=== PATIENT | male | born 1955 | race Caucasian/White ===

== ENCOUNTER 2018-01-03 19:25 | Emergency (ER) | payer OTHER, SELFPAY ==
[2018-01-03 19:26] VITALS: BP 146/88; PULSE 59; RESP 17; TEMP 36.6; O2SAT 94; BMI 31.6
--- NOTE | 2018-01-03 19:47 | CT_ITS ---
STUDY: CT ABDOMEN AND PELVIS WITHOUT CONTRAST REASON FOR EXAM: Male, 62 years old. LT ABD PAIN, KNOT IN STOMACH BILATERAL INGUINAL HERNIA REPAIR RADIATION DOSAGE (If Supplied By Facility): CTDIvol = ( 16.92 ) mGy, DLP = ( 862.37 ) mGycm TECHNIQUE: Transaxial images were obtained from the dome of the diaphragm to the symphysis pubis without oral contrast, and without intravenous contrast. Sagittal and coronal images were reconstructed. Individualized dose optimization techniques were used for this CT. COMPARISON: February 23, 2012. FINDINGS: The visualized lung bases are unremarkable. The visualized portions of the heart are within normal limits. Normal liver. Normal gallbladder and extrahepatic biliary system. Normal spleen. Normal pancreas. Normal bilateral adrenal glands. Normal right kidney. Simple left renal cyst measuring 37 and 27 mm. Non obstructive 1 mm mid renal parenchymal stones. 4.3 mm mid lateral nonobstructive left renal stone. Normal visualized stomach. Normal small intestine. There are multiple colonic diverticula consistent with diverticulosis. There is non-visualization of the appendix. Stool throughout the colon. There is diffuse atherosclerotic calcification of the abdominal aorta, without a demonstrated aneurysm. Normal inferior vena cava. Normal retroperitoneum. 35 mm area of fat necrosis in the right upper quadrant mesenteric fat. Retroaortic left renal vein. Normal urinary bladder. Normal visualized prostate gland. There is an umbilical hernia containing fat. There is no bowel involvement. There is no incarceration. There is no findings suggesting that this is causing a bowel obstruction. There is a left-sided inguinal hernia containing adipose tissue. There are diffuse degenerative changes of the visualized lumbar spine. Loss of intervertebral disc height at L5-S1. Vacuum disc phenomenon at L5-S1. CT/Abdomen/Pelvis without Cont IMPRESSION: 1 mm nonobstructive left renal stone. 4.3 mm mid lateral nonobstructive left renal stone. There are multiple diverticuli of the colon. There is diverticulosis but no radiographic signs for diverticulitis. Constipation. Simple left renal cyst. 35 mm area of fat necrosis in the right upper quadrant mesenteric fat. There is an umbilical hernia containing fat. There is no bowel involvement. There is no incarceration. There is no findings suggesting that this is causing a bowel obstruction. There is a left inguinal hernia containing fat. There is no bowel involvement. There is no incarceration. There is no findings suggesting that this is causing a bowel obstruction. Electronically Signed: Ishaan Moon MD at 20:27 EDT , Service support ,
--- NOTE | 2018-01-03 20:01 | RAD_ITS ---
STUDY: X-RAY CHEST REASON FOR EXAM: Male, 62 years old. Cough TECHNIQUE: Frontal and lateral views of the chest. COMPARISON: None. FINDINGS: The lungs are clear and expanded. There is no demonstrated pleural abnormality. Normal size heart. Normal mediastinum and juancarlos. Normal visualized pulmonary arteries. Normal visualized aortic arch and descending thoracic aorta. Normal visualized thoracic spine. Normal visualized ribs, clavicles, and shoulders. There is no demonstrated abnormality of the visualized soft tissue structures of the upper abdomen. RAD/Chest PA and Lateral IMPRESSION: Normal x-ray examination of the chest. Electronically Signed: Ishaan Moon MD at 20:22 EDT , Service support ,
--- NOTE | 2018-01-03 21:25 | ED.VISSUMM ---
- ER Visit Summary Date of Service: 01/03/18 Chief Complaint: Abdominal pain History of Present Illness: The patient is a 62 M who presents with left upper quadrant abdominal pain that began today after coughing. Patient states she was coughing and he felt something pull in his lower chest and upper abdomen. Patient states he has some swelling over this area. Patient denies any nausea or vomiting. Patient denies any fevers or chills. Patient denies any sputum production. Patient denies any back pain. Patient denies any other symptoms. Physical Examination: Vital signs are stable. Patient is afebrile. Patient is in no acute distress. Oral mucosa is pink and moist. Neck is supple. Heart was regular rate and rhythm. Lungs are clear and equal bilaterally. There is good respiratory effort noted. Abdomen is soft. Bowel sounds are normal. There is some mild edema over the left upper quadrant. There is no tenderness noted. There is no rebound or guarding noted. There is no ecchymosis noted. Cranial nerves II through XII are intact. There are no focal motor or sensory deficits noted. Test Results: Chest x-ray was obtained and did not show any acute cardiopulmonary process. CT scan of the abdomen and pelvis was obtained. There is no hernia noted. There is no evidence of a bowel obstruction. There is no acute intra-abdominal process noted. Emergency Department Course and Treatment: She was given a dose of [place] here. Patient was given a prescription for [place]. She was instructed to follow-up with his primary care physician in 7-10 days. Patient understood and was agreeable with the plan. All questions were answered. Disposition: Discharge home Impression: Abdominal wall strain This note was generated with [employer] dictation software. It may contain incorrect words, spelling, and punctuation that were not noted in review of the chart prior to signing ED Disposition - Plan for ED Patient: Disposition: Home or Assisted Living Chief Complaint: Cough Diagnosis: Abdominal wall strain Instructions: ED Strain Abdominal Muscle Prescriptions: Hydrocodone Bitart/Apap 5-325 [[place] 5/325] 1 tab PO Q6H PRN PRN 5 Days #20 tab PRN Reason: Pain Referrals: Blake Sandoval MD [Primary Care Provider] -
[2018-01-03] MEDS: HYDROcodone Bitartrate/Apap 5/325 Tablet PO (22:13)
[2018-01-03 22:17] VITALS: BP 132/78; PULSE 61; RESP 16; O2SAT 97
== END 2018-01-03 22:18 | disposition home or self-care (01) ==
PROVIDERS: Emergency Provider Emergency Medicine; Family Provider Family Medicine; PCP Family Medicine
DX: S39.011A Strain of muscle, fascia and tendon of abdomen, initial encounter (principal); I10 Essential (primary) hypertension; E78.00 Pure hypercholesterolemia, unspecified; G47.30 Sleep apnea, unspecified; Z79.899 Other long term (current) drug therapy; X58.XXXA Exposure to other specified factors, initial encounter; Y93.89 Activity, other specified; Y92.009 Unspecified place in unspecified non-institutional (private) residence as the place of occurrence of the external cause; Y99.8 Other external cause status
CPT/HCPCS: 71046; 74176; 99283

== ENCOUNTER → 2018-01-08 09:18 | Outpatient (CLI) | payer OTHER, SELFPAY ==
[2018-01-08 10:29] LABS: Vitamin D,25 Hydroxy 16.4 ng/mL (29.95-100.01)
[2018-01-08 10:33] LABS: AST(SGOT) 20 U/L (15-37); Alanine Aminotransfer ALT/SGPT 36 U/L (16-61); Albumin, Serum 3.7 g/dL (3.2-5.0); Alkaline Phosphatase 109 U/L (45-117); Bilirubin, Direct 0.17 mg/dL (0.00-0.30); CPK Total, Creatine Kinase 82 U/L (39-308); Cholesterol 174 mg/dL (200); Globulin 3.4 g/dL (2.2-4.2); High Density Lipoprotein 38 mg/dL; Protein, Total 7.1 g/dL (6.4-8.2); Triglycerides 335 mg/dL; Very Low Density Lipoprotein 67 mg/dL (5-40)
== END ==
PROVIDERS: Family Provider Family Medicine; PCP Family Medicine; Visit Provider Family Medicine
DX: E78.2 Mixed hyperlipidemia (principal)
CPT/HCPCS: 36415; 80061; 80076; 82306; 82550

== ENCOUNTER 2018-02-12 09:22 | Emergency (ER) | payer OTHER, SELFPAY ==
--- NOTE | 2018-02-12 10:40 | DT_ITS ---
This patient was seen during an EMR downtime February 10, 2018 - February 17, 2018. This patient may have a combination of paper and electronic documentation or all paper documentation. All documentation is viewable within the e-chart portion of [employer] for each patient visit.
--- NOTE | 2018-02-12 11:00 | RAD_ITS ---
STUDY: X-RAY - RIGHT HAND REASON FOR EXAM: Lateral right hand pain, chainsaw injury of the first finger. TECHNIQUE: 3 view(s) of the hand. COMPARISON: Radiographs of the second finger 01/13/2015. FINDINGS: Normal radiocarpal articulation. Normal distal radioulnar joint. Normal visualized carpal bones. Normal carpal articulations Normal carpometacarpal articulation of the thumb. Normal second through fifth carpometacarpal joints. Normal metacarpi. Normal metacarpophalangeal joint of the thumb. Normal interphalangeal joint of the thumb. Normal proximal and distal phalanges of the thumb. Normal metacarpophalangeal joints of the second through fifth fingers. Normal proximal and distal interphalangeal joints of the second through fifth fingers. Normal phalanges of the second through fifth fingers. There is no residual fracture deformity of the second proximal phalanx. The soft tissue structures are unremarkable. RAD/Hand Min 3 Views IMPRESSION: Unremarkable x-ray examination of the right hand without demonstrated recent fracture. Electronically Signed: Sánchez Garzon MD at 13:56 EDT Tel , Service support ,
--- NOTE | 2018-03-14 08:02 | ED.VISSUMM ---
- ER Visit Summary Date of Service: 03/14/18 Chief Complaint: Injury to right hand day prior to presentation. History of Present Illness: The patient is a 63 M who presents with blunt injury to his right hand that occurred day prior to presentation. He describes as a dull aching discomfort. Pain is worse with movement. He sustained blunt injury to the dorsal aspect of his right hand. He denies any paresthesia, anesthesia or motor weakness. He is on no anticoagulant. He is right handed. Past medical history of hypertension. Physical Examination: Blood pressure is slightly low at 91/52. Heart rate is 52. HEENT exam is unremarkable. Heart is regular. There is no respiratory distress. There is evidence of blunt injury to the dorsal aspect of the right hand and right thumb. There is pain to palpation over the thenar eminence. Median, radial and ulnar function intact. Capillary refill is normal. Sensation in the fingers and thumb is normal. Test Results: Three-view x-ray of the hand was interpreted by radiologist as normal. Film was not reviewed by me since unavailable during computer downtime. Emergency Department Course and Treatment: Symptomatic treatment and x-ray to evaluate for fracture Treatment Plan: Ice, elevation, rest and anti-inflammatories since there is no contraindication. Disposition: Discharged to home Impression: Contusion right hand initial encounter This note was generated with [employer] dictation software. It may contain incorrect words, spelling, and punctuation that were not noted in review of the chart prior to signing ED Disposition - Plan for ED Patient: Disposition: Home or Assisted Living Referrals: Blake Sandoval MD [Primary Care Provider] -
== END 2018-02-12 12:10 | disposition home or self-care (01) ==
LOC: ED 02-14 12:28
PROVIDERS: Emergency Provider Emergency Medicine; Family Provider Family Medicine; PCP Family Medicine
DX: S60.221A Contusion of right hand, initial encounter (principal); X58.XXXA Exposure to other specified factors, initial encounter; Y93.9 Activity, unspecified; Y92.9 Unspecified place or not applicable; Y99.9 Unspecified external cause status
CPT/HCPCS: 73130; 99282

== ENCOUNTER → 2018-05-30 11:06 | Outpatient (CLI) | payer OTHER, SELFPAY ==
--- NOTE | 2018-05-30 11:15 | RAD_ITS ---
STUDY: X-RAY CHEST REASON FOR EXAM: Male, 63 years old. Fatigue, weight loss TECHNIQUE: PA and lateral views of the chest. COMPARISON: January 03, 2018 chest x-ray FINDINGS: There is trace lower lobe atelectasis. There is no demonstrated pleural abnormality. Normal size heart. Normal mediastinum and juancarlos. Normal visualized pulmonary arteries. Normal visualized aortic arch and descending thoracic aorta. There are diffuse degenerative changes of the visualized thoracic spine. Normal visualized ribs, clavicles, and shoulders. There is no demonstrated abnormality of the visualized soft tissue structures of the upper abdomen. RAD/Chest PA and Lateral IMPRESSION: Minimal left lower lobe atelectasis. Electronically Signed: Nely Bradshaw MD at 17:41 EDT Tel , Service support ,
[2018-05-30 12:38] LABS: Absolute Lymphocyte Count 2.36 X10^3/ul (0.83-4.51); Absolute Neutrophil Count 4.9 X10^3/uL (2.0-7.7); Basophil# 0.03 X10^3/uL; Basophil% 0.4 % (0-1); Eosinophil# 0.24 X10^3/uL; Eosinophils% 2.9 % (0-5); Erythrocyte Sedimentation Rate < 1 mm/hr (0-20); Hematocrit 42.2 % (40-54); Hemoglobin 14.3 g/dl (13.0-16.5); Lymphocyte # 2.36 X10^3/ul (4.0); Lymphocyte % 28.3 % (19-41); Mean Corp Hgb Conc 33.9 g/gl (32-36); Mean Corpuscular Hgb 31.7 pg (27.0-32.0); Mean Corpuscular Volume 93.6 fL (80-94); Monocyte# 0.84 X10^3/uL; Monocyte% 10.1 % (0-10); Neutrophil # 4.86 X10^3/uL (2.7-7.7); Neutrophil % 58.2 % (47-70); POSITIVE COUNT NO; POSITIVE DIFFERENTIAL NO; POSITIVE MORPHOLOGY NO; Platelet Count 229 K/mm3 (150-450); RBC Distribution Width CV 13.2 % (11.6-14.6); RBC Distribution Width SD 45.5 fl (35.1-43.9); Red Blood Count 4.51 M/mm3 (4.6-6.2); White Blood Count 8.3 K/mm3 (4.4-11.0)
[2018-05-30 13:05] LABS: ALB/GLOB Ratio 1.1 RATIO (0.9-2.4); AST(SGOT) 22 U/L (15-37); Alanine Aminotransfer ALT/SGPT 43 U/L (16-61); Albumin, Serum 3.6 g/dL (3.2-5.0); Alkaline Phosphatase 113 U/L (45-117); Anion Gap 8 (5-15); BUN 21 mg/dL (7-18); BUN/Creat Ratio 16.4 RATIO (10-20); CPK Total, Creatine Kinase 59 U/L (39-308); Calcium,Total 8.7 mg/dL (8.5-10.1); Chloride 102 mmol/L (98-107); Creatinine, Serum 1.28 mg/dL (0.70-1.30); EST Glomerular Filtration Rate 61 mL/min (>60); Est Glom Filt Rate - Afr Amer 73 mL/min (>60); Globulin 3.4 g/dL (2.2-4.2); Glucose 179 mg/dL (74-106); Potassium 4.2 mmol/L (3.5-5.1); Sodium Level 137 mmol/L (136-145); Thyroid Stim Hormone (TSH) 1.48 uIU/mL (0.358-3.74)
[2018-06-02 10:31] LABS: Hemoglobin A1c 7.6 % (4.2-6.3)
[2018-06-02 10:43] LABS: Internal QC Validated? YES +Cl - CLEAR BKGD; Monotest Negative (Negative)
== END ==
PROVIDERS: Family Provider Family Medicine; PCP Family Medicine; Visit Provider Family Medicine
DX: R63.4 Abnormal weight loss (principal); E78.2 Mixed hyperlipidemia; R73.9 Hyperglycemia, unspecified; R53.83 Other fatigue
CPT/HCPCS: 36415; 71046; 80053; 82550; 83036; 84443; 85025; 85652; 86308

== ENCOUNTER → 2018-11-27 10:51 | Outpatient (CLI) | payer OTHER, SELFPAY ==
--- NOTE | 2018-11-27 11:15 | RAD_ITS ---
STUDY: X-RAY LEFT FOOT, FIRST TOE REASON FOR EXAM: Infected abrasion of left great toe, 2 injuries in the past 2 weeks. TECHNIQUE: 3 view(s) of the toe were obtained. COMPARISON: None. FINDINGS: Normal visualized metatarsus. Normal sesamoids. Normal metatarsophalangeal (M.T.P) joint. Normal interphalangeal joint. Normal phalanges. The soft tissue structures are unremarkable. RAD/Toe(s) Min 2 Views IMPRESSION: Unremarkable x-ray of the left great toe. Electronically Signed: Sánchez Garzon MD at 11:56 EDT Tel , Service support ,
[2018-11-27 11:45] LABS: Erythrocyte Sedimentation Rate < 1 mm/hr (0-20)
[2018-11-27 11:46] LABS: Absolute Lymphocyte Count 2.03 X10^3/ul (0.83-4.51); Absolute Neutrophil Count 4.4 X10^3/uL (2.0-7.7); Basophil# 0.03 X10^3/uL; Basophil% 0.4 % (0-1); Eosinophils% 2.7 % (0-5); Hematocrit 44.9 % (40-54); Hemoglobin 14.8 g/dl (13.0-16.5); Lymphocyte # 2.03 X10^3/ul (4.0); Lymphocyte % 27.5 % (19-41); Mean Platelet Vol. 11.2 fl (6.2-12.0); Monocyte# 0.66 X10^3/uL; Monocyte% 8.9 % (0-10); Neutrophil # 4.44 X10^3/uL (2.7-7.7); Neutrophil % 60.2 % (47-70); Platelet Count 220 K/mm3 (150-450); RBC Distribution Width CV 13.4 % (11.6-14.6); RBC Distribution Width SD 46.3 fl (35.1-43.9); Red Blood Count 4.63 M/mm3 (4.6-6.2); White Blood Count 7.4 K/mm3 (4.4-11.0)
[2018-11-27 11:49] LABS: POSITIVE COUNT NO; POSITIVE DIFFERENTIAL NO; POSITIVE MORPHOLOGY NO
[2018-11-27 12:01] LABS: Hemoglobin A1c 6.7 % (4.2-6.3)
[2018-11-27 12:10] LABS: Anion Gap 5 (5-15); BUN 27 mg/dL (7-18); BUN/Creat Ratio 21.6 RATIO (10-20); Calcium,Total 8.8 mg/dL (8.5-10.1); Chloride 107 mmol/L (98-107); Cholesterol 166 mg/dL (200); Creatinine, Serum 1.25 mg/dL (0.70-1.30); EST Glomerular Filtration Rate 62 mL/min (>60); Est Glom Filt Rate - Afr Amer 75 mL/min (>60); Glucose 149 mg/dL (74-106); High Density Lipoprotein 47 mg/dL; PSA,Total- Diagnostic 0.87 ng/mL (0.0-4.0); Potassium 4.9 mmol/L (3.5-5.1); Sodium Level 140 mmol/L (136-145); Triglycerides 174 mg/dL; Very Low Density Lipoprotein 35 mg/dL (5-40)
== END ==
PROVIDERS: Family Provider Family Medicine; PCP Family Medicine; Referring Provider Physician Assistant; Visit Provider Physician Assistant
DX: R97.20 Elevated prostate specific antigen [PSA] (principal); E11.9 Type 2 diabetes mellitus without complications; E78.5 Hyperlipidemia, unspecified; S90.412A Abrasion, left great toe, initial encounter; L08.9 Local infection of the skin and subcutaneous tissue, unspecified
CPT/HCPCS: 36415; 73660; 80048; 80061; 83036; 84153; 85025; 85652

== ENCOUNTER → 2019-06-01 | Outpatient (CLI) | payer OTHER, SELFPAY ==
[2019-06-01 13:15] LABS: Absolute Lymphocyte Count 2.19 X10^3/uL (0.83-4.51); Absolute Neutrophil Count 4.2 X10^3/uL (2.0-7.7); Basophil# 0.04 X10^3/uL; Basophil% 0.5 % (0-1); Eosinophil# 0.22 X10^3/uL; Hematocrit 43.4 % (40-54); Hemoglobin 14.7 g/dL (13.0-16.5); Lymphocyte # 2.19 X10^3/ul (4.0); Lymphocyte % 30.1 % (19-41); Mean Corp Hgb Conc 33.9 g/dL (32-36); Mean Corpuscular Hgb 32.2 pg (27.0-32.0); Mean Platelet Vol. 10.6 fl (6.2-12.0); Monocyte# 0.65 X10^3/uL; Monocyte% 8.9 % (0-10); NRBC Flagged by Analyzer 0 % (0-5); Neutrophil # 4.16 X10^3/uL (2.7-7.7); Neutrophil % 57.2 % (47-70); Platelet Count 216 K/mm3 (150-450); RBC Distribution Width CV 12.7 % (11.6-14.6); RBC Distribution Width SD 44.3 fl (35.1-43.9); Red Blood Count 4.57 M/mm3 (4.6-6.2); White Blood Count 7.3 K/mm3 (4.4-11.0)
[2019-06-01 13:33] LABS: Microalbumin,Random Urine 5.3 mg/L (NO RANGE EST.); Microalbumin:Creatinine Ratio 8.7 mg/g CRE (<30 mg/g CRE)
[2019-06-01 14:04] LABS: AST(SGOT) 18 U/L (15-37); Alanine Aminotransfer ALT/SGPT 37 U/L (16-61); Albumin, Serum 3.6 g/dL (3.2-5.0); Alkaline Phosphatase 98 U/L (45-117); Anion Gap 7 (5-15); BUN 17 mg/dL (7-18); Calcium,Total 8.6 mg/dL (8.5-10.1); Chloride 106 mmol/L (98-107); Cholesterol 231 mg/dL (200); Creatinine, Serum 1.13 mg/dL (0.70-1.30); EST Glomerular Filtration Rate 70 mL/min (>60); Est Glom Filt Rate - Afr Amer 84 mL/min (>60); Globulin 3.5 g/dL (2.2-4.2); Glucose 133 mg/dL (74-106); High Density Lipoprotein 41 mg/dL; PSA,Total- Diagnostic 0.91 ng/mL (0.0-4.0); Potassium 4.2 mmol/L (3.5-5.1); Protein, Total 7.1 g/dL (6.4-8.2); Sodium Level 139 mmol/L (136-145); Triglycerides 476 mg/dL
[2019-06-01 14:26] LABS: Hemoglobin A1c 7.5 % (4.2-6.3)
== END | disposition home or self-care (01) ==
LOC: LAB 12:40
PROVIDERS: Family Provider Family Medicine; PCP Family Medicine; Referring Provider Family Medicine; Visit Provider Family Medicine
DX: E11.9 Type 2 diabetes mellitus without complications (principal); N40.0 Benign prostatic hyperplasia without lower urinary tract symptoms; I10 Essential (primary) hypertension
CPT/HCPCS: 36415; 80053; 80061; 82043; 82570; 83036; 84153; 85025

== ENCOUNTER 2019-10-13 06:07 | Day surgery (SDC) | payer OTHER, SELFPAY ==
--- NOTE | 2019-10-07 05:08 | HP_ITS ---
Intake Vital Signs 10/07/19 Height 5 ft 9 in 10/07/19 Weight: 210 lb 10/07/19 BMI 31.0 10/07/19 BP 150/81 H 10/07/19 Blood Pressure Location Rt brachial 10/07/19 Position Sitting 10/07/19 Respiration 18 10/07/19 Pulse 54 L 10/07/19 Pulse Source Monitor 10/07/19 Temp 97.9 F 10/07/19 Temp Source Oral 10/07/19 Pulse Oximetry (%) 96 10/07/19 Oxygen Delivery Method room air Intake Visit Reasons: HX OF COLON POLYPS Palliative Senior Np Required: No Is patient in pain?: No Allergies pseudoephedrine HCl [From Sudafed] Allergy (Verified 10/07/19 15:58) Other KATY Inhibitors Adverse Reaction (Verified 10/07/19 15:58) Other Medications Omeprazole [Prilosec] 20 mg PO DAILY 07/24/13 [History Confirmed 10/07/19] Pravastatin [Pravachol] 20 mg PO QHS 08/10/13 [History Confirmed 10/07/19] Losartan Potassium [Cozaar] 100 mg PO DAILY 12/05/15 [History Confirmed 10/07/19] Clonazepam [Klonopin] 1 mg PO QHS PRN PRN 05/01/16 [History Confirmed 10/07/19] Hydrochlorothiazide 50 mg PO DAILY 01/03/18 [History Confirmed 10/07/19] metformin 500 mg tablet 500 mg PO BID 10/07/19 [History Confirmed 10/07/19] metoprolol tartrate 25 mg tablet 25 mg PO BID tab 10/07/19 [History Confirmed 10/07/19] [facility] Medical History (Updated 10/07/19 @ 17:04 by Basil Galicia MD) Lipoma (Acute) Personal history of colonic polyps (Acute) HTN (hypertension) (Chronic) History of smoking (Chronic) Hyperlipidemia (Chronic) Surgical History (Updated 10/07/19 @ 15:54 by Liz Menezes) Hx of lithotripsy (Acute) Hx of bilateral inguinal hernia repair (Acute) Family History (Updated 10/07/19 @ 15:56 by Liz Menezes) Brother Diabetes High cholesterol Hypertension Sister High cholesterol Hypertension Diabetes Father High cholesterol Hypertension Social History (Updated 10/07/19 @ 17:08 by Basil Galicia MD) Smoking Status: Former smoker second hand exposure: No alcohol intake: never substance use type: does not use caffeine: Yes what type of physical activity do you participate in: none frequency: does not exercise seatbelt use: always HPI HPI HPI: NAYELY WEEKS is a 64 M who presents to the office today for HPI HPI Surgical H&P: Yes HPI: NAYELY WEEKS is a 64 M who presents to the office today for surgical consultation regarding colonoscopy and a newly found right anterior axillary subcutaneous mass. Primary care physician is Dr. Blake Sandoval and a written copy of my surgical consult recommendations will be returned to him On October 08, 2016 I performed a laparoscopic mobilization of the splenic flexure and mobilization of the Toby flexure with a transverse colectomy and partial omentectomy with a end and suture anastomosis for a non-colonoscopically resectable polyp. Final pathology demonstrated tubulovillous adenoma 2.5 cm in diameter. 2 additional smaller tubular adenomas. The margins were clear of disease. 4 lymph nodes were unremarkable. The omentum that was submitted was not remarkable. He presents now for surveillance colonoscopy. His most recent colonoscopy was prior to the surgery. On that occasion going back to his fours May 02, 2016 he had a mid transverse colon polyp and a splenic flexure polyp and a proximal sigmoid polyp all which were tubular adenomas. He had also had previous polyps removed January 19, 2013 He denies bright red blood per rectum or melena. No abdominal pain. No change of bowel habits. No change of weight. He states that his health otherwise is been stable. When his gave him a hug she noted a mass in the right anterior axillary area just last night and he is hoping for an opinion. Exam Const General: cooperative, healthy appearing, comfortable, no acute distress Nutritional Appearance: obese Orientation: alert, awake [facility] Head: normal to inspection Chest Other: Right anterior to the anterior axillary line over lying the insertion of the pectoralis major there is a 2.5 cm rubbery soft subcutaneous mobile mass. Resp Effort & Inspection: normal respiratory effort Auscultation: clear to auscultation bilaterally Cardio Rate: regular rate Rhythm: regular rhythm GI Palpation: soft, no hepatosplenomegaly Auscultation: normal bowel sounds Other: Well-healed supraumbilical vertical incision Musc Cervical Spine: normal cervical lordosis Extrem General: no calf tenderness bilaterally Psych Affect: normal affect Assessment & Plan Problems 1. History of partial colectomy Z90.49 2. Personal history of colonic polyps Z86.010 3. Lipoma of right upper extremity D17.21 Plan Right upper anterior axillary line chest area findings are clinically very much consistent with a subcutaneous lipoma. It is asymptomatic and just recently identified coincidentally. I am not recommending any surgical intervention at this time. The patient has been instructed as it is an easy place for him to observe to periodically check this area and if symptoms or size change arises to recontact us. The patient has had a history of multiple colonic polyps. He has undergone a transverse colectomy for tubulovillous adenoma. I recommend to him a colonoscopy with possible biopsy or polypectomy is indicated. He has had an opportunity to ask and have questions answered. We will schedule and proceed at his discretion. I very much appreciate the ongoing opportunity of assisting with his surgical care Cc: Dr. Blake Galicia M.D., F.A.C.S. Coding Level of Care Code Off vis,est,level 3 Diagnoses History of partial colectomy Z90.49 Personal history of colonic polyps Z86.010 Lipoma of right upper extremity D17.21 ??Lipoma location: upper extremity ??Laterality: right 10/07/19 1708 <Electronically signed by Basil stratton MD> Date _ Basil Galicia MD I have re-examined the patient. There are no clinical changes since date of exam.
[2019-10-07 15:57] VITALS: BMI 31.0
[2019-10-13] VITALS (7 sets, daily range): BP systolic 99–136; BP diastolic 69–90; PULSE 52–56; RESP 16; TEMP 36.7; O2SAT 86–97; BMI 30.1
[2019-10-13] MEDS: Lactated Ringers 1,000 ML 100 ML IV (06:46)
--- NOTE | 2019-10-13 07:30 | COLBX_PTH ---
PATIENT: NAYELY WEEKS LOC: EN U#:[id number] AGE/SX: 64/M ROOM: RE10/13/[address]: Dr. Basil Galicia MD : 1955 BED: DIS: 10/13/2019 SPEC #: [id number] RECD: 10/13/19 10:43 STATUS: [place]E [place] #: [id number] SHAE: 10/13/19 07:[address]: Basil Galicia DEPT: SURGICAL PATHOLOGY RECD BY: Grzegorz Hernandez ENTERED: 10/13/19 13:06 SP TYPE: COLON BX OTHR DR: Dr. Blake Sandoval MD Tissues: A - Transverse colon B - Transverse colon Procedures: Surgery Specimen Level IV HEADER OPERATION: Colonoscopy (MOD) PRE-OP DIAGNOSIS: History of colon polyps TISSUE SUBMITTED: A - Proximal transverse polyp, B - Distal transverse polyp MICROSCOPIC DIAGNOSIS A. Proximal transverse colon polyp, biopsy: Tubular adenoma. B. Distal transverse colon polyp, biopsy: A polypoid fragment of colonic mucosa with cautery artifacts, negative for adenomatous changes. KATHERINE:dadis 10/14/19 MICROSCOPIC DESCRIPTION Slides are reviewed. GROSS DESCRIPTION A - Received in fixative is one container labeled with the patient's name and designated proximal transverse polyp. The specimen consists of one irregular fragment of light canales soft tissue that measures 0.4 x 0.2 x 0.1 cm. The specimen is totally submitted in one cassette. B - Received in fixative is one container labeled with the patient's name and designated distal transverse polyp. The specimen consists of one irregular fragment of light canales soft tissue that measures 0.2 x 0.1 x 0.1 cm. The specimen is totally submitted in one cassette. / KATHERINE:addis 10/13/19 TC:1 CPT: 53231 x2
--- NOTE | 2019-10-13 07:51 | OP.COLON_ITS ---
Patient Name: Lopez Garcia Procedure Date: 10/13/2019 7:20 AM Date of : 1955 Age: 64 Procedure: Colonoscopy Indications: High risk colon cancer surveillance: Personal history of colonic polyps Providers: Basil Galicia MD Medicines: Midazolam 3 mg IV, Meperidine 100 mg IV Patient Profile: Last Colonoscopy: September 2016. Complications: No immediate complications. Procedure: Pre-Anesthesia Assessment: - Prior to the procedure, a History and Physical was performed, and patient medications and allergies were reviewed. The patient's tolerance of previous anesthesia was also reviewed. The risks and benefits of the procedure and the sedation options and risks were discussed with the patient. All questions were answered, and informed consent was obtained. Prior Anticoagulants: The patient has taken no previous anticoagulant or antiplatelet agents. ASA Grade Assessment: II - A patient with mild systemic disease. After reviewing the risks and benefits, the patient was deemed in satisfactory condition to undergo the procedure. After I obtained informed consent, the scope was passed under direct vision. Throughout the procedure, the patient's blood pressure, pulse, and oxygen saturations were monitored continuously. The pediatric colonoscope was introduced through the anus and advanced to the cecum, identified by appendiceal orifice and ileocecal valve. The colonoscopy was performed without difficulty. The patient tolerated the procedure well. The quality of the bowel preparation was good. The ileocecal valve and the appendiceal orifice were photographed. Moderate Sedation: Moderate (conscious) sedation was personally administered by the endoscopist. The following parameters were monitored: oxygen saturation, heart rate, blood pressure, and response to care. Total physician intraservice time was 15 minutes. Scope In: 7:28:38 AM Scope Withdrawal Time 0 hours 11 minutes 2 seconds Scope Out: 7:44:44 AM Total Procedure Duration Time 0 hours 16 minutes 6 seconds Findings: The perianal and digital rectal examinations were normal. A 5 mm polyp was found in the proximal transverse colon. The polyp was sessile. The polyp was removed with a hot snare. Resection and retrieval were complete. A 4 mm polyp was found in the distal transverse colon. The polyp was sessile. The polyp was removed with a hot snare. Resection and retrieval were complete. Multiple diverticula were found in the sigmoid colon and descending colon. Impression: - One 5 mm polyp in the proximal transverse colon, removed with a hot snare. Resected and retrieved. - One 4 mm polyp in the distal transverse colon, removed with a hot snare. Resected and retrieved. - Diverticulosis in the sigmoid colon and in the descending colon. Recommendation: - Discharge patient to home. - Resume previous diet. - Continue present medications. - Telephone my office for pathology results in 1 week. - Repeat colonoscopy in 5 years for surveillance. Procedure Code(s): --- Professional --- 40493, Colonoscopy, flexible; with removal of tumor(s), polyp(s), or other lesion(s) by snare technique 51117, 59, Moderate sedation services provided by the same physician or other qualified health home care music therapist performing the diagnostic or therapeutic service that the sedation supports, requiring the presence of an independent trained observer to assist in the monitoring of the patient's level of consciousness and physiological status; initial 15 minutes of intraservice time, patient age 5 years or older Diagnosis Code(s): --- Professional --- Z86.010, Personal history of colonic polyps D12.3, Benign neoplasm of transverse colon (hepatic flexure or splenic flexure) K57.30, Diverticulosis of large intestine without perforation or abscess without bleeding CPT copyright 2017 [employer]. All rights reserved. The codes documented in this report are preliminary and upon electrical continuity tester review may be revised to meet current compliance requirements. Basil Galicia MD 10/13/2019 7:51:15 AM This report has been signed electronically. Number of Addenda: 0 Note Initiated On: 10/13/2019 7:20 AM
--- NOTE | 2019-10-13 07:51 | OP.CCLET_ITS ---
10/13/2019 Blake Sandoval Re : Colonoscopy procedure for Lopez Garcia Dear Lori This procedure was performed on Sunday, October 13, 2019. My impressions and recommendations are as follows: Impressions : - One 5 mm polyp in the proximal transverse colon, removed with a hot snare. Resected and retrieved. - One 4 mm polyp in the distal transverse colon, removed with a hot snare. Resected and retrieved. - Diverticulosis in the sigmoid colon and in the descending colon. Recommendations : - Discharge patient to home. - Resume previous diet. - Continue present medications. - Telephone my office for pathology results in 1 week. - Repeat colonoscopy in 5 years for surveillance. My findings are described in the full procedure note, which is enclosed. If I can be of further assistance, please feel free to contact me at Doctor phone number(s): Work: . Sincerely, Basil Galicia MD 10/13/2019 7:51:15 AM This report has been signed electronically.
== END 2019-10-13 08:52 | disposition home or self-care (01) ==
LOC: EN 06:07 → AC 06:09
PROVIDERS: PCP Family Medicine; Referring Provider Family Medicine; Visit Provider Surgery
PROC: 0DJD8ZZ Inspection of Lower Intestinal Tract, Via Natural or Artificial Opening Endoscopic (ICD-10-PCS; CPT 45378; principal; 2019-10-13 07:25)
DX: Z12.11 Encounter for screening for malignant neoplasm of colon (principal); Z86.010 Personal history of colon polyps; D12.3 Benign neoplasm of transverse colon; Z79.899 Other long term (current) drug therapy; E78.5 Hyperlipidemia, unspecified; I10 Essential (primary) hypertension; Z87.891 Personal history of nicotine dependence; D17.21 Benign lipomatous neoplasm of skin and subcutaneous tissue of right arm; Z90.49 Acquired absence of other specified parts of digestive tract; K57.30 Diverticulosis of large intestine without perforation or abscess without bleeding
CPT/HCPCS: 45385; 88305; 99152; 99153; J7120

== ENCOUNTER → 2020-06-07 11:36 | Outpatient (CLI) | payer OTHER, SELFPAY ==
[2019-10-13 06:38] VITALS: BMI 30.1
[2020-06-07 12:56] LABS: Absolute Lymphocyte Count 2.42 X10^3/uL (0.83-4.51); Absolute Neutrophil Count 3.9 X10^3/uL (2.0-7.7); Basophil# 0.05 X10^3/uL; Basophil% 0.7 % (0-1); Eosinophil# 0.27 X10^3/uL; Eosinophils% 3.7 % (0-5); Hematocrit 42.1 % (40-54); Hemoglobin 14.2 g/dL (13.0-16.5); Lymphocyte # 2.42 X10^3/ul (4.0); Lymphocyte % 33.2 % (19-41); Mean Corp Hgb Conc 33.7 g/dL (32-36); Mean Corpuscular Hgb 31.3 pg (27.0-32.0); Mean Corpuscular Volume 92.9 fL (80-94); Mean Platelet Vol. 10.8 fl (6.2-12.0); Monocyte# 0.64 X10^3/uL; Monocyte% 8.8 % (0-10); NRBC Flagged by Analyzer 0 % (0-5); Neutrophil % 53.5 % (47-70); Platelet Count 234 K/mm3 (150-450); RBC Distribution Width CV 12.6 % (11.6-14.6); RBC Distribution Width SD 43.4 fl (35.1-43.9); Red Blood Count 4.53 M/mm3 (4.6-6.2); White Blood Count 7.3 K/mm3 (4.4-11.0)
[2020-06-07 13:26] LABS: Hemoglobin A1c 8.3 % (3.8-5.6)
[2020-06-07 13:35] LABS: ALB/GLOB Ratio 1.1 RATIO (0.9-2.4); AST(SGOT) 17 U/L (15-37); Alanine Aminotransfer ALT/SGPT 37 U/L (16-61); Albumin, Serum 3.7 g/dL (3.2-5.0); Alkaline Phosphatase 111 U/L (45-117); Anion Gap 4 (5-15); BUN 22 mg/dL (7-18); BUN/Creat Ratio 17.6 RATIO (10-20); Calcium,Total 8.9 mg/dL (8.5-10.1); Chloride 102 mmol/L (98-107); Cholesterol 235 mg/dL (200); Creatinine, Serum 1.25 mg/dL (0.70-1.30); EST Glomerular Filtration Rate 62 mL/min (>60); Est Glom Filt Rate - Afr Amer 75 mL/min (>60); Globulin 3.5 g/dL (2.2-4.2); Glucose 181 mg/dL (74-106); High Density Lipoprotein 39 mg/dL; Potassium 4.4 mmol/L (3.5-5.1); Protein, Total 7.2 g/dL (6.4-8.2); Sodium Level 135 mmol/L (136-145); Triglycerides 646 mg/dL
== END ==
PROVIDERS: PCP Family Medicine; Referring Provider Physician Assistant; Visit Provider Physician Assistant
DX: E11.9 Type 2 diabetes mellitus without complications (principal); I10 Essential (primary) hypertension; E78.2 Mixed hyperlipidemia
CPT/HCPCS: 36415; 80053; 80061; 83036; 85025

== ENCOUNTER → 2020-06-13 09:13 | Outpatient (CLI) | payer OTHER, SELFPAY ==
[2019-10-13 06:38] VITALS: BMI 30.1
--- NOTE | 2020-06-13 09:15 | US_ITS ---
HISTORY: Right axilla swollen. Concern for lymph node. 34 images and one cine clip. Findings: No fluid collections or lymph nodes are perceived. Flow is present within the insonated vessels. US/Ext Non Vasc Limited/Soft Tiss IMPRESSION: Normal. at 0600 Reported and signed by: Terry Jarquin MD Electronically Signed: Terry Jarquin MD at 5:59 EDT Tel , Service support ,
== END ==
PROVIDERS: PCP Family Medicine; Referring Provider Physician Assistant; Visit Provider Physician Assistant
DX: R59.9 Enlarged lymph nodes, unspecified (principal)
CPT/HCPCS: 76882

== ENCOUNTER → 2020-11-10 09:02 | Outpatient (CLI) | payer OTHER, SELFPAY ==
[2019-10-13 06:38] VITALS: BMI 30.1
[2020-11-10 10:39] LABS: Absolute Lymphocyte Count 2.18 X10^3/uL (0.83-4.51); Absolute Neutrophil Count 5.3 X10^3/uL (2.0-7.7); Basophil# 0.05 X10^3/uL; Basophil% 0.6 % (0-1); Eosinophil# 0.26 X10^3/uL; Hemoglobin 13.8 g/dL (13.0-16.5); Lymphocyte # 2.18 X10^3/ul (4.0); Lymphocyte % 25.4 % (19-41); Mean Corp Hgb Conc 32.1 g/dL (32-36); Mean Corpuscular Hgb 31.1 pg (27.0-32.0); Mean Corpuscular Volume 96.8 fL (80-94); Mean Platelet Vol. 11.1 fl (6.2-12.0); Monocyte% 9.3 % (0-10); NRBC Flagged by Analyzer 0 % (0-5); Neutrophil # 5.25 X10^3/uL (2.7-7.7); Neutrophil % 61.3 % (47-70); Platelet Count 266 K/mm3 (150-450); RBC Distribution Width CV 13.1 % (11.6-14.6); RBC Distribution Width SD 46.6 fl (35.1-43.9); Red Blood Count 4.44 M/mm3 (4.6-6.2); White Blood Count 8.6 K/mm3 (4.4-11.0)
[2020-11-10 10:56] LABS: Hemoglobin A1c 7.1 % (3.8-5.6)
[2020-11-10 11:07] LABS: AST(SGOT) 18 U/L (15-37); Alanine Aminotransfer ALT/SGPT 28 U/L (16-61); Albumin, Serum 3.6 g/dL (3.2-5.0); Alkaline Phosphatase 84 U/L (45-117); Anion Gap 5 (5-15); BUN 21 mg/dL (7-18); BUN/Creat Ratio 14.8 RATIO (10-20); Calcium,Total 9.3 mg/dL (8.5-10.1); Chloride 106 mmol/L (98-107); Cholesterol 150 mg/dL (200); Creatinine, Serum 1.42 mg/dL (0.70-1.30); EST Glomerular Filtration Rate 53 mL/min (>60); Est Glom Filt Rate - Afr Amer 64 mL/min (>60); Globulin 3.6 g/dL (2.2-4.2); Glucose 186 mg/dL (74-106); High Density Lipoprotein 49 mg/dL; Magnesium 1.8 mg/dL (1.6-2.6); Potassium 4.3 mmol/L (3.5-5.1); Protein, Total 7.2 g/dL (6.4-8.2); Sodium Level 139 mmol/L (136-145); Triglycerides 199 mg/dL; Very Low Density Lipoprotein 40 mg/dL (5-40)
[2020-11-16 09:09] LABS: Testosterone, Free 7.86 ng/dL (5.00-21.00)
[2020-11-16 09:30] LABS: Testosterone, % Free 4.39 % (1.50-4.20); Testosterone, Total 179 ng/dL (264-916)
== END ==
PROVIDERS: PCP Family Medicine; Referring Provider Physician Assistant; Visit Provider Physician Assistant
DX: E78.2 Mixed hyperlipidemia (principal); E11.9 Type 2 diabetes mellitus without complications; I10 Essential (primary) hypertension; K21.9 Gastro-esophageal reflux disease without esophagitis; K52.9 Noninfective gastroenteritis and colitis, unspecified
CPT/HCPCS: 36415; 80053; 80061; 83036; 83735; 84402; 84403; 85025

== ENCOUNTER → 2020-11-13 23:26 | Outpatient (CLI) | payer OTHER, SELFPAY ==
[2019-10-13 06:38] VITALS: BMI 30.1
[2020-11-14 00:13] LABS: Microalbumin,Random Urine 6.5 mg/L (NO RANGE EST.); Microalbumin:Creatinine Ratio 5.3 mg/g CRE (<30 mg/g CRE)
== END ==
LOC: LAB.FUTURE 23:27 → LABSPEC 11-14 08:06
PROVIDERS: PCP Family Medicine; Referring Provider Physician Assistant; Visit Provider Physician Assistant
DX: E11.9 Type 2 diabetes mellitus without complications (principal)
CPT/HCPCS: 82043; 82570

== ENCOUNTER → 2021-02-03 09:25 | Outpatient (CLI) | payer OTHER, SELFPAY ==
[2019-10-13 06:38] VITALS: BMI 30.1
[2021-02-03 10:07] LABS: Hematocrit 45.1 % (40-54)
[2021-02-03 10:47] LABS: Follicle Stimulating Hormone 2.2 mIU/mL; Luteinizing Hormone 3.7 mIU/mL; PSA,Total- Diagnostic 1.01 ng/mL (0.0-4.0); Prolactin 5.3 ng/mL; Thyroid Stim Hormone (TSH) 2.53 uIU/mL (0.358-3.74)
[2021-02-09 12:09] LABS: Testosterone, Free 6.96 ng/dL (5.00-21.00)
[2021-02-09 15:28] LABS: Testosterone, Total 188 ng/dL (264-916)
== END ==
PROVIDERS: PCP Family Medicine; Referring Provider Family Medicine; Visit Provider Family Medicine
DX: N52.9 Male erectile dysfunction, unspecified (principal); R79.89 Other specified abnormal findings of blood chemistry
CPT/HCPCS: 36415; 83001; 83002; 84146; 84153; 84402; 84403; 84443; 85014

== ENCOUNTER → 2021-04-27 10:04 | Outpatient (CLI) | payer OTHER, SELFPAY ==
[2021-04-27 11:19] LABS: Hematocrit 46.3 % (40-54)
[2021-04-27 11:49] LABS: PSA,Total - Annual Screen 1.52 ng/mL (0.00-4.00)
== END ==
PROVIDERS: PCP Family Medicine
DX: E29.1 Testicular hypofunction (principal)
CPT/HCPCS: 36415; 84153; 84403; 85014; G0103

== ENCOUNTER → 2021-07-25 10:57 | Outpatient (CLI) | payer OTHER, SELFPAY ==
[2021-07-25 12:25] LABS: Absolute Lymphocyte Count 1.97 X10^3/uL (0.83-4.51); Absolute Neutrophil Count 3.9 X10^3/uL (2.0-7.7); Basophil# 0.03 X10^3/uL; Basophil% 0.4 % (0-1); Eosinophil# 0.29 X10^3/uL; Eosinophils% 4.3 % (0-5); Hematocrit 43.2 % (40-54); Hemoglobin 14.4 g/dL (13.0-16.5); Lymphocyte # 1.97 X10^3/ul (0.83-4.51); Lymphocyte % 28.9 % (19-41); Mean Corp Hgb Conc 33.3 g/dL (32-36); Mean Corpuscular Hgb 31.2 pg (27.0-32.0); Mean Corpuscular Volume 93.7 fL (80-94); Mean Platelet Vol. 10.7 fl (6.2-12.0); Monocyte% 8.8 % (0-10); NRBC Flagged by Analyzer 0 % (0-5); Neutrophil # 3.91 X10^3/uL (2.7-7.7); Neutrophil % 57.5 % (47-70); Platelet Count 237 K/mm3 (150-450); RBC Distribution Width CV 13.2 % (11.6-14.6); RBC Distribution Width SD 45.3 fl (35.1-43.9); Red Blood Count 4.61 M/mm3 (4.6-6.2); White Blood Count 6.8 K/mm3 (4.4-11.0)
[2021-07-25 12:50] LABS: Hemoglobin A1c 6.5 % (3.8-5.6)
[2021-07-25 12:57] LABS: AST(SGOT) 11 U/L (15-37); Alanine Aminotransfer ALT/SGPT 24 U/L (16-61); Albumin, Serum 3.5 g/dL (3.2-5.0); Alkaline Phosphatase 101 U/L (45-117); Anion Gap 7 (5-15); BUN 27 mg/dL (7-18); BUN/Creat Ratio 22.5 RATIO (10-20); Chloride 106 mmol/L (98-107); Cholesterol 164 mg/dL (200); EST Glomerular Filtration Rate 65 mL/min (>60); Est Glom Filt Rate - Afr Amer 78 mL/min (>60); Globulin 3.4 g/dL (2.2-4.2); Glucose 148 mg/dL (74-106); High Density Lipoprotein 49 mg/dL; Potassium 4.6 mmol/L (3.5-5.1); Protein, Total 6.9 g/dL (6.4-8.2); Sodium Level 138 mmol/L (136-145); Triglycerides 147 mg/dL; Very Low Density Lipoprotein 29 mg/dL (5-40)
== END ==
PROVIDERS: PCP Family Medicine; Referring Provider Physician Assistant; Visit Provider Physician Assistant
DX: E11.9 Type 2 diabetes mellitus without complications (principal)
CPT/HCPCS: 36415; 80053; 80061; 83036; 85025

== ENCOUNTER → 2021-08-15 07:18 | Outpatient (CLI) | payer OTHER, SELFPAY ==
[2021-08-18 16:16] LABS: Testosterone, % Free 3.46 % (1.50-4.20); Testosterone, Total 185 ng/dL (264-916)
== END ==
PROVIDERS: PCP Family Medicine; Referring Provider Physician Assistant; Visit Provider Physician Assistant
DX: N52.9 Male erectile dysfunction, unspecified (principal); N40.0 Benign prostatic hyperplasia without lower urinary tract symptoms
CPT/HCPCS: 36415; 84402; 84403

== ENCOUNTER → 2022-03-16 | Outpatient (CLI) | payer OTHER, SELFPAY ==
[2022-03-16 08:49] LABS: Absolute Lymphocyte Count 2.66 X10^3/uL (0.83-4.51); Basophil# 0.03 X10^3/uL; Basophil% 0.4 % (0-1); Eosinophil# 0.28 X10^3/uL; Eosinophils% 4.2 % (0-5); Hematocrit 36.3 % (40-54); Hemoglobin 12.4 g/dL (13.0-16.5); Lymphocyte # 2.66 X10^3/ul (0.83-4.51); Lymphocyte % 39.8 % (19-41); Mean Corp Hgb Conc 34.2 g/dL (32-36); Mean Corpuscular Hgb 31.9 pg (27.0-32.0); Mean Corpuscular Volume 93.3 fL (80-94); Mean Platelet Vol. 10.7 fl (6.2-12.0); Monocyte# 0.69 X10^3/uL; Monocyte% 10.3 % (0-10); NRBC Flagged by Analyzer 0 % (0-5); Neutrophil # 3.02 X10^3/uL (2.7-7.7); Neutrophil % 45.2 % (47-70); Platelet Count 193 K/mm3 (150-450); RBC Distribution Width CV 12.7 % (11.6-14.6); RBC Distribution Width SD 43.7 fl (35.1-43.9); Red Blood Count 3.89 M/mm3 (4.6-6.2); White Blood Count 6.7 K/mm3 (4.4-11.0)
[2022-03-22 09:08] LABS: Testosterone, % Free 3.52 % (1.50-4.20); Testosterone, Free 4.58 ng/dL (5.00-21.00)
[2022-03-22 16:12] LABS: Estrogen, Total, Serum 123 pg/mL (56-213); Testosterone, Total 130 ng/dL (264-916)
== END | disposition home or self-care (01) ==
PROVIDERS: PCP Family Medicine
DX: R68.82 Decreased libido (principal)
CPT/HCPCS: 36415; 82672; 84402; 84403; 85025

== ENCOUNTER 2022-04-17 10:59 | Emergency (ER) | payer OTHER, SELFPAY ==
[2022-04-17 11:00] VITALS: BP 166/109; PULSE 53; RESP 18; TEMP 36.3; O2SAT 99; BMI 30.5
--- NOTE | 2022-04-17 11:49 | ED.VIS.LOWEX ---
HPI History of Present Illness Chief Complaint: Lower Extremity Injury Informant: patient Occured/Mechanism Mechanism/Context: Yes direct blow Onset/Context/Timing Onset: Days (5) Context: Sudden Onset Timing: Continuous Quality of Pain: - (sore) Location: right lower leg Current Severity: Mild Maximum Severity: Moderate Worsened by: walking, palpation Relieved by: remaining still/resting Associated Symptoms Associated Symptoms: Negative for Parasthesia, Weakness or Loss of Funtion Narrative Narrative: Patient states he slipped and hit his gimenez on his tailgate while trying to get in his truck last week. Sustained a swollen area where this occurred. Subsequently, he has developed lots of bruising that has been draining down into his ankle and foot. He is on no anticoagulants or antiplatelets. He denies any other injury or any systemic symptoms or numbness/weakness. [facility] Medical History History of smoking HTN (hypertension) Hyperlipidemia Lipoma Personal history of colonic polyps Home Medications omeprazole 20 mg capsule,delayed release 20 mg PO DAILY 07/24/13 [History Last Taken 10/08/16 05:00] pravastatin 20 mg tablet 20 mg PO QHS 08/10/13 [History Last Taken 12/04/15] losartan 100 mg tablet 100 mg PO DAILY 12/05/15 [History Last Taken 10/08/16 05:00] clonazepam 1 mg tablet 1 mg PO QHS PRN PRN OTHER 05/01/16 [History Last Taken Unknown] hydrochlorothiazide 50 mg tablet 50 mg PO DAILY 01/03/18 [History Last Taken Unknown] metformin 500 mg tablet 500 mg PO BID 10/07/19 [History Last Taken Unknown] metoprolol tartrate 25 mg tablet 25 mg PO BID 10/07/19 [History Last Taken Unknown] Allergy/AdvReac Type Severity Reaction Status Date / Time pseudoephedrine HCl Allergy Other Verified 04/17/22 11:02 [From [facility]] KATY Inhibitors AdvReac Other Verified 04/17/22 11:02 Family History (Updated 10/07/19 @ 15:56 by Liz Menezes) Brother Diabetes High cholesterol Hypertension Sister High cholesterol Hypertension Diabetes Father High cholesterol Hypertension Surgical History (Updated 10/07/19 @ 15:54 by Liz Menezes) Hx of bilateral inguinal hernia repair Hx of lithotripsy Social History Smoking Status: Former smoker second hand exposure: No alcohol intake: never substance use type: does not use caffeine: Yes what type of physical activity do you participate in: none frequency: does not exercise seatbelt use: always ROS ROS ED Constitutional Constitutional ED: Denies chills or fever(s) Musculoskeletal Musculoskeletal: Reports extremity pain; Denies neck pain Integumentary Reports wounds; Denies Abrasions or rash Neurologic Neurologic: Denies paresthesias or weakness EXAM Physical Exam Const Vital Signs: 04/17/22 11:00 Temperature 97.4 F L Temperature Source Temporal Pulse Rate 53 L Respiratory Rate 18 Blood Pressure 166/109 H Blood Pressure Mean 128 Pulse Ox 99 Oxygen Delivery Method Room Air Positive well nourished and well developed General Appearance ED: well developed and NAD Neck full ROM and supple Back/Spine normal ROM and normal to inspection Extremity Extremity Narrative: Tender hematoma without crepitance or deformity right distal gimenez, it is in the distal third of the lower leg. No significant malleoli or tenderness but there is some generalized edema in the right ankle. Joint is stable, he moves it without difficulty. Neurovascular intact distally. Neuro oriented x3, no focal motor deficits and no sensory deficits noted Sensorium / Orientation: alert Psych mental status grossly normal and thought process normal Skin Skin Narrative: Right lower leg contusion/hematoma, skin intact. Ecchymosis layering along the medial and lateral aspect of the hindfoot, with no tenderness there. Rashes: no rashes MDM MDM MDM Narrative Medical decision making narrative: 2 view x-ray on my interpretation right tib-fib negative for nothing acute. Radiology in agreement. Reassured about the dependent bruising which is simply subcutaneous blood from the hematoma that is draining and should go away with time. Supportive care advised. Radiography Diagnostic Testing: Clinical Impression(s) from Imaging Studies Tibia/Fibula X-Ray 04/17/22 12:05 IMPRESSION: Normal x-ray examination of the tibia and fibula. Electronically Signed: Nabeel Murillo MD at 12:21 EDT , Discharge Plan Triage Chief Complaint: Lower Extremity Injury ED Provider: Sam Taveras Dx/Rx/DC Orders Clinical Impression: Traumatic hematoma of right lower leg Instructions: ED Contusion, Lower Extremity Prescriptions: No Action metformin 500 mg tablet 500 mg PO BID omeprazole 20 MG capsule 20 mg PO DAILY Label Comments: GERD pravastatin 20 MG tablet 20 mg PO QHS Label Comments: CHOLESTEROL LOWERING losartan 100 MG tablet 100 mg PO DAILY Label Comments: BLOOD PRESSURE clonazepam 1 MG tablet 1 mg PO QHS PRN PRN (Reason: OTHER) Label Comments: FOR RESTLESS LEGS metoprolol tartrate 25 mg tablet 25 mg PO BID hydrochlorothiazide 50 mg tablet 50 mg PO DAILY Label Comments: Primary Care Provider: Blake Sandoval Referrals: Blake Sandoval MD [Primary Care Provider] - As Needed Disposition Disposition: Home, Self Care
--- NOTE | 2022-04-17 12:05 | RAD_ITS ---
STUDY: X-RAY - RIGHT TIBIA AND FIBULA REASON FOR EXAM: Male, 67 years old. Pain and swelling following injury. TECHNIQUE: 2 view(s) of the tibia and fibula were obtained. COMPARISON: None. FINDINGS: Normal visualized tibia. Normal visualized fibula. The soft tissue structures are unremarkable. RAD/Tibia & Fibula 2 Views IMPRESSION: Normal x-ray examination of the tibia and fibula. Electronically Signed: Nabeel Murillo MD at 12:21 EDT ,
== END 2022-04-17 13:47 | disposition home or self-care (01) ==
PROVIDERS: Emergency Provider Emergency Medicine; PCP Family Medicine; Visit Provider Emergency Medicine
DX: S89.91XA Unspecified injury of right lower leg, initial encounter (principal); Z87.891 Personal history of nicotine dependence; X58.XXXA Exposure to other specified factors, initial encounter
CPT/HCPCS: 36415; 73590; 82672; 84403; 85025; 99282

== ENCOUNTER → 2022-07-06 | Outpatient (CLI) | payer OTHER, SELFPAY ==
--- NOTE | 2022-07-06 15:12 | RAD_ITS ---
STUDY: XR Chest 2 Views 07/06/2022 3:18 PM REASON FOR EXAM: Male, 67 years old. CHEST PAIN SOB COMPARISON: 05/30/2018 TECHNIQUE: XR Chest 2 Views FINDINGS: There is no demonstrated pleural abnormality. Normal heart size. Normal mediastinum. Normal juancarlos. Prominent appearing increased interstitial lung markings. Normal visualized pulmonary arteries. There is atherosclerotic calcification of the aortic arch with tortuosity. There are diffuse degenerative changes of the visualized thoracic spine. There is degenerative osteoarthritis of the bilateral shoulders. There is no demonstrated abnormality of the visualized soft tissue structures of the upper abdomen. RAD/Chest PA and Lateral IMPRESSION: There are no acute findings. Electronically Signed: Ishaan Moon MD at 16:47 EDT ,
[2022-07-06 16:07] LABS: Absolute Lymphocyte Count 2.47 X10^3/uL (0.83-4.51); Absolute Neutrophil Count 8.1 X10^3/uL (2.0-7.7); Basophil# 0.06 X10^3/uL; Basophil% 0.5 % (0-1); Eosinophil# 0.18 X10^3/uL; Eosinophils% 1.6 % (0-5); Hematocrit 50.7 % (40-54); Lymphocyte # 2.47 X10^3/ul (0.83-4.51); Lymphocyte % 21.4 % (19-41); Mean Corp Hgb Conc 33.5 g/dL (32-36); Mean Corpuscular Volume 92.5 fL (80-94); Mean Platelet Vol. 10.5 fl (6.2-12.0); Monocyte# 0.67 X10^3/uL; Monocyte% 5.8 % (0-10); NRBC Flagged by Analyzer 0 % (0-5); Neutrophil # 8.12 X10^3/uL (2.7-7.7); Neutrophil % 70.2 % (47-70); Platelet Count 247 K/mm3 (150-450); RBC Distribution Width CV 12.4 % (11.6-14.6); RBC Distribution Width SD 42.5 fl (35.1-43.9); Red Blood Count 5.48 M/mm3 (4.6-6.2); White Blood Count 11.6 K/mm3 (4.4-11.0)
[2022-07-06 16:39] LABS: ALB/GLOB Ratio 1.1 RATIO (0.9-2.4); AST(SGOT) 10 U/L (15-37); Alanine Aminotransfer ALT/SGPT 17 U/L (16-61); Albumin, Serum 3.7 g/dL (3.2-5.0); Alkaline Phosphatase 82 U/L (45-117); Anion Gap 6 (5-15); BUN 16 mg/dL (7-18); BUN/Creat Ratio 11.9 RATIO (10-20); Calcium,Total 8.9 mg/dL (8.5-10.1); Chloride 105 mmol/L (98-107); Cholesterol 169 mg/dL (200); Creatinine, Serum 1.34 mg/dL (0.70-1.30); EST Glomerular Filtration Rate 57 mL/min (>60); Est Glom Filt Rate - Afr Amer 69 mL/min (>60); Globulin 3.3 g/dL (2.2-4.2); Glucose 133 mg/dL (74-106); High Density Lipoprotein 38 mg/dL; Potassium 3.8 mmol/L (3.5-5.1); Sodium Level 141 mmol/L (136-145); Thyroid Stim Hormone (TSH) 1.33 uIU/mL (0.358-3.74); Triglycerides 303 mg/dL; Very Low Density Lipoprotein 61 mg/dL (5-40)
[2022-07-06 16:43] LABS: Hemoglobin A1c 7.3 % (3.8-5.6)
== END | disposition home or self-care (01) ==
LOC: LAB 15:02
PROVIDERS: PCP Family Medicine; Referring Provider Nurse Practitioner Family; Visit Provider Nurse Practitioner Family
DX: R00.2 Palpitations (principal); R06.02 Shortness of breath; I10 Essential (primary) hypertension
CPT/HCPCS: 36415; 71046; 80053; 80061; 83036; 84443; 85025

== ENCOUNTER → 2022-08-24 | Outpatient (CLI) | payer OTHER, SELFPAY ==
[2022-08-24 09:59] LABS: Hematocrit 49.6 % (40-54); Hemoglobin 17.1 g/dL (13.0-16.5)
[2022-08-24 10:28] LABS: PSA,Total - Annual Screen 1.39 ng/mL (0.00-4.00)
== END | disposition home or self-care (01) ==
PROVIDERS: PCP Family Medicine; Visit Provider Urology
DX: R97.20 Elevated prostate specific antigen [PSA] (principal); R68.82 Decreased libido; N52.9 Male erectile dysfunction, unspecified
CPT/HCPCS: 36415; 84153; 84403; 85014; 85018; G0103

== ENCOUNTER → 2022-10-30 | Outpatient (CLI) | payer OTHER, SELFPAY ==
--- NOTE | 2022-10-30 09:00 | AAAS_ITS ---
Reason For Study: AAA Aorta Measurements Aorta Doppler Measurements Proximal aorta measures1.69 x 1.66cm. in cross- Peak systolic flow velocities within the proximal sectional axis. aorta measure 70.5 cm/sec. Proximal aorta measures1.70cm. in longitudinal Peak systolic flow velocities within the mid aorta axis. measure 77.7 cm/sec. Mid aorta measures1.81 x 1.81cm. in cross- Peak systolic flow velocities within the distal sectional axis. aorta measure 75.9 cm/sec. Mid aorta measures1.77cm. in longitudinal axis. Distal aorta measures1.46 x 1.48cm. in cross- sectional axis. Distal aorta measures1.44cm. in longitudinal axis. Left Iliac Artery Left iliac artery measures 1.07 x 1.07 cm. in the cross-sectional axis. Left iliac artery measures 1.01 cm. in the longitudinal axis. Peak systolic velocity in the left iliac artery measures 88.6 cm/sec. Right Iliac Artery Right iliac artery measures 1.08 x 1.09 cm. in the cross-sectional axis. Right iliac artery measures 1.09 cm. in the longitudinal axis. Peak systolic velocity in the right iliac artery measures 101.3 cm/sec. Procedure Aorta IVC Iliac vasculature or bypass grafts 11670. Technically difficult due to pt body habitus and bowel gas. Exam performed in department. VL/AAA Screening Interpretation Summary Maximal aortic diameter in the mid abdominal aorta at 1.81 x 1.81 cm which is n ormal. Normal aortic velocities identified. Left common iliac artery is normal 1.07 x 1.07 cm in diameter Right, iliac artery is normal at 1.08 x 1.09 cm in diameter Exam was noted to be technically difficult secondary to patient body habitus an d bowel gas Ordering Physician: Blake Sandoval Referring Physician: Blake Sandoval Performed By: Yazmin Pang RVT
--- NOTE | 2022-10-30 09:00 | ECHOD_ITS ---
Reason For Study: SOB Procedure This was a 2D Doppler, Color Flow transthoracic echocardiogram. Exam performed in department. Left Ventricle Normal LV size. Left ventricular systolic function is normal. The estimated ejection fraction is 55 %. No evidence for diastolic dysfunction. No regional wall motion abnormalities noted. Right Ventricle Normal RV size. Normal systolic function. Atria Normal left atrium. Normal right atrium. No doppler evidence for ASD. Mitral Valve There is no mitral annular calcification. Normal mitral valve. Trivial mitral valve insufficiency. Tricuspid Valve Normal tricuspid valve. Trivial tricuspid valve insufficiency. Right ventricular systolic pressure estimated to be 31 mmHg. Aortic Valve Trisinus/trileaflet aortic valve. Normal aortic valve. Pulmonic Valve The pulmonic valve is not well visualized. Great Vessels Normal sized aortic root. Pericardium/Pleural No pericardial effusion. MMode/2D Measurements & Calculations LVIDd: 4.4 cm IVSd: 1.1 cm Ao root diam: 3.3 cm LVIDs: 3.3 cm LVPWd: 1.1 cm RVDd: 3.6 cm FS: 26.7 % LAV(MOD-bp): 55.3 ml LVAd ap4: 39.6 cm2 SV(MOD-sp4): 78.3 ml LAV(MOD-bp) Indexed: 25.9 ml/m2 LVLd ap4: 8.9 cm LAV(MOD-sp2): 52.1 ml EDV(MOD-sp4): 143.8 ml LAV(MOD-sp4): 51.2 ml EDV(sp4-el): 149.1 ml LVAs ap4: 24.5 cm2 LVLs ap4: 7.6 cm ESV(MOD-sp4): 65.5 ml ESV(sp4-el): 66.9 ml EF(MOD-sp4): 54.4 % EF(sp4-el): 55.1 % SV(sp4-el): 82.2 ml LA A4 area: 19.6 cm2 LA dimension(2D): 4.3 cm RA A4 area: 18.4 cm2 Time Measurements MV dec time: 0.19 sec Doppler Measurements & Calculations MV E max sourav: 77.1 cm/sec Lat Peak E' Sourav: 9.0 cm/sec Med Peak E' Sourav: 7.9 cm/sec MV A max sourav: 89.1 cm/sec E/E' lat: 8.5 E/E' med: 9.8 MV E/A: 0.87 Ao V2 max: 120.7 cm/sec LV V1 max: 103.8 cm/sec PA V2 max: 73.7 cm/sec Ao max P.8 mmHg LV V1 max P.3 mmHg TR max sourav: 263.5 cm/sec TR max P.8 mmHg ECHO/Echo Complete Interpretation Summary Left ventricular systolic function is normal. The estimated ejection fraction is 55 %. Trivial mitral valve insufficiency. Trivial tricuspid valve insufficiency. Right ventricular systolic pressure estimated to be 31 mmHg. No evidence for diastolic dysfunction. Ordering Physician: Blake Sandoval Referring Physician: BLAKE SANDOVAL Performed By: Malorie Joseph RDCS
== END | disposition home or self-care (01) ==
LOC: CVS 08:58
PROVIDERS: PCP Family Medicine; Visit Provider Family Medicine
DX: R00.2 Palpitations (principal); I10 Essential (primary) hypertension; R06.02 Shortness of breath; Z13.6 Encounter for screening for cardiovascular disorders
CPT/HCPCS: 76706; 93306

== ENCOUNTER 2023-05-08 14:25 | Outpatient (CLI) | payer OTHER, SELFPAY ==
[2023-05-08 14:35] VITALS: BP 154/87; PULSE 56; RESP 16; TEMP 36.8
[2023-05-08 15:07] VITALS: BP 147/81; PULSE 58; RESP 16
[2023-05-08 15:10] LABS: Absolute Neutrophil Count 6.8 X10^3/uL (2.0-7.7); Basophil# 0.07 X10^3/uL; Basophil% 0.7 % (0-1); Hemoglobin 19.3 g/dL (13.0-16.5); Lymphocyte % 20.1 % (19-41); Mean Corp Hgb Conc 33.6 g/dL (32-36); Mean Corpuscular Hgb 31.4 pg (27.0-32.0); Mean Corpuscular Volume 93.3 fL (80-94); Mean Platelet Vol. 10.3 fl (6.2-12.0); Monocyte# 0.86 X10^3/uL; Monocyte% 8.7 % (0-10); NRBC Flagged by Analyzer 0 % (0-5); Neutrophil # 6.75 X10^3/uL (2.7-7.7); Platelet Count 196 K/mm3 (150-450); RBC Distribution Width CV 13.4 % (11.6-14.6); RBC Distribution Width SD 45.9 fl (35.1-43.9); Red Blood Count 6.15 M/mm3 (4.6-6.2); White Blood Count 9.9 K/mm3 (4.4-11.0)
[2023-05-08 15:15] LABS: Differential Indicated SCAN CRITERIA MET; Hematocrit 57.4 % (40-54)
[2023-05-09 15:34] LABS: Pathologist Review Reviewed
== END 2023-05-08 14:26 | disposition home or self-care (01) ==
LOC: MEDOUTP 14:27
PROVIDERS: PCP Family Medicine; Referring Provider Urology; Visit Provider Urology
DX: D75.1 Secondary polycythemia (principal)
CPT/HCPCS: 85025; 99195

== ENCOUNTER → 2023-09-16 | Outpatient (CLI) | payer OTHER, SELFPAY ==
[2023-09-16 10:48] LABS: Microalbumin,Random Urine 12.5 mg/L (NO RANGE EST.); Microalbumin:Creatinine Ratio 30.2 mg/g CRE (<30 mg/g CRE)
[2023-09-16 11:43] LABS: Hemoglobin A1c 6.5 % (3.8-5.6)
== END | disposition home or self-care (01) ==
LOC: LAB 09:38
PROVIDERS: PCP Family Medicine; Referring Provider Physician Assistant; Visit Provider Physician Assistant
DX: E11.9 Type 2 diabetes mellitus without complications (principal)
CPT/HCPCS: 36415; 82043; 82570; 83036

== ENCOUNTER → 2023-11-05 | Outpatient (CLI) | payer OTHER, SELFPAY ==
--- NOTE | 2023-11-05 13:55 | RAD_ITS ---
STUDY: X-RAY - UNILATERAL RIBS ( RIGHT ) WITH CHEST REASON FOR EXAM: Male, 68 years old. Rib pain, right side. TECHNIQUE - RIBS: 4 views of the right ribs. TECHNIQUE - CHEST: Single PA view of the chest. COMPARISON: None. FINDINGS - RIBS: Normal visualized right ribs without a demonstrated fracture. FINDINGS - CHEST: The lungs are clear and expanded. There is no demonstrated pleural abnormality. Normal size heart. Normal mediastinum and juancarlos. Normal visualized pulmonary arteries. Normal visualized aortic arch and descending thoracic aorta. Normal visualized thoracic spine. Normal visualized ribs, clavicles, and shoulders. There is no demonstrated abnormality of the visualized soft tissue structures of the upper abdomen. RAD/Ribs Uni Min 3V w/PA Chest IMPRESSION: RIBS: Normal x-ray examination of the right ribs. CHEST: Normal x-ray examination of the chest. Electronically Signed: Varghese Ma MD at 11:30 EST ,
[2023-11-05 15:29] LABS: Absolute Lymphocyte Count 1.86 X10^3/uL (0.83-4.51); Absolute Neutrophil Count 6.7 X10^3/uL (2.0-7.7); Basophil# 0.04 X10^3/uL; Basophil% 0.4 % (0-1); Eosinophil# 0.18 X10^3/uL; Eosinophils% 1.9 % (0-5); Hematocrit 54.6 % (40-54); Lymphocyte # 1.86 X10^3/ul (0.83-4.51); Lymphocyte % 19.5 % (19-41); Mean Corp Hgb Conc 33.5 g/dL (32-36); Mean Corpuscular Hgb 30.8 pg (27.0-32.0); Mean Corpuscular Volume 91.8 fL (80-94); Mean Platelet Vol. 10.7 fl (6.2-12.0); Monocyte# 0.78 X10^3/uL; Monocyte% 8.2 % (0-10); NRBC Flagged by Analyzer 0 % (0-5); Neutrophil # 6.65 X10^3/uL (2.7-7.7); Neutrophil % 69.7 % (47-70); Platelet Count 209 K/mm3 (150-450); RBC Distribution Width CV 12.6 % (11.6-14.6); RBC Distribution Width SD 42.3 fl (35.1-43.9); Red Blood Count 5.95 M/mm3 (4.6-6.2); White Blood Count 9.5 K/mm3 (4.4-11.0)
[2023-11-05 15:45] LABS: Hemoglobin 18.3 g/dL (13.0-16.5)
[2023-11-05 16:02] LABS: ALB/GLOB Ratio 1.3 RATIO (0.9-2.4); AST(SGOT) 13 U/L (15-37); Alanine Aminotransfer ALT/SGPT 20 U/L (16-61); Albumin, Serum 3.9 g/dL (3.2-5.0); Alkaline Phosphatase 84 U/L (45-117); Anion Gap 3 (5-15); BUN 16 mg/dL (7-18); BUN/Creat Ratio 11.8 RATIO (10-20); Calcium,Total 9.1 mg/dL (8.5-10.1); Chloride 107 mmol/L (98-107); Creatinine, Serum 1.36 mg/dL (0.70-1.30); EST Glomerular Filtration Rate 55 mL/min (>60); Est Glom Filt Rate - Afr Amer 67 mL/min (>60); Glucose 136 mg/dL (74-106); Potassium 4.5 mmol/L (3.5-5.1); Protein, Total 6.9 g/dL (6.4-8.2); Sodium Level 137 mmol/L (136-145)
[2023-11-06 13:44] LABS: Pathologist Review Reviewed
== END | disposition home or self-care (01) ==
PROVIDERS: PCP Family Medicine
DX: R07.81 Pleurodynia (principal)
CPT/HCPCS: 36415; 71101; 80053; 85025

== ENCOUNTER → 2023-11-12 | Outpatient (CLI) | payer OTHER, SELFPAY ==
--- NOTE | 2023-11-12 10:35 | US_ITS ---
INDICATION: Right upper quadrant pain EXAMINATION: Ultrasound US Abdomen Limited (quadrant) TECHNIQUE: Thornton scale and color doppler imaging was performed of the right upper quadrant. COMPARISON: No relevant prior comparison study available FINDINGS: LIVER: There is mild increased echogenicity. Suboptimal visualization of the left lobe of the liver due to overlying bowel gas. The liver is enlarged measuring about 19 cm in length. The portal vein is patent with normal hepatopedal flow. No focal hepatic lesion. There is no free fluid. GALLBLADDER AND BILIARY TREE: No shadowing gallstone, pericholecystic fluid or gallbladder wall thickening is demonstrated. The gallbladder wall measures 2.4 mm. The proximal common bile duct measures 2.9 mm, which is within normal limits for the patient''s age. Sonographic Ro''s sign: Negative. PANCREAS: The pancreas is suboptimally visualized and is somewhat obscured by bowel gas. Right kidney: The right kidney measures 10.5 cm in length. There is a 2.2 cm cyst in the upper pole of the right kidney appears to be simple and no further follow-up exam is needed. 4 mm echogenic shadow seen in the upper pole which may reflect nonobstructing stone. No evidence of hydronephrosis. US/Abdomen Limited IMPRESSION: 1. No evidence of gallstones or biliary dilatation. 2. Hepatomegaly and fatty infiltration of the liver. 3. Probable small nonobstructing stone in the right kidney without evidence of hydronephrosis. 4. Small cyst in the right kidney. Electronically Signed: Benny Jones MD at 14:53 EST ,
--- OUTSIDE RECORDS SUMMARY | 2023-11-12 11:12 | XMS RPT_ITS | CCD ---
Author Name Unknown Address [address] [place] [address] Organization [facility] Care Team Providers Care Parts Person Name Role Phone Blake Sandoval Unavailable Karrie Zamudio Unavailable Unavailable Toby Toure Unavailable Blake Sandoval MD Primary Care Provider Blake Sandoval MD Primary Care Provider Blake Sandoval Unavailable Unavailable Unavailable Unavailable Unavailable Blake Sandoval MD Primary Care Provider Blake Sandoval MD Primary Care Provider [phone] Nayely Mortensen Attending Unavailable Jeyson, Dr. Blake Toussaint Primary Care Unavail able Nayely Mortensen Attending Unavailable Nayely Mortensen Referring Unavailable Jeyson, Dr. Blake Toussaint Primary Care Unavail able Nayely Mortensen Attending Unavailable Nayely Mortensen Referring Unavailable Jeyson, Dr. Blake Toussaint Primary Care Unavail able Nayely Mortensen Attending Unavailable Nayely Mortensen Referring Unavailable Jeyson, Dr. Blake Toussaint Primary Care Unavail able Nayely Mortensen Attending Unavailable Nayely Mortensen Referring Unavailable Jeyson, Dr. Blake Toussaint Primary Care Unavail able Nayely Mortensen Attending Unavailable Jeyson, Dr. Blake Toussaint Primary Care Unavail able Blake Sandoval MD Primary Care Provider NAYELY MORTENSEN Attending Unavailable BLAKE SANDOVAL Primary Care Unavailable BLAKE SANDOVAL Primary Care Unavailable KATE WESTON Attending Unavailable BLAKE SANDOVAL Primary Care Unavailable BLAKE SANDOVAL Primary Care Unavailable URKATE BARNES Attending Unavailable KATE WESTON Referring Unavailable JEYSON, BLAKE Portillo Primary Care Unavailable KATINA BANDA Attending Unavail able KATINA BANDA Referring Unavail able JEYSON, BLAKE J Primary Care Unavailable ANTONY, ALEXEY Admitting Unavailable KATINA BANDA Attending Unavail able KATINA BANDA Referring Unavail able JEYSON, BLAKE Portillo Primary Care Unavailable DURAIRAJ, ALEXEY Admitting Unavailable H AND V, OPG Consulting Unavailable SPENCER ZELAYA Attending Unavailable Lala BERMEO Referring Unavailable JEYSON, BLAKE Portillo Primary Care Unavailable JEYSON, BLAKE Portillo Primary Care Unavailable Lala BERMEO Attending Unavailable JEYSON, BLAKE Portillo Primary Care Unavailable Lala BERMEO Referring Unavailable JEYSON, BLAKE Portillo Primary Care Unavailable Lala BERMEO Attending Unavailable JEYSON, BLAKE Portillo Primary Care Unavailable JEYSON, BLAKE Portillo Attending Unavailable JEYSON, BLAKE J Primary Care Unavailable JEYSON, BLAKE J Attending Unavailable Lala BERMEO Attending Unavailable JEYSON, BLAKE Portillo Primary Care Unavailable JEYSON, BLAKE J Primary Care Unavailable HAFSA CRANE Referring Unavailable JEYSON, BLAKE J Primary Care Unavailable HAFSA CRANE Attending Unavailable Lala BERMEO Referring Unavailable JEYSON, BLAKE Portillo Primary Care Unavailable CAMPBELL WEBSTER Attending Unavailable Allergies Allergy Classification Reported Allergen(s) Allergy Type Date of Onset Reaction(s) Facility Adrenergic Agonists (1 source) Pseudoephedrine Drug Allergy Other [facility] Angiotensin Converting Enzyme (KATY) Inhibitors (1 source) Angiotensin Converting Enzyme (Katy) Inhibitors Drug Allergy Other [facility] Medications Current Medications Medication Drug Class(es) Dates Sig (Normalized) Sig (Original) amLODIPine 5 mg oral tablet (20 sources) Dihydropyridine Calcium Channel Anne Start: 08-21-2022 End: 07-21-2024 take 1 tablet by mouth once daily amLODIPine (NORVASC) 5 mg tablet Indications: Hypertension, essential Take 1 tablet by mouth once daily. 90 tablet 3 07/22/2023 07/21/2024 Active Completed/Discontinued Medications Medication Drug Class(es) Dates Sig (Normalized) Sig (Original) [id number] 200 actuat albuterol 0.09 mg/actuat metered dose inhaler (20 sources) beta2-Adrenergic Agonist Start: 04-12-2020 take 2 puff(s) by inhalation every six hours as needed albuterol HFA (PROAIR HFA) 90 mcg/actuation inhaler 2 Puffs every 6 hours as needed. Take as directed 6.7 g 1 04/12/2020 Active Problems Active Problems Problem Classification Problem Date Documented Date Episodic/Chronic Cardiac dysrhythmias (11 sources) Atrial fibrillation; Translations: [Unspecified atrial fibrillation] Onset: 03-13-2023 03-15-2023 Chronic Cardiac dysrhythmias (3 sources) Intermittent palpitations; Translations: [Palpitations] Episodic Diabetes mellitus without complication (20 sources) Type 2 diabetes mellitus without complication; Translations: [Type 2 diabetes mellitus without complications] Onset: 06-02-2018 Chronic Disorders of lipid metabolism (20 sources) Mixed hyperlipidemia; Translations: [Mixed hyperlipidemia] Onset: 07-13-2016 Chronic Esophageal disorders (20 sources) Gastroesophageal reflux disease; Translations: [Gastro-esophageal reflux disease without esophagitis] Onset: 10-13-2009 10-13-2009 Chronic Essential hypertension (20 sources) Essential hypertension; Translations: [Essential (primary) hypertension] Onset: 04-05-2009 Chronic Genitourinary symptoms and ill-defined conditions (7 sources) Nocturia; Translations: [Nocturia] Onset: 07-22-2023 07-18-2023 Episodic Hyperplasia of prostate (20 sources) Benign prostatic hyperplasia; Translations: [Benign prostatic hyperplasia without lower urinary tract symptoms] Onset: 05-22-2006 06-01-2019 Chronic Neoplasms of unspecified nature or uncertain behavior (2 sources) 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; Translations: [Neoplasm of uncertain behavior of skin] Onset: 11-05-2023 11-05-2023 Episodic Other circulatory disease (1 source) Elevated blood pressure; Translations: [Elevated blood-pressure reading, without diagnosis of hypertension] Episodic Other connective tissue disease (1 source) Heel pain; Translations: [Pain in left foot] 07-22-2023 Episodic Other diseases of kidney and ureters (1 source) Renal impairment; Translations: [Disorder of kidney and ureter, unspecified] Episodic Other endocrine disorders (1 source) Testicular hypofunction; Translations: [Testicular hypofunction] Onset: 05-22-2006 05-22-2006 Chronic Other endocrine disorders (5 sources) Male hypogonadism; Translations: [Testicular hypofunction] Onset: 07-22-2023 Chronic Other endocrine disorders (3 sources) Hypogonadism; Translations: [Hypogonadism] Chronic Other endocrine disorders (2 sources) Testicular hypofunction; Translations: [Testicular hypofunction] Onset: 07-22-2023 Chronic Other hematologic conditions (2 sources) Erythrocytosis; Translations: [Secondary polycythemia] 04-24-2023 Episodic Other hematologic conditions (1 source) Secondary polycythemia; Translations: [Polycythemia] Onset: 09-16-2023 Episodic Other hereditary and degenerative nervous system conditions (20 sources) Restless legs; Translations: [Restless legs syndrome] Onset: 05-22-2006 09-19-2017 Chronic Other hereditary and degenerative nervous system conditions (1 source) Restless legs syndrome; Translations: [RLS (restless legs syndrome)] Onset: 09-19-2017 Chronic Other lower respiratory disease (2 sources) Dyspnea; Translations: [Shortness of breath] Episodic Other lower respiratory disease (1 source) Rib pain; Translations: [Pleurodynia] 11-05-2023 Episodic Other lower respiratory disease (1 source) Pleurodynia; Translations: [Rib pain on right side] Onset: 11-05-2023 Episodic Other male genital disorders (20 sources) Secondary erectile dysfunction; Translations: [Male erectile dysfunction, unspecified] Onset: 11-10-2020 11-10-2020 Chronic Other male genital disorders (11 sources) Male erectile dysfunction, unspecified; Translations: [Erectile dysfunction] Onset: 11-10-2020 07-18-2023 Chronic Other nervous system disorders (1 source) Other chronic pain; Translations: [Chronic heel pain, left] Onset: 07-22-2023 Chronic Other nutritional; endocrine; and metabolic disorders (1 source) Obesity, unspecified; Translations: [Obesity, Class I, BMI 30-34.9] Onset: 09-16-2023 Chronic Other screening for suspected conditions (not mental disorders or infectious disease) (14 sources) Blood chemistry abnormal; Translations: [Other specified abnormal findings of blood chemistry] Onset: 08-26-2006 08-26-2006 Episodic Other upper respiratory infections (5 sources) Acute upper respiratory infection; Translations: [Acute upper respiratory infections of unspecified site] 03-07-2021 Episodic Past or Other Problems Problem Classification Problem Date Documented Da te Episodic/Chronic Abdominal hernia (20 sources) Umbilical hernia; Translations: [Umbilical hernia without obstruction or gangrene] Onset: 10-13-2009 10-13-2009 Episodic Abdominal pain (6 sources) Generalized abdominal pain; Translations: [Generalized abdominal pain] Onset: 07-22-2023 07-22-2023 Episodic Calculus of urinary tract (20 sources) Kidney stone; Translations: [Calculus of kidney] Onset: 05-22-2006 05-22-2006 Episodic Other and unspecified benign neoplasm (20 sources) History of polyp of colon; Translations: [Personal history of colonic polyps] Onset: 10-09-2010 10-09-2010 Episodic Other and unspecified benign neoplasm (6 sources) Polyp of colon; Translations: [Polyp of colon] Onset: 05-09-2016 05-09-2016 Episodic Other and unspecified benign neoplasm (6 sources) Adenomatous polyp of colon ; Translations: [Benign neoplasm of transverse colon] Onset: 11-20-2016 01-23-2021 Episodic Other connective tissue disease (20 sources) Diastasis recti; Translations: [Separation of muscle (nontraumatic), other site] Onset: 10-13-2009 10-13-2009 Episodic Other connective tissue disease (1 source) Pain in left foot; Translations: [Chronic heel pain, left] Onset: 07-22-2023 Episodic Other endocrine disorders (20 sources) Hypotestosteronism; Translations: [Endocrine disorder, unspecified] Onset: 05-22-2006 01-21-2022 Episodic Other endocrine disorders (1 source) Endocrine disorder, unspecified; Translations: [Hypotestosteronism ] Onset: 01-21-2022 Episodic Other lower respiratory disease (2 sources) Chronic cough; Translations: [Chronic cough] Onset: 01-10-2023 Episodic Other male genital disorders (20 sources) Disorder of prostate; Translations: [Disorder of prostate, unspecified] Onset: 05-22-2006 05-22-2006 Episodic Other nutritional; endocrine; and metabolic disorders (20 sources) Overweight; Translations: [Overweight] Onset: 10-02-2009 11-10-2020 Episodic Results Test Name Value Interpretation Reference Range Facil ity Vital Signs Date Time Vital Sign Value Performing Clinician Facility 11-05-2023 11:53-0500 Body weight 96.16 kg Hafsa Suppan MANAGER HEMATOLOGY.PACKING TRACTOR MACHINE OPERATOR Work Phone: [facility] 11-05-2023 11:53-0500 Diastolic blood pressure 76 mm[Hg] Hafsa Suppan MANAGER HEMATOLOGY.PACKING TRACTOR MACHINE OPERATOR Work Phone: [facility] 11-05-2023 11:53-0500 Heart rate 58 /min Hafsa Suppan MANAGER HEMATOLOGY.PACKING TRACTOR MACHINE OPERATOR Work Phone: [facility] 11-05-2023 11:53-0500 Respiratory rate 16 /min Hafsa Suppan MANAGER HEMATOLOGY.PACKING TRACTOR MACHINE OPERATOR Work Phone: [facility] 11-05-2023 11:53-0500 SaO2% (BldA) [Mass fraction] 95 % Hafsa Suppan MANAGER HEMATOLOGY.PACKING TRACTOR MACHINE OPERATOR Work Phone: [facility] 11-05-2023 11:53-0500 Systolic blood pressure 140 mm[Hg] Hafsa Suppan MANAGER HEMATOLOGY.PACKING TRACTOR MACHINE OPERATOR Work Phone: [facility] 07-24-2023 10:20-0500 Body height 175.3 cm Kate Weston MD Work Phone: [facility] 07-24-2023 10:20-0500 Body mass index (BMI) [Ratio] 30.72 kg/m2 Kate Weston MD Work Phone: [facility] 07-24-2023 10:20-0500 Body weight 94.35 kg Kate Weston MD Work Phone: [facility] 07-24-2023 10:20-0500 Diastolic blood pressure 81 mm[Hg] Kate Weston MD Work Phone: [facility] 07-24-2023 10:20-0500 Heart rate 62 /min Kate Weston MD Work Phone: [facility] 07-24-2023 10:20-0500 SaO2% (BldA) [Mass fraction] 96 % Kate Weston MD Work Phone: [facility] 07-24-2023 10:20-0500 Systolic blood pressure 125 mm[Hg] Kate Weston MD Work Phone: [facility] 07-22-2023 15:04-0500 Body weight 95.25 kg NA Bermeo PA-C Work Phone: [facility] 07-22-2023 15:04-0500 Diastolic blood pressure 70 mm[Hg] NA Bermeo PA-C Work Phone: [facility] 07-22-2023 15:04-0500 Heart rate 64 /min NA Bermeo PA-C Work Phone: [facility] 07-22-2023 15:04-0500 Respiratory rate 16 /min NA Bermeo PA-C Work Phone: [facility] 07-22-2023 15:04-0500 SaO2% (BldA) [Mass fraction] 97 % NA Bermeo PA-C Work Phone: [facility] 07-22-2023 15:04-0500 Systolic blood pressure 132 mm[Hg] NA Bermeo PA-C Work Phone: [facility] 07-22-2023 08:46-0500 Body mass index (BMI) [Ratio] 31.16 kg/m2 Nayely Mortensen MD Work Phone: [facility] 07-22-2023 08:46-0500 Body weight 95.71 kg Nayely Mortensen MD Work Phone: [facility] 07-22-2023 08:46-0500 Respiratory rate 16 /min Nayely Mortensen MD Work Phone: [facility] 04-24-2023 16:06-0400 Diastolic blood pressure 86 mm[Hg] Blake Sandoval MD Work Phone: [facility] 04-24-2023 16:06-0400 Systolic blood pressure 136 mm[Hg] Blake Sandoval MD Work Phone: [facility] 04-24-2023 15:48-0400 Body height 177.8 cm Blake Sandoval MD Work Phone: [facility] 04-24-2023 15:48-0400 Body weight 92.08 kg Blake Sandoval MD Work Phone: [facility] 04-24-2023 15:48-0400 Heart rate 56 /min Blake Sandoval MD Work Phone: [facility] 04-24-2023 15:48-0400 SaO2% (BldA) [Mass fraction] 96 % Blake Sandoval MD Work Phone: [facility] 04-11-2023 08:43-0400 Body mass index (BMI) [Ratio] 31.18 kg/m2 Blake Sandoval Work Phone: QV-Icrzxtx-Vlteyslx [facility] 232 DO Work Phone: 04-11-2023 08:43-0400 Body surface area Derived from formula 2.11 m2 Blake Sandoval Work Phone: OS-Qvnvztz-Guzsarsz [facility] 232 DO Work Phone: 04-11-2023 08:43-0400 Body weight 95.77 kg Blake Sandoval Work Phone: GW-Gieqotq-Dsrkiqsq [facility] 232 DO Work Phone: 04-11-2023 08:43-0400 Diastolic blood pressure 90 mm[Hg] Blake Sandoval Work Phone: HW-Qeyefxn-Hvfucyoe [facility] 232 DO Work Phone: 04-11-2023 08:43-0400 Heart rate 64 /min Blake Sandoval Work Phone: VE-Tmqcyol-Wvflvocb [facility] 232 DO Work Phone: 04-11-2023 08:43-0400 Systolic blood pressure 180 mm[Hg] Blake Sandoval Work Phone: RH-Yobajzl-Txuyvjqm [facility] 232 DO Work Phone: 03-25-2023 09:35-0400 Diastolic blood pressure 80 mm[Hg] Blake Sandoval MD Work Phone: [facility] 03-25-2023 09:35-0400 Systolic blood pressure 130 mm[Hg] Blake Sandoval MD Work Phone: [facility] 03-25-2023 09:04-0400 Body weight 95.25 kg Blake Sandoval MD Work Phone: [facility] 03-25-2023 09:04-0400 Heart rate 54 /min Blake Sandoval MD Work Phone: [facility] 03-25-2023 09:04-0400 SaO2% (BldA) [Mass fraction] 96 % Blake Sandoval MD Work Phone: [facility] 01-10-2023 18:11-0400 Diastolic blood pressure 80 mm[Hg] NA Bermeo PA-C Work Phone: [facility] 01-10-2023 18:11-0400 Systolic blood pressure 122 mm[Hg] NA Bermeo PA-C Work Phone: [facility] 01-10-2023 18:05-0400 Body weight 95.25 kg NA Bermeo PA-C Work Phone: [facility] 01-10-2023 18:05-0400 Heart rate 103 /min NA Bermeo PA-C Work Phone: [facility] 01-10-2023 18:05-0400 Respiratory rate 16 /min NA Bermeo PA-C Work Phone: [facility] 01-10-2023 18:05-0400 SaO2% (BldA) [Mass fraction] 96 % NA Bermeo PA-C Work Phone: [facility] 09-24-2022 17:15-0500 Body weight 96.16 kg Blake Sandoval MD Work Phone: [facility] 09-24-2022 17:15-0500 Diastolic blood pressure 82 mm[Hg] Blake Sandoval MD Work Phone: [facility] 09-24-2022 17:15-0500 Heart rate 61 /min Blake Sandoval MD Work Phone: [facility] 09-24-2022 17:15-0500 SaO2% (BldA) [Mass fraction] 94 % Blake Sandoval MD Work Phone: [facility] 09-24-2022 17:15-0500 Systolic blood pressure 134 mm[Hg] Blake Sandoval MD Work Phone: [facility] 08-29-2022 09:19-0500 Body mass index (BMI) [Ratio] 32.67 kg/m2 Blake Sandoval Work Phone: LS-Qzaiyrn-Sjqiomy Work Phone: 08-29-2022 09:19-0500 Body surface area Derived from formula 2.16 m2 Blake Sandoval Work Phone: TE-Pudsxsw-Xeztazg Work Phone: 08-29-2022 09:19-0500 Body weight 100.36 kg Blake Sandoval Work Phone: FF-Vdmecbo-Ipsdbjn Work Phone: 08-29-2022 09:19-0500 Diastolic blood pressure 88 mm[Hg] Blake Sandoval Work Phone: IW-Inxdyno-Qfdadxa Work Phone: 08-29-2022 09:19-0500 Heart rate 59 /min Blake Sandoval Work Phone: TP-Kitwysd-Xnjkhdd Work Phone: 08-29-2022 09:19-0500 Systolic blood pressure 143 mm[Hg] Blake Sandoval Work Phone: LP-Wreybht-Vlcrdml Work Phone: 08-24-2022 07:45-0500 Body height 175.26 cm Blake Sandoval Work Phone: BV-Wxomzxs-Qlyjxau Work Phone: 08-24-2022 07:45-0500 Body mass index (BMI) [Ratio] 32.49 kg/m2 Blake Sandoval Work Phone: OQ-Bmlqvno-Jnhoyed Work Phone: 08-24-2022 07:45-0500 Body surface area Derived from formula 2.15 m2 Blake Sandoval Work Phone: YV-Kfzvtdg-Wqsrlmc Work Phone: 08-24-2022 07:45-0500 Body weight 99.79 kg Blake Sandoval Work Phone: IK-Knyxycp-Zezqftw Work Phone: 08-24-2022 07:45-0500 Diastolic blood pressure 94 mm[Hg] Blake Sandoval Work Phone: UZ-Tzemzuq-Kyjxqmy Work Phone: 08-24-2022 07:45-0500 Heart rate 58 /min Blake Sandoval Work Phone: JR-Ygypytb-Vcizpju Work Phone: 08-24-2022 07:45-0500 Systolic blood pressure 145 mm[Hg] Blake Sandoval Work Phone: OE-Oawprhq-Bczjpnz Work Phone: 07-06-2022 13:40-0400 Body temperature 97.9 [degF] Paola Zureduardock MANAGER HEMATOLOGY.DIRECTOR OF TESTING Work Phone: [facility] 07-06-2022 13:40-0400 Body weight 96.34 kg Paola Shari MANAGER HEMATOLOGY.DIRECTOR OF TESTING Work Phone: [facility] 07-06-2022 13:40-0400 Diastolic blood pressure 90 mm[Hg] Paloa Zuryohana MANAGER HEMATOLOGY.DIRECTOR OF TESTING Work Phone: [facility] 07-06-2022 13:40-0400 Heart rate 54 /min Paola Shari MANAGER HEMATOLOGY.DIRECTOR OF TESTING Work Phone: [facility] 07-06-2022 13:40-0400 SaO2% (BldA) [Mass fraction] 98 % Paola Shari MANAGER HEMATOLOGY.DIRECTOR OF TESTING Work Phone: [facility] 07-06-2022 13:40-0400 Systolic blood pressure 170 mm[Hg] Paola Zurawick MANAGER HEMATOLOGY.DIRECTOR OF TESTING Work Phone: [facility] 06-23-2021 19:17-0400 Body height 175.2 cm Blake Daveo Other Phone: [facility] 06-23-2021 19:17-0400 Body temperature 97.7 [degF] Blake Jeyson Other Phone: [facility] 06-23-2021 19:17-0400 Diastolic blood pressure 81 mm[Hg] Blake Daveo Other Phone: [facility] 06-23-2021 19:17-0400 Heart rate 62 /min Blake Daveo Other Phone: [facility] 06-23-2021 19:17-0400 Respiratory rate 16 /min Blake Daveo Other Phone: [facility] 06-23-2021 19:17-0400 SaO2% (BldA) [Mass fraction] 96 % Blake Daveo Other Phone: [facility] 06-23-2021 19:17-0400 Systolic blood pressure 125 mm[Hg] Blake Daveo Other Phone: [facility] 04-03-2021 11:59-0400 Body height 175.2 cm Blake Daveo Other Phone: [facility] 04-03-2021 11:59-0400 Body temperature 98.6 [degF] Blake Daveo Other Phone: [facility] 04-03-2021 11:59-0400 Diastolic blood pressure 91 mm[Hg] Blake Daveo Other Phone: [facility] 04-03-2021 11:59-0400 Heart rate 51 /min Blake Daveo Other Phone: [facility] 04-03-2021 11:59-0400 Respiratory rate 16 /min Blake Daveo Other Phone: [facility] 04-03-2021 11:59-0400 SaO2% (BldA) [Mass fraction] 99 % Blake Daveo Other Phone: [facility] 04-03-2021 11:59-0400 Systolic blood pressure 158 mm[Hg] Blake Sandoval Other Phone: [facility] Encounters Encounter Date Encounter Type Care Provider Facility Start: 11-11-2023 Telephone encounter Blake Sandoval MD Work Phone: [facility] Procedures Date Procedure Procedure Detail Performing Clinician Start: 07-24-2023 Ecg routine ecg w/le ast 12 lds w/i&r Kate Weston MD Work Phone: Start: 07-22-2023 Urnls dip stick/tabl et rgnt auto w/o microscopy M Kobe Bermeo PA-C Work Phone: Start: 07-19-2023 HEMOGLOBIN AND HEMAT OCRIT, BLOOD BLAKE SANDOVAL Start: 03-06-2023 Follow-up visit Start: 07-06-2022 Hemoglobin A1c/Hemoglobin.total in Blood [facility] Provider Start: 07-06-2022 Lipid panel [facility] Provid er Start: 07-06-2022 Thyrotropin [Units/v olume] in Serum or Plasma [facility] Provider Start: 07-25-2021 Adult depression scr eening assessment Blake Sandoval MD Work Phone: Start: 10-13-2019 Colonoscopy Blake Rodriguez MD Work Phone: Plan of Treatment Date Care Activity Detail Author Start: 10-13-2029 Screening for malign ant neoplasm of colon [facility] Start: 04-11-2028 PROSTATE CANCER SCRE ENING DISCUSSION PROSTATE CANCER SCREENING DISCUSSION [facility] Start: 04-11-2028 Prostate specific an tigen measurement Prostate Cancer Screening Discussion [facility] Start: 10-13-2024 Colonoscopy COLONOSCOPY [facility] Start: 10-13-2024 COLORECTAL CANCER SCREENING COLORECTAL CANCER SCREENING [facility] Start: 10-13-2024 Screening for malign ant neoplasm of colon [facility] Start: 09-23-2024 Glaucoma screening Dilated Retinal E xam [facility] Start: 09-16-2024 Annual PCP Team Blocker And Polisher [employer] Wheel katya Disease Visit Annual PCP Team Chronic Disease Visit [facility] Start: 09-16-2024 Hepatitis B screening Urine Al bumin:Creatinine Ratio [facility] Start: 07-22-2024 Annual PCP Team Blocker And Polisher [employer] Wheel katya Disease Visit Annual PCP Team Chronic Disease Visit [facility] Start: 06-01-2024 PROSTATE CANCER SCRE ENING DISCUSSION PROSTATE CANCER SCREENING DISCUSSION [facility] Start: 04-24-2024 ANNUAL PCP TEAM SUPERVISOR WASH [employer]SE KATYA DISEASE VISIT ANNUAL PCP TEAM CHRONIC DISEASE VISIT [facility] Start: 03-25-2024 ANNUAL PCP TEAM SUPERVISOR W[employer]SE KATYA DISEASE VISIT ANNUAL PCP TEAM CHRONIC DISEASE VISIT [facility] Start: 03-16-2024 Hemoglobin A1c measurement HbA1C [facility] Start: 03-08-2024 Influenza vaccination Influenza Vacc ine (#1) [facility] Immunizations Immunization Date Immunization Notes Care Provider Fa ricardoty 05-30-2018 influenza virus vacc ine, unspecified formulation Blake Sandoval MD Work Phone: [facility] Payers Date Payer Category Payer Private Health Insurance [id number] 2022 Unknown [id number] 2021 Medicare MEDICARE MEDICAR E A [id number] 2021-Present [phone] [address] [place] [address] Medicare [id number] 2019 Unknown 2019 Unknown MMO MMO TPA [id number] 2019-Present [address] [id number] PPO [id number] 1956 Unknown [id number] 56 1956 Unknown [id number] 56 1956 Unknown [id number] 56 1956 Unknown [id number] 56 1956 Unknown [id number] 56 1956 Unknown [id number] 56 1956 Unknown [id number] 244 1956 Unknown [id number] [id number] 245 1956 Unknown [id number] 03 1956 Unknown [id number] 03 1956 Unknown [id number] 03 1956 Unknown [id number] [id number] 03 1956 Unknown [id number] 03 Unknown [id number] Social History Date Type Detail Facility [facility] Tobacco smoking consumption unknown [facility] Start: 09-19-2017 End: 07-06-2022 Tobacco smoking status NHIS Ex-smoker [facility] Work Phone: End: 12-05-2002 History of tobacco use Current smoker [facility] Work Phone: End: 12-05-2002 History of tobacco use Cigarette Smoker [facility] Work Phone: Start: 07-25-2021 End: 11-05-2023 Alcohol intake Current non-drinker of alcohol (finding) [facility] Start: 1955 Sex Assigned At Not on file C [facility] Start: 09-19-2017 End: 01-10-2023 Cigarettes smoked current (pack per day) - Reported 1 [facility] Work Phone: Start: 09-19-2017 End: 07-06-2022 Tobacco use and exposure Smokeless tobacco non-user [facility] Start: 05-26-2022 End: 07-19-2023 Exposure to SARS-CoV-2 (event) Not sure [facility] Work Phone: Start: 03-13-2023 End: 07-24-2023 Alcohol intake Ex-drinker (finding) [facility] Start: 01-10-2023 End: 03-13-2023 Tobacco use panel [facility] Work Phone: Adult Depression Screening Assessment 2 [facility] Work Phone: Medical Equipment Procedure Code Equipment Code Equipment Origin al Text Equipment Identifier Dates 1 Each as needed. Start: 03-07-2021 Clinical Notes 05-30-2015 to 11-11-2023 Telephone Encounter - Lala Becerra RN - 11/11/2023 12:57 PM ESTTelephone Encounter - Lala Becerra RN - 11/11/2023 12:55 PM ESTTelephone Encounter - Kaz Dela Cruz LPN - 11/11/2023 12:15 PM EST Note Date & Type Note Facility 11-11-2023 Miscellaneous Notes Confirmation received, for fax below. Faxed US order to [facility] via [employer], fax # [phone], per request. Order faxed via [employer]. Patient's called requesting to please fax the US ABD RIGHT UPPER QUAD to her at [facility] where she works and her ins requires scan to be done at [facility] Please fax MICHELE as she is waiting for it [phone] documented in this encounter [facility] 11-08-2023 Miscellaneous Notes PLEASE HELP PT SET UP US Ordered Patient calls and states that he knows that CT did not show anything. Patient asking if an ultrasound would show anything? Patient states that his friend had gallbladder issues one time. Patient asking if an ultrasound can be done to see if there is anything wrong with gall bladder? Please review and advise, Emily Chapman RN documented in this encounter [facility] 11-08-2023 Miscellaneous Notes Patient notified of provider message. Pt is in touch with his urologist to get orders for phlebotomy. Advised pt to let us know if he want to pursue other avenues instead of testosterone use. Left message for patient to return call. See other TE as well Cristina Marks Ma Please let pt. Know that as we discussed, he has a complete CT of abdomen in March. No gallstones. No nausea, vomiting. No indication for this study. X-ray result: Scan on 11/06/2023 11:43 AM by Provider, JOSE ALEJANDRO LintonC: X-ray Spouse is also asking if a test to check the Gallbladder could be placed. Please advise spouse and patient. Patient completed his x-rays at [facility] yesterday is calling for the results. Please advise the patient. Please fax hematology order to [facility] Spoke with patient and advised him of results and provider message. He says he has this treated by urology due to his testosterone usage. Results were faxed to Dr Mortensen. Still offered referral to hematology, pt declined. He says he just gets blood taken off . Advised patient to call back if he runs into any issues with urology helping him. He is agreeable. Cristina Marks Ma [facility] call with a hemoglobin of over 18. That is polycythemia. I will refer him to hematology at [facility]. Critical Values Notification Note Anali with [facility] Lab calls with critical high test results of Hemoglobin 18.3 on 11/05/2023 at 3:47 PM. Results were read back by this nurse. The results were reported to Daylin on 11/05/2023 at 3:50 pm. Signature: Melania Andrews Date: November 05, 2023 Time: 3:46 PM documented in this encounter [facility] 11-07-2023 Miscellaneous Notes Results of CBC and CMP done on November 05, 2023: WBC 9.5, hemoglobin 18.3, hematocrit 54.6, platelet count 209 Sodium 137, potassium 4.5, BUN 16, creatinine 1.36, glucose 136 GFR 55 AST 13, ALT 20, alkaline phosphatase 84 Patient was going to contact his urologist. He might have an order from his urologist, but daylin prefers he go to hematology. Please also see other phone note. Left message for patient to return call. Cristina Marks Ma This provider feels that pt. Needs to see hematology. Significant contraindication for testosterone to have polycythemia. Increased risk of stroke, heart attack. Prefer he see coke crusher operator. Rasheeda from [facility] calling patient is calling their office trying to set up a phlebotomy to have done there. Explained that FLIGHT COMMUNICATIONS OPERATOR placed Hematology consult. Chart is sent to that office to review and patient will be notified. She said patient is upset with her, may need the office to call and explain what the FLIGHT COMMUNICATIONS OPERATOR is wanting patient to have done please? Patient thinks since he lives in [place] can have done there. documented in this encounter [facility] 11-07-2023 Miscellaneous Notes Called and spoke with Mara at pcp office to discuss hematology order. This RN asked if a staff member/ nurse could call and discuss order with patient to clarify expectation of plan. Mara will reach out to provider. AA Patient called in to schedule a phlebotomy per PCP instructions. Discussed with patient that he would need to schedule an appointment with a Melter Clerk at our office to coordinate the care. Patient stated his pcp was placing the orders to have phlebotomy done and didn't need an appointment with the doctor. Instructed patient that there are no orders currently and we will reach out to the pcp to clarify instructions. Patient verbalized understanding. AA documented in this encounter [facility] 11-05-2023 Note HNO ID: [id number] Author: HAFSA CRANE APRN.CNS Service: ? Author Type: Clinical Nurse Specialist Type: Progress Notes Filed: 11/05/2023 15:57 Note Text: Please let patient know that lab notified us that his hemoglobin is over 18. That indicates a possible polycythemia vera. I will refer him to hematology at [facility]. [facility] 11-05-2023 Miscellaneous Notes Addended by: HAFSA CRANE on: 11/05/2023 03:58 PM Modules accepted: Orders documented in this encounter [facility] 11-05-2023 History of Present illness Narrative Please let patient know that lab notified us that his hemoglobin is over 18. That indicates a possible polycythemia vera. I will refer him to hematology at [facility]. As pt. Is ready to leave office.... By the way . Left frontal forehead 2 above eye brow with a 1.3cm round firm nodule. He thinks is growing. No itching or pain. He said is worried about it. Refer to plastic surgery. Dx neoplasm uncertain behavior skin of forehead- refer to plastic surgery. ASSESSMENT/PLAN: 2. 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 States growing - CONSULT TO PLASTIC SURGERY Hafsa Crane APRN.CNS This is a 68 year old male who presents today with: Patient presents with: Follow Up: Right flank pain HISTORY OF PRESENT ILLNESS: Nayely Weeks is a 68 year old male. Patient presents with: Follow Up: Right flank pain Pain in edge of ribs on right lateral abdomen. Stabbing pain. Sometimes radiates into chest- right side. Constant. Initially intermittent, now constant dull ache with sharp pain. 3/10 with dull ache. Can barely get through a day's work (very physical work). Present for about 4 months. Sharp pains can reach 9/10. Pain with movement- reaching. Does not recall any injury. No changes in bowels. No bloody stools. No nausea or vomiting. No fever or chills. Has frequent colonoscopies. PAST MEDICAL HISTORY: PAST MEDICAL HISTORY Diagnosis Date Deviated nasal septum HTN (hypertension), benign Kidney stones 1997 recurrent Other and unspecified hyperlipidemia Personal history of colonic polyps 2009 benign Unspecified sleep apnea not using cpap PAST SURGICAL HISTORY Procedure Laterality Date COLONOSCOPY W/BIOPSY SINGLE/MULTIPLE 11-01-10 COLSC FLX W/REMOVAL LESION BY HOT BX FORCEPS 05-02-16 COLSC FLX W/RMVL OF TUMOR POLYP LESION SNARE TQ 10/31/2009 COLSC FLX W/RMVL OF TUMOR POLYP LESION SNARE TQ 11-01-10 COLSC FLX W/RMVL OF TUMOR POLYP LESION SNARE TQ 01-19-13 EGD TRANSORAL BIOPSY SINGLE/MULTIPLE 10/31/2009 PAST SURGICAL HISTORY OF 1981 Right inguinal? hernia repair PAST SURGICAL HISTORY OF 1994 Left inguinal? hernia repair PAST SURGICAL HISTORY OF 1994 kidney stone PAST SURGICAL HISTORY OF left index finger trauma PAST SURGICAL HISTORY OF tooth extraction ALLERGIES Katy Inhibitors and Sudafed [Pseudoephedrine Hcl] MEDICATIONS Current Outpatient Medications Medication Sig semaglutide (OZEMPIC) 0.25 mg or 0.5 mg (2 mg/3 mL) pen Inject 0.25 mg subcutaneously one time a week. metFORMIN ER (GLUCOPHAGE XR) 500 mg 24 hr tablet Take 2 tablets by mouth two times a day with meals. apixaban (ELIQUIS) 5 mg tab(s) Take 1 tablet by mouth two times a day. atorvastatin (LIPITOR) 20 mg tablet Take 1 tablet by mouth once daily. gabapentin (NEURONTIN) 300 mg capsule Take 1 capsule by mouth daily at bedtime for 90 days. amLODIPine (NORVASC) 5 mg tablet Take 1 tablet by mouth once daily. losartan (COZAAR) 100 mg tablet Take 1 tablet by mouth once daily. metoprolol succinate ER (TOPROL XL) 25 mg 24 hr tablet Take 0.5 tablets by mouth twice daily. testosterone cypionate (DEPO-TESTOSTERONE) 200 mg/mL injection Inject 1 mL intramuscularly every 2 weeks for 6 doses. Syringe with Needle, Disp, (MONOJECT SYRINGE) 3 mL 22 x 1 1/2 1 syringe w needle for TRT Injection sildenafil (VIAGRA) 100 mg tablet One tablet 30 minutes before intercourse omeprazole (PRILOSEC) 20 mg capsule Take 1 capsule by mouth once daily. ON AN EMPTY STOMACH (Patient taking differently: Take 20 mg by mouth as needed. ON AN EMPTY STOMACH) Needle, Disp, 18 G (Identiv BLUNT CANNULA) 18 gauge x 1 ndle 1 Each as needed. clonazePAM (KLONOPIN) 1 mg tablet Take 1 mg by mouth once daily. Reports taking 1mg nightly before bed- Dr. Mcgowan albuterol HFA (PROAIR HFA) 90 mcg/actuation inhaler 2 Puffs every 6 hours as needed. Take as directed No current facility-administered medications for this visit. FAMILY HISTORY Problem Relation Age of Onset Cataract Father Diabetes Father Hypertension Father Alzheimer's Disease Mother Heart Brother Alzheimer's Disease Maternal Grandmother Social History Tobacco Use Smoking status: Former Packs/day: 1.00 Years: 20.00 Additional pack years: 0.00 Total pack years: 20.00 Types: Cigarettes Quit date: 12/05/2002 Years since quittin.9 Smokeless tobacco: Never Substance Use Topics Alcohol use: No Drug use: No Comment: Quit 1991 cocaine EXAM: BP 140/76 Pulse (!) 58 Resp 16 Wt 96.2 kg (212 lb) SpO2 95% BMI 30.42 kg/m PHYSICAL EXAM: General Appearance: Well appearing, alert, in no acute distress, well-hydrated, well nourished.. Head: Normocephalic, no masses, lesions, tenderness or abnormalities. Lungs: Lungs clear to auscultation. No wheezing, rhonchi, rales.. Heart: RRR without murmur, gallop, or rubs. No ectopy. Musculoskeletal: border painful, no palpable masses or edema. LABS: H& H in July was normal. HgA1c normal. ASSESSMENT/PLAN: 1. Rib pain on right side - ICD9: 786.50, ICD10: R07.81 Chest pain of unclear etiology, patient with significant risk factor(s) of musculoskeletal in nature Xray and apply lidocaine patch topically for comfort - CBC + DIFF - COMP METABOLIC PANEL - XR RIBS/CHEST 3V AP RIB/OBLS/CXR RIGHT - LIDOCAINE 5 % TOPICAL PATCH Discussed treatment plan and patient voices understanding. Patient's questions answered appropriately. Medications and potential side effects were discussed and patient voices understanding. Return to the office as scheduled or as needed for worsening/no improvement. Hafsa Crane APRN.CNS The patient indicates understanding of these issues and agrees with the plan. documented in this encounter [facility] 11-05-2023 Note HNO ID: [id number] Author: HAFSA CRANE APRN.CNS Service: ? Author Type: Clinical Nurse Specialist Type: Progress Notes Filed: 11/05/2023 12:42 Note Text: As pt. Is ready to leave office.... By the way . Left frontal forehead 2 above eye brow with a 1.3cm round firm nodule. He thinks is growing. No itching or pain. He said is worried about it. Refer to plastic surgery. Dx neoplasm uncertain behavior skin of forehead- refer to plastic surgery. ASSESSMENT/PLAN: 2. 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 States growing - CONSULT TO PLASTIC SURGERY Hafsa Crane APRN.CNS [facility] 11-05-2023 Note HNO ID: [id number] Author: HAFSA CRANE APRN.CNS Service: ? Author Type: Clinical Nurse Specialist Type: Progress Notes Filed: 11/05/2023 12:42 Note Text: This is a 68 year old male who presents today with: Patient presents with: Follow Up: Right flank pain HISTORY OF PRESENT ILLNESS: Nayely D Hergatt is a 68 year old male. Patient presents with: Follow Up: Right flank pain Pain in edge of ribs on right lateral abdomen. Stabbing pain. Sometimes radiates into chest- right side. Constant. Initially intermittent, now constant dull ache with sharp pain. 3/10 with dull ache. Can barely get through a day's work (very physical work). Present for about 4 months. Sharp pains can reach 9/10. Pain with movement- reaching. Does not recall any injury. No changes in bowels. No bloody stools. No nausea or vomiting. No fever or chills. Has frequent colonoscopies. PAST MEDICAL HISTORY: PAST MEDICAL HISTORY Diagnosis Date Deviated nasal septum HTN (hypertension), benign Kidney stones 1997 recurrent Other and unspecified hyperlipidemia Personal history of colonic polyps 2009 benign Unspecified sleep apnea not using cpap PAST SURGICAL HISTORY Procedure Laterality Date COLONOSCOPY W/BIOPSY SINGLE/MULTIPLE 11-01-10 COLSC FLX W/REMOVAL LESION BY HOT BX FORCEPS 05-02-16 COLSC FLX W/RMVL OF TUMOR POLYP LESION SNARE TQ 10/31/2009 COLSC FLX W/RMVL OF TUMOR POLYP LESION SNARE TQ 11-01-10 COLSC FLX W/RMVL OF TUMOR POLYP LESION SNARE TQ 01-19-13 EGD TRANSORAL BIOPSY SINGLE/MULTIPLE 10/31/2009 PAST SURGICAL HISTORY OF 1981 Right inguinal? hernia repair PAST SURGICAL HISTORY OF 1994 Left inguinal? hernia repair PAST SURGICAL HISTORY OF 1994 kidney stone PAST SURGICAL HISTORY OF left index finger trauma PAST SURGICAL HISTORY OF tooth extraction ALLERGIES Katy Inhibitors and Sudafed [Pseudoephedrine Hcl] MEDICATIONS Current Outpatient Medications Medication Sig semaglutide (OZEMPIC) 0.25 mg or 0.5 mg (2 mg/3 mL) pen Inject 0.25 mg subcutaneously one time a week. metFORMIN ER (GLUCOPHAGE XR) 500 mg 24 hr tablet Take 2 tablets by mouth two times a day with meals. apixaban (ELIQUIS) 5 mg tab(s) Take 1 tablet by mouth two times a day. atorvastatin (LIPITOR) 20 mg tablet Take 1 tablet by mouth once daily. gabapentin (NEURONTIN) 300 mg capsule Take 1 capsule by mouth daily at bedtime for 90 days. amLODIPine (NORVASC) 5 mg tablet Take 1 tablet by mouth once daily. losartan (COZAAR) 100 mg tablet Take 1 tablet by mouth once daily. metoprolol succinate ER (TOPROL XL) 25 mg 24 hr tablet Take 0.5 tablets by mouth twice daily. testosterone cypionate (DEPO-TESTOSTERONE) 200 mg/mL injection Inject 1 mL intramuscularly every 2 weeks for 6 doses. Syringe with Needle, Disp, (MONOJECT SYRINGE) 3 mL 22 x 1 1/2 1 syringe w needle for TRT Injection sildenafil (VIAGRA) 100 mg tablet One tablet 30 minutes before intercourse omeprazole (PRILOSEC) 20 mg capsule Take 1 capsule by mouth once daily. ON AN EMPTY STOMACH (Patient taking differently: Take 20 mg by mouth as needed. ON AN EMPTY STOMACH) Needle, Disp, 18 G (Identiv BLUNT CANNULA) 18 gauge x 1 ndle 1 Each as needed. clonazePAM (KLONOPIN) 1 mg tablet Take 1 mg by mouth once daily. Reports taking 1mg nightly before bed- Dr. Mcgowan albuterol HFA (PROAIR HFA) 90 mcg/actuation inhaler 2 Puffs every 6 hours as needed. Take as directed No current facility-administered medications for this visit. FAMILY HISTORY Problem Relation Age of Onset Cataract Father Diabetes Father Hypertension Father Alzheimer's Disease Mother Heart Brother Alzheimer's Disease Maternal Grandmother Social History Tobacco Use Smoking status: Former Packs/day: 1.00 Years: 20.00 Additional pack years: 0.00 Total pack years: 20.00 Types: Cigarettes Quit date: 12/05/2002 Years since quittin.9 Smokeless tobacco: Never Substance Use Topics Alcohol use: No Drug use: No Comment: Quit 1991 cocaine EXAM: BP 140/76 Pulse (!) 58 Resp 16 Wt 96.2 kg (212 lb) SpO2 95% BMI 30.42 kg/m? PHYSICAL EXAM: General Appearance: Well appearing, alert, in no acute distress, well-hydrated, well nourished.. Head: Normocephalic, no masses, lesions, tenderness or abnormalities. Lungs: Lungs clear to auscultation. No wheezing, rhonchi, rales.. Heart: RRR without murmur, gallop, or rubs. No ectopy. Musculoskeletal: border painful, no palpable masses or edema. LABS: HAND H in July was normal. HgA1c normal. ASSESSMENT/PLAN: 1. Rib pain on right side - ICD9: 786.50, ICD10: R07.81 Chest pain of unclear etiology, patient with significant risk factor(s) of musculoskeletal in nature Xray and apply lidocaine patch topically for comfort - CBC + DIFF - COMP METABOLIC PANEL - XR RIBS/CHEST 3V AP RIB/OBLS/CXR RIGHT - LIDOCAINE 5 % TOPICAL PATCH Discussed treatment plan and patient voices understanding. Patient's ques (more content not included)... [facility] 11-05-2023 Instructions Hafsa Crane APRN.BEAU - 11/05/2023 12:18 PM EST 1) lidocaine patch during the day for pain 2) Get Xray today 3) Get labs in case we need to get CT 4) Follow up with Mr. Bermeo in March documented in this encounter [facility] 10-30-2023 Miscellaneous Notes Called the pharmacy and the rx was ran through his insurance with a co pay of 24.98 Fax rec'd from [facility] say PA rec'd but they do not manage PA for this pt. PA needs to be completed with [facility] documented in this encounter [facility] 10-25-2023 Miscellaneous Notes Nayely is calling Blake Sandoval MD today with concern regarding Medication Request semaglutide (OZEMPIC) 0.25 mg or 0.5 mg (2 mg/3 mL) pen 3 mL 0 09/16/2023 10/16/2023 Sig: Inject 0.25 mg subcutaneously one time a week. Sent to pharmacy as: semaglutide (OZEMPIC) 0.25 mg or 0.5 mg (2 mg/3 mL) pen Class: Normal Route: SUBCUTANEOUS Patient would like this sent to [facility]. Thank you. Patient has been identified by name and birthdate. Duration of symptoms: N/A Person calling: self Call patient at: at home [phone] (home) [phone] (cell) Was an appointment scheduled: No Closing statement: Results or non-symptom based questions: Thank you for calling [facility], your call will be returned within the next business day. Svetlana Craven Pss documented in this encounter [facility] 10-10-2023 Miscellaneous Notes Patient has been identified by name and date of : Yes Requested Prescriptions Pending Prescriptions Disp Refills apixaban (ELIQUIS) 5 mg tab(s) 180 tablet 1 Sig: Take 1 tablet by mouth two times a day. RX INSTRUCTIONS: Patient aware RX will be sent to pharmacy. No need to notify patient. Angelina Wolfe Pss documented in this encounter [facility] 09-23-2023 Note HNO ID: [id number] Author: CAMPBELL WEBSTER, BRICE Service: ? Author Type: SKIP TENDER Type: Progress Notes Filed: 09/23/2023 10:00 Note Text: 1. Type 2 diabetes mellitus without retinopathy (HCC) Risk of diabetic changes and vision loss can be minimized by tight control of blood sugar, blood pressure, and cholesterol levels. Educated patient to continue care with primary care doctor and/or gun examiner to maintain optimum levels as they are important to avoid ocular complications. Encouraged patient to call the office immediately with any changes to vision or visual concerns. Advised to not wait until the next scheduled exam. 2. Combined forms of age-related cataract of both eyes Mild- monitor 3. Squamous blepharitis of upper and lower eyelids of both eyes Recommended warm compresses daily and Systane complete twice daily 4. Regular astigmatism of left eye 5. Presbyopia Finalized spec rx Follow-up in 1 year for KINGSLEY Webster, OD September 23, 2023 9:58 AM [facility] 09-16-2023 Note HNO ID: [id number] Author: Lala BERMEO PA-C Service: ? Author Type: Physician Buck Swamper Type: Progress Notes Filed: 09/16/2023 12:40 Note Text: 68 year old male with c/o . Atrial fibrillation with rvr ([facility]) (primary encounter diagnosis) Hypertension, essential Mixed hyperlipidemia Cardiovascular interval hx: none Sees [facility] Current meds: Apixaban Atorvatatin 20mg daily Losartan 100mg daily Metoprolol succinate ER 0.5 tab twice a day Use of NTG: No Chest pain, arm, jaw pain, neck, or upper back pain suggestive of angina: No. SOB: No Dyspnea with exertion: No orthopnea: No Cough : No racing or irregular heartbeats: No palpitations: No syncopal sx: No Headache: No Unexplainable fatigue No Leg swelling: No Nausea: No diaphoresis: No Heartburn: No Claudication: No Smoking: No Following Low cholesterol, high fiber diet? Not so much, terrible If on statin: muscle aches? No If on statin: GI sx or diarrhea? No Additional history none. 03/20-04/18/2023 event monitor showed SB avg HR 57, range 43-106, no atrial fib/ pauses/events. Lab review: Type 2 diabetes mellitus without complication, without long-term current use of insulin ([facility]) Current medications: Metformin ER 0.5 tab twice daily Taking medication as directed consistently? Yes Medication side effects: none Medical Issues / Complications: hypertension, hyperlipidemia, and cardiovascular disease Checking blood sugars at home? No. Watching diet? No Physical Activity: Regular Hypoglycemic spells? No Any visual disturbance? No Chest pain? No New numbness, tingling or loss of sensation? No Any recent foot problems, sores or rashes? No Any recent or sudden weight loss? No Change in urination? No. If yes: Any recent illness? No Last eye exam: due. Last foot exam: up to date. HBA1C: 03/14/2023 hgba1c 7.0% Last 2 Encounter Wt Readings:Last 2 Encounter Wt Readings: Date: Wt: 09/16/2023 98.9 kg (218 lb) 07/22/2023 95.3 kg (210 lb) Hypotestosteronism Polycythemia Benign prostatic hyperplasia without lower urinary tract symptoms Ed (erectile dysfunction) of organic origin Current medications: Depotestosterone 200mg/mL Sildenafil 100mg once a day as needed 04/15/2023 last visit with urologist Dr. Mortensen: told to donate blood. From [facility]: 07/19/2023 hgb 14.5-HCT 43.2 05/09/2023 hgb 18.5-56.5 Rls (restless legs syndrome) Weaned off Klonopin to twice a week but RLS kicked up and went back to 1mg daily HS Was started by neurologist Hx alcoholism and cocaine use in past Obesity, class i, bmi 30-34.9 Vitals 04/24/2023 07/22/2023 09/16/2023 WEIGHT in POUNDS 203 lb 210 lb 218 lb WEIGHT in KILOGRAMS 92.08 kg 95.255 kg 98.884 kg Gastroesophageal reflux disease without esophagitis Current medication: Omeprazole 20mg daily AC. Current symptoms: none. Last Mg level if on PPI chronically: due. Heartburn is controlled: Yes. rarely Dysphagia: No. Coughs all the time while eating. Bloody or black stools: No. Bowel changes: No. 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 BPH No issues currently Nocturia maybe once a night but not always HISTORIES FAMILY HISTORY Problem Relation Age of Onset Diabetes Father Hypertension Father Heart Brother Alzheimer's Disease Maternal Grandmother Alzheimer's Disease Mother PAST MEDICAL HISTORY Diagnosis Date Deviated nasal septum HTN (hypertension), benign Kidney stones 1997 recurrent Other and unspecified hyperlipidemia Personal history of colonic polyps 2009 benign Unspecified sleep apnea not using cpap PAST SURGICAL HISTORY Procedure Laterality Date COLONOSCOPY W/BIOPSY SINGLE/MULTIPLE 11-01-10 COLSC FLX W/REMOVAL LESION BY HOT BX FORCEPS 05-02-16 COLSC FLX W/RMVL OF TUMOR POLYP LESION SNARE TQ 10/31/2009 COLSC FLX W/RMVL OF TUMOR POLYP LESION SNARE TQ 11-01-10 COLSC FLX W/RMVL OF TUMOR POLYP LESION SNARE TQ 01-19-13 EGD TRANSORAL BIOPSY SINGLE/MULTIPLE 10/31/2009 PAST SURGICAL HISTORY OF 1981 Right inguinal? hernia repair PAST SURGICAL HISTORY OF 1994 Left inguinal? hernia repair PAST SURGICAL HISTORY OF 1994 kidney stone PAST SURGICAL HISTORY OF left index finger trauma PAST SURGICAL HISTORY OF tooth extraction Social History Tobacco Use Smoking status: Former Packs/day: 1.00 Years: 20.00 Additional pack years: 0.00 Total pack years: 20.00 Types: Cigarettes Quit date: 12/05/2002 Years since quittin.7 Smokeless tobacco: Never Substance Use Topics Alcohol use: No Drug use: No Comment: Quit 1991 cocaine ACTIVE PROBLEM LIST Hyperlipidemia Rls (Restless Legs Syndrome) Calculus of Kidney Unspecified Disorder of Prostate Benign Prostatic Hyperplasia Without Lower Urinary Tract Symptoms Hypotestosteronism Essential Hypertension Overweight Gerd (Gastroesophageal Reflux Disease) Umb (more content not included)... [facility] 07-24-2023 History of Present illness Narrative Heart & Vascular Clinic Note [facility] Visit Date: 07/24/2023 Patient Name: Nayely Weeks : 1955 Reason for Visit: Follow-up (4 mo post hospital/DCCV review [facility] ) ASSESSMENT: #Atrial fibrillation: Newly diagnosed in March. S/p DCCV. On 03/14/23 Event monitor did not record any further episodes of A.fib. He reports feeling great since the last hospitalization. 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 Has no new complaints. #HFrEF: LVEF-45% #HTN #DM #HLD #ECHO: 03/2023 Summary 1. Left ventricular systolic function is mildly reduced globally with an ejection fraction by Biplane Method of Discs of 45 %. 2. There is indeterminate diastolic function with normal filling pressures. 3. Right ventricle is grossly normal in size with mild systolic dysfunction. 4. No significant valvular heart disease is present. 5. There is no pulmonary hypertension, estimated right ventricle systolic pressure is 28 mmHg. PLAN: --c/w current medications. --c/w apixaban --c/w metoprolol --f/u 6mths --will repeat echo at that time. --pursue event monitor prior to next visit. HPI: Nayely Weeks is a 68 y.o. male who presents today to f/u. He has a h/o HTN, HLD, DM, A.fib recently diagnosed in March when he presented w/ SOB and palpitations. He is s/p DCCV at that visit. Has remained in NS since then. He works [employer] and has had no issues w/ those activities. Has no new complaints at this time. Histories History reviewed. No pertinent past medical history. History reviewed. No pertinent surgical history. History reviewed. No pertinent family history. Social History Socioeconomic History Marital status: Spouse name: Cyndi Tobacco Use Smoking status: Former Types: Cigarettes Smokeless tobacco: Never Substance and Sexual Activity Alcohol use: Not Currently Drug use: Never Lisinopril Patient's Medications New Prescriptions No medications on file Previous Medications AMLODIPINE (NORVASC) 5 MG TABLET Take 1 (one) tablet (5 mg total) by mouth daily . APIXABAN (ELIQUIS) 5 MG TAB Take 1 (one) tablet (5 mg total) by mouth 2 (two) times a day . ATORVASTATIN (LIPITOR) 20 MG TABLET Take 1 (one) tablet (20 mg total) by mouth at bedtime . CLONAZEPAM (KLONOPIN) 0.5 MG TABLET Take 1 (one) tablet (0.5 mg total) by mouth nightly . LOSARTAN (COZAAR) 100 MG TABLET Take 1 (one) tablet (100 mg total) by mouth daily . METFORMIN (GLUCOPHAGE-XR) 500 MG 24 HR TABLET Take 2 (two) tablets (1,000 mg total) by mouth 2 (two) times a day . METOPROLOL SUCCINATE (TOPROL-XL) 25 MG 24 HR TABLET Take 0.5 (one-half) tablet (12.5 mg total) by mouth daily . TESTOSTERONE CYPIONATE (DEPOTESTOTERONE CYPIONATE) 200 MG/ML INJECTION INJECT 4ML IM MONTHLY Modified Medications No medications on file Discontinued Medications AMIODARONE (CORDARONE) 200 MG TABLET Take 1 (one) tablet (200 mg total) by mouth daily . Allergies Allergen Reactions Lisinopril Cough Review of Systems All system(s) were reviewed. Pertinent positive and negative findings are noted in the HPI. All system negative unless otherwise noted in the HPI PACU Vitals 07/24/23 1020 BP: 125/81 Pulse: 62 SpO2: 96% G: NAD HEENT: Anicteric Chest/Lung: CTA c/l, no wheezes, rubs, or rales CVS: S1 S2 no S3,4, no galops, rubs or murmurs Ab: Soft, NT, ND no guarding or rigidity LE: No edema Skin: Intact Neuro: non Focal Psychiatric: non Suicidal, non homicidal Lab Results Component Value Date GLUCOSE 134 (H) 03/15/2023 CALCIUM 8.3 (L) 03/15/2023 NA 136 03/15/2023 K 4.0 03/15/2023 CL 108 03/15/2023 BUN 26 (H) 03/15/2023 CREATININE 1.62 (H) 03/15/2023 Lab Results Component Value Date INR 1.1 03/13/2023 PROTIME 14.1 03/13/2023 ECG reviewed: sinus rhythm, RBBB Personally reviewed. Holter monitor: Sinus rhythm, no A.fib. Echocardiogram: reviewed Other workup reviewed ASSESSMENT & PLAN: See above Kate Weston documented in this encounter [facility] 07-22-2023 Note HNO ID: [id number] Author: Lucina Nance RT(R) Service: Radiology Author Type: Technologist Type: Progress Notes Filed: 07/22/2023 4:38 PM Note Text: Radiology Service Progress Note PATIENT NAME: Nayely Weeks DATE OF SERVICE: July 22, 2023 TIME: 4:31 PM PATIENT IDENTITY VERIFICATION COMPLETED USING TWO (2) IDENTIFIERS: Name and Date of confirmed by patient verbally. FALL SCREENING: Has the patient had 2 falls in the last year or 1 fall with injury or currently using an Ambulatory Assistive Device (Walker, Cane, Wheelchair, Crutches, etc.)? No PATIENT GENDER DATA: Male PATIENT RELEVANT IMPLANT DATA REVIEWED: Not Applicable RADIOLOGY DEPARTMENT: General X-ray: Exam(s) Completed: Lower Extremity X-Ray(s): Heel, Left PERIPHERAL IV DATA: Not applicable SIGNED BY: RT Olu(R) July 22, 2023 4:31 PM [facility] 07-22-2023 Note HNO ID: [id number] Author: Lala Bermeo PA-C Service: ? Author Type: Physician Buck Swamper Type: Progress Notes Filed: 07/22/2023 6:34 PM Note Text: 68 year old male with c/o Left heel pain Says it started a few months ago. Better with movement for a long period of time, but at the end of a work day it is worse. Says it is a 9/10 in severity and burning in severity. Tries to relax and stretch foot first thing in the morning, which helps a bit. Denies trauma to the foot/ankle. Says he has numbness in both feet, believed neuropathy that he has had for years. Denies reports numbness Right posterior flank pain Started 2 months ago. He says it radiates across to his side. Worse with movement and is a 9/10 in severity, describes as a sharp pain. Notices it the most at the end of a work day. Reports drinking about 1 gallon of water per day. Has a history of kidney stones, with the last about 5 years ago. Concerned about Klonopin through sleep doctor in [place] Talk with them at my request to consider weaning, was told by the sleep doctor that he just should stay on it. Currently taking Klonopin 1 mg 3 times a day. To get on himself to try to cut back 1 of those doses to 0.5 mg, states it did make him anxious but he continued and has now completed a week on 0.5 mg with 1 dose per day. He is motivated to continue weaning. Last hemoglobin A1c was done at [facility]: 03/14/2023 7.0%, average glucose 154 HISTORIES FAMILY HISTORY Problem Relation Age of Onset Diabetes Father Hypertension Father Heart Brother Alzheimer's Disease Maternal Grandmother Alzheimer's Disease Mother PAST MEDICAL HISTORY Diagnosis Date Deviated nasal septum HTN (hypertension), benign Kidney stones 1997 recurrent Other and unspecified hyperlipidemia Personal history of colonic polyps 2009 benign Unspecified sleep apnea not using cpap PAST SURGICAL HISTORY Procedure Laterality Date COLONOSCOPY W/BIOPSY SINGLE/MULTIPLE 11-01-10 COLSC FLX W/REMOVAL LESION BY HOT BX FORCEPS 05-02-16 COLSC FLX W/RMVL OF TUMOR POLYP LESION SNARE TQ 10/31/2009 COLSC FLX W/RMVL OF TUMOR POLYP LESION SNARE TQ 11-01-10 COLSC FLX W/RMVL OF TUMOR POLYP LESION SNARE TQ 01-19-13 EGD TRANSORAL BIOPSY SINGLE/MULTIPLE 10/31/2009 PAST SURGICAL HISTORY OF 1981 Right inguinal? hernia repair PAST SURGICAL HISTORY OF 1994 Left inguinal? hernia repair PAST SURGICAL HISTORY OF 1994 kidney stone PAST SURGICAL HISTORY OF left index finger trauma PAST SURGICAL HISTORY OF tooth extraction Social History Tobacco Use Smoking status: Former Packs/day: 1.00 Years: 20.00 Additional pack years: 0.00 Total pack years: 20.00 Types: Cigarettes Quit date: 12/05/2002 Years since quittin.6 Smokeless tobacco: Never Substance Use Topics Alcohol use: No Drug use: No Comment: Quit 1991 cocaine ACTIVE PROBLEM LIST Hyperlipidemia Rls (Restless Legs Syndrome) Calculus of Kidney Unspecified Disorder of Prostate Benign Prostatic Hyperplasia Without Lower Urinary Tract Symptoms Hypotestosteronism Essential Hypertension Overweight Gerd (Gastroesophageal Reflux Disease) Umbilical Hernia Without Mention of Obstruction Or Gangrene Diastasis Recti Personal History of Colonic Polyps Sleep Apnea Type 2 Diabetes Mellitus Without Complication, Without Long-Term Current Use of Insulin (Hcc) Ed (Erectile Dysfunction) of Organic Origin Current Outpatient Medications Medication Sig Dispense Refill losartan (COZAAR) 100 mg tablet Take 1 tablet by mouth once daily. 90 tablet 3 metFORMIN ER (GLUCOPHAGE XR) 500 mg 24 hr tablet Take 2 tablets by mouth twice daily with meals. 360 tablet 1 metoprolol succinate ER (TOPROL XL) 25 mg 24 hr tablet Take 0.5 tablets by mouth twice daily. 90 tablet 3 apixaban (ELIQUIS) 5 mg tab(s) Take 1 tablet by mouth twice daily. 180 tablet 1 atorvastatin (LIPITOR) 20 mg tablet Take 1 tablet by mouth once daily. 90 tablet 3 amLODIPine (NORVASC) 5 mg tablet Take 1 tablet by mouth once daily. 90 tablet 3 Syringe with Needle, Disp, (MONOJECT SYRINGE) 3 mL 22 x 1 1/2 1 syringe w needle for TRT Injection 10 Each 1 sildenafil (VIAGRA) 100 mg tablet One tablet 30 minutes before intercourse 6 tablet 11 omeprazole (PRILOSEC) 20 mg capsule Take 1 capsule by mouth once daily. ON AN EMPTY STOMACH (Patient taking differently: Take 20 mg by mouth as needed. ON AN EMPTY STOMACH) 90 capsule 3 Needle, Disp, 18 G (SquirrlyELD BLUNT CANNULA) 18 gauge x 1 ndle 1 Each as needed. 10 Each 2 clonazePAM (KLONOPIN) 1 mg tablet Take 1 mg by mouth once daily. Reports taking 1mg nightly before bed- Dr. Mcgowan albuterol HFA (PROAIR HFA) 90 mcg/actuation inhaler 2 Puffs every 6 hours as needed. Take as directed 6.7 g 1 testosterone cypionate (DEPO-TESTOSTERONE) 200 mg/mL injection Inject 1 mL intramuscularly every 2 weeks for 6 doses. 2 mL 2 amLODIPine ( (more content not included)... [facility] 07-22-2023 Instructions Lala Bermeo PA-C - 07/22/2023 3:24 PM EST Lower klonopin Week 1 Drop every other day 0.75 alternated with 0.5mg Week 2 drop to every dose 0.5mg Week 3 drop to 0.5m with 0.25mg every other day Week 4 drop to 0.25mg daily Week 5 0.25mg every other day Week 6 off, or just 1 or 2 doses if really needed See instructions on plantar fasciitis. Ice/ moist heat, lineaments, OTC analgesics as needed,. Stretching and posture reviewed. documented in this encounter [facility] 07-22-2023 History of Present illness Narrative 68 year old male with c/o Left heel pain Says it started a few months ago. Better with movement for a long period of time, but at the end of a work day it is worse. Says it is a 9/10 in severity and burning in severity. Tries to relax and stretch foot first thing in the morning, which helps a bit. Denies trauma to the foot/ankle. Says he has numbness in both feet, believed neuropathy that he has had for years. Denies reports numbness Right posterior flank pain Started 2 months ago. He says it radiates across to his side. Worse with movement and is a 9/10 in severity, describes as a sharp pain. Notices it the most at the end of a work day. Reports drinking about 1 gallon of water per day. Has a history of kidney stones, with the last about 5 years ago. Concerned about Klonopin through sleep doctor in [place] Talk with them at my request to consider weaning, was told by the sleep doctor that he just should stay on it. Currently taking Klonopin 1 mg 3 times a day. To get on himself to try to cut back 1 of those doses to 0.5 mg, states it did make him anxious but he continued and has now completed a week on 0.5 mg with 1 dose per day. He is motivated to continue weaning. Last hemoglobin A1c was done at [facility]: 03/14/2023 7.0%, average glucose 154 HISTORIES FAMILY HISTORY Problem Relation Age of Onset Diabetes Father Hypertension Father Heart Brother Alzheimer's Disease Maternal Grandmother Alzheimer's Disease Mother PAST MEDICAL HISTORY Diagnosis Date Deviated nasal septum HTN (hypertension), benign Kidney stones 1997 recurrent Other and unspecified hyperlipidemia Personal history of colonic polyps 2009 benign Unspecified sleep apnea not using cpap PAST SURGICAL HISTORY Procedure Laterality Date COLONOSCOPY W/BIOPSY SINGLE/MULTIPLE 11-01-10 COLSC FLX W/REMOVAL LESION BY HOT BX FORCEPS 05-02-16 COLSC FLX W/RMVL OF TUMOR POLYP LESION SNARE TQ 10/31/2009 COLSC FLX W/RMVL OF TUMOR POLYP LESION SNARE TQ 11-01-10 COLSC FLX W/RMVL OF TUMOR POLYP LESION SNARE TQ 01-19-13 EGD TRANSORAL BIOPSY SINGLE/MULTIPLE 10/31/2009 PAST SURGICAL HISTORY OF 1981 Right inguinal? hernia repair PAST SURGICAL HISTORY OF 1994 Left inguinal? hernia repair PAST SURGICAL HISTORY OF 1994 kidney stone PAST SURGICAL HISTORY OF left index finger trauma PAST SURGICAL HISTORY OF tooth extraction Social History Tobacco Use Smoking status: Former Packs/day: 1.00 Years: 20.00 Additional pack years: 0.00 Total pack years: 20.00 Types: Cigarettes Quit date: 12/05/2002 Years since quittin.6 Smokeless tobacco: Never Substance Use Topics Alcohol use: No Drug use: No Comment: Quit 1991 cocaine ACTIVE PROBLEM LIST Hyperlipidemia Rls (Restless Legs Syndrome) Calculus of Kidney Unspecified Disorder of Prostate Benign Prostatic Hyperplasia Without Lower Urinary Tract Symptoms Hypotestosteronism Essential Hypertension Overweight Gerd (Gastroesophageal Reflux Disease) Umbilical Hernia Without Mention of Obstruction Or Gangrene Diastasis Recti Personal History of Colonic Polyps Sleep Apnea Type 2 Diabetes Mellitus Without Complication, Without Long-Term Current Use of Insulin (Hcc) Ed (Erectile Dysfunction) of Organic Origin Current Outpatient Medications Medication Sig Dispense Refill losartan (COZAAR) 100 mg tablet Take 1 tablet by mouth once daily. 90 tablet 3 metFORMIN ER (GLUCOPHAGE XR) 500 mg 24 hr tablet Take 2 tablets by mouth twice daily with meals. 360 tablet 1 metoprolol succinate ER (TOPROL XL) 25 mg 24 hr tablet Take 0.5 tablets by mouth twice daily. 90 tablet 3 apixaban (ELIQUIS) 5 mg tab(s) Take 1 tablet by mouth twice daily. 180 tablet 1 atorvastatin (LIPITOR) 20 mg tablet Take 1 tablet by mouth once daily. 90 tablet 3 amLODIPine (NORVASC) 5 mg tablet Take 1 tablet by mouth once daily. 90 tablet 3 Syringe with Needle, Disp, (MONOJECT SYRINGE) 3 mL 22 x 1 1/2 1 syringe w needle for TRT Injection 10 Each 1 sildenafil (VIAGRA) 100 mg tablet One tablet 30 minutes before intercourse 6 tablet 11 omeprazole (PRILOSEC) 20 mg capsule Take 1 capsule by mouth once daily. ON AN EMPTY STOMACH (Patient taking differently: Take 20 mg by mouth as needed. ON AN EMPTY STOMACH) 90 capsule 3 Needle, Disp, 18 G (Identiv BLUNT CANNULA) 18 gauge x 1 ndle 1 Each as needed. 10 Each 2 clonazePAM (KLONOPIN) 1 mg tablet Take 1 mg by mouth once daily. Reports taking 1mg nightly before bed- Dr. Mcgowan albuterol HFA (PROAIR HFA) 90 mcg/actuation inhaler 2 Puffs every 6 hours as needed. Take as directed 6.7 g 1 testosterone cypionate (DEPO-TESTOSTERONE) 200 mg/mL injection Inject 1 mL intramuscularly every 2 weeks for 6 doses. 2 mL 2 amLODIPine (NORVASC) 5 mg tablet Take 1 tablet by mouth once daily. 30 tablet 0 Current Facility-Administered Medications Medication Dose Route Frequency Provider Last Rate Last Admin perflutren lipid microspheres 1.3 mL in NaCl (PF) 0.9% 10 mL injection (T[employer]) INTRAVENOUS DIRECTED PRN Paola Gray APRN.CNP sodium chloride 0.9 % (flush) 10 mL (BD POSIFLUSH) 10 mL INTRAVENOUS DIRECTED PRN Paola Gray APRN.MATT Abdominal Aortic Aneurysm Screening Never done BP Controlled (<130/80) Never done DTaP,Tdap,Td Vaccine(1 - Tdap) Never done Hepatitis B Vaccine(1 of 3 - Risk 3-dose series) Never done RSV Vaccine(1 - 1-dose 60+ series) Never done Urine Albumin:Creatinine Ratio due on 11/13/2021 Dilated Retinal Exam due on 06/19/2022 Influenza Vaccine(1) due on 05/10/2023 LDL Cholesterol due on 07/06/2023 EXAM: BP 132/70 Pulse 64 Resp 16 Wt 95.3 kg (210 lb) SpO2 97% BMI 30.13 kg/m Pleasant overweight adult male in no acute distress. Alert and oriented all spheres. Normal affect and cognition. Speech normal. No deficits to learning or comprehension. Skin warm, dry, pink to lips and nailbeds. Normal turgor. Respirations regular and unlabored. Chest is normal shape. Lungs are clear to all ferro with good air exchange through out. HRRR without murmur or gallop. No lifts, heaves, or rubs. Back is tender along the right flank muscles and up into the lower thoracic vertebrae with restriction in her ribs and T12 anteriorly rotated Extrem: no clubbing or cyanosis. Edema: none. Extremities are warm and pink with prompt capillary refill. Component Latest Ref Rng & Units 07/22/2023 GLUCOSE UA (POCT) Negative mg/dL 500 (A) BILIRUBIN UA (POCT) Negative Negative KETONE UA (POCT) Negative mg/dL Negative SPECIFIC GRAVITY UA (POCT) 1.005 - 1.030 1.025 HEMOGLOBIN/BLOOD UA (POCT) Negative Negative PH UA (POCT) 4.5 - 8.0 5.5 PROTEIN UA (POCT) Negative mg/dL Negative UROBILINOGEN UA (POCT) Normal E.U./dL 0.2 NITRITE UA (POCT) Negative Negative LEUKOCYTES UA (POCT) Negative Negative COLOR UA (POCT) Yellow CLARITY UA (POCT) Clear With permission: OMT was performed with myofascial release to tender trigger points in the spinal erector and flank muscles on the right side, HVLA to T12 with successful resolution of pain and increased ease of range of motion. ASSESSMENT/PLAN: 1. Chronic heel pain, left - ICD9: 729.5, 338.29, ICD10: M79.672, G89.29 (primary diagnosis) X-ray demonstrated small posterior in plantar spurs Reviewed heel spur management, provided [employer] handout on plantar fasciitis management. We will try heel pad decompression and he will let me know if he needs anything further. - XR CALCANEUS 2V AXIAL/LAT LEFT - HEEL PAD AND DEPRESSION FOR SPUR 2. Hypertension, essential - ICD9: 401.9, ICD10: I10 - Controlled - Continue current medications - Recommend home blood pressure monitoring, to bring results to next visit - Encouraged sodium restriction, DASH or Mediterranean diet - Recommend regular aerobic exercise - AMLODIPINE 5 MG TABLET 3. Right flank pain - ICD9: 789.09, ICD10: R10.9 - UA DIP, URINE (POC) Some of this note may have been copied and pasted for the purpose of history context and comparison and has been adjusted for changes in prior data. Lala Bermeo PA-C documented in this encounter [facility] 07-22-2023 History of Present illness Narrative Subjective Patient ID: Nayely Weeks is a 68 y.o. male. HPI Patient is here for 3 month follow with H/H. Hx of hypogonadism. He was doing IM injections 1ml weekly but stopped due to elevated H&H. Patient definitely felt better while on replacement. Most Recent H&H was 14.5 and 43.2 (08/01) . Prior Hematocrit was 56.5, and HGB was 18.5. Recent T level was 1,020 on 05/01. Recent PSA was 1.19 on 05/01. Hx of Kidney stones. Last one was a few years ago. Denies sx today. Denies HX of UTI. LUTS are chronic and mild. Denies frequency and urgency. Denies dysuria. Denies hematuria. Nocturia x1. Caffeine does worsen LUTS. No medication for LUTS...ED is chronic and does do trimix. Review of Systems Constitutional: Negative for chills and fever. HENT: Negative. Eyes: Negative. Respiratory: Negative for cough and shortness of breath. Cardiovascular: Negative for chest pain and leg swelling. Gastrointestinal: Negative for nausea. Endocrine: Negative. Genitourinary: Negative for difficulty urinating. Negative except for documented in HPI Allergic/Immunologic: Negative. Neurological: Alert & oriented X 3 Hematological: Denies blood thinners Psychiatric/Behavioral: Negative. Objective Physical Exam Vitals and nursing note reviewed. Constitutional: General: He is not in acute distress. Appearance: Normal appearance. Pulmonary: Effort: Pulmonary effort is normal. Abdominal: Tenderness: There is no abdominal tenderness. Genitourinary: Comments: Kidneys non palpable bilaterally Bladder non palpable or tender Scrotum no mass, No hydrocele Epididymis- No spermatocele. Non Tender. Testicles: No mass Urethra: No discharge Penis within normal limits... No lesions Prostate - deferred Neurological: Mental Status: He is alert. Assessment/Plan Diagnoses and all orders for this visit: Male hypogonadism Nocturia Erectile dysfunction, unspecified erectile dysfunction type All available PSA values reviewed, Options discussed. Questions answered. Diet changes for prostate health discussed and educational information given. Pros/Cons of prostate health supplements discussed. Treatment options for LUTS reviewed Discussed timed voiding. Discussed fluid and caffeine intake Treatment options for ED reviewed. TriMix Rx refilled Lifestyle change to help prevent UTIs discussed. Encouraged fluid intake. pros/cons of Testosterone replacement reviewed. Replacement options discussed. Questions answered. Available levels reviewed. T rx refilled Will follow H/H and plan routine blood draws CT stone study ordered Flexeril Rx given F/U with CT results virtual documented in this encounter [facility] Work Phone: 07-19-2023 Instructions Karla Frazier MA - 07/19/2023 3:20 PM EST It was our pleasure to see you in [facility] today. Please contact GILES Guzman at [phone] or GILES Jules at [phone] with questions, concerns, or if you need prescription refills before your next appointment. documented in this encounter [facility] 07-09-2023 Miscellaneous Notes YASMIN 04/24/23 NOV 11/01/23 Patient has been identified by name and date of : Yes Requested Prescriptions Pending Prescriptions Disp Refills losartan (COZAAR) 100 mg tablet 90 tablet 3 Sig: Take 1 tablet by mouth once daily. RX INSTRUCTIONS: Patient aware RX will be sent to pharmacy. No need to notify patient. Brittny Castano documented in this encounter [facility] 04-24-2023 Note HNO ID: [id number] Author: Blake Sandoval MD Service: ? Author Type: Physician Type: Progress Notes Filed: 04/24/2023 4:07 PM Note Text: Patient presents with: Follow Up HPI: Patient presents today for office visit for follow up. Wasn't feeling very well this morning. Refers to just dragging . BP was 182/98 before meds and BS was 181. He lee snot think it is bad enough to do anything. Followed up with Urology for testosterone levels. Labs were drawn and was told his hemoglobin is dangerously high. Needs to donate blood. Went to [facility] and was told he was unable to donate because of A-fib and being on Eliquis. Advised to check with him his urologist. Follows with Cardiology. Stopped Amiodarone. No chest pain in various spots in the chest and short lived. Due to being an old man per patient., denies. shortness of breath. No bleeding or bruising. No palpitations. Due for CBC and BMP labs. Last a1c was 7.0. MEDICATIONS: Current Outpatient Medications Medication Sig amiodarone (PACERONE) 200 mg tablet Take 1 tablet by mouth once daily. apixaban (ELIQUIS) 5 mg tab(s) Take 1 tablet by mouth twice daily. amLODIPine (NORVASC) 5 mg tablet Take 1 tablet by mouth once daily. amLODIPine (NORVASC) 5 mg tablet Take 1 tablet by mouth once daily. albuterol HFA (PROAIR HFA) 90 mcg/actuation inhaler 2 Puffs every 6 hours as needed. Take as directed metFORMIN ER (GLUCOPHAGE XR) 500 mg 24 hr tablet Take 2 tablets by mouth twice daily with meals. metoprolol succinate ER (TOPROL XL) 25 mg 24 hr tablet Take 0.5 tablets by mouth twice daily. atorvastatin (LIPITOR) 20 mg tablet Take 1 tablet by mouth once daily. losartan (COZAAR) 100 mg tablet Take 1 tablet by mouth once daily. testosterone cypionate (DEPO-TESTOSTERONE) 200 mg/mL injection Inject 1 mL intramuscularly every 2 weeks for 6 doses. Syringe with Needle, Disp, (MONOJECT SYRINGE) 3 mL 22 x 1 1/2 1 syringe w needle for TRT Injection sildenafil (VIAGRA) 100 mg tablet One tablet 30 minutes before intercourse omeprazole (PRILOSEC) 20 mg capsule Take 1 capsule by mouth once daily. ON AN EMPTY STOMACH (Patient taking differently: Take 20 mg by mouth as needed. ON AN EMPTY STOMACH) Needle, Disp, 18 G (Identiv BLUNT CANNULA) 18 gauge x 1 ndle 1 Each as needed. clonazePAM (KLONOPIN) 1 mg tablet Take 1 mg by mouth once daily. Reports taking 1mg nightly before bed- Dr. Mcgowan Current Facility-Administered Medications Medication Dose Route Frequency perflutren lipid microspheres 1.3 mL in NaCl (PF) 0.9% 10 mL injection (DEFINITY) INTRAVENOUS DIRECTED PRN sodium chloride 0.9 % (flush) 10 mL (BD POSIFLUSH) 10 mL INTRAVENOUS DIRECTED PRN ALLERGIES: ALLERGIES Allergen Reactions Katy Inhibitors Cough Sudafed [Pseudoephe* PAST MEDICAL HISTORY Diagnosis Date Deviated nasal septum HTN (hypertension), benign Kidney stones 1997 recurrent Other and unspecified hyperlipidemia Personal history of colonic polyps 2009 benign Unspecified sleep apnea not using cpap PAST SURGICAL HISTORY Procedure Laterality Date COLONOSCOPY W/BIOPSY SINGLE/MULTIPLE 11-01-10 COLSC FLX W/REMOVAL LESION BY HOT BX FORCEPS 05-02-16 COLSC FLX W/RMVL OF TUMOR POLYP LESION SNARE TQ 10/31/2009 COLSC FLX W/RMVL OF TUMOR POLYP LESION SNARE TQ 11-01-10 COLSC FLX W/RMVL OF TUMOR POLYP LESION SNARE TQ 5-13-13 EGD TRANSORAL BIOPSY SINGLE/MULTIPLE 10/31/2009 PAST SURGICAL HISTORY OF 1981 Right inguinal? hernia repair PAST SURGICAL HISTORY OF 1994 Left inguinal? hernia repair PAST SURGICAL HISTORY OF 1994 kidney stone PAST SURGICAL HISTORY OF left index finger trauma PAST SURGICAL HISTORY OF tooth extraction FAMILY HISTORY Problem Relation Age of Onset Diabetes Father Hypertension Father Heart Brother Alzheimer's Disease Maternal Grandmother Alzheimer's Disease Mother Social History Tobacco Use Smoking status: Former Packs/day: 1.00 Years: 20.00 Additional pack years: 0.00 Total pack years: 20.00 Types: Cigarettes Quit date: 12/05/2002 Years since quittin.3 Smokeless tobacco: Never Substance Use Topics Alcohol use: No Drug use: No Comment: Quit 1991 cocaine Reviewed current medications, allergies, past medical history, surgical history, family history and social history today. REVIEW OF SYSTEMS All other reviewed and negative other than HPI. HEALTH MAINTENANCE: Reviewed health maintenance issues today and recommended the following in detail. ABDOMINAL AORTIC ANEURYSM SCREENING Never done BP CONTROLLED (<130/80) Never done URINE ALBUMIN:CREATININE RATIO due on 11/13/2021 DILATED RETINAL EXAM -recommended. VITALS: BP 136/86 Pulse (!) 56 Ht 177.8 cm (5' 10 ) Wt 92.1 kg (203 lb) SpO2 96% BMI 29.13 kg/m? Last 4 Encounter Wt Readings: Date: Wt: 03/25/2023 95.3 kg (210 lb) 01/10/2023 95.3 kg (210 lb) 09/24/2022 96.2 kg (212 lb) 07/06/2022 96.3 kg (212 l (more content not included)... [facility] 04-24-2023 History of Present illness Narrative Patient presents with: Follow Up HPI: Patient presents today for office visit for follow up. Wasn't feeling very well this morning. Refers to just dragging . BP was 182/98 before meds and BS was 181. He lee snot think it is bad enough to do anything. Followed up with Urology for testosterone levels. Labs were drawn and was told his hemoglobin is dangerously high. Needs to donate blood. Went to [facility] and was told he was unable to donate because of A-fib and being on Eliquis. Advised to check with him his urologist. Follows with Cardiology. Stopped Amiodarone. No chest pain in various spots in the chest and short lived. Due to being an old man per patient., denies. shortness of breath. No bleeding or bruising. No palpitations. Due for CBC and BMP labs. Last a1c was 7.0. MEDICATIONS: Current Outpatient Medications Medication Sig amiodarone (PACERONE) 200 mg tablet Take 1 tablet by mouth once daily. apixaban (ELIQUIS) 5 mg tab(s) Take 1 tablet by mouth twice daily. amLODIPine (NORVASC) 5 mg tablet Take 1 tablet by mouth once daily. amLODIPine (NORVASC) 5 mg tablet Take 1 tablet by mouth once daily. albuterol HFA (PROAIR HFA) 90 mcg/actuation inhaler 2 Puffs every 6 hours as needed. Take as directed metFORMIN ER (GLUCOPHAGE XR) 500 mg 24 hr tablet Take 2 tablets by mouth twice daily with meals. metoprolol succinate ER (TOPROL XL) 25 mg 24 hr tablet Take 0.5 tablets by mouth twice daily. atorvastatin (LIPITOR) 20 mg tablet Take 1 tablet by mouth once daily. losartan (COZAAR) 100 mg tablet Take 1 tablet by mouth once daily. testosterone cypionate (DEPO-TESTOSTERONE) 200 mg/mL injection Inject 1 mL intramuscularly every 2 weeks for 6 doses. Syringe with Needle, Disp, (MONOJECT SYRINGE) 3 mL 22 x 1 1/2 1 syringe w needle for TRT Injection sildenafil (VIAGRA) 100 mg tablet One tablet 30 minutes before intercourse omeprazole (PRILOSEC) 20 mg capsule Take 1 capsule by mouth once daily. ON AN EMPTY STOMACH (Patient taking differently: Take 20 mg by mouth as needed. ON AN EMPTY STOMACH) Needle, Disp, 18 G (Identiv BLUNT CANNULA) 18 gauge x 1 ndle 1 Each as needed. clonazePAM (KLONOPIN) 1 mg tablet Take 1 mg by mouth once daily. Reports taking 1mg nightly before bed- Dr. Mcgowan Current Facility-Administered Medications Medication Dose Route Frequency perflutren lipid microspheres 1.3 mL in NaCl (PF) 0.9% 10 mL injection (DEFINITY) INTRAVENOUS DIRECTED PRN sodium chloride 0.9 % (flush) 10 mL (BD POSIFLUSH) 10 mL INTRAVENOUS DIRECTED PRN ALLERGIES: ALLERGIES Allergen Reactions Katy Inhibitors Cough Sudafed [Pseudoephe* PAST MEDICAL HISTORY Diagnosis Date Deviated nasal septum HTN (hypertension), benign Kidney stones 1997 recurrent Other and unspecified hyperlipidemia Personal history of colonic polyps 2009 benign Unspecified sleep apnea not using cpap PAST SURGICAL HISTORY Procedure Laterality Date COLONOSCOPY W/BIOPSY SINGLE/MULTIPLE 11-01-10 COLSC FLX W/REMOVAL LESION BY HOT BX FORCEPS 05-02-16 COLSC FLX W/RMVL OF TUMOR POLYP LESION SNARE TQ 10/31/2009 COLSC FLX W/RMVL OF TUMOR POLYP LESION SNARE TQ 11-01-10 COLSC FLX W/RMVL OF TUMOR POLYP LESION SNARE TQ 01-19-13 EGD TRANSORAL BIOPSY SINGLE/MULTIPLE 10/31/2009 PAST SURGICAL HISTORY OF 1981 Right inguinal? hernia repair PAST SURGICAL HISTORY OF 1994 Left inguinal? hernia repair PAST SURGICAL HISTORY OF 1994 kidney stone PAST SURGICAL HISTORY OF left index finger trauma PAST SURGICAL HISTORY OF tooth extraction FAMILY HISTORY Problem Relation Age of Onset Diabetes Father Hypertension Father Heart Brother Alzheimer's Disease Maternal Grandmother Alzheimer's Disease Mother Social History Tobacco Use Smoking status: Former Packs/day: 1.00 Years: 20.00 Additional pack years: 0.00 Total pack years: 20.00 Types: Cigarettes Quit date: 12/05/2002 Years since quittin.3 Smokeless tobacco: Never Substance Use Topics Alcohol use: No Drug use: No Comment: Quit 1991 cocaine Reviewed current medications, allergies, past medical history, surgical history, family history and social history today. REVIEW OF SYSTEMS All other reviewed and negative other than HPI. HEALTH MAINTENANCE: Reviewed health maintenance issues today and recommended the following in detail. ABDOMINAL AORTIC ANEURYSM SCREENING Never done BP CONTROLLED (<130/80) Never done URINE ALBUMIN:CREATININE RATIO due on 11/13/2021 DILATED RETINAL EXAM -recommended. VITALS: BP 136/86 Pulse (!) 56 Ht 177.8 cm (5' 10 ) Wt 92.1 kg (203 lb) SpO2 96% BMI 29.13 kg/m Last 4 Encounter Wt Readings: Date: Wt: 03/25/2023 95.3 kg (210 lb) 01/10/2023 95.3 kg (210 lb) 09/24/2022 96.2 kg (212 lb) 07/06/2022 96.3 kg (212 lb 6.4 oz) PHYSICAL EXAMINATION: General appearance: Well appearing, alert, in no acute distress, well-hydrated, well nourished. Skin: Skin color, texture, turgor normal, no suspicious rashes or lesions Head: Normocephalic, no masses, lesions, tenderness or abnormalities Lungs: Lungs clear to auscultation. No wheezing, rhonchi, rales Heart: RRR without murmur, gallop, or rubs. No ectopy Abdomen: Normal abdominal exam, Abdomen soft, non-tender. Bowel sounds normal. No masses, organomegaly Extremities: No deformities, edema, skin discoloration, clubbing or cyanosis. Good capillary refill. ASSESSMENT/PLAN: 1. Essential hypertension - ICD9: 401.9, ICD10: I10 (primary diagnosis) - Controlled - Continue current medications 2. Mixed hyperlipidemia - ICD9: 272.2, ICD10: E78.2 - Controlled - Counseled on healthy diet and regular exercise 3. Type 2 diabetes mellitus without complication, without long-term current use of insulin (HCC) - ICD9: 250.00, ICD10: E11.9 - Controlled - Continue current medications - ALBUMIN/CREAT RATIO RND UR 4. Hypotestosteronism - ICD9: 259.9, ICD10: E34.9 - follow labs. 5. Polycythemia - ICD9: 238.4, ICD10: D75.1 - he will contact his urologist. Blake Sandoval MD documented in this encounter [facility] 03-25-2023 Note HNO ID: [id number] Author: Blake Sandoval MD Service: ? Author Type: Physician Type: Progress Notes Filed: 03/25/2023 9:38 AM Note Text: Patient presents with: Hospital F/U HPI: Patient presents today for office visit for follow up. HOSPITAL/ER FOLLOW UP: Reason for visit: chest pain Which facility: [facility]. Limited records are available. Date of visit: 03/13/23 Discharge: 03/15/23 Diagnosis: Afib with RVR, RBBB Testing done: Cardioversion 03/14/23 Echo Currently wearing heart monitor Treatment given: started on amiodarone and eliquis. Continued on betablocker. Current symptoms: feeling a little bit on brain fog Got CCTA- IMPRESSION 1. No thrombus in the LA or DORIS with delayed phase imaging 2. There is an appearance of an aneurysmal interatrial septum cannot exclude a small PFO. He did have a cardioversion which was successful. Discussed risks and benefits of meds. Has not made his appt with cardiology yet. Encouraged him to do so. No further chest pain. No shortness of breath. No palpitations. No bleeding issues. A1C was 7.0. No new headache, numbness or weakness. Feels he has some brain fog since being in the hospital. He is wearing a monitor currently. See TCM call: TRANSITION CARE MANAGEMENT (TCM) INITIAL CONTACT Night Assistant Outreach done on 03/18 Provider Action/FYI: Chest pain, unspecified New onset atrial fibrillation with rapid ventricular response RBBB Chronic systolic CHF ECG in ED noted a fib with RVR, RBBB CXR w/o acute findings Troponin negative x2 Echocardiogram showed LVEF 45%; no signs of acute exacerbation Already on guideline directed medical therapy EP consulted, appreciate input 03/14 S/p successful cardioversion to NSR 03/14 Toprol XL at DC Amiodarone at DC Eliquis at DC MEDICATIONS: Current Outpatient Medications Medication Sig amiodarone (PACERONE) 200 mg tablet Take 200 mg by mouth once daily. apixaban (ELIQUIS) 5 mg tab(s) Take 5 mg by mouth twice daily. metoprolol succinate ER (TOPROL XL) 25 mg 24 hr tablet Take 12.5 mg by mouth twice daily. atorvastatin (LIPITOR) 20 mg tablet Take 1 tablet by mouth once daily. losartan (COZAAR) 100 mg tablet Take 1 tablet by mouth once daily. testosterone cypionate (DEPO-TESTOSTERONE) 200 mg/mL injection Inject 1 mL intramuscularly every 2 weeks for 6 doses. metFORMIN ER (GLUCOPHAGE XR) 500 mg 24 hr tablet Take 2 tablets by mouth twice daily with meals. amLODIPine (NORVASC) 5 mg tablet Take 1 tablet by mouth once daily. omeprazole (PRILOSEC) 20 mg capsule Take 1 capsule by mouth once daily. ON AN EMPTY STOMACH (Patient taking differently: Take 20 mg by mouth as needed. ON AN EMPTY STOMACH) clonazePAM (KLONOPIN) 1 mg tablet Take 1 mg by mouth once daily. Reports taking 1mg nightly before bed- Dr. Mcgowan amLODIPine (NORVASC) 5 mg tablet Take 1 tablet by mouth once daily. Syringe with Needle, Disp, (MONOJECT SYRINGE) 3 mL 22 x 1 1/2 1 syringe w needle for TRT Injection metoprolol tartrate, short acting, (LOPRESSOR) 25 mg tablet Take 1 tablet by mouth twice daily. sildenafil (VIAGRA) 100 mg tablet One tablet 30 minutes before intercourse Needle, Disp, 18 G (Identiv BLUNT CANNULA) 18 gauge x 1 ndle 1 Each as needed. albuterol HFA (PROAIR HFA) 90 mcg/actuation inhaler 2 Puffs every 6 hours as needed. Take as directed Current Facility-Administered Medications Medication Dose Route Frequency perflutren lipid microspheres 1.3 mL in NaCl (PF) 0.9% 10 mL injection (DEFINITY) INTRAVENOUS DIRECTED PRN sodium chloride 0.9 % (flush) 10 mL (BD POSIFLUSH) 10 mL INTRAVENOUS DIRECTED PRN ALLERGIES: ALLERGIES Allergen Reactions Katy Inhibitors Cough Sudafed [Pseudoephe* PAST MEDICAL HISTORY Diagnosis Date Deviated nasal septum HTN (hypertension), benign Kidney stones 1997 recurrent Other and unspecified hyperlipidemia Personal history of colonic polyps 2009 benign Unspecified sleep apnea not using cpap PAST SURGICAL HISTORY Procedure Laterality Date COLONOSCOPY W/BIOPSY SINGLE/MULTIPLE 11-01-10 COLSC FLX W/REMOVAL LESION BY HOT BX FORCEPS 05-02-16 COLSC FLX W/RMVL OF TUMOR POLYP LESION SNARE TQ 10/31/2009 COLSC FLX W/RMVL OF TUMOR POLYP LESION SNARE TQ 11-01-10 COLSC FLX W/RMVL OF TUMOR POLYP LESION SNARE TQ 01-19-13 EGD TRANSORAL BIOPSY SINGLE/MULTIPLE 10/31/2009 PAST SURGICAL HISTORY OF 1981 Right inguinal? hernia repair PAST SURGICAL HISTORY OF 1994 Left inguinal? hernia repair PAST SURGICAL HISTORY OF 1994 kidney stone PAST SURGICAL HISTORY OF left index finger trauma PAST SURGICAL HISTORY OF tooth extraction FAMILY HISTORY Problem Relation Age of Onset Diabetes Father Hypertension Father Heart Brother Alzheimer's Disease Maternal Grandmother Alzheimer's Disease Mother Social History Tobacco Use Smoking status: Former Packs/day: 1.00 Years: 20.00 Total pack years: 2 (more content not included)... [facility] 03-25-2023 History of Present illness Narrative Patient presents with: Hospital F/U HPI: Patient presents today for office visit for follow up. HOSPITAL/ER FOLLOW UP: Reason for visit: chest pain Which facility: [facility] [place]. Limited records are available. Date of visit: 03/13/23 Discharge: 03/15/23 Diagnosis: Afib with RVR, RBBB Testing done: Cardioversion 03/14/23 Echo Currently wearing heart monitor Treatment given: started on amiodarone and eliquis. Continued on betablocker. Current symptoms: feeling a little bit on brain fog Got CCTA- IMPRESSION 1. No thrombus in the LA or DORIS with delayed phase imaging 2. There is an appearance of an aneurysmal interatrial septum cannot exclude a small PFO. He did have a cardioversion which was successful. Discussed risks and benefits of meds. Has not made his appt with cardiology yet. Encouraged him to do so. No further chest pain. No shortness of breath. No palpitations. No bleeding issues. A1C was 7.0. No new headache, numbness or weakness. Feels he has some brain fog since being in the hospital. He is wearing a monitor currently. See TCM call: TRANSITION CARE MANAGEMENT (TCM) INITIAL CONTACT Night Assistant Outreach done on 03/18 Provider Action/FYI: Chest pain, unspecified New onset atrial fibrillation with rapid ventricular response RBBB Chronic systolic CHF ECG in ED noted a fib with RVR, RBBB CXR w/o acute findings Troponin negative x2 Echocardiogram showed LVEF 45%; no signs of acute exacerbation Already on guideline directed medical therapy EP consulted, appreciate input 03/14 S/p successful cardioversion to NSR 03/14 Toprol XL at DC Amiodarone at DC Eliquis at DC MEDICATIONS: Current Outpatient Medications Medication Sig amiodarone (PACERONE) 200 mg tablet Take 200 mg by mouth once daily. apixaban (ELIQUIS) 5 mg tab(s) Take 5 mg by mouth twice daily. metoprolol succinate ER (TOPROL XL) 25 mg 24 hr tablet Take 12.5 mg by mouth twice daily. atorvastatin (LIPITOR) 20 mg tablet Take 1 tablet by mouth once daily. losartan (COZAAR) 100 mg tablet Take 1 tablet by mouth once daily. testosterone cypionate (DEPO-TESTOSTERONE) 200 mg/mL injection Inject 1 mL intramuscularly every 2 weeks for 6 doses. metFORMIN ER (GLUCOPHAGE XR) 500 mg 24 hr tablet Take 2 tablets by mouth twice daily with meals. amLODIPine (NORVASC) 5 mg tablet Take 1 tablet by mouth once daily. omeprazole (PRILOSEC) 20 mg capsule Take 1 capsule by mouth once daily. ON AN EMPTY STOMACH (Patient taking differently: Take 20 mg by mouth as needed. ON AN EMPTY STOMACH) clonazePAM (KLONOPIN) 1 mg tablet Take 1 mg by mouth once daily. Reports taking 1mg nightly before bed- Dr. Mcgowan amLODIPine (NORVASC) 5 mg tablet Take 1 tablet by mouth once daily. Syringe with Needle, Disp, (MONOJECT SYRINGE) 3 mL 22 x 1 1/2 1 syringe w needle for TRT Injection metoprolol tartrate, short acting, (LOPRESSOR) 25 mg tablet Take 1 tablet by mouth twice daily. sildenafil (VIAGRA) 100 mg tablet One tablet 30 minutes before intercourse Needle, Disp, 18 G (Identiv BLUNT CANNULA) 18 gauge x 1 ndle 1 Each as needed. albuterol HFA (PROAIR HFA) 90 mcg/actuation inhaler 2 Puffs every 6 hours as needed. Take as directed Current Facility-Administered Medications Medication Dose Route Frequency perflutren lipid microspheres 1.3 mL in NaCl (PF) 0.9% 10 mL injection (DEFINITY) INTRAVENOUS DIRECTED PRN sodium chloride 0.9 % (flush) 10 mL (BD POSIFLUSH) 10 mL INTRAVENOUS DIRECTED PRN ALLERGIES: ALLERGIES Allergen Reactions Katy Inhibitors Cough Sudafed [Pseudoephe* PAST MEDICAL HISTORY Diagnosis Date Deviated nasal septum HTN (hypertension), benign Kidney stones 1997 recurrent Other and unspecified hyperlipidemia Personal history of colonic polyps 2009 benign Unspecified sleep apnea not using cpap PAST SURGICAL HISTORY Procedure Laterality Date COLONOSCOPY W/BIOPSY SINGLE/MULTIPLE 11-01-10 COLSC FLX W/REMOVAL LESION BY HOT BX FORCEPS 05-02-16 COLSC FLX W/RMVL OF TUMOR POLYP LESION SNARE TQ 10/31/2009 COLSC FLX W/RMVL OF TUMOR POLYP LESION SNARE TQ 11-01-10 COLSC FLX W/RMVL OF TUMOR POLYP LESION SNARE TQ 01-19-13 EGD TRANSORAL BIOPSY SINGLE/MULTIPLE 10/31/2009 PAST SURGICAL HISTORY OF 1981 Right inguinal? hernia repair PAST SURGICAL HISTORY OF 1994 Left inguinal? hernia repair PAST SURGICAL HISTORY OF 1994 kidney stone PAST SURGICAL HISTORY OF left index finger trauma PAST SURGICAL HISTORY OF tooth extraction FAMILY HISTORY Problem Relation Age of Onset Diabetes Father Hypertension Father Heart Brother Alzheimer's Disease Maternal Grandmother Alzheimer's Disease Mother Social History Tobacco Use Smoking status: Former Packs/day: 1.00 Years: 20.00 Total pack years: 20.00 Types: Cigarettes Quit date: 12/05/2002 Years since quittin.3 Smokeless tobacco: Never Substance Use Topics Alcohol use: No Drug use: No Comment: Quit 1991 cocaine Reviewed current medications, allergies, past medical history, surgical history, family history and social history today. REVIEW OF SYSTEMS All other reviewed and negative other than HPI. VITALS: BP 130/80 Pulse (!) 54 Wt 95.3 kg (210 lb) SpO2 96% BMI 30.13 kg/m Last 4 Encounter Wt Readings: Date: Wt: 01/10/2023 95.3 kg (210 lb) 09/24/2022 96.2 kg (212 lb) 07/06/2022 96.3 kg (212 lb 6.4 oz) 07/25/2021 91.3 kg (201 lb 3.2 oz) PHYSICAL EXAMINATION: General appearance: Well appearing, alert, in no acute distress, well-hydrated, well nourished. Skin: Skin color, texture, turgor normal, no suspicious rashes or lesions Head: Normocephalic, no masses, lesions, tenderness or abnormalities Lungs: Lungs clear to auscultation. No wheezing, rhonchi, rales Heart: RRR without murmur, gallop, or rubs. No ectopy Abdomen: Normal abdominal exam, Abdomen soft, non-tender. Bowel sounds normal. No masses, organomegaly Extremities: No deformities, edema, skin discoloration, clubbing or cyanosis. Good capillary refill. Musculoskeletal: No joint swelling, deformity, or tenderness ASSESSMENT/PLAN: 1. Atrial fibrillation with RVR (HCC) - ICD9: 427.31, ICD10: I48.91 (primary diagnosis) - stable. Continue meds. See cardiology. Labs before next ov and recheck in one month. - CBC + DIFF - BASIC METABOLIC PNL 2. Mixed hyperlipidemia - ICD9: 272.2, ICD10: E78.2 - stable. 3. Essential hypertension - ICD9: 401.9, ICD10: I10 - Controlled - Continue current medications 4. Type 2 diabetes mellitus without complication, without long-term current use of insulin (HCC) - ICD9: 250.00, ICD10: E11.9 - Controlled - Continue current medications - CBC + DIFF - BASIC METABOLIC PNL - ALBUMIN/CREAT RATIO RND UR Blake Sandoval MD documented in this encounter [facility] 03-18-2023 Note HNO ID: [id number] Author: Kaz Dela Cruz LPN Service: ? Author Type: ? Type: Progress Notes Filed: 03/18/2023 2:40 PM Note Text: TRANSITION CARE MANAGEMENT (TCM) INITIAL CONTACT Night Assistant Outreach Provider Action/FYI: Chest pain, unspecified New onset atrial fibrillation with rapid ventricular response RBBB Chronic systolic CHF ECG in ED noted a fib with RVR, RBBB CXR w/o acute findings Troponin negative x2 Echocardiogram showed LVEF 45%; no signs of acute exacerbation Already on guideline directed medical therapy EP consulted, appreciate input 03/14 S/p successful cardioversion to NSR 03/14 Toprol XL at DC Amiodarone at DC Eliquis at DC Initial contact with patient post discharge, spoke to patient. Patient identified by name and . TRANSITION CARE MANAGEMENT INITIAL OUTREACH DOCUMENTATION: No flowsheet data found. SUMMARY: -Pt discharged from [facility] on 03/15/23. -Admitted for: chest pain Do you have a hospital follow up appointment with your PCP? Appointment on 03/28/[address] Sandoval. Yes. Remind patient of appointment date, time, and location. If not within 14 calendar days of discharge - please reschedule accordingly. MEDICATIONS: Many patients have questions or concerns about their medications once they are home. Were you prescribed any new medications? If yes, what are those medications? Amiodarone, eliquis Were you told to hold any medications? No Were any of your medications discontinued? No Do you have any questions about getting or taking your medications? No Your discharge instructions/After visit Summary (AVS) are important in guiding you through the recovery process. Is there anything I might help you understand? No Do you have all the necessary equipment and supplies at home? Yes Medical records from recent hospitalization: Care Everywhere [facility] 03-18-2023 History of Present illness Narrative TRANSITION CARE MANAGEMENT (TCM) INITIAL CONTACT Night Assistant Outreach Provider Action/FYI: Chest pain, unspecified New onset atrial fibrillation with rapid ventricular response RBBB Chronic systolic CHF ECG in ED noted a fib with RVR, RBBB CXR w/o acute findings Troponin negative x2 Echocardiogram showed LVEF 45%; no signs of acute exacerbation Already on guideline directed medical therapy EP consulted, appreciate input 03/14 S/p successful cardioversion to NSR 03/14 Toprol XL at DC Amiodarone at DC Eliquis at DC Initial contact with patient post discharge, spoke to patient. Patient identified by name and . TRANSITION CARE MANAGEMENT INITIAL OUTREACH DOCUMENTATION: No flowsheet data found. SUMMARY: -Pt discharged from [facility] on 03/15/23. -Admitted for: chest pain Do you have a hospital follow up appointment with your PCP? Appointment on 03/28/[address] Sandoval. Yes. Remind patient of appointment date, time, and location. If not within 14 calendar days of discharge - please reschedule accordingly. MEDICATIONS: Many patients have questions or concerns about their medications once they are home. Were you prescribed any new medications? If yes, what are those medications? Amiodarone, eliquis Were you told to hold any medications? No Were any of your medications discontinued? No Do you have any questions about getting or taking your medications? No Your discharge instructions/After visit Summary (AVS) are important in guiding you through the recovery process. Is there anything I might help you understand? No Do you have all the necessary equipment and supplies at home? Yes Medical records from recent hospitalization: Care Everywhere documented in this encounter [facility] 03-18-2023 Note Patient Outreach (FA MPWS) NAYELY WEEKS ([id number]) 1955 M Date Time Provider Department 03/18/23 BLAKE SANDOVAL During your visit today, we recorded the following information about you: Kaz Dela Cruz CARLEY 03/18/2023 2:40 PM Signed TRANSITION CARE MANAGEMENT (TCM) INITIAL CONTACT Night Assistant Outreach Provider Action/FYI: Chest pain, unspecified New onset atrial fibrillation with rapid ventricular response RBBB Chronic systolic CHF ECG in ED noted a fib with RVR, RBBB CXR w/o acute findings Troponin negative x2 Echocardiogram showed LVEF 45%; no signs of acute exacerbation Already on guideline directed medical therapy EP consulted, appreciate input 03/14 S/p successful cardioversion to NSR 03/14 Toprol XL at DC Amiodarone at DC Eliquis at DC Initial contact with patient post discharge, spoke to patient. Patient identified by name and . TRANSITION CARE MANAGEMENT INITIAL OUTREACH DOCUMENTATION: No flowsheet data found. SUMMARY: -Pt discharged from [facility] on 03/15/23. -Admitted for: chest pain Do you have a hospital follow up appointment with your PCP? Appointment on 03/28/[address] Sandoval. Yes. Remind patient of appointment date, time, and location. If not within 14 calendar days of discharge - please reschedule accordingly. MEDICATIONS: Many patients have questions or concerns about their medications once they are home. Were you prescribed any new medications? If yes, what are those medications? Amiodarone, eliquis Were you told to hold any medications? No Were any of your medications discontinued? No Do you have any questions about getting or taking your medications? No Your discharge instructions/After visit Summary (AVS) are important in guiding you through the recovery process. Is there anything I might help you understand? No Do you have all the necessary equipment and supplies at home? Yes Medical records from recent hospitalization: Care Everywhere Allergies As of Date: 03/18/2023 Noted Allergy Reaction KATY INHIBITORS 02/20/2011 3 - Cough SUDAFED (PSEUDOEPHEDRINE HCL) 01/30/2006 Date Reviewed: 01/10/2023 Reviewed by: Cristina Marks Ma - Fully Assessed Reason for Visit: Transition Of Care [4074] Prescriptions as of 03/18/2023 - atorvastatin (LIPITOR) 20 mg tablet Take 1 tablet by mouth once daily. - losartan (COZAAR) 100 mg tablet Take 1 tablet by mouth once daily. - amLODIPine (NORVASC) 5 mg tablet Take 1 tablet by mouth once daily. - testosterone cypionate (DEPO-TESTOSTERONE) 200 mg/mL injection Inject 1 mL intramuscularly every 2 weeks for 6 doses. - Syringe with Needle, Disp, (MONOJECT SYRINGE) 3 mL 22 x 1 1/2 1 syringe w needle for TRT Injection - metoprolol tartrate, short acting, (LOPRESSOR) 25 mg tablet Take 1 tablet by mouth twice daily. - metFORMIN ER (GLUCOPHAGE XR) 500 mg 24 hr tablet Take 2 tablets by mouth twice daily with meals. - amLODIPine (NORVASC) 5 mg tablet Take 1 tablet by mouth once daily. - sildenafil (VIAGRA) 100 mg tablet One tablet 30 minutes before intercourse - omeprazole (PRILOSEC) 20 mg capsule Take 1 capsule by mouth once daily. ON AN EMPTY STOMACH - Needle, Disp, 18 G (Identiv BLUNT CANNULA) 18 gauge x 1 ndle 1 Each as needed. - clonazePAM (KLONOPIN) 1 mg tablet Take 1 mg by mouth once daily. Reports taking 1mg nightly before bed- Dr. Mcgowan - albuterol HFA (PROAIR HFA) 90 mcg/actuation inhaler 2 Puffs every 6 hours as needed. Take as directed Facility-Administered Medications as of 03/18/2023 - perflutren lipid microspheres 1.3 mL in NaCl (PF) 0.9% 10 mL injection (DEFINITY) - sodium chloride 0.9 % (flush) 10 mL (BD POSIFLUSH) Problem List As Of Date 03/18/2023 Noted Resolved Deviated nasal septum [J34.2] 07/13/2016 Hyperlipidemia [E78.5] RLS (restless legs syndrome) [G25.81] 05/22/2006 CALCULUS OF KIDNEY [N20.0] 05/22/2006 PROSTATIC DISORDER NOS [N42.9] 05/22/2006 Benign prostatic hyperplasia without lower urin*05/22/2006 Hypotestosteronism [E34.9] 05/22/2006 HYPERGLYCEMIA [R79.89] 08/26/2006 09/24/2022 Cough [R05.9] 04/05/2009 03/13/2017 Essential hypertension [I10] 04/05/2009 Overweight [E66.3] 10/02/2009 GERD (Gastroesophageal Reflux Disease) [K21.9] 10/13/2009 Umbilical Hernia without Mention of Obstruction*10/13/2009 Diastasis Recti [M62.08] 10/13/2009 Personal history of colonic polyps [Z86.010] 10/09/2010 Sleep apnea [G47.30] 12/05/2012 Rupture of tendon of biceps, long head [S46.119*05/30/2015 07/13/2016 Polyp of colon [K63.5] 05/09/2016 09/24/2022 Adenomatous polyp of transverse colon [D12.3] 11/20/2016 09/24/2022 Type 2 diabetes mellitus without complication, *06/02/2018 ED (erectile dysfunction) of organic origin [N5*11/10/2020 Encounter Status:Closed by KAZ DELA CRUZ LPN on 03/18/23 [facility] 01-10-2023 Note HNO ID: [id number] Author: Lala Bermeo PA-C Service: ? Author Type: Physician Buck Swamper Type: Progress Notes Filed: 01/10/2023 8:22 PM Note Text: 67 year old male with c/o persistent cough when he eats pretty much every time over the last year, often with tears and sneezing. Has hiatal hernia. Heartburn rare. Takes prilosec 20mg about once a week. Smoked 1 PPD x 20 years. No dysphagia or gagging No vocal changes. No SOB, no other cough. Diabetes Mellitus Type 2: Current medications: Metformin ER 500mg 2 tabs twice a day with meals Taking medication as directed consistently? Yes Medication side effects: Medical Issues / Complications: hypertension and hyperlipidemia Checking blood sugars at home? No. Watching diet? some Physical Activity: Regular Hypoglycemic spells? No Any visual disturbance? No Chest pain? No New numbness, tingling or loss of sensation? No Any recent foot problems, sores or rashes? No Any recent or sudden weight loss? No Change in urination? No. If yes: Any recent illness? No Last eye exam: due. Last foot exam: up to date. HBA1C: Hemoglobin A1C (no units) Date Value 07/06/2022 7.3 06/07/2020 8.3 ) CMP: Glucose 181 06/07/2020 BUN 17.6 06/07/2020 Creatinine 1.25 06/07/2020 NA 135 06/07/2020 K 4.4 06/07/2020 Chloride 102 06/07/2020 CO2 29 06/07/2020 Albumin 3.7 06/07/2020 Calcium 8.9 06/07/2020 Alk Phos Total 111 06/07/2020 AST (SGOT) 17 06/07/2020 ALT (SGPT) 37 06/07/2020 Last 2 Encounter Wt Readings: Date: Wt: 01/10/2023 95.3 kg (210 lb) 09/24/2022 96.2 kg (212 lb) Last 14 BP Last 14 Encounter BP Readings: Date: BP: 01/10/2023 122/80 09/24/2022 134/82 07/06/2022 170/90 07/25/2021 126/80 01/23/2021 116/70 11/10/2020 104/70 06/07/2020 136/88 06/01/2019 128/86 11/27/2018 130/84 06/05/2018 118/72 05/30/2018 116/74 09/19/2017 124/72 03/13/2017 162/90 10/01/2016 130/90 HISTORIES FAMILY HISTORY Problem Relation Age of Onset Diabetes Father Hypertension Father Heart Brother Alzheimer's Disease Maternal Grandmother Alzheimer's Disease Mother PAST MEDICAL HISTORY Diagnosis Date Deviated nasal septum HTN (hypertension), benign Kidney stones 1997 recurrent Other and unspecified hyperlipidemia Personal history of colonic polyps 2009 benign Unspecified sleep apnea not using cpap PAST SURGICAL HISTORY Procedure Laterality Date COLONOSCOPY W/BIOPSY SINGLE/MULTIPLE 11-01-10 COLSC FLX W/REMOVAL LESION BY HOT BX FORCEPS 05-02-16 COLSC FLX W/RMVL OF TUMOR POLYP LESION SNARE TQ 10/31/2009 COLSC FLX W/RMVL OF TUMOR POLYP LESION SNARE TQ 11-01-10 COLSC FLX W/RMVL OF TUMOR POLYP LESION SNARE TQ 01-19-13 EGD TRANSORAL BIOPSY SINGLE/MULTIPLE 10/31/2009 PAST SURGICAL HISTORY OF 1981 Right inguinal? hernia repair PAST SURGICAL HISTORY OF 1994 Left inguinal? hernia repair PAST SURGICAL HISTORY OF 1994 kidney stone PAST SURGICAL HISTORY OF left index finger trauma PAST SURGICAL HISTORY OF tooth extraction Social History Tobacco Use Smoking status: Former Packs/day: 1.00 Years: 20.00 Pack years: 20.00 Types: Cigarettes Quit date: 12/05/2002 Years since quittin.1 Smokeless tobacco: Never Substance Use Topics Alcohol use: No Drug use: No Comment: Quit 1991 cocaine ACTIVE PROBLEM LIST Hyperlipidemia Rls (Restless Legs Syndrome) Calculus of Kidney Unspecified Disorder of Prostate Benign Prostatic Hyperplasia Without Lower Urinary Tract Symptoms Hypotestosteronism Essential Hypertension Overweight Gerd (Gastroesophageal Reflux Disease) Umbilical Hernia Without Mention of Obstruction Or Gangrene Diastasis Recti Personal History of Colonic Polyps Sleep Apnea Type 2 Diabetes Mellitus Without Complication, Without Long-Term Current Use of Insulin ([facility]) Ed (Erectile Dysfunction) of Organic Origin Current Outpatient Medications Medication Sig Dispense Refill losartan (COZAAR) 100 mg tablet Take 1 tablet by mouth once daily. 90 tablet 1 amLODIPine (NORVASC) 5 mg tablet Take 1 tablet by mouth once daily. 90 tablet 3 testosterone cypionate (DEPO-TESTOSTERONE) 200 mg/mL injection Inject 1 mL intramuscularly every 2 weeks for 6 doses. 2 mL 2 Syringe with Needle, Disp, (MONOJECT SYRINGE) 3 mL 22 x 1 1/2 1 syringe w needle for TRT Injection 10 Each 1 metoprolol tartrate, short acting, (LOPRESSOR) 25 mg tablet Take 1 tablet by mouth twice daily. 180 tablet 3 metFORMIN ER (GLUCOPHAGE XR) 500 mg 24 hr tablet Take 2 tablets by mouth twice daily with meals. 360 tablet 1 amLODIPine (NORVASC) 5 mg tablet Take 1 tablet by mouth once daily. 30 tablet 0 atorvastatin (LIPITOR) 20 mg tablet Take 1 tablet by mouth once daily. 90 tablet 1 sildenafil (VIAGRA) 100 mg tablet One tablet 30 minutes before intercourse 6 tablet 11 omeprazole (PRILOSEC) 20 mg capsule Take 1 capsule by mouth once daily. ON AN EMPTY STOMACH 90 capsule 3 Needle, D (more content not included)... [facility] 01-10-2023 History of Present illness Narrative 67 year old male with c/o persistent cough when he eats pretty much every time over the last year, often with tears and sneezing. Has hiatal hernia. Heartburn rare. Takes prilosec 20mg about once a week. Smoked 1 PPD x 20 years. No dysphagia or gagging No vocal changes. No SOB, no other cough. Diabetes Mellitus Type 2: Current medications: Metformin ER 500mg 2 tabs twice a day with meals Taking medication as directed consistently? Yes Medication side effects: Medical Issues / Complications: hypertension and hyperlipidemia Checking blood sugars at home? No. Watching diet? some Physical Activity: Regular Hypoglycemic spells? No Any visual disturbance? No Chest pain? No New numbness, tingling or loss of sensation? No Any recent foot problems, sores or rashes? No Any recent or sudden weight loss? No Change in urination? No. If yes: Any recent illness? No Last eye exam: due. Last foot exam: up to date. HBA1C: Hemoglobin A1C (no units) Date Value 07/06/2022 7.3 06/07/2020 8.3 ) CMP: Glucose 181 06/07/2020 BUN 17.6 06/07/2020 Creatinine 1.25 06/07/2020 NA 135 06/07/2020 K 4.4 06/07/2020 Chloride 102 06/07/2020 CO2 29 06/07/2020 Albumin 3.7 06/07/2020 Calcium 8.9 06/07/2020 Alk Phos Total 111 06/07/2020 AST (SGOT) 17 06/07/2020 ALT (SGPT) 37 06/07/2020 Last 2 Encounter Wt Readings: Date: Wt: 01/10/2023 95.3 kg (210 lb) 09/24/2022 96.2 kg (212 lb) Last 14 BP Last 14 Encounter BP Readings: Date: BP: 01/10/2023 122/80 09/24/2022 134/82 07/06/2022 170/90 07/25/2021 126/80 01/23/2021 116/70 11/10/2020 104/70 06/07/2020 136/88 06/01/2019 128/86 11/27/2018 130/84 06/05/2018 118/72 05/30/2018 116/74 09/19/2017 124/72 03/13/2017 162/90 10/01/2016 130/90 HISTORIES FAMILY HISTORY Problem Relation Age of Onset Diabetes Father Hypertension Father Heart Brother Alzheimer's Disease Maternal Grandmother Alzheimer's Disease Mother PAST MEDICAL HISTORY Diagnosis Date Deviated nasal septum HTN (hypertension), benign Kidney stones 1998 recurrent Other and unspecified hyperlipidemia Personal history of colonic polyps 2009 benign Unspecified sleep apnea not using cpap PAST SURGICAL HISTORY Procedure Laterality Date COLONOSCOPY W/BIOPSY SINGLE/MULTIPLE 11-01-10 COLSC FLX W/REMOVAL LESION BY HOT BX FORCEPS 05-02-16 COLSC FLX W/RMVL OF TUMOR POLYP LESION SNARE TQ 10/31/2009 COLSC FLX W/RMVL OF TUMOR POLYP LESION SNARE TQ 11-01-10 COLSC FLX W/RMVL OF TUMOR POLYP LESION SNARE TQ 01-19-13 EGD TRANSORAL BIOPSY SINGLE/MULTIPLE 10/31/2009 PAST SURGICAL HISTORY OF 1981 Right inguinal? hernia repair PAST SURGICAL HISTORY OF 1994 Left inguinal? hernia repair PAST SURGICAL HISTORY OF 1994 kidney stone PAST SURGICAL HISTORY OF left index finger trauma PAST SURGICAL HISTORY OF tooth extraction Social History Tobacco Use Smoking status: Former Packs/day: 1.00 Years: 20.00 Pack years: 20.00 Types: Cigarettes Quit date: 12/05/2002 Years since quittin.1 Smokeless tobacco: Never Substance Use Topics Alcohol use: No Drug use: No Comment: Quit 1991 cocaine ACTIVE PROBLEM LIST Hyperlipidemia Rls (Restless Legs Syndrome) Calculus of Kidney Unspecified Disorder of Prostate Benign Prostatic Hyperplasia Without Lower Urinary Tract Symptoms Hypotestosteronism Essential Hypertension Overweight Gerd (Gastroesophageal Reflux Disease) Umbilical Hernia Without Mention of Obstruction Or Gangrene Diastasis Recti Personal History of Colonic Polyps Sleep Apnea Type 2 Diabetes Mellitus Without Complication, Without Long-Term Current Use of Insulin ([facility]) Ed (Erectile Dysfunction) of Organic Origin Current Outpatient Medications Medication Sig Dispense Refill losartan (COZAAR) 100 mg tablet Take 1 tablet by mouth once daily. 90 tablet 1 amLODIPine (NORVASC) 5 mg tablet Take 1 tablet by mouth once daily. 90 tablet 3 testosterone cypionate (DEPO-TESTOSTERONE) 200 mg/mL injection Inject 1 mL intramuscularly every 2 weeks for 6 doses. 2 mL 2 Syringe with Needle, Disp, (MONOJECT SYRINGE) 3 mL 22 x 1 1/2 1 syringe w needle for TRT Injection 10 Each 1 metoprolol tartrate, short acting, (LOPRESSOR) 25 mg tablet Take 1 tablet by mouth twice daily. 180 tablet 3 metFORMIN ER (GLUCOPHAGE XR) 500 mg 24 hr tablet Take 2 tablets by mouth twice daily with meals. 360 tablet 1 amLODIPine (NORVASC) 5 mg tablet Take 1 tablet by mouth once daily. 30 tablet 0 atorvastatin (LIPITOR) 20 mg tablet Take 1 tablet by mouth once daily. 90 tablet 1 sildenafil (VIAGRA) 100 mg tablet One tablet 30 minutes before intercourse 6 tablet 11 omeprazole (PRILOSEC) 20 mg capsule Take 1 capsule by mouth once daily. ON AN EMPTY STOMACH 90 capsule 3 Needle, Disp, 18 G (SquirrlyELD BLUNT CANNULA) 18 gauge x 1 ndle 1 Each as needed. 10 Each 2 clonazePAM (KLONOPIN) 1 mg tablet Take 1 mg by mouth once daily. Reports taking 1mg nightly before bed- Dr. Mcgowan albuterol HFA (PROAIR HFA) 90 mcg/actuation inhaler 2 Puffs every 6 hours as needed. Take as directed 6.7 g 1 Current Facility-Administered Medications Medication Dose Route Frequency Provider Last Rate Last Admin perflutren lipid microspheres 1.3 mL in NaCl (PF) 0.9% 10 mL injection (DEFINITY) INTRAVENOUS DIRECTED PRN Paola Gray APRN.MATT sodium chloride 0.9 % (flush) 10 mL (BD POSIFLUSH) 10 mL INTRAVENOUS DIRECTED PRN Paola Gray APRN.DIRECTOR OF TESTING ABDOMINAL AORTIC ANEURYSM SCREENING Never done BP CONTROLLED (<130/80) Never done URINE ALBUMIN:CREATININE RATIO due on 11/13/2021 DILATED RETINAL EXAM due on 06/19/2022 ADVANCE DIRECTIVE DISCUSSION Never done HBA1C due on 01/04/2023 EXAM: BP 122/80 Pulse 103 Resp 16 Wt 95.3 kg (210 lb) SpO2 96% BMI 30.13 kg/m Pleasant well appearing adult man in no acute distress. Alert and oriented all spheres. Normal affect and cognition. Speech normal. No deficits to learning or comprehension. Skin warm, dry, pink to lips and nailbeds. Normal turgor. Respirations regular and unlabored. HEENT: NCAT. No scleral icterus or conjunctival injection. TM's clear. Nose and oropharynx free from injection or lesion. Oral membranes moist and pink. 1/4+ subtonsillar mobile noted on right, otherwise cervical lymph nodes. Thyroid non-tender, no masses, or enlargement. Carotids pulses 2+/4+ without bruits. No JVD with HOB at 30 degrees. Chest is normal shape. Lungs are clear to all ferro with good air exchange through out. HRRR without murmur or gallop. No lifts, heaves, or rubs. Extrem: no clubbing or cyanosis. Edema: none. Extremities are warm and pink with prompt capillary refill. ASSESSMENT/PLAN: 1. Chronic cough - ICD9: 786.2, ICD10: R05.3 (primary diagnosis) Associated with oropharyngeal swallowing repeatedly daily. Recommend swallow study and laryngoscopy. Consider CT neck. - CONSULT TO ENT - XR MODIFIED BARIUM SWALLOW W SPEECH THERAPY 2. Type 2 diabetes mellitus without complication, without long-term current use of insulin (HCC) - ICD9: 250.00, ICD10: E11.9 - Controlled - Continue current medications - HGB A1C - ALBUMIN/CREAT RATIO RND UR Lala Bermeo PA-C documented in this encounter [facility] 01-09-2023 Miscellaneous Notes Patient has been identified by name and date of : Yes Requested Prescriptions Pending Prescriptions Disp Refills atorvastatin (LIPITOR) 20 mg tablet 90 tablet 3 Sig: Take 1 tablet by mouth once daily. YASMIN-09/24/22 Labs-07/24/22 NOV-01/10/23 med filled 06/11/22 RX INSTRUCTIONS: Patient aware RX will be sent to pharmacy. No need to notify patient. Brittny Franz [employer] documented in this encounter [facility] 12-24-2022 Miscellaneous Notes Patient has been identified by name and date of : Yes, Provider Date Time Spouse phones for refill(s): Requested Prescriptions Pending Prescriptions Disp Refills losartan (COZAAR) 100 mg tablet 90 tablet 1 Sig: Take 1 tablet by mouth once daily. Date of last office visit with pcp: 09/24/22 Date of last office visit in primary care: Last 2 Encounter Wt Readings: Date: Wt: 09/24/2022 96.2 kg (212 lb) 07/06/2022 96.3 kg (212 lb 6.4 oz) Previous labs/tests for medication: Blood Pressure: BUN (MG/DL) Date Value 06/07/2020 17.6 NA (mmol/L) Date Value 06/07/2020 135 Last 1 Encounter BP Readings: Date: BP: 09/24/2022 134/82 Please advise. Thank you. Elisa Modi, RN documented in this encounter [facility] 12-10-2022 Miscellaneous Notes Patient is totally out of this medication and he had asked the pharmacy to call for this and they had not since last and he is totally out and needs sent to them today please. Patient has been identified by name and date of : Yes Requested Prescriptions Pending Prescriptions Disp Refills amLODIPine (NORVASC) 5 mg tablet 90 tablet 3 Sig: Take 1 tablet by mouth once daily. YASMIN-09/24/22 Labs-07/24/22 NOV-03/28/23 med filled 11/01/22 RX INSTRUCTIONS: Patient aware RX will be sent to pharmacy. No need to notify patient. Angelina Wolfe Pss documented in this encounter [facility] 11-01-2022 Miscellaneous Notes Last office visit: 09/24/22 F/u scheduled: 03/28/23 Giselle Gill Ma Patient has been identified by name and date of : Yes Requested Prescriptions Pending Prescriptions Disp Refills amLODIPine (NORVASC) 5 mg tablet 30 tablet 0 Sig: Take 1 tablet by mouth once daily. RX INSTRUCTIONS: Patient aware RX will be sent to pharmacy. No need to notify patient. Brenna Schroeder Pss documented in this encounter [facility] 10-26-2022 Miscellaneous Notes VAISHNAVI was approved and faxed approval to [facility] Patient was notified Ivon Raya Ma Fax received from [employer] and completed and faxed back with office note and labs Ivon Raya Ma Images from the original note were not included. PA completed through [employer] for depo-testosterone. Prior Auth (EOC) ID: [id number] MemberID: [id number] documented in this encounter [facility] 10-08-2022 Miscellaneous Notes done Summary: Testosterone PT called in needing a new order for testosterone including syringes, PT got new insurance and is needing pre-authorization he stated, that is what his pharmacy told him. Please Advise, Valencia Fuchs, PSS documented in this encounter [facility] 09-24-2022 History of Present illness Narrative Patient presents with: Blood Pressure HPI: Patient presents today for office visit for follow up. Discussed palpitations. 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 No abnormal rhythms on monitor. Did not do the echo but feels much bettter. Was having a lot of stress back then. Still has some but is better. Reviewed labs. A1c was midly up at 7.3 Gfr mildly reduced. Trigs are better. Sugars have overall been ok. 120-130's No polyuria or polydipsia. Bp is doing well. No chest pain or shortness of breath. No edema. HLD: no myalgias. Seeing urology, Dr. Mortensen. For his testosterone. Seeing Dr Mcgowan for clonazepam. MEDICATIONS: Current Outpatient Medications Medication Sig amLODIPine (NORVASC) 5 mg tablet Take 1 tablet by mouth once daily. metoprolol tartrate, short acting, (LOPRESSOR) 25 mg tablet Take 1 tablet by mouth twice daily. metFORMIN ER (GLUCOPHAGE XR) 500 mg 24 hr tablet Take 2 tablets by mouth twice daily with meals. losartan (COZAAR) 100 mg tablet Take 1 tablet by mouth once daily. atorvastatin (LIPITOR) 20 mg tablet Take 1 tablet by mouth once daily. omeprazole (PRILOSEC) 20 mg capsule Take 1 capsule by mouth once daily. ON AN EMPTY STOMACH testosterone cypionate (DEPO-TESTOSTERONE) 200 mg/mL injection Inject 1 mL intramuscularly every 2 weeks for 6 doses. clonazePAM (KLONOPIN) 1 mg tablet Take 1 mg by mouth once daily. Reports taking 1mg nightly before bed- Dr. Mcgowan albuterol HFA (PROAIR HFA) 90 mcg/actuation inhaler 2 Puffs every 6 hours as needed. Take as directed amLODIPine (NORVASC) 5 mg tablet Take 1 tablet by mouth once daily. sildenafil (VIAGRA) 100 mg tablet One tablet 30 minutes before intercourse Syringe with Needle, Disp, (MONOJECT SYRINGE) 3 mL 22 x 1 1/2 1 syringe w needle for TRT Injection Needle, Disp, 18 G (Identiv BLUNT CANNULA) 18 gauge x 1 ndle 1 Each as needed. Current Facility-Administered Medications Medication Dose Route Frequency perflutren lipid microspheres 1.3 mL in NaCl (PF) 0.9% 10 mL injection (DEFINITY) INTRAVENOUS DIRECTED PRN sodium chloride 0.9 % (flush) 10 mL (BD POSIFLUSH) 10 mL INTRAVENOUS DIRECTED PRN ALLERGIES: ALLERGIES Allergen Reactions [place]y Inhibitors Cough Sudafed [Pseudoephe* PAST MEDICAL HISTORY Diagnosis Date Deviated nasal septum HTN (hypertension), benign Kidney stones 1997 recurrent Other and unspecified hyperlipidemia Personal history of colonic polyps 2009 benign Unspecified sleep apnea not using cpap PAST SURGICAL HISTORY Procedure Laterality Date COLONOSCOPY W/BIOPSY SINGLE/MULTIPLE 11-01-10 COLSC FLX W/REMOVAL LESION BY HOT BX FORCEPS 05-02-16 COLSC FLX W/RMVL OF TUMOR POLYP LESION SNARE TQ 10/31/2009 COLSC FLX W/RMVL OF TUMOR POLYP LESION SNARE TQ 11-01-10 COLSC FLX W/RMVL OF TUMOR POLYP LESION SNARE TQ 01-19-13 EGD TRANSORAL BIOPSY SINGLE/MULTIPLE 10/31/2009 PAST SURGICAL HISTORY OF 1981 Right inguinal? hernia repair PAST SURGICAL HISTORY OF 1994 Left inguinal? hernia repair PAST SURGICAL HISTORY OF 1994 kidney stone PAST SURGICAL HISTORY OF left index finger trauma PAST SURGICAL HISTORY OF tooth extraction FAMILY HISTORY Problem Relation Age of Onset Diabetes Father Hypertension Father Heart Brother Alzheimer's Disease Maternal Grandmother Alzheimer's Disease Mother Social History Tobacco Use Smoking status: Former Packs/day: 1.00 Years: 20.00 Pack years: 20.00 Types: Cigarettes Quit date: 12/05/2002 Years since quittin.8 Smokeless tobacco: Never Substance Use Topics Alcohol use: No Drug use: No Comment: Quit 1991 cocaine Reviewed current medications, allergies, past medical history, surgical history, family history and social history today. REVIEW OF SYSTEMS All other reviewed and negative other than HPI. HEALTH MAINTENANCE: Reviewed health maintenance issues today and recommended the following in detail. Declines immunizations. ABDOMINAL AORTIC ANEURYSM SCREENING Never done COVID-19 VACCINE(1) Never done PNEUMOCOCCAL: 65+(1 - PCV) Never done SHINGRIX VACCINE(1 of 2) Never done LDL CHOLESTEROL due on 06/01/2020 HBA1C due on 05/13/2021 DIABETIC FOOT EXAM due on 06/07/2021 URINE ALBUMIN:CREATININE RATIO due on 11/13/2021 DILATED RETINAL EXAM-reminded. DEPRESSION ASSESSMENT-done. VITALS: BP 134/82 Pulse 61 Wt 96.2 kg (212 lb) SpO2 94% BMI 30.42 kg/m Last 4 Encounter Wt Readings: Date: Wt: 07/06/2022 96.3 kg (212 lb 6.4 oz) 07/25/2021 91.3 kg (201 lb 3.2 oz) 01/31/2021 90.3 kg (199 lb) 01/23/2021 91.2 kg (201 lb) PHYSICAL EXAMINATION: General appearance: Well appearing, alert, in no acute distress, well-hydrated, well nourished. Skin: Skin color, texture, turgor normal, no suspicious rashes or lesions Head: Normocephalic, no masses, lesions, tenderness or abnormalities Lungs: Lungs clear to auscultation. No wheezing, rhonchi, rales Heart: RRR without murmur, gallop, or rubs. No ectopy Abdomen: Normal abdominal exam, Abdomen soft, non-tender. Bowel sounds normal. No masses, organomegaly Extremities: No deformities, edema, skin discoloration, clubbing or cyanosis. Good capillary refill. Feet:Shoes and socks removed, No deformities, ulcers, calluses, normal distal pulses, and sensitive to 10 gm monofilament ASSESSMENT/PLAN: 1. Type 2 diabetes mellitus without complication, without long-term current use of insulin (HCC) - ICD9: 250.00, ICD10: E11.9 (primary diagnosis) - get labs this month. - ALBUMIN/CREAT RATIO RND UR - HGB A1C 2. RLS (restless legs syndrome) - ICD9: 333.94, ICD10: G25.81 - oontinue per Dr Shook. 3. Mixed hyperlipidemia - ICD9: 272.2, ICD10: E78.2 - good control - Continue current medication. 4. Essential hypertension - ICD9: 401.9, ICD10: I10 - good control - Continue current medication(s) - Recommended regular aerobic exercise. - Recommend home blood pressure monitoring, to bring results in on next visit - Goal of BP <130/80 5. Sleep apnea, unspecified type - ICD9: 780.57, ICD10: G47.30 - stable. 6. Renal insufficiency - ICD9: 593.9, ICD10: N28.9 - BASIC METABOLIC PNL - URINALYSIS, WITH MICROSCOPIC 7. Screening for AAA (abdominal aortic aneurysm) - ICD9: V81.2, ICD10: Z13.6 - US SCREENING FOR AAA 8. Palpitations - ICD9: 785.1, ICD10: R00.2 - call if any more issues. Did not do echo. Will hold on echo unless issues since he did not do it. Blake Sandoval MD RTO in six months documented in this encounter [facility] 09-13-2022 Miscellaneous Notes Pt informed, verbalized understanding Ary Miller Ma Please call patient and let him know that lunchroom monitor results are back. There were a few episodes PVCs or Premature ventricular contractions. This is an extra quick heart beat that disrupts the current ryhtym. No more than 1 occurring at a time per results. This is not acutely concerning. Due to history, I would follow-up with cardiology if symptoms continue. Thank you, Paola Mccarthy APRN.MATT documented in this encounter [facility] 09-12-2022 Miscellaneous Notes Patient has been identified by name and date of : Yes, Provider JEYSON Patient phones for refill(s): Requested Prescriptions Pending Prescriptions Disp Refills amLODIPine (NORVASC) 5 mg tablet 30 tablet 0 Sig: Take 1 tablet by mouth once daily. metoprolol tartrate, short acting, (LOPRESSOR) 25 mg tablet 180 tablet 3 Sig: Take 1 tablet by mouth twice daily. Date of last office visit in primary care: 04/17/22 Last 2 Encounter Wt Readings: Date: Wt: 07/06/2022 96.3 kg (212 lb 6.4 oz) 07/25/2021 91.3 kg (201 lb 3.2 oz) Previous labs/tests for medication: Not applicable Please advise. Thank you. Valencia Suarez documented in this encounter [facility] 07-06-2022 History of Present illness Narrative Chief Complaint Patient presents with: BP Check: States Saturday heart fluttered all day long, headaches and dizziness. HPI Nayely Weeks is a 67 year old male who presents here today for Above Complaints. Nayely is an established patient of Dr. Jeyson MD. Nayely is a new patient to me today. Concerns today.. Express care visit today d/t palpitations and elevated BP. Due to chief complaint and not being seen by PCP in almost a year -- scheduled appointment with me instead. BP in express care was 192/102. Currently.... Takes BP at home about once every 2 weeks -- been running about 150/85 x 6 months. Saturday felt heart fluttering off and on all day and took BP and it was 200/100. Reports palpitations lasting about 5-10 minutes at a time. No palpitations since Saturday. Denies palpitations correlating with exertion. Does report some SOB with exertion and at rest gradually worsening over the past few weeks. Denies any CP. Reports dizziness and lightheaded intermittently since Saturday as well. Pt reports stress level is extremely elevated recently- had major surgery recently so patient took over the workload chores at home and work has been hectic. Pt denies any exercise -- does get in some physical labor at work. Diet has been terrible recently per pt. Current HTN regimen includes losartan 100 mg daily and metoprolol 25 mg BID. He states compliant with current blood pressure medications. Pt denies any edema or swelling. Pt denies any known hx of cardiac disorders --- went to [facility] 1x about 5 years ago d/t CP and reports all testing to be completely normal. No known kidney dysfunction. Overdue for blood work -- willing to get done today. Last 14 Encounter BP Readings: Date: BP: 07/06/2022 170/90 07/25/2021 126/80 01/23/2021 116/70 11/10/2020 104/70 06/07/2020 136/88 06/01/2019 128/86 11/27/2018 130/84 06/05/2018 118/72 05/30/2018 116/74 09/19/2017 124/72 03/13/2017 162/90 10/01/2016 130/90 10/01/2016 130/82 07/13/2016 132/80 Past medical history, appointments, medications, allergies reviewed. Previous Medical History PAST MEDICAL HISTORY Diagnosis Date Deviated nasal septum HTN (hypertension), benign Kidney stones 1997 recurrent Other and unspecified hyperlipidemia Personal history of colonic polyps 2009 benign Unspecified sleep apnea not using cpap Previous Surgical History PAST SURGICAL HISTORY Procedure Laterality Date COLONOSCOPY W/BIOPSY SINGLE/MULTIPLE 11-01-10 COLSC FLX W/REMOVAL LESION BY HOT BX FORCEPS 05-02-16 COLSC FLX W/RMVL OF TUMOR POLYP LESION SNARE TQ 10/31/2009 COLSC FLX W/RMVL OF TUMOR POLYP LESION SNARE TQ 11-01-10 COLSC FLX W/RMVL OF TUMOR POLYP LESION SNARE TQ 01-19-13 EGD TRANSORAL BIOPSY SINGLE/MULTIPLE 10/31/2009 PAST SURGICAL HISTORY OF 1981 Right inguinal? hernia repair PAST SURGICAL HISTORY OF 1994 Left inguinal? hernia repair PAST SURGICAL HISTORY OF 1994 kidney stone PAST SURGICAL HISTORY OF left index finger trauma PAST SURGICAL HISTORY OF tooth extraction Family History FAMILY HISTORY Problem Relation Age of Onset Diabetes Father Hypertension Father Heart Brother Alzheimer's Disease Maternal Grandmother Alzheimer's Disease Mother Patient Allergies ALLERGIES Allergen Reactions Katy Inhibitors Cough Sudafed [Pseudoephe* Current Medications Current Outpatient Medications on File Prior to Visit Medication Sig losartan (COZAAR) 100 mg tablet Take 1 tablet by mouth once daily. atorvastatin (LIPITOR) 20 mg tablet Take 1 tablet by mouth once daily. metoprolol tartrate, short acting, (LOPRESSOR) 25 mg tablet Take 1 tablet by mouth twice daily. metFORMIN ER (GLUCOPHAGE XR) 500 mg 24 hr tablet Take 2 tablets by mouth twice daily with meals. sildenafil (VIAGRA) 100 mg tablet One tablet 30 minutes before intercourse omeprazole (PRILOSEC) 20 mg capsule Take 1 capsule by mouth once daily. ON AN EMPTY STOMACH testosterone cypionate (DEPO-TESTOSTERONE) 200 mg/mL injection Inject 1 mL intramuscularly every 2 weeks for 6 doses. Syringe with Needle, Disp, (MONOJECT SYRINGE) 3 mL 22 x 1 1/2 1 syringe w needle for TRT Injection Needle, Disp, 18 G (Identiv BLUNT CANNULA) 18 gauge x 1 ndle 1 Each as needed. clonazePAM (KLONOPIN) 1 mg tablet Take 1 mg by mouth once daily. Reports taking 1mg nightly before bed- Dr. Mcgowan albuterol HFA (PROAIR HFA) 90 mcg/actuation inhaler 2 Puffs every 6 hours as needed. Take as directed No current facility-administered medications on file prior to visit. Social History Social History Tobacco Use Smoking status: Former Packs/day: 1.00 Years: 20.00 Pack years: 20.00 Types: Cigarettes Quit date: 12/05/2002 Years since quittin.5 Smokeless tobacco: Never Substance Use Topics Alcohol use: No Drug use: No Comment: Quit 1991 cocaine REVIEW OF SYSTEMS: as above Reviewed relevant PMHx, PSHx, Social Hx, current medications and allergies. Review of Symptoms REVIEW OF SYSTEMS See HPI. All other systems. EXAM: BP 170/90 (BP Site: Left Arm, BP Position: Sitting, BP Cuff Size: Large Adult) Pulse (!) 54 Temp 36.6 C (97.9 F) Wt 96.3 kg (212 lb 6.4 oz) SpO2 98% BMI 30.48 kg/m General Appearance: Well appearing, alert, in no acute distress, well-hydrated, well nourished.. Skin: Skin color, texture, turgor normal, no suspicious rashes or lesions. Head: Normocephalic, no masses, lesions, tenderness or abnormalities. Lungs: Lungs clear to auscultation. No wheezing, rhonchi, rales.. Heart: RRR without murmur, gallop, or rubs. No ectopy. Abdomen: Normal abdominal exam, Abdomen soft, non-tender. Bowel sounds normal. No masses, organomegaly. Neurologic: Gait normal. Reflexes normal and symmetric. Sensation grossly intact.. Health Maintenance List ABDOMINAL AORTIC ANEURYSM SCREENING Never done PNEUMOCOCCAL: 65+(1 - PCV) Never done BP CONTROLLED (<130/80) Never done DTAP,TDAP,TD(1 - Tdap) Never done SHINGRIX VACCINE(1 of 2) Never done LDL CHOLESTEROL due on 06/01/2020 HBA1C due on 05/13/2021 DIABETIC FOOT EXAM due on 06/07/2021 ADVANCE DIRECTIVE DISCUSSION Never done DEPRESSION ASSESSMENT Never done URINE ALBUMIN:CREATININE RATIO due on 11/13/2021 INFLUENZA(1) due on 05/10/2022 DILATED RETINAL EXAM due on 06/19/2022 HEPATITIS C SCREENING due on 07/25/2022 COVID-19 VACCINE(1) due on 07/25/2022 ANNUAL PCP TEAM CHRONIC DISEASE VISIT due on 07/25/2022 PROSTATE CANCER SCREENING DISCUSSION due on 06/01/2024 COLORECTAL CANCER SCREENING due on 10/13/2024 ASSESSMENT/PLAN: 1. Palpitations - ICD9: 785.1, ICD10: R00.2 (primary diagnosis) EKG in office - unremarkable. Schedule ECHO. [employer] lunchroom monitor ordered and will be shipped to patient's house. Instructed pt to document if palpations occur while wearing this. Blood work as below to find cause of sudden onset significant elevation in BP and new onset palpitations. Chest x-ray d/t SOB and to look for cardiomegaly - ECG COMPLETE --- sinus bradycardia at rate of 56 with RBBB. No changes from EKG in 2018. - ECHO - PERFLUTREN LIPID MICROSPHERES 1.1 MG/ML INJECTION IN NS 10 ML - SODIUM CHLORIDE 0.9 % (FLUSH) INJECTION SYRINGE - TSH BLD - OUTSIDE VENDOR CARDIAC OUTPATIENT EVENT RECORDER - XR CHEST 2V FRONTAL/LAT 2. Hypertension, essential - ICD9: 401.9, ICD10: I10 - poor control Sudden onset elevation. See above. Add amlodipine 5 mg daily to HTN regimen. RTO for BP check 2 weeks with PCP team, if available. - ECG COMPLETE - COMP METABOLIC PANEL - CBC + DIFF - HGB A1C - LIPID PANEL BASIC - ECHO - PERFLUTREN LIPID MICROSPHERES 1.1 MG/ML INJECTION IN NS 10 ML - SODIUM CHLORIDE 0.9 % (FLUSH) INJECTION SYRINGE - AMLODIPINE 5 MG TABLET - TSH BLD - OUTSIDE VENDOR CARDIAC OUTPATIENT EVENT RECORDER 3. SOB (shortness of breath) - ICD9: 786.05, ICD10: R06.02 See above. - ECG COMPLETE - ECHO - PERFLUTREN LIPID MICROSPHERES 1.1 MG/ML INJECTION IN NS 10 ML - SODIUM CHLORIDE 0.9 % (FLUSH) INJECTION SYRINGE - OUTSIDE VENDOR CARDIAC OUTPATIENT EVENT RECORDER - XR CHEST 2V FRONTAL/LAT 4. Type 2 diabetes mellitus without complication, without long-term current use of insulin (HCC) - ICD9: 250.00, ICD10: E11.9 - HGB A1C 5. Mixed hyperlipidemia - ICD9: 272.2, ICD10: E78.2 - LIPID PANEL BASIC RTO in 2 weeks, sooner if needed. Prescription instructions reviewed with patient as applicable. Potential red flag symptoms discussed with the patient. Reviewed appropriate action plan to take if red flag symptoms occur. Patient agreeable to treatment plan. Paola Mccarthy APRN.CNP [id number] [place] [address] documented in this encounter [facility] 07-06-2022 History of Present illness Narrative 67 year old male with PMH HTN, hyperlipidemia, GERD, DM presents for BP check high He further endorses to the MA that he was experiencing palpitations earlier in the week (denies presently) BP 192/102 HR 58 R 18 Pulse Ox 97 In reviewing chart patient has not been seen in office since July 2021 His refills have been telephone requests. Speaking with nursing staff, CRIS Mccarthy has openings this afternoon. Discussed with patient his health management would be better optimized with PCP appt. Discussed need for labs, EKG and that is better suited in office vs express care Amicable to a 1:30 appt today. Chart CC to CRIS Mccarthy. documented in this encounter [facility] 06-11-2022 Miscellaneous Notes Pharmacy verified in [facility] Patient has been identified by name and date of : Yes Patient aware RX will be sent to pharmacy. No need to notify patient. Patient phones for refill(s): Requested Prescriptions Pending Prescriptions Disp Refills losartan (COZAAR) 100 mg tablet 90 tablet 1 Sig: Take 1 tablet by mouth once daily. atorvastatin (LIPITOR) 20 mg tablet 90 tablet 1 Sig: Take 1 tablet by mouth once daily. Date of last office visit : 07/25/2021 Date of next office visit : Visit date not found Last 2 Encounter Wt Readings: Date: Wt: 07/25/2021 91.3 kg (201 lb 3.2 oz) 01/31/2021 90.3 kg (199 lb) Please advise. Marian Kumar Pss documented in this encounter [facility] 12-13-2021 Miscellaneous Notes YASMIN 07/25/21 NOV 01/22/22 Patient has been identified by name and date of : Yes Pending Prescriptions Disp Refills LOSARTAN 100 MG TABLET 90 tablet 1 Sig: Take 1 tablet by mouth once daily. ANAND: No METOPROLOL TARTRATE 25 MG TABLET 180 tablet 3 Sig: Take 1 tablet by mouth twice daily. ANAND: No ATORVASTATIN 20 MG TABLET 90 tablet 1 Sig: Take 1 tablet by mouth once daily. ANAND: No METFORMIN ER 500 MG TABLET,EXTENDED RELEASE 24 HR 360 tablet 1 Sig: Take 2 tablets by mouth twice daily with meals. ANAND: No RX INSTRUCTIONS: Patient aware RX will be sent to pharmacy. No need to notify patient. Aurelia De Souza Pss documented in this encounter [facility] 04-11-2020 History of Present illness Narrative PT is here for 6 month f/u w/ LABS... Most recent PSA was 1.39 on 08/30. Most recent Testosterone level was 1450 on 08/30. Most recent HGB was 17.1 on 08/30. Most recent HCT was 49.6 on 08/30.. He is currently doing Testosterone injections 1 mL q week. States libido and energy level are good Denies FHx of Prostate Ca. Hx of Kidney stones. Last one was a few years ago. Denies sx today. Denies HX of UTI. LUTS are chronic and mild. Denies frequency and urgency. Denies dysuria. Denies hematuria. Nocturia x1. Caffeine does worsen LUTS. No medication for LUTS...ED is chronic and does do trimix.. [id number] HC 232 DO Work Phone: 08-29-2017 History of Present illness Narrative PT is here for Trimix teaching and lab review. Most recent PSA was 1.39 on 08/30. Most recent Testosterone level was 1450 on 08/30. Most recent HGB was 17.1 on 08/30. Most recent HCT was 49.6 on 08/30. HX of Erectile Dysfunction. PT states this started 5 years ago. He is being treated by another Dr. but would like a change. PT states he is not able to get an erection and not able to maintain it. He has tried viagra and cialis with no success. He is currently doing Testosterone injections 1 mL q weekly. Feels that is not working anymore. States libido and energy level are good Denies FHx of Prostate Ca. Hx of Kidney stones. Last one was a few years ago. Denies sx today. Denies HX of UTI. LUTS are chronic and mild. Denies frequency and urgency. Denies dysuria. Denies hematuria. Nocturia x1. Caffeine does worsen LUTS. No medication for LUTS. [id number]-Evzpgjq-Mftfwzs Work Phone: 08-24-2017 History of Present illness Narrative PT is here to establish care for Erectile Dysfunction. PT states this started 5 years ago. He is being treated by another Dr. but would like a change. PT states he is not able to get an erection and not able to maintain it. He has tried viagra and cialis with no success. He is currently doing Testosterone injections 1 mL q weekly. Feels that is not working anymore. States libido and energy level are good. Had a T level done 3 months ago but doesn't remember what it was. Doesn't remember what his PSA was but it was a month ago. Denies FHx of Prostate Ca. Hx of Kidney stones. Last one was a few years ago. Denies sx today. Denies HX of UTI. LUTS are chronic and mild. Denies frequency and urgency. Denies dysuria. Denies hematuria. Nocturia x1. Caffeine does worsen LUTS. No medication for LUTS. [id number] Work Phone: documented as of this encounter (statuses as of 09/25/2022) [facility] History of Past illness Narrative* Problem Noted Date Resolved Date Adenomatous polyp of transverse colon 11/20/2016 09/24/2022 Overview: 10/13/[address] Alex Galicia: 5 mm polyp transverse colon, 4 mm polyp distal transverse colon, diverticulosis sigmoid and descending colon. Plan: 5-year surveillance Polyp of colon 05/09/2016 09/24/2022 Rupture of tendon of biceps, long head 5 07/13/2016 Cough 04/05/2009 03/13/2017 HYPERGLYCEMIA 08/26/2006 09/24/2022 Deviated nasal septum 07/13/2016 documented as of this encounter (statuses as of 10/09/2022) [facility] History of Past illness Narrative* Problem Noted Date Resolved Date Adenomatous polyp of transverse colon 11/20/2016 09/24/2022 Overview: 10/13/[address] Alex Galicia: 5 mm polyp transverse colon, 4 mm polyp distal transverse colon, diverticulosis sigmoid and descending colon. Plan: 5-year surveillance Polyp of colon 05/09/2016 09/24/2022 Rupture of tendon of biceps, long head 5 07/13/2016 Cough 04/05/2009 03/13/2017 HYPERGLYCEMIA 08/26/2006 09/24/2022 Deviated nasal septum 07/13/2016 documented as of this encounter (statuses as of 10/26/2022) [facility] History of Past illness Narrative* Problem Noted Date Resolved Date Adenomatous polyp of transverse colon 11/20/2016 09/24/2022 Overview: 10/13/[address] Alex Galicia: 5 mm polyp transverse colon, 4 mm polyp distal transverse colon, diverticulosis sigmoid and descending colon. Plan: 5-year surveillance Polyp of colon 05/09/2016 09/24/2022 Rupture of tendon of biceps, long head 5 07/13/2016 Cough 04/05/2009 03/13/2017 HYPERGLYCEMIA 08/26/2006 09/24/2022 Deviated nasal septum 07/13/2016 documented as of this encounter (statuses as of 11/01/2022) [facility] History of Past illness Narrative* Problem Noted Date Resolved Date Adenomatous polyp of transverse colon 11/20/2016 09/24/2022 Overview: 10/13/[address] Alex Galicia: 5 mm polyp transverse colon, 4 mm polyp distal transverse colon, diverticulosis sigmoid and descending colon. Plan: 5-year surveillance Polyp of colon 05/09/2016 09/24/2022 Rupture of tendon of biceps, long head 5 07/13/2016 Cough 04/05/2009 03/13/2017 HYPERGLYCEMIA 08/26/2006 09/24/2022 Deviated nasal septum 07/13/2016 documented as of this encounter (statuses as of 12/10/2022) [facility] History of Past illness Narrative* Problem Noted Date Resolved Date Adenomatous polyp of transverse colon 11/20/2016 09/24/2022 Overview: 10/13/[address] Alex Galicia: 5 mm polyp transverse colon, 4 mm polyp distal transverse colon, diverticulosis sigmoid and descending colon. Plan: 5-year surveillance Polyp of colon 05/09/2016 09/24/2022 Rupture of tendon of biceps, long head 5 07/13/2016 Cough 04/05/2009 03/13/2017 HYPERGLYCEMIA 08/26/2006 09/24/2022 Deviated nasal septum 07/13/2016 documented as of this encounter (statuses as of 12/25/2022) [facility] History of Past illness Narrative* Problem Noted Date Resolved Date Adenomatous polyp of transverse colon 11/20/2016 09/24/2022 Overview: 10/13/[address] Alex Galicia: 5 mm polyp transverse colon, 4 mm polyp distal transverse colon, diverticulosis sigmoid and descending colon. Plan: 5-year surveillance Polyp of colon 05/09/2016 09/24/2022 Rupture of tendon of biceps, long head 5 07/13/2016 Cough 04/05/2009 03/13/2017 HYPERGLYCEMIA 08/26/2006 09/24/2022 Deviated nasal septum 07/13/2016 documented as of this encounter (statuses as of 01/10/2023) [facility] History of Past illness Narrative* Problem Noted Date Resolved Date Adenomatous polyp of transverse colon 11/20/2016 09/24/2022 Overview: 10/13/[address] Alex Galicia: 5 mm polyp transverse colon, 4 mm polyp distal transverse colon, diverticulosis sigmoid and descending colon. Plan: 5-year surveillance Polyp of colon 05/09/2016 09/24/2022 Rupture of tendon of biceps, long head 5 07/13/2016 Cough 04/05/2009 03/13/2017 HYPERGLYCEMIA 08/26/2006 09/24/2022 Deviated nasal septum 07/13/2016 documented as of this encounter (statuses as of 01/11/2023) [facility] History of Past illness Narrative* Problem Noted Date Diagnosed Date Resolved Date Adenomatous polyp of transverse colon 11/20/2016 09/24/2022 Overview: 10/13/[address] Alex Galicia: 5 mm polyp transverse colon, 4 mm polyp distal transverse colon, diverticulosis sigmoid and descending colon. Plan: 5-year surveillance Polyp of colon 05/09/2016 09/24/2022 Rupture of tendon of biceps, long head 05/30/2015 07/13/2016 Cough 04/05/2009 03/13/2017 HYPERGLYCEMIA 08/26/2006 09/24/2022 Deviated nasal septum 2015 documented as of this encounter (statuses as of 03/19/2023) [facility] History of Past illness Narrative* Problem Noted Date Diagnosed Date Resolved Date Adenomatous polyp of transverse colon 11/20/2016 09/24/2022 Overview: 10/13/[address] Alex Galicia: 5 mm polyp transverse colon, 4 mm polyp distal transverse colon, diverticulosis sigmoid and descending colon. Plan: 5-year surveillance Polyp of colon 05/09/2016 09/24/2022 Rupture of tendon of biceps, long head 05/30/2015 07/13/2016 Cough 04/05/2009 03/13/2017 HYPERGLYCEMIA 08/26/2006 09/24/2022 Deviated nasal septum 2015 documented as of this encounter (statuses as of 03/25/2023) [facility] History of Past illness Narrative* Problem Noted Date Diagnosed Date Resolved Date Adenomatous polyp of transverse colon 11/20/2016 09/24/2022 Overview: 10/13/[address] Alex Galicia: 5 mm polyp transverse colon, 4 mm polyp distal transverse colon, diverticulosis sigmoid and descending colon. Plan: 5-year surveillance Polyp of colon 05/09/2016 09/24/2022 Rupture of tendon of biceps, long head 05/30/2015 07/13/2016 Cough 04/05/2009 03/13/2017 HYPERGLYCEMIA 08/26/2006 09/24/2022 Deviated nasal septum 2015 documented as of this encounter (statuses as of 04/25/2023) [facility] History of Past illness Narrative* Problem Noted Date Diagnosed Date Resolved Date Adenomatous polyp of transverse colon 11/20/2016 09/24/2022 Overview: 10/13/[address] Alex Galicia: 5 mm polyp transverse colon, 4 mm polyp distal transverse colon, diverticulosis sigmoid and descending colon. Plan: 5-year surveillance Polyp of colon 05/09/2016 09/24/2022 Rupture of tendon of biceps, long head 05/30/2015 07/13/2016 Cough 04/05/2009 03/13/2017 HYPERGLYCEMIA 08/26/2006 09/24/2022 Deviated nasal septum 2015 documented as of this encounter (statuses as of 07/09/2023) [facility] History of Past illness Narrative* Problem Noted Date Diagnosed Date Resolved Date Adenomatous polyp of transverse colon 11/20/2016 09/24/2022 Overview: 10/13/[address] Alex Galicia: 5 mm polyp transverse colon, 4 mm polyp distal transverse colon, diverticulosis sigmoid and descending colon. Plan: 5-year surveillance Polyp of colon 05/09/2016 09/24/2022 Rupture of tendon of biceps, long head 05/30/2015 07/13/2016 Cough 04/05/2009 03/13/2017 HYPERGLYCEMIA 08/26/2006 09/24/2022 Deviated nasal septum 2015 documented as of this encounter (statuses as of 07/23/2023) [facility] History of Past illness Narrative* Problem Noted Date Diagnosed Date Resolved Date Adenomatous polyp of transverse colon 11/20/2016 09/24/2022 Overview: 10/13/[address] Alex Galicia: 5 mm polyp transverse colon, 4 mm polyp distal transverse colon, diverticulosis sigmoid and descending colon. Plan: 5-year surveillance Polyp of colon 05/09/2016 09/24/2022 Rupture of tendon of biceps, long head 05/30/2015 07/13/2016 Cough 04/05/2009 03/13/2017 HYPERGLYCEMIA 08/26/2006 09/24/2022 Deviated nasal septum 2015 documented as of this encounter (statuses as of 10/11/2023) [facility] History of Past illness Narrative* Problem Noted Date Diagnosed Date Resolved Date Adenomatous polyp of transverse colon 11/20/2016 09/24/2022 Overview: 10/13/[address] Alex Galicia: 5 mm polyp transverse colon, 4 mm polyp distal transverse colon, diverticulosis sigmoid and descending colon. Plan: 5-year surveillance Polyp of colon 05/09/2016 09/24/2022 Rupture of tendon of biceps, long head 05/30/2015 07/13/2016 Cough 04/05/2009 03/13/2017 HYPERGLYCEMIA 08/26/2006 09/24/2022 Deviated nasal septum 2015 documented as of this encounter (statuses as of 10/14/2023) [facility]2017 History of Past illness Narrative* Problem Noted Date Diagnosed Date Resolved Date Adenomatous polyp of transverse colon 11/20/2016 09/24/2022 Overview: 10/13/[address] Alex Galicia: 5 mm polyp transverse colon, 4 mm polyp distal transverse colon, diverticulosis sigmoid and descending colon. Plan: 5-year surveillance Polyp of colon 05/09/2016 09/24/2022 Rupture of tendon of biceps, long head 05/30/2015 07/13/2016 Cough 04/05/2009 03/13/2017 HYPERGLYCEMIA 08/26/2006 09/24/2022 Deviated nasal septum 2015 documented as of this encounter (statuses as of 10/25/2023) [facility] History of Past illness Narrative* Problem Noted Date Diagnosed Date Resolved Date Adenomatous polyp of transverse colon 11/20/2016 09/24/2022 Overview: 10/13/[address] Alex Galicia: 5 mm polyp transverse colon, 4 mm polyp distal transverse colon, diverticulosis sigmoid and descending colon. Plan: 5-year surveillance Polyp of colon 05/09/2016 09/24/2022 Rupture of tendon of biceps, long head 05/30/2015 07/13/2016 Cough 04/05/2009 03/13/2017 HYPERGLYCEMIA 08/26/2006 09/24/2022 Deviated nasal septum 2015 documented as of this encounter (statuses as of 10/30/2023) [facility] History of Past illness Narrative* Problem Noted Date Diagnosed Date Resolved Date Adenomatous polyp of transverse colon 11/20/2016 09/24/2022 Overview: 10/13/[address] Alex Galicia: 5 mm polyp transverse colon, 4 mm polyp distal transverse colon, diverticulosis sigmoid and descending colon. Plan: 5-year surveillance Polyp of colon 05/09/2016 09/24/2022 Rupture of tendon of biceps, long head 05/30/2015 07/13/2016 Cough 04/05/2009 03/13/2017 HYPERGLYCEMIA 08/26/2006 09/24/2022 Deviated nasal septum 2015 documented as of this encounter (statuses as of 11/06/2023) [facility] History of Past illness Narrative* Problem Noted Date Diagnosed Date Resolved Date Adenomatous polyp of transverse colon 11/20/2016 09/24/2022 Overview: 10/13/[address] Alex Galicia: 5 mm polyp transverse colon, 4 mm polyp distal transverse colon, diverticulosis sigmoid and descending colon. Plan: 5-year surveillance Polyp of colon 05/09/2016 09/24/2022 Rupture of tendon of biceps, long head 05/30/2015 07/13/2016 Cough 04/05/2009 03/13/2017 HYPERGLYCEMIA 08/26/2006 09/24/2022 Deviated nasal septum 2015 documented as of this encounter (statuses as of 11/07/2023) [facility] History of Past illness Narrative* Problem Noted Date Diagnosed Date Resolved Date Adenomatous polyp of transverse colon 11/20/2016 09/24/2022 Overview: 10/13/[address] Alex Galicia: 5 mm polyp transverse colon, 4 mm polyp distal transverse colon, diverticulosis sigmoid and descending colon. Plan: 5-year surveillance Polyp of colon 05/09/2016 09/24/2022 Rupture of tendon of biceps, long head 05/30/2015 07/13/2016 Cough 04/05/2009 03/13/2017 HYPERGLYCEMIA 08/26/2006 09/24/2022 Deviated nasal septum 2015 documented as of this encounter (statuses as of 11/08/2023) [facility] History of Past illness Narrative* Problem Noted Date Diagnosed Date Resolved Date Adenomatous polyp of transverse colon 11/20/2016 09/24/2022 Overview: 10/13/[address] Alex Galicia: 5 mm polyp transverse colon, 4 mm polyp distal transverse colon, diverticulosis sigmoid and descending colon. Plan: 5-year surveillance Polyp of colon 05/09/2016 09/24/2022 Rupture of tendon of biceps, long head 05/30/2015 07/13/2016 Cough 04/05/2009 03/13/2017 HYPERGLYCEMIA 08/26/2006 09/24/2022 Deviated nasal septum 2015 documented as of this encounter (statuses as of 11/08/2023) [facility] History of Past illness Narrative* Problem Noted Date Diagnosed Date Resolved Date Adenomatous polyp of transverse colon 11/20/2016 09/24/2022 Overview: 10/13/[address] Alex Galicia: 5 mm polyp transverse colon, 4 mm polyp distal transverse colon, diverticulosis sigmoid and descending colon. Plan: 5-year surveillance Polyp of colon 05/09/2016 09/24/2022 Rupture of tendon of biceps, long head 05/30/2015 07/13/2016 Cough 04/05/2009 03/13/2017 HYPERGLYCEMIA 08/26/2006 09/24/2022 Deviated nasal septum 2015 documented as of this encounter (statuses as of 11/08/2023) [facility] History of Past illness Narrative* Problem Noted Date Diagnosed Date Resolved Date Adenomatous polyp of transverse colon 11/20/2016 09/24/2022 Overview: 10/13/[address] Alex Galicia: 5 mm polyp transverse colon, 4 mm polyp distal transverse colon, diverticulosis sigmoid and descending colon. Plan: 5-year surveillance Polyp of colon 05/09/2016 09/24/2022 Rupture of tendon of biceps, long head 05/30/2015 07/13/2016 Cough 04/05/2009 03/13/2017 HYPERGLYCEMIA 08/26/2006 09/24/2022 Deviated nasal septum 2015 documented as of this encounter (statuses as of 11/11/2023) [facility] History of Past illness Narrative* Problem Noted Date Resolved Date Rupture of tendon of biceps, long head 5 07/13/2016 Cough 04/05/2009 03/13/2017 Deviated nasal septum 07/13/2016 documented as of this encounter (statuses as of 12/13/2021) [facility] History of Past illness Narrative* Problem Noted Date Resolved Date Rupture of tendon of biceps, long head 5 07/13/2016 Cough 04/05/2009 03/13/2017 Deviated nasal septum 07/13/2016 documented as of this encounter (statuses as of 06/12/2022) [facility] History of Past illness Narrative* Problem Noted Date Resolved Date Rupture of tendon of biceps, long head 5 07/13/2016 Cough 04/05/2009 03/13/2017 Deviated nasal septum 07/13/2016 documented as of this encounter (statuses as of 07/06/2022) [facility] History of Past illness Narrative* Problem Noted Date Resolved Date Rupture of tendon of biceps, long head 5 07/13/2016 Cough 04/05/2009 03/13/2017 Deviated nasal septum 07/13/2016 documented as of this encounter (statuses as of 07/06/2022) [facility] History of Past illness Narrative* Problem Noted Date Resolved Date Rupture of tendon of biceps, long head 5 07/13/2016 Cough 04/05/2009 03/13/2017 Deviated nasal septum 07/13/2016 documented as of this encounter (statuses as of 09/14/2022) [address]21-2015 History of Past illness Narrative* Problem Noted Date Resolved Date Rupture of tendon of biceps, long head 5 07/13/2016 Cough 04/05/2009 03/13/2017 Deviated nasal septum 07/13/2016 documented as of this encounter (statuses as of 09/14/2022) [facility] Diagnosis Essential hypertension Unspecified essential hypertension Infected abrasion of great toe of left foot, initial encounter Mixed hyperlipidemia Type 2 diabetes mellitus without complication, without long-term current use of insulin (HCC) documented in this encounter [facility] note* Diagnosis Essential hypertension Unspecified essential hypertension Mixed hyperlipidemia documented in this encounter [facility] note* Diagnosis Intermittent palpitations- Primary Elevated blood pressure reading Elevated blood pressure reading without diagnosis of hypertension Ineffective health maintenance documented in this encounter [facility] note* Diagnosis Palpitations- Primary Hypertension, essential Unspecified essential hypertension SOB (shortness of breath) Shortness of breath Type 2 diabetes mellitus without complication, without long-term current use of insulin (HCC) Mixed hyperlipidemia documented in this encounter [facility] note* Diagnosis Hypertension, essential Unspecified essential hypertension Essential hypertension Unspecified essential hypertension Infected abrasion of great toe of left foot, initial encounter documented in this encounter [facility] note* Diagnosis Type 2 diabetes mellitus without complication, without long-term current use of insulin (HCC)- Primary RLS (restless legs syndrome) Restless legs syndrome (RLS) Mixed hyperlipidemia Essential hypertension Unspecified essential hypertension Sleep apnea, unspecified type Renal insufficiency Unspecified disorder of kidney and ureter Screening for AAA (abdominal aortic aneurysm) Screening for other and unspecified cardiovascular conditions Palpitations documented in this encounter [facility] note* Diagnosis Hypogonadism male Other testicular hypofunction documented in this encounter [facility] note* Diagnosis Hypertension, essential Unspecified essential hypertension documented in this encounter [facility] note* Diagnosis Hypertension, essential Unspecified essential hypertension documented in this encounter [facility] note* Diagnosis Essential hypertension Unspecified essential hypertension documented in this encounter [facility] note* Diagnosis Mixed hyperlipidemia documented in this encounter [facility] note* Diagnosis Chronic cough- Primary Cough Type 2 diabetes mellitus without complication, without long-term current use of insulin (HCC) documented in this encounter [facility] note* Diagnosis Atrial fibrillation, unspecified type (HCC)- Primary documented in this encounter [facility] note* Diagnosis Atrial fibrillation with RVR (HCC)- Primary Atrial fibrillation Mixed hyperlipidemia Essential hypertension Unspecified essential hypertension Type 2 diabetes mellitus without complication, without long-term current use of insulin (HCC) documented in this encounter [facility] note* Diagnosis Essential hypertension- Primary Unspecified essential hypertension Mixed hyperlipidemia Type 2 diabetes mellitus without complication, without long-term current use of insulin (HCC) Hypotestosteronism Other testicular hypofunction Polycythemia Polycythemia vera documented in this encounter [facility] note* Diagnosis Essential hypertension Unspecified essential hypertension documented in this encounter [facility] note* Diagnosis Male hypogonadism Other testicular hypofunction Nocturia Erectile dysfunction, unspecified erectile dysfunction type Generalized abdominal pain Abdominal pain, generalized documented in this encounter [facility] Work Phone: Evaluation note* Diagnosis Chronic heel pain, left- Primary Hypertension, essential Unspecified essential hypertension Right flank pain Abdominal pain, unspecified site documented in this encounter [facility] note* Diagnosis Dyspnea, unspecified type- Primary documented in this encounter [facility] note* Diagnosis Atrial fibrillation, unspecified type (HCC) documented in this encounter [facility] note* Diagnosis Type 2 diabetes mellitus without complication, without long-term current use of insulin (HCC)- Primary documented in this encounter [facility] note* Diagnosis Rib pain on right side- Primary Chest pain, unspecified 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 Neoplasm of uncertain behavior of skin Polycythemia Polycythemia vera documented in this encounter [facility] note* Diagnosis RUQ pain- Primary Abdominal pain, right upper quadrant documented in this encounter [facility] for referral (narrative)* Outpatient Procedure (Routine) - Pending Review Specialty Diagnoses / Procedures Referred By Yajaira greco Referred To Contact [facility] Diagnoses Palpitations Hypertension, essential SOB (shortness of breath) Procedures ECHO ECHO TTHRC R-T 2D W/WOM-MODE COMPL SPEC&COLR D Paola Mccarthy APRN.CNP [address] [place] [address] [facility] [place] [address] Referral ID Status Reason Start Date Expiration Date Visits Requested Visits Authorized [id number] Pending Review Auto-Generat ed Referral 2 07/06/2023 1 1 * Outpatient Procedure (Routine) - Closed Specialty Diagnoses / Procedures Referred By Yajaira greco Referred To Contact [facility] Diagnoses Palpitations Hypertension, essential SOB (shortness of breath) Procedures ECG COMPLETE ECG ROUTINE ECG W/LEAST 12 LDS W/I&R Paola Mccarthy APRN.DIRECTOR OF TESTING [address] [place] [address] [facility] [address] [place] [address] Referral ID Status Reason Start Date Expiration Date V isits Requested Visits Authorized [id number] Closed Auto-Generate d Referral 07/06/2022 07/06/2023 1 1 [facility] for referral (narrative)* Diagnostic Procedure Only (Routine) - Pending Review Specialty Diagnoses / Procedures Referred By Contac t Referred To Contact US IMAGING Diagnoses Screening for AAA (abdominal aortic aneurysm) Procedures US SCREENING FOR AAA (2017) US ABDOMINAL AORTA REAL TIME SCREEN STUDY AAA Blake Sandoval MD [address] [place] [address] [facility] Referral ID Status Reason Start Date Expiration Date Visits Requested Visits Authorized [id number] Pending Review Auto-Generat ed Referral 09/24/2022 10/24/2023 1 1 [facility] for referral (narrative)* Diagnostic Procedure Only (Routine) - Authorized Specialty Diagnoses / Procedures Referred By Contac t Referred To Contact XR IMAGING Diagnoses Chronic cough Procedures XR MODIFIED BARIUM SWALLOW W SPEECH THERAPY RADIOLOGIC EXAM SWALLOW FUNCTION CONTRAST STUDY Lala Bermeo PA-C [address] [place] [address] Xr Imaging Referral ID Status Reason Start Date Expiration Date Visits Requested Visits Authorized [id number] Authorized Auto-Generat ed Referral 01/10/2023 02/09/2024 1 1 * Consult, Test, Treat (Routine) - Authorized Specialty Diagnoses / Procedures Referred By Contac t Referred To Contact Ent - Otolaryngology Diagnoses Chronic cough Procedures CONSULT TO ENT OFFICE/OUTPATIENT NEW HIGH MDM 60-74 MINUTES Lala Bermeo PA-C [address] [place] [address] Referral ID Status Reason Start Date Expiration Date Visits Requested Visits Authorized [id number] Authorized PCP Requested Referral 01/10/2023 01/10/2024 1 1 [facility] for referral (narrative)* Diagnostic Procedure Only (Routine) - Closed Specialty Diagnoses / Procedures Referred By Contac t Referred To Contact XR IMAGING Diagnoses Chronic heel pain, left Procedures XR CALCANEUS 2V AXIAL/LAT LEFT RADEX CALCANEUS MINIMUM 2 VIEWS Lala Bermeo PA-C [address] [place] [address] [place] [address] Referral ID Status Reason Start Date Expiration Date V isits Requested Visits Authorized [id number] Closed Auto-Generate d Referral 07/22/2023 08/20/2024 1 1 [facility] for referral (narrative)* Diagnostic Procedure Only (Routine) - Pending Review Specialty Diagnoses / Procedures Referred By Yajaira t Referred To Contact US IMAGING Diagnoses RUQ pain Procedures US ABD RIGHT UPPER QUADRANT US ABDOMINAL REAL TIME W/IMAGE LIMITED Hafsa Crane, MISA.PACKING TRACTOR MACHINE OPERATOR [address] [place] [address] [place] [address] Referral ID Status Reason Start Date Expiration Date Visits Requested Visits Authorized [id number] Pending Review Auto-Generat ed Referral 11/08/2023 12/07/2024 1 1 Electronically signed by Hafsa Crane MANAGER HEMATOLOGY.PACKING TRACTOR MACHINE OPERATOR at 11/08/2023 5:06 PM [facility] Summary Purpose Family History No Family History Records FoundNo Family History Records FoundNo Family History Records FoundNo Family History Records FoundNo Family History Records FoundNo Family History Records FoundNo Family History Records FoundNo Family History Records Found Advance Directives No Advanced Directives Records FoundLatest Code Status on File Code Status Date Activated Date Inactivated Comments Full Code 03/13/2023 3:33 PM Latest Code Status on File Code Status Date Activated Date Inactivated Comments Full Code 03/13/2023 3:33 PM 03/15/2023 4:58 PM Chief Complaint [facility] teaching and lab review6 month f/u w/ labs Reason for Referral Specialty Diagnoses / Procedures Referred By Contac t Referred To Contact Diagnoses Hypogonadism male Blake Sandoval MD [address] [place] [address] Referral ID Status Reason Start Date Expiration Date Visits Re quested Visits Authorized [id number] Closed 1 1 Specialty Diagnoses / Procedures Referred By Contac t Referred To Contact Cardiology Diagnoses Atrial fibrillation, unspecified type (HCC) Procedures MCT- Mobile Cardiac Telemetry Katina Banda PA-C [address] [place] [address] Referral ID Status Reason Start Date Expiration Date V isits Requested Visits Authorized [id number] Authorized 03/15/2023 03/14/2024 1 1 Specialty Diagnoses / Procedures Referred By Contac t Referred To Contact Diagnoses Male hypogonadism Nayely Mortensen MD [address] [place] [address] Referral ID Status Reason Start Date Expiration Date Visits Re quested Visits Authorized [id number] Closed 1 1 Specialty Diagnoses / Procedures Referred By Contac t Referred To Contact Radiology Diagnoses Generalized abdominal pain Procedures CT abdomen pelvis wo IV contrast Nayely Mortensen MD [address] [place] [address] Referral ID Status Reason Start Date Expiration Date Visits Requested Visits Authorized [id number] Pending Review Perform Procedure 3 07/21/2024 1 1 Specialty Diagnoses / Procedures Referred By Contac t Referred To Contact Cardiology Diagnoses Dyspnea, unspecified type Procedures Echocardiogram complete Uradu, Kate Thorpe MD [address] [place] [address] Referral ID Status Reason Start Date Expiration Date V isits Requested Visits Authorized [id number] Pending Review 07/24/2023 07/23/2024 1 1 Specialty Diagnoses / Procedures Referred By Contac t Referred To Contact Cardiology Diagnoses Atrial fibrillation, unspecified type (HCC) Procedures Cardiac event monitor Kate Weston MD [address] [place] [id number] Referral ID Status Reason Start Date Expiration Date V isits Requested Visits Authorized [id number] Authorized 07/24/2023 07/23/2024 1 1 Specialty Diagnoses / Procedures Referred By Contac t Referred To Contact Diagnoses Type 2 diabetes mellitus without complication, without long-term current use of insulin (HCC) Blake Sandoval MD [address] [place] [address] Referral ID Status Reason Start Date Expiration Date Visits Re quested Visits Authorized [id number] Closed 1 1 Specialty Diagnoses / Procedures Referred By Contac t Referred To Contact Hematology Diagnoses Polycythemia Procedures CONSULT TO HEMATOLOGY OFFICE/OUTPATIENT NEW HIGH MDM 60 MINUTES Hafsa Crane APRN.PACKING TRACTOR MACHINE OPERATOR [address] [place] [address] Referral ID Status Reason Start Date Expiration Date Visits Requested Visits Authorized [id number] Authorized PCP Requested Referral 11/05/2023 11/04/2024 1 1 Specialty Diagnoses / Procedures Referred By Contac t Referred To Contact Plastic Surgery Diagnoses 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 Procedures CONSULT TO PLASTIC SURGERY OFFICE/OUTPATIENT NEW HIGH MDM 60 MINUTES Hafsa Crane APRN.PACKING TRACTOR MACHINE OPERATOR [address] [place] [address] Referral ID Status Reason Start Date Expiration Date Visits Requested Visits Authorized [id number] Authorized PCP Requested Referral 11/05/2023 11/04/2024 1 1 Specialty Diagnoses / Procedures Referred By Contac t Referred To Contact XR IMAGING Diagnoses Rib pain on right side Procedures XR RIBS/CHEST 3V AP RIB/OBLS/CXR RIGHT RADEX RIBS UNI W/POSTEROANT CH MINIMUM 3 VIEWS Hafsa Crane APRN.PACKING TRACTOR MACHINE OPERATOR [address] [place] [address] [place] [address] Referral ID Status Reason Start Date Expiration Date Visits Requested Visits Authorized [id number] Pending Review Auto-Generat ed Referral 11/05/2023 12/04/2024 1 1 Additional Source Comments <item><item><item> Privacy Markings (unrecogniz ed section and content) Section Author: Reema Becerra PROHIBITION ON REDISCLOSURE OF CONFIDENTIAL INFORMATION This notice accompanies a disclosure of information concerning a client made to you with the consent of such client. Section Author: Reema Becerra PROHIBITION ON REDISCLOSURE OF CONFIDENTIAL INFORMATION This notice accompanies a disclosure of information concerning a client made to you with the consent of such client. Section Author: Reema Becerra PROHIBITION ON REDISCLOSURE OF CONFIDENTIAL INFORMATION This notice accompanies a disclosure of information concerning a client made to you with the consent of such client. Source Comments (unrecognize d section and content) In the event this informatio n is protected by the Federal Confidentiality of Alcohol and Drug Abuse Patient Records regulations: The Federal rules restrict any use of the information to criminally investigate or prosecute any alcohol or drug abuse patient.[facility] event this information is protected by the Federal Confidentiality of Alcohol and Drug Abuse Patient Records regulations: The Federal rules restrict any use of the information to criminally investigate or prosecute any alcohol or drug abuse patient.[facility] the event this information is protected by the Federal Confidentiality of Alcohol and Drug Abuse Patient Records regulations: The Federal rules restrict any use of the information to criminally investigate or prosecute any alcohol or drug abuse patient.[facility] the event this information is protected by the Federal Confidentiality of Alcohol and Drug Abuse Patient Records regulations: The Federal rules restrict any use of the information to criminally investigate or prosecute any alcohol or drug abuse patient.[facility] the event this information is protected by the Federal Confidentiality of Alcohol and Drug Abuse Patient Records regulations: The Federal rules restrict any use of the information to criminally investigate or prosecute any alcohol or drug abuse patient.[facility] the event this information is protected by the Federal Confidentiality of Alcohol and Drug Abuse Patient Records regulations: The Federal rules restrict any use of the information to criminally investigate or prosecute any alcohol or drug abuse patient.[facility] the event this information is protected by the Federal Confidentiality of Alcohol and Drug Abuse Patient Records regulations: The Federal rules restrict any use of the information to criminally investigate or prosecute any alcohol or drug abuse patient.[facility] the event this information is protected by the Federal Confidentiality of Alcohol and Drug Abuse Patient Records regulations: The Federal rules restrict any use of the information to criminally investigate or prosecute any alcohol or drug abuse patient.[facility] the event this information is protected by the Federal Confidentiality of Alcohol and Drug Abuse Patient Records regulations: The Federal rules restrict any use of the information to criminally investigate or prosecute any alcohol or drug abuse patient.[facility] the event this information is protected by the Federal Confidentiality of Alcohol and Drug Abuse Patient Records regulations: The Federal rules restrict any use of the information to criminally investigate or prosecute any alcohol or drug abuse patient.[facility] the event this information is protected by the Federal Confidentiality of Alcohol and Drug Abuse Patient Records regulations: The Federal rules restrict any use of the information to criminally investigate or prosecute any alcohol or drug abuse patient.[facility] the event this information is protected by the Federal Confidentiality of Alcohol and Drug Abuse Patient Records regulations: The Federal rules restrict any use of the information to criminally investigate or prosecute any alcohol or drug abuse patient.[facility] the event this information is protected by the Federal Confidentiality of Alcohol and Drug Abuse Patient Records regulations: The Federal rules restrict any use of the information to criminally investigate or prosecute any alcohol or drug abuse patient.[facility] HospitalIn the event this information is protected by the Federal Confidentiality of Alcohol and Drug Abuse Patient Records regulations: The Federal rules restrict any use of the information to criminally investigate or prosecute any alcohol or drug abuse patient.[facility] HospitalIn the event this information is protected by the Federal Confidentiality of Alcohol and Drug Abuse Patient Records regulations: The Federal rules restrict any use of the information to criminally investigate or prosecute any alcohol or drug abuse patient.[facility] HospitalIn the event this information is protected by the Federal Confidentiality of Alcohol and Drug Abuse Patient Records regulations: The Federal rules restrict any use of the information to criminally investigate or prosecute any alcohol or drug abuse patient.[facility] HospitalIn the event this information is protected by the Federal Confidentiality of Alcohol and Drug Abuse Patient Records regulations: The Federal rules restrict any use of the information to criminally investigate or prosecute any alcohol or drug abuse patient.[facility] HospitalIn the event this information is protected by the Federal Confidentiality of Alcohol and Drug Abuse Patient Records regulations: The Federal rules restrict any use of the information to criminally investigate or prosecute any alcohol or drug abuse patient.[facility] HospitalIn the event this information is protected by the Federal Confidentiality of Alcohol and Drug Abuse Patient Records regulations: The Federal rules restrict any use of the information to criminally investigate or prosecute any alcohol or drug abuse patient.[facility] HospitalIn the event this information is protected by the Federal Confidentiality of Alcohol and Drug Abuse Patient Records regulations: The Federal rules restrict any use of the information to criminally investigate or prosecute any alcohol or drug abuse patient.[facility] HospitalIn the event this information is protected by the Federal Confidentiality of Alcohol and Drug Abuse Patient Records regulations: The Federal rules restrict any use of the information to criminally investigate or prosecute any alcohol or drug abuse patient.[facility] HospitalIn the event this information is protected by the Federal Confidentiality of Alcohol and Drug Abuse Patient Records regulations: The Federal rules restrict any use of the information to criminally investigate or prosecute any alcohol or drug abuse patient.[facility] HospitalIn the event this information is protected by the Federal Confidentiality of Alcohol and Drug Abuse Patient Records regulations: The Federal rules restrict any use of the information to criminally investigate or prosecute any alcohol or drug abuse patient.[facility] HospitalIn the event this information is protected by the Federal Confidentiality of Alcohol and Drug Abuse Patient Records regulations: The Federal rules restrict any use of the information to criminally investigate or prosecute any alcohol or drug abuse patient.[facility] HospitalIn the event this information is protected by the Federal Confidentiality of Alcohol and Drug Abuse Patient Records regulations: The Federal rules restrict any use of the information to criminally investigate or prosecute any alcohol or drug abuse patient.[facility] HospitalIn the event this information is protected by the Federal Confidentiality of Alcohol and Drug Abuse Patient Records regulations: The Federal rules restrict any use of the information to criminally investigate or prosecute any alcohol or drug abuse patient.[facility] HospitalIn the event this information is protected by the Federal Confidentiality of Alcohol and Drug Abuse Patient Records regulations: The Federal rules restrict any use of the information to criminally investigate or prosecute any alcohol or drug abuse patient.[facility] HospitalIn the event this information is protected by the Federal Confidentiality of Alcohol and Drug Abuse Patient Records regulations: The Federal rules restrict any use of the information to criminally investigate or prosecute any alcohol or drug abuse patient.[facility] HospitalIn the event this information is protected by the Federal Confidentiality of Alcohol and Drug Abuse Patient Records regulations: The Federal rules restrict any use of the information to criminally investigate or prosecute any alcohol or drug abuse patient.[facility] HospitalIn the event this information is protected by the Federal Confidentiality of Alcohol and Drug Abuse Patient Records regulations: The Federal rules restrict any use of the information to criminally investigate or prosecute any alcohol or drug abuse patient.[facility] Reason for Visit (unrecogniz ed section and content) Specialty Diagnoses / Procedures Referred By Contmonica t Referred To Contact Family Medicine / FAMILY MEDICINE Diagnoses BP check Procedures 4C EST Paola Mccarthy, MISA.DIRECTOR OF TESTING [address] [place] [address] Paola Mccarthy APRN.DIRECTOR OF TESTING [address] [place] [address] Referral ID Status Reason Start Date Expiration Date V isits Requested Visits Authorized [id number] Authorized 07/06/2022 09/08/2022 99 99 Reason Onset Date Comments Refill Request 12/13/2021 Reason Onset Date Comments Refill Request 06/11/2022 Reason Onset Date Comments Refill Request 09/12/2022 Reason Comments Results Reason Comments Blood Pressure Specialty Diagnoses / Procedures Referred By Contac t Referred To Contact Family Medicine / FAMILY MEDICINE Diagnoses follow up medication Procedures OFFICE/OUTPATIENT ESTABLISHED LOW MDM 20-29 MIN 4C EST Self Blake Sandoval MD [address] [place] [address] Referral ID Status Reason Start Date Expiration Date Visits Re quested Visits Authorized [id number] Closed 09/24/2022 09/08/2023 1 0 Reason Comments Orders Reason Comments Insurance Authorization Depo-tesosterone Reason Onset Date Comments Refill Request 11/01/2022 Reason Onset Date Comments Refill Request 12/10/2022 Reason Onset Date Comments Refill Request 12/24/2022 Reason Comments Refill Request Reason Comments Cough While eating Hypertension Medication follow up Reason Comments Opened In Error Reason Onset Date Comments Transition Of Care 03/18/2023 Reason Comments Hospital F/U Reason Comments Follow Up Reason Comments Hypogonadism Reason Comments Heel Pain Left. 2 months Back Pain Right mid back pain. 2 months Reason Comments Follow-up 4 mo post hospital/D CCV review [facility] Reason Onset Date Comments Refill Request 10/10/2023 Reason Comments Medication Request Reason Comments Insurance Authorization Reason Comments Follow Up Right flank pain Reason Comments Nurse Triage Call Patient called in to schedule a phlebotomy per PCP instructions. Discussed with patient that he would need to schedule an appointment with a Melter Clerk at our office to coordinate the care. Patient stated his pcp was placing the orders to have phlebotomy done and didn't need an appointment with the doctor. Instructed patient that there are no orders currently and we will reach out to the pcp to clarify instructions. Patient verbalized understanding. AA Reason Comments Patient Question Reason Comments Critical Results Patient Update Reason Comments Patient Question Reason Comments Orders Fax ultrasound to [facility] per Care Teams (unrecognized sec tion and content) Parts Person Relationship Specialty Start Date End Date Blake Sandoval MD [address] [place], [place] [id number] PCP - General Family Medicine 07/30/12 Parts Person Relationship Specialty Start Date End Date Blake Sandoval MD [address] [facility] [place] [address] PCP - General Family Medicine 07/30/12 Parts Person Relationship Specialty Start Date End Date Blake Sandoval MD [address] [facility] [place] [address] PCP - General Family Medicine 07/30/12 Parts Person Relationship Specialty Start Date End Date Blake Sandoval MD [address] [facility] [place] [address] PCP - General Family Medicine 07/30/12 Parts Person Relationship Specialty Start Date End Date Blake Sandoval MD [address] [facility] [place] [address] PCP - General Family Medicine 07/30/12 Parts Person Relationship Specialty Start Date End Date Blake Sandoval MD [address] [facility] [place] [address] PCP - General Family Medicine 07/30/12 Parts Person Relationship Specialty Start Date End Date Blake Sandoval MD [address] [facility] [place] [address] PCP - General Family Medicine 07/30/12 Parts Person Relationship Specialty Start Date End Date Blake Sandoval MD [address] [facility] [place] [address] PCP - General Family Medicine 07/30/12 Parts Person Relationship Specialty Start Date End Date Blake Sandoval MD [address] [facility] [place] [address] PCP - General Family Medicine 07/30/12 Parts Person Relationship Specialty Start Date End Date Blake Sandoval MD [address] [facility] [place] [address] PCP - General Family Medicine 07/30/12 Parts Person Relationship Specialty Start Date End Date Blake Sandoval MD [address] [place] [address] PCP - General Family Medicine 07/30/12 Parts Person Relationship Specialty Start Date End Date Blake Sandoval MD [address] [place] [address] PCP - General Family Medicine 03/13/23 Parts Person Relationship Specialty Start Date End Date Blake Sandoval MD [address] [place] [address] PCP - General Family Medicine 07/30/12 Parts Person Relationship Specialty Start Date End Date Blake Sandoval MD [address] [place] [address] PCP - General Family Medicine 07/30/12 Parts Person Relationship Specialty Start Date End Date Blake Sandoval MD [address] [place], [place] [id number] PCP - General Family Medicine 07/30/12 Parts Person Relationship Specialty Start Date End Date Blake Sandoval MD [address] [place] [address] PCP - General Family Medicine 07/30/12 Parts Person Relationship Specialty Start Date End Date Blake Sandoval MD [address] [place], [place] [id number] PCP - General Family Medicine 07/30/12 Parts Person Relationship Specialty Start Date End Date Blaek Sandoval MD [address] [facility] [place] [address] PCP - General 02/07/21 Parts Person Relationship Specialty Start Date End Date Blake Sandoval MD [address] [place] [address] PCP - General Family Medicine 07/30/12 Parts Person Relationship Specialty Start Date End Date Blake Sandoval MD [address] [place], [place] [id number] PCP - General Family Medicine 03/13/23 Parts Person Relationship Specialty Start Date End Date Blake Sandoval MD [address] [place] [address] PCP - General Family Medicine 03/13/23 Parts Person Relationship Specialty Start Date End Date Blake Sandoval MD [address] [place] [id number] PCP - General Family Medicine 07/30/12 Parts Person Relationship Specialty Start Date End Date Blake Sandoval MD [address] [place], [place] [address] PCP - General Family Medicine 07/30/12 Parts Person Relationship Specialty Start Date End Date Blake Sandoval MD [address] [place] [address] PCP - General Family Medicine 07/30/12 Parts Person Relationship Specialty Start Date End Date Blake Sandoval MD [address] [place], [place] [id number] PCP - General Family Medicine 07/30/12 Parts Person Relationship Specialty Start Date End Date Blake Sandoval MD [address] [place], [place] [address] PCP - General Family Medicine 07/30/12 Parts Person Relationship Specialty Start Date End Date Blake Sandoval MD [address] [place] [address] PCP - General Family Medicine 07/30/12 Parts Person Relationship Specialty Start Date End Date Blake Sandoval MD [address] [place] [address] PCP - General Family Medicine 07/30/12 (unrecognized sect ion and content) No Status Records FoundNo Status Records FoundNo Status Records FoundNo Status Records FoundNo Status Records FoundNo Status Records FoundNo Status Records FoundNo Status Records Found INFORMATION SOURCE (unrecogn ized section and content) DATE CREATED AUTHOR AUTHOR'S ORGANIZ ATION 04/15/2023 [employer] DATE CREATED AUTHOR AUTHOR'S ORGANIZ ATION 06/26/2023 [facility] DATE CREATED AUTHOR AUTHOR'S ORGANIZ ATION 07/22/2023 [facility] DATE CREATED AUTHOR AUTHOR'S ORGANIZ ATION 07/24/2023 [facility] DATE CREATED AUTHOR AUTHOR'S ORGANIZ ATION 07/26/2023 [facility] DATE CREATED AUTHOR AUTHOR'S ORGANIZ ATION 07/27/2023 [facility] DATE CREATED AUTHOR AUTHOR'S ORGANIZ ATION 11/12/2023 [facility] FOR RECORDS PERTAINING TO PATIENTS WHO ARE OR HAVE BEEN ENROLLED IN A CHEMICAL DEPENDENCY/SUBSTANCEABUSE PROGRAM, SOME INFORMATION MAY BE OMITTED. This clinical summary was aggregated from multiple sources. Caution should be exercised in using it in the provision of clinical care. This summary normalizes information from multiple sources, and as a consequence, information in this document may materially change the coding, format and clinical context of patient data. In addition, data may be omitted in some cases. CLINICAL DECISIONS SHOULD BE BASED ON THE PRIMARY CLINICAL RECORDS. [facility] [employer] [facility]. provides no warranty or guarantee of the accuracy or completeness of information in this document.
== END | disposition home or self-care (01) ==
PROVIDERS: PCP Family Medicine
DX: R10.11 Right upper quadrant pain (principal)
CPT/HCPCS: 76705

== ENCOUNTER 2023-11-15 12:45 | Outpatient (CLI) | payer OTHER, SELFPAY ==
[2023-11-15 12:59] VITALS: BP 139/87; PULSE 68; RESP 16; TEMP 36.6; O2SAT 95; BMI 29.4
[2023-11-15 13:31] VITALS: BP 139/87; PULSE 67; RESP 16; TEMP 36.8; O2SAT 97
== END 2023-11-15 12:46 | disposition home or self-care (01) ==
LOC: MEDOUTP 12:46
PROVIDERS: PCP Family Medicine; Referring Provider Urology; Visit Provider Urology
DX: D45 Polycythemia vera (principal)
CPT/HCPCS: 99195

== ENCOUNTER → 2023-11-20 | Outpatient (CLI) | payer OTHER, SELFPAY ==
[2023-11-20 11:00] LABS: Absolute Lymphocyte Count 2.15 X10^3/uL (0.83-4.51); Absolute Neutrophil Count 6.1 X10^3/uL (2.0-7.7); Basophil# 0.06 X10^3/uL; Basophil% 0.6 % (0-1); Eosinophil# 0.22 X10^3/uL; Eosinophils% 2.4 % (0-5); Hematocrit 51.7 % (40-54); Hemoglobin 17.2 g/dL (13.0-16.5); Lymphocyte # 2.15 X10^3/ul (0.83-4.51); Mean Corp Hgb Conc 33.3 g/dL (32-36); Mean Corpuscular Hgb 30.5 pg (27.0-32.0); Mean Corpuscular Volume 91.7 fL (80-94); Mean Platelet Vol. 10.7 fl (6.2-12.0); Monocyte# 0.77 X10^3/uL; Monocyte% 8.2 % (0-10); NRBC Flagged by Analyzer 0 % (0-5); Neutrophil # 6.11 X10^3/uL (2.7-7.7); Neutrophil % 65.4 % (47-70); Platelet Count 259 K/mm3 (150-450); RBC Distribution Width CV 12.7 % (11.6-14.6); RBC Distribution Width SD 42.9 fl (35.1-43.9); Red Blood Count 5.64 M/mm3 (4.6-6.2); White Blood Count 9.4 K/mm3 (4.4-11.0)
[2023-11-20 11:34] LABS: ALB/GLOB Ratio 1.2 RATIO (0.9-2.4); AST(SGOT) 20 U/L (15-37); Alanine Aminotransfer ALT/SGPT 23 U/L (16-61); Albumin, Serum 3.6 g/dL (3.2-5.0); Alkaline Phosphatase 88 U/L (45-117); Anion Gap 7 (5-15); BUN 17 mg/dL (7-18); Calcium,Total 8.5 mg/dL (8.5-10.1); Chloride 101 mmol/L (98-107); Creatinine, Serum 1.42 mg/dL (0.70-1.30); EST Glomerular Filtration Rate 53 mL/min (>60); Est Glom Filt Rate - Afr Amer 64 mL/min (>60); Globulin 3.1 g/dL (2.2-4.2); Glucose 228 mg/dL (74-106); Potassium 4.2 mmol/L (3.5-5.1); Protein, Total 6.7 g/dL (6.4-8.2); Sodium Level 137 mmol/L (136-145)
--- OUTSIDE RECORDS SUMMARY | 2023-11-20 12:10 | XMS RPT_ITS | CCD ---
Author Name Unknown Address [address] [place] [address] Organization [facility] Care Team Providers Care Casting Director Name Role Phone Blake Sandoval Unavailable iLzz Karrie Unavailable Unavailable Toby Toure Unavailable Blake Sandoval MD Primary Care Provider Blake Sandoval MD Primary Care Provider Blake Sandoval Unavailable Unavailable Unavailable Unavailable Unavailable Blake Sandoval MD Primary Care Provider [phone] Blake Sandoval MD Primary Care Provider Nayely Mortensen Attending Unavailable Jeyson, Dr. Blake [...] Primary Care Unavailable KATE WESTON Attending Unavailable URKATE SCHWARTZ Referring Unavailable JEYSON, BLAKE Portillo Primary Care Unavailable KATINA BANDA Attending Unavail able KATINA BANDA Referring Unavail able JEYSON, BLAKE Portillo Primary Care Unavailable ANTONY, ALEXEY Admitting Unavailable KATINA BANDA Attending Unavail able KATINA BANDA Referring Unavail able JEYSON, BLAKE Portillo Primary Care Unavailable DURAIRAJ, ALEXEY Admitting Unavailable H AND V, [employer] Consulting Unavailable SPENCER ZELAYA Attending Unavailable JEYSON, BLAKE Portillo Primary Care Unavailable HAFSA CRANE Attending Unavailable JEYSON, BLAKE Portillo Primary Care Unavailable HAFSA CRANE Referring Unavailable JEYSON, BLAKE Portillo Primary Care Unavailable HAFSA CRANE Attending Unavailable Lala BERMEO Referring Unavailable JEYSON, BLAKE Portillo Primary Care Unavailable CAMPBELL WEBSTER Attending Unavailable Lala BERMEO Referring Unavailable JEYSON, BLAKE Portillo Primary Care Unavailable JEYSON, BLAKE Portillo Primary Care Unavailable Lala BERMEO Attending Unavailable Lala BERMEO Referring Unavailable JEYSON, BLAKE Portillo Primary Care Unavailable Lala BERMEO Attending Unavailable JEYSON, BLAKE Portillo Primary Care Unavailable JEYSON, BLAKE Portillo Primary Care Unavailable BLAKE SANDOVAL Attending Unavailable JEYSON, BLAKE Portillo Primary Care Unavailable JEYSON, BLAKE Portillo Attending Unavailable JEYSON, BLAKE Portillo Primary Care Unavailable Lala BERMEO Attending Unavailable Allergies Allergy Classification Reported Allergen(s) Allergy Type Date of Onset Reaction(s) Facility Adrenergic Agonists (1 source) Pseudoephedrine Drug Allergy Other [facility] Angiotensin Converting Enzyme (KATY) Inhibitors (1 source) Angiotensin Converting Enzyme (Katy) Inhibitors Drug Allergy Other [facility] Medications Current Medications Medication Drug Class(es) Dates [...] Drug Class(es) Dates Sig (Normalized) Sig (Original) [id number] 200 actuat albuterol 0.09 mg/actuat metered dose [...] (1 source) Secondary polycythemia; Translations: [Polycythemia] Onset: 11-05-2023 Episodic Other hereditary and degenerative nervous system [...] gangrene] Onset: 10-13-2009 10-13-2009 Episodic Abdominal pain (7 sources) Generalized abdominal pain; Translations: [Generalized abdominal [...] Time Vital Sign Value Performing Clinician Facility 11-14-2023 09:15-0500 Diastolic blood pressure 78 mm[Hg] Hafsa Suppan MEDICAL PROGRAM SPECIALIST.SPECIAL PROJECTS MANAGER Work Phone: [facility] 11-14-2023 09:15-0500 Systolic blood pressure 142 mm[Hg] Hafsa Suppan MEDICAL PROGRAM SPECIALIST.SPECIAL PROJECTS MANAGER Work Phone: [facility] 11-14-2023 09:09-0500 Body weight 97.07 kg Hafsa Suppan MEDICAL PROGRAM SPECIALIST.SPECIAL PROJECTS MANAGER Work Phone: [facility] 11-14-2023 09:09-0500 Heart rate 63 /min Hafsa Suppan MEDICAL PROGRAM SPECIALIST.SPECIAL PROJECTS MANAGER Work Phone: [facility] 11-14-2023 09:09-0500 Respiratory rate 16 /min Hafsa Suppan MEDICAL PROGRAM SPECIALIST.SPECIAL PROJECTS MANAGER Work Phone: [facility] 11-14-2023 09:09-0500 SaO2% (BldA) [Mass fraction] 95 % Hafsa Suppan MEDICAL PROGRAM SPECIALIST.SPECIAL PROJECTS MANAGER Work Phone: [facility] 11-05-2023 11:53-0500 Body weight 96.16 kg Hafsa Suppan MEDICAL PROGRAM SPECIALIST.SPECIAL PROJECTS MANAGER Work Phone: [facility] 11-05-2023 11:53-0500 Diastolic blood pressure 76 mm[Hg] Hafsa Suppan MEDICAL PROGRAM SPECIALIST.SPECIAL PROJECTS MANAGER Work Phone: [facility] 11-05-2023 11:53-0500 Heart rate 58 /min Hafsa Suppan MEDICAL PROGRAM SPECIALIST.SPECIAL PROJECTS MANAGER Work Phone: [facility] 11-05-2023 11:53-0500 Respiratory rate 16 /min Hafsa Suppan MEDICAL PROGRAM SPECIALIST.SPECIAL PROJECTS MANAGER Work Phone: [facility] 11-05-2023 11:53-0500 SaO2% (BldA) [Mass fraction] 95 % Hafsa Suppan MEDICAL PROGRAM SPECIALIST.SPECIAL PROJECTS MANAGER Work Phone: [facility] 11-05-2023 11:53-0500 Systolic blood pressure 140 mm[Hg] Hafsa Suppan MEDICAL PROGRAM SPECIALIST.SPECIAL PROJECTS MANAGER Work Phone: [facility] 07-24-2023 10:20-0500 Body height 175.3 cm Kate Weston MD Work Phone: [facility] 07-24-2023 10:20-0500 Body mass index (BMI) [Ratio] 30.72 kg/m2 Kate Weston MD Work Phone: [facility] 07-24-2023 10:20-0500 Body weight 94.35 kg Kate Weston MD Work Phone: [facility] 07-24-2023 10:20-0500 Diastolic blood pressure 81 mm[Hg] Kate Weston MD Work Phone: [facility] 07-24-2023 10:20-0500 Heart rate 62 /min Kate Weston MD Work Phone: [facility] 07-24-2023 10:20-0500 SaO2% (BldA) [Mass fraction] 96 % Kate Weston MD Work Phone: [facility] 07-24-2023 10:20-0500 Systolic blood pressure 125 mm[Hg] Kate Weston MD Work Phone: [facility] 07-22-2023 15:04-0500 Body weight 95.25 kg NA Bermeo PA-C Work Phone: [facility] 07-22-2023 15:04-0500 Diastolic blood pressure 70 mm[Hg] NA Bermeo PA-C Work Phone: [facility] 07-22-2023 15:04-0500 Heart rate 64 /min NA Bermeo PA-C Work Phone: [facility] 07-22-2023 15:04-0500 Respiratory rate 16 /min NA Bermeo PA-C Work Phone: [facility] 07-22-2023 15:04-0500 SaO2% (BldA) [Mass fraction] 97 % NA Bermeo PA-C Work Phone: [facility] 07-22-2023 15:04-0500 Systolic blood pressure 132 mm[Hg] NA Bermeo PA-C Work Phone: [facility] 07-22-2023 08:46-0500 Body mass index (BMI) [Ratio] 31.16 kg/m2 Nayely Mortensen MD Work Phone: [facility] 07-22-2023 08:46-0500 Body weight 95.71 kg Nayely Mortensen MD Work Phone: [facility] 07-22-2023 08:46-0500 Respiratory rate 16 /min Nayely Mortensen MD Work Phone: [facility] 04-24-2023 16:06-0400 Diastolic blood pressure 86 mm[Hg] Blake Sandoval MD Work Phone: [facility] 04-24-2023 16:06-0400 Systolic blood pressure 136 mm[Hg] Blake Sandoval MD Work Phone: [facility] 04-24-2023 15:48-0400 Body height 177.8 cm Blake Sandoval MD Work Phone: [facility] 04-24-2023 15:48-0400 Body weight 92.08 kg Blake Sandoval MD Work Phone: [facility] 04-24-2023 15:48-0400 Heart rate 56 /min Blake Sandoval MD Work Phone: [facility] 04-24-2023 15:48-0400 SaO2% (BldA) [Mass fraction] 96 % Blake Sandoval MD Work Phone: [facility] 04-11-2023 08:43-0400 Body mass index (BMI) [Ratio] 31.18 kg/m2 Blake Sandoval Work Phone: PP[facility]Qamirrc-Dnspjnov [facility] 232 DO Work Phone: 04-11-2023 08:43-0400 Body surface area Derived from formula 2.11 m2 Blake Sandoval Work Phone: KY-Fugcdhj-Jkwolqfl [facility] 232 DO Work Phone: 04-11-2023 08:43-0400 Body weight 95.77 kg Blake Sandoval Work Phone: LG-Amluvke-Niuzfjsr [facility] 232 DO Work Phone: 04-11-2023 08:43-0400 Diastolic blood pressure 90 mm[Hg] Blake Sandoval Work Phone: KU-Efjlmce-Obmvplni [facility] 232 DO Work Phone: 04-11-2023 08:43-0400 Heart rate 64 /min Blake Sandoval Work Phone: LK-Edteokm-Dqfwxval [facility] 232 DO Work Phone: 04-11-2023 08:43-0400 Systolic blood pressure 180 mm[Hg] Blake Sandoval Work Phone: CB-Nkykirr-Kbywwiej [facility] 232 DO Work Phone: 03-25-2023 09:35-0400 Diastolic blood pressure 80 mm[Hg] Blake Sandoval MD Work Phone: [facility] 03-25-2023 09:35-0400 Systolic blood pressure 130 mm[Hg] Blake Sandoval MD Work Phone: [facility] 03-25-2023 09:04-0400 Body weight 95.25 kg Blake Sandoval MD Work Phone: [facility] 03-25-2023 09:04-0400 Heart rate 54 /min Blake Sandoval MD Work Phone: [facility] 03-25-2023 09:04-0400 SaO2% (BldA) [Mass fraction] 96 % Blake Sandoval MD Work Phone: [facility] 01-10-2023 18:11-0400 Diastolic blood pressure 80 mm[Hg] NA Bermeo PA-C Work Phone: [facility] 01-10-2023 18:11-0400 Systolic blood pressure 122 mm[Hg] NA Bermeo PA-C Work Phone: [facility] 01-10-2023 18:05-0400 Body weight 95.25 kg NA Bermeo PA-C Work Phone: [facility] 01-10-2023 18:05-0400 Heart rate 103 /min NA Bermeo PA-C Work Phone: [facility] 01-10-2023 18:05-0400 Respiratory rate 16 /min NA Bermeo PA-C Work Phone: [facility] 01-10-2023 18:05-0400 SaO2% (BldA) [Mass fraction] 96 % NA Bermeo PA-C Work Phone: [facility] 09-24-2022 17:15-0500 Body weight 96.16 kg Blake Sandoval MD Work Phone: [facility] 09-24-2022 17:15-0500 Diastolic blood pressure 82 mm[Hg] Blake Sandoval MD Work Phone: [facility] 09-24-2022 17:15-0500 Heart rate 61 /min Blake Sandoval MD Work Phone: [facility] 09-24-2022 17:15-0500 SaO2% (BldA) [Mass fraction] 94 % Blake Sandoval MD Work Phone: [facility] 09-24-2022 17:15-0500 Systolic blood pressure 134 mm[Hg] Blake Sandoval MD Work Phone: [facility] 08-29-2022 09:19-0500 Body mass index (BMI) [Ratio] 32.67 kg/m2 Blake Sandoval Work Phone: XM-Zdupfgx-Kshccrf Work Phone: 08-29-2022 09:19-0500 Body surface area Derived from formula 2.16 m2 Blake Sandoval Work Phone: KN-Hvhiker-Qmhnewd Work Phone: 08-29-2022 09:19-0500 Body weight 100.36 kg Blake Sandoval Work Phone: SL-Ncrlgww-Hphjwea Work Phone: 08-29-2022 09:19-0500 Diastolic blood pressure 88 mm[Hg] Blake Sandoval Work Phone: YH-Hjdsykm-Grziesi Work Phone: 08-29-2022 09:19-0500 Heart rate 59 /min Blake Sandoval Work Phone: ZL-Opcwaqr-Uvbosnv Work Phone: 08-29-2022 09:19-0500 Systolic blood pressure 143 mm[Hg] Blake Daveo Work Phone: KJ-Fpdwekv-Afcfdjm Work Phone: 08-24-2022 07:45-0500 Body height 175.26 cm Blake Daveo Work Phone: UR-Nvxasth-Wrkjcjv Work Phone: 08-24-2022 07:45-0500 Body mass index (BMI) [Ratio] 32.49 kg/m2 Blake Sandoval Work Phone: YG-Ggymtgw-Xvvtvqq Work Phone: 08-24-2022 07:45-0500 Body surface area Derived from formula 2.15 m2 Blake Sandoval Work Phone: OW-Znbgwag-Upeailz Work Phone: 08-24-2022 07:45-0500 Body weight 99.79 kg Blake Sandoval Work Phone: NI-Ftkiukz-Hauxetd Work Phone: 08-24-2022 07:45-0500 Diastolic blood pressure 94 mm[Hg] Blake Sandoval Work Phone: DE-Xuljiar-Fdyqzex Work Phone: 08-24-2022 07:45-0500 Heart rate 58 /min Blake Daveo Work Phone: TH-Kksojqq-Hshaams Work Phone: 08-24-2022 07:45-0500 Systolic blood pressure 145 mm[Hg] Blake Daveo Work Phone: MN-Ecwsoel-Fvkdxqz Work Phone: 07-06-2022 13:40-0400 Body temperature 97.9 [degF] Paola Zurawick MEDICAL PROGRAM SPECIALIST.ARMOURED CAR ESCORT Work Phone: [facility] 07-06-2022 13:40-0400 Body weight 96.34 kg Paola Zurawick MEDICAL PROGRAM SPECIALIST.ARMOURED CAR ESCORT Work Phone: [facility] 07-06-2022 13:40-0400 Diastolic blood pressure 90 mm[Hg] Paola Zurawick MEDICAL PROGRAM SPECIALIST.ARMOURED CAR ESCORT Work Phone: [facility] 07-06-2022 13:40-0400 Heart rate 54 /min Paola Zurawick MEDICAL PROGRAM SPECIALIST.ARMOURED CAR ESCORT Work Phone: [facility] 07-06-2022 13:40-0400 SaO2% (BldA) [Mass fraction] 98 % Paola Zurawick MEDICAL PROGRAM SPECIALIST.ARMOURED CAR ESCORT Work Phone: [facility] 07-06-2022 13:40-0400 Systolic blood pressure 170 mm[Hg] Paola Zurawick MEDICAL PROGRAM SPECIALIST.ARMOURED CAR ESCORT Work Phone: [facility] 06-23-2021 19:17-0400 Body height 175.2 cm Blake Daveo Other Phone: [facility] 06-23-2021 19:17-0400 Body temperature 97.7 [degF] Blake Sandoval Other Phone: [facility] 06-23-2021 19:17-0400 Diastolic blood pressure 81 mm[Hg] Blake Sandoval Other Phone: [facility] 06-23-2021 19:17-0400 Heart rate 62 /min Blake Sandoval Other Phone: [facility] 06-23-2021 19:17-0400 Respiratory rate 16 /min Blake Jeyson Other Phone: [facility] 06-23-2021 19:17-0400 SaO2% (BldA) [Mass fraction] 96 % Blake Sandoval Other Phone: [facility] 06-23-2021 19:17-0400 Systolic blood pressure 125 mm[Hg] Blake Sandoval Other Phone: [facility] 04-03-2021 11:59-0400 Body height 175.2 cm Blake Sandoval Other Phone: [facility] 04-03-2021 11:59-0400 Body temperature 98.6 [degF] Blake Sadnoval Other Phone: [facility] 04-03-2021 11:59-0400 Diastolic blood pressure 91 mm[Hg] Blake Sandoval Other Phone: [facility] 04-03-2021 11:59-0400 Heart rate 51 /min Blake Sandoval Other Phone: [facility] 04-03-2021 11:59-0400 Respiratory rate 16 /min Blake Sandoval Other Phone: [facility] 04-03-2021 11:59-0400 SaO2% (BldA) [Mass fraction] 99 % Blake Sandoval Other Phone: [facility] 04-03-2021 11:59-0400 Systolic blood pressure 158 mm[Hg] Blake Sandoval Other Phone: [facility] Encounters Encounter Date Encounter Type Care Provider Facility Start: 11-14-2023 End: 11-14-2023 ambulatory BLAKE SANDOVAL Facility:[facility] Start: 11-14-2023 End: 11-14-2023 Office outpatient visit 15 minutes Hafsa Crane MEDICAL PROGRAM SPECIALIST.SPECIAL PROJECTS MANAGER Work Phone: [facility] [place] Procedures Date Procedure Procedure Detail Performing Clinician [...] Screening for malign ant neoplasm of colon [facility] Start: 04-11-2028 PROSTATE CANCER SCRE ENING DISCUSSION PROSTATE CANCER SCREENING DISCUSSION [facility] Start: 04-11-2028 Prostate specific an tigen measurement Prostate Cancer Screening Discussion [facility] Start: 10-13-2024 Colonoscopy COLONOSCOPY [facility] Start: 10-13-2024 COLORECTAL CANCER SCREENING COLORECTAL CANCER SCREENING [facility] Start: 10-13-2024 Screening for malign ant neoplasm of colon [facility] Start: 09-23-2024 Glaucoma screening Dilated Retinal E xam [facility] Start: 09-16-2024 Annual PCP Team Filter Filler katya Disease Visit Annual PCP Team Chronic Disease Visit [facility] Start: 09-16-2024 Hepatitis B screening Urine Al bumin:Creatinine Ratio [facility] Start: 07-22-2024 Annual PCP Team Filter Filler katya Disease Visit Annual PCP Team Chronic Disease Visit [facility] Start: 06-01-2024 PROSTATE CANCER SCRE ENING DISCUSSION PROSTATE CANCER SCREENING DISCUSSION [facility] Start: 04-24-2024 ANNUAL PCP TEAM SHOE PARTS MOLDER KATYA DISEASE VISIT ANNUAL PCP TEAM CHRONIC DISEASE VISIT [facility] Start: 03-25-2024 ANNUAL PCP TEAM SHOE PARTS MOLDER KATYA DISEASE VISIT ANNUAL PCP TEAM CHRONIC DISEASE VISIT [facility] Start: 03-16-2024 Hemoglobin A1c measurement HbA1C [facility] Start: 03-08-2024 Influenza vaccination Influenza Vacc ine (#1) [facility] Immunizations Immunization Date Immunization Notes Care Provider Marvin bean 05-30-2018 influenza virus vacc ine, unspecified formulation Blake Sandoval MD Work Phone: [facility] Payers Date Payer Category Payer Private Health Insurance [id number] 2022 Unknown [id number] 2021 Medicare MEDICARE MEDICAR E A [id number] 2021-Present [phone] [address] [place] [address] Medicare [id number] 2019 Unknown 2019 Unknown MMO MMO TPA [id number] 2019-Present [address] [place] [address] PPO [id number] 1956 Unknown [id number] 56 1956 Unknown [id number] 56 1956 Unknown [id number] 56 1956 Unknown [id number] 56 1956 Unknown [id number] 56 1956 Unknown [id number] 56 1956 Unknown [id number] 244 1956 Unknown [id number] 245 1956 Unknown [id number] 03 1956 Unknown [id number] 03 1956 Unknown [id number] 03 1956 Unknown [id number] 03 1956 Unknown [id number] 03 Unknown [id number] Social History Date Type Detail Facility [facility] Tobacco smoking consumption unknown [facility] Start: 09-19-2017 End: 07-06-2022 Tobacco smoking status NHIS Ex-smoker [facility] Work Phone: End: 12-05-2002 History of tobacco use Current smoker [facility] Work Phone: End: 12-05-2002 History of tobacco use Cigarette Smoker [facility] Work Phone: Start: 07-25-2021 End: 11-14-2023 Alcohol intake Current non-drinker of alcohol (finding) [facility] Start: 1955 Sex Assigned At Not on file C [facility] Start: 09-19-2017 End: 01-10-2023 Cigarettes smoked current (pack per day) - Reported 1 [facility] Work Phone: Start: 09-19-2017 End: 07-06-2022 Tobacco use and exposure Smokeless tobacco non-user [facility] Start: 05-26-2022 End: 07-19-2023 Exposure to SARS-CoV-2 (event) Not sure [facility] Work Phone: Start: 03-13-2023 End: 07-24-2023 Alcohol intake Ex-drinker (finding) [facility] Start: 01-10-2023 End: 03-13-2023 Tobacco use panel [facility] Work Phone: Adult Depression Screening Assessment 2 [facility] Work Phone: Medical Equipment Procedure Code Equipment Code Equipment Origin al Text Equipment Identifier Dates 1 Each as needed. Start: 03-07-2021 Clinical Notes 05-30-2015 to 11-14-2023 Hafsa Crane APRN.SPECIAL PROJECTS MANAGER - 11/14/2023 9:10 AM ESTTelephone Encounter - DeclanReenaREJI - 11/13/2023 3:34 PM ESTTelephone Encounter - Blake Sandoval MD - 11/13/2023 3:26 PM EST Note Date & Type Note Facility 11-14-2023 Note HNO ID: [id number] Author: HAFSA CRANE APRN.SPECIAL PROJECTS MANAGER Service: ? Author Type: Clinical Nurse Specialist Type: Progress Notes Filed: 11/14/2023 09:43 Note Text: This is a 68 year old male who presents today with: Patient presents with: Abdominal Pain: Follow up HISTORY OF PRESENT ILLNESS: Nayely Weeks is a 68 year old male. Patient presents with: Abdominal Pain: Follow up Pt. Has been scheduled for an units/S RUQ twice not completed. Had CT of abdomen in March, last year, Xray done 2 weeks ago- normal. Also c/o palpable nodule left forehead, plastics consult placed and ot scheduled. Polycythemia noted, on testosterone through urology. No N/V. No fever or chills. Worse with movement. Sitting still, 2/10, with movement 5/10. Occasional 10/10 sharp with movement. No fall. Occasional fall he doesn't attribute. No back pain. Sees chiropractor once a month. PAST MEDICAL HISTORY: PAST MEDICAL HISTORY Diagnosis [...] Hcl] MEDICATIONS Current Outpatient Medications Medication Sig lidocaine (LIDODERM) 5 % Apply 1 Patch as directed once daily. Remove old patch prior to placing new patch. Location: wear only daily semaglutide (OZEMPIC) 0.25 mg or 0.5 mg [...] AN EMPTY STOMACH) Needle, Disp, 18 G ([place] BLUNT CANNULA) 18 gauge x 1 ndle [...] use: No Comment: Quit 1991 cocaine EXAM: Wt 97.1 kg (214 lb) BMI 30.71 kg/m? PHYSICAL EXAM: General Appearance: Well appearing, alert, in no acute distress, well-hydrated, well nourished.. Skin: Skin color, texture, turgor normal, no suspicious rashes or lesions. Head: Normocephalic, no masses, lesions, tenderness or abnormalities. Back:no pain to palpation of vertebrae, no muscle tenderness, negative CVA tenderness Lungs: Lungs clear to auscultation. No wheezing, rhonchi, rales.. Heart: RRR without murmur, gallop, or rubs. No ectopy. LABS: negative units/S of gallbladder, enlarged liver, and right sided kidney stone (Hx of stones) Gets regular colonoscopy- now every 5 year, due 08/28 last scope ASSESSMENT/PLAN: 1. RUQ pain - ICD9: 789.01, ICD10: R10.11 Etiology unclear Differential Diagnosis include (more content not included)... [facility] 11-14-2023 History of Present illness Narrative This is a 68 year old male who presents today with: Patient presents with: Abdominal Pain: Follow up HISTORY OF PRESENT ILLNESS: Nayely Weeks is a 68 year old male. Patient presents with: Abdominal Pain: Follow up Pt. Has been scheduled for an units/S RUQ twice not completed. Had CT of abdomen in March, last year, Xray done 2 weeks ago- normal. Also c/o palpable nodule left forehead, plastics consult placed and ot scheduled. Polycythemia noted, on testosterone through urology. No N/V. No fever or chills. Worse with movement. Sitting still, 2/10, with movement 5/10. Occasional 10/10 sharp with movement. No fall. Occasional fall he doesn't attribute. No back pain. Sees chiropractor once a month. PAST MEDICAL HISTORY: PAST MEDICAL HISTORY Diagnosis [...] Hcl] MEDICATIONS Current Outpatient Medications Medication Sig lidocaine (LIDODERM) 5 % Apply 1 Patch as directed once daily. Remove old patch prior to placing new patch. Location: wear only daily semaglutide (OZEMPIC) 0.25 mg or 0.5 mg [...] AN EMPTY STOMACH) Needle, Disp, 18 G ([place] BLUNT CANNULA) 18 gauge x 1 ndle [...] use: No Comment: Quit 1991 cocaine EXAM: Wt 97.1 kg (214 lb) BMI 30.71 kg/m PHYSICAL EXAM: General Appearance: Well appearing, alert, in no acute distress, well-hydrated, well nourished.. Skin: Skin color, texture, turgor normal, no suspicious rashes or lesions. Head: Normocephalic, no masses, lesions, tenderness or abnormalities. Back:no pain to palpation of vertebrae, no muscle tenderness, negative CVA tenderness Lungs: Lungs clear to auscultation. No wheezing, rhonchi, rales.. Heart: RRR without murmur, gallop, or rubs. No ectopy. LABS: negative units/S of gallbladder, enlarged liver, and right sided kidney stone (Hx of stones) Gets regular colonoscopy- now every 5 year, due 08/28 last scope ASSESSMENT/PLAN: 1. RUQ pain - ICD9: 789.01, ICD10: R10.11 Etiology unclear Differential Diagnosis includes reproducible- musculoskeletal, stone in right kidney present, enlarged fatty liver, polycythemia - Get physical therapy - Methocarbamol 500mg 2 x day - Consult to hematology for polycythemia Discussed treatment plan and patient voices understanding. Patient's questions answered appropriately. Medications and potential side effects were discussed and patient voices understanding. Return to the office as scheduled or as needed for worsening/no improvement. Hafsa Crane APRN.CNS The patient indicates understanding of these issues and agrees with the plan. documented in this encounter [facility] 11-13-2023 Miscellaneous Notes Scheduled to come back in to see Daylin Crane. Reena Manriquez MA Ultrasound shows fatty liver. Otherwise is negative. If continues, needs follow up. Patient calls to ask provider to review results of US of ABD RIGHT UPPER QUADRANT completed yesterday at [facility]. Patient reports that he continues to have right lateral abdominal pain that is constantly there dull that can be stabbing or sharp and radiate into the chest. Since Daylin is out patient is asking Dr. Sandoval to review. Please review and advise, Melania Andrews RN documented in this encounter [facility] 11-11-2023 Miscellaneous Notes Confirmation received, for fax below. Faxed US order to [facility] via [employer], fax # [phone], per request. Order faxed via [email or web address]. Patient's called requesting to please fax the US ABD RIGHT UPPER QUAD to her at [facility] where she works and her ins requires scan to be done at [facility] Please fax MICHELE as she is waiting for it [phone] documented in this encounter [facility] 11-08-2023 Miscellaneous Notes PLEASE HELP PT [...] Emily Chapman RN documented in this encounter [facility] 11-08-2023 Miscellaneous Notes Patient notified of [...] Scan on 11/06/2023 11:43 AM by Provider, MINOR L[place]: X-ray Spouse is also asking if a test to check the Gallbladder could be placed. Please advise spouse and patient. Patient completed his x-rays at [facility] yesterday is calling for the results. Please advise the patient. Please fax hematology order to [facility] Spoke with patient and advised him [...] him. He is agreeable. Cristina Marks Ma [facility] call with a hemoglobin of over 18. That is polycythemia. I will refer him to hematology at [facility]. Critical Values Notification Note Anali with [facility] Lab calls with critical high test results of Hemoglobin 18.3 on 11/05/2023 at 3:47 PM. Results were read back by this nurse. The results were reported to [place] on 11/05/2023 at 3:50 pm. Signature: Melania Andrews Date: November 05, 2023 Time: 3:46 PM documented in this encounter [facility] 11-07-2023 Miscellaneous Notes Results of CBC [...] of stroke, heart attack. Prefer he see dietary assistant. Rasheeda from [facility] calling patient is calling their office trying to set up a phlebotomy to have done there. Explained that HONING JOB SETTER placed Hematology consult. Chart is sent to that office to review and patient will be notified. She said patient is upset with her, may need the office to call and explain what the HONING JOB SETTER is wanting patient to have done please? Patient thinks since he lives in [place] can have done there. documented in this encounter [facility] 11-07-2023 Miscellaneous Notes Called and spoke [...] need to schedule an appointment with a Chemical Machine Tender at our office to coordinate the care. Patient stated his pcp was placing the orders to have phlebotomy done and didn't need an appointment with the doctor. Instructed patient that there are no orders currently and we will reach out to the pcp to clarify instructions. Patient verbalized understanding. AA documented in this encounter [facility] 11-05-2023 Note HNO ID: [id number] Author: HAFSA CRANE APRN.CNS Service: ? Author Type: Clinical Nurse Specialist Type: Progress Notes Filed: 11/05/2023 15:57 Note Text: Please let patient know that lab notified us that his hemoglobin is over 18. That indicates a possible polycythemia vera. I will refer him to hematology at [facility]. [facility] 11-05-2023 Miscellaneous Notes Addended by: HAFSA CRANE on: 11/05/2023 03:58 PM Modules accepted: Orders documented in this encounter [facility] 11-05-2023 History of Present illness Narrative Please let patient know that lab notified us that his hemoglobin is over 18. That indicates a possible polycythemia vera. I will refer him to hematology at [facility]. As pt. Is ready to leave [...] AN EMPTY STOMACH) Needle, Disp, 18 G ([place] BLUNT CANNULA) 18 gauge x 1 ndle [...] with the plan. documented in this encounter [facility] 11-05-2023 Note HNO ID: [id number] Author: HAFSA CRANE APRN.CNS Service: ? Author [...] CONSULT TO PLASTIC SURGERY Hafsa Crane APRN.CNS [facility] 11-05-2023 Note HNO ID: [id number] Author: HAFSA CRANE APRN.CNS Service: ? Author [...] AN EMPTY STOMACH) Needle, Disp, 18 G ([place] BLUNT CANNULA) 18 gauge x 1 ndle [...] understanding. Patient's ques (more content not included)... [facility] 11-05-2023 Instructions Hafsa Crane APRN.BEAU - 11/05/2023 12:18 PM EST 1) lidocaine patch during the day for pain 2) Get Xray today 3) Get labs in case we need to get CT 4) Follow up with Mr. Bermeo in March documented in this encounter [facility] 10-30-2023 Miscellaneous Notes Called the pharmacy and the rx was ran through his insurance with a co pay of 24.98 Fax rec'd from [facility] say PA rec'd but they do not manage PA for this pt. PA needs to be completed with rxb.Micreos documented in this encounter [facility] 10-25-2023 Miscellaneous Notes Nayely is calling [...] SUBCUTANEOUS Patient would like this sent to [facility]. Thank you. Patient has been identified by name and birthdate. Duration of symptoms: N/A Person calling: self Call patient at: at home [phone] (home) [phone] (cell) Was an appointment scheduled: No Closing statement: Results or non-symptom based questions: Thank you for calling [facility], your call will be returned within the next business day. Svetlana Craven Pss documented in this encounter [facility] 10-10-2023 Miscellaneous Notes Patient has been identified by name and date of : Yes Requested Prescriptions Pending Prescriptions Disp Refills apixaban (ELIQUIS) 5 mg tab(s) 180 tablet 1 Sig: Take 1 tablet by mouth two times a day. RX INSTRUCTIONS: Patient aware RX will be sent to pharmacy. No need to notify patient. Angelina Wolfe Pss documented in this encounter [facility] 09-23-2023 Note HNO ID: [id number] Author: CAMPBELL WEBSTER, BRICE Service: ? Author Type: VETERANS REHABILITATION COUNSELOR Type: Progress Notes Filed: 09/23/2023 10:00 Note Text: 1. Type 2 diabetes mellitus without retinopathy (HCC) Risk of diabetic changes and vision loss can be minimized by tight control of blood sugar, blood pressure, and cholesterol levels. Educated patient to continue care with primary care doctor and/or engine room operator to maintain optimum levels as they are [...] Webster, OD September 23, 2023 9:58 AM [facility] 09-16-2023 Note HNO ID: [id number] Author: Lala BERMEO PA-C Service: ? Author Type: Physician Freight Claim Investigator Type: Progress Notes Filed: 09/16/2023 12:40 Note Text: 68 year old male with c/o . Atrial fibrillation with rvr ([facility]) (primary encounter diagnosis) Hypertension, essential Mixed hyperlipidemia Cardiovascular interval hx: none Sees [facility] Current meds: Apixaban Atorvatatin 20mg daily [...] complication, without long-term current use of insulin ([facility]) Current medications: Metformin ER 0.5 tab twice [...] Dr. Mortensen: told to donate blood. From [facility]: 07/19/2023 hgb 14.5-HCT 43.2 05/09/2023 hgb 18.5-56.5 [...] Reflux Disease) Umb (more content not included)... [facility] 07-24-2023 History of Present illness Narrative Heart & Vascular Clinic Note [facility] Visit Date: 07/24/2023 Patient Name: Nayely Weeks : 1955 Reason for Visit: [facility] ASSESSMENT: #Atrial fibrillation: Newly [...] DCCV at that visit. Has remained in [place] since then. He works [employer] and has had no issues w/ those [...] above Kate Weston documented in this encounter [facility] 07-22-2023 Note HNO ID: [id number] Author: Lucina Nance RT(R) Service: Radiology Author [...] RT Olu(R) July 22, 2023 4:31 PM [facility] 07-22-2023 Note HNO ID: [id number] Author: Lala Bermeo PA-C Service: ? Author Type: Physician Freight Claim Investigator Type: Progress Notes Filed: 07/22/2023 6:34 PM [...] Concerned about Klonopin through sleep doctor in [place] Talk with them at my request to [...] weaning. Last hemoglobin A1c was done at [facility]: 03/14/2023 7.0%, average glucose 154 HISTORIES FAMILY [...] 90 capsule 3 Needle, Disp, 18 G ([employer] BLUNT CANNULA) 18 gauge x 1 ndle [...] 2 amLODIPine ( (more content not included)... [facility] 07-22-2023 Instructions Lala Bermeo PA-C - 07/22/2023 [...] and posture reviewed. documented in this encounter [facility] 07-22-2023 History of Present illness Narrative [...] Concerned about Klonopin through sleep doctor in [place] Talk with them at my request to [...] weaning. Last hemoglobin A1c was done at [facility]: 03/14/2023 7.0%, average glucose 154 HISTORIES FAMILY [...] 90 capsule 3 Needle, Disp, 18 G ([place] BLUNT CANNULA) 18 gauge x 1 ndle [...] in NaCl (PF) 0.9% 10 mL injection ([email or web address]) INTRAVENOUS DIRECTED PRN Paola Gray APRN.CNP sodium [...] Lala Bermeo PA-C documented in this encounter [facility] 07-22-2023 History of Present illness Narrative [...] CT results virtual documented in this encounter [facility] Work Phone: 07-19-2023 Instructions Karla Frazier MA - 07/19/2023 3:20 PM EST It was our pleasure to see you in [facility] today. Please contact GILES Guzman at [phone] or GILES Jules at [phone] with questions, concerns, or if you need prescription refills before your next appointment. documented in this encounter [facility] 07-09-2023 Miscellaneous Notes YASMIN 04/24/23 NOV 11/01/23 Patient has been identified by name and date of : Yes Requested Prescriptions Pending Prescriptions Disp Refills losartan (COZAAR) 100 mg tablet 90 tablet 3 Sig: Take 1 tablet by mouth once daily. RX INSTRUCTIONS: Patient aware RX will be sent to pharmacy. No need to notify patient. Brittny Castano documented in this encounter [facility] 04-24-2023 Note HNO ID: [id number] Author: Blake Sandoval MD Service: ? Author [...] high. Needs to donate blood. Went to [place] and was told he was unable to [...] AN EMPTY STOMACH) Needle, Disp, 18 G ([place] BLUNT CANNULA) 18 gauge x 1 ndle [...] W/RMVL OF TUMOR POLYP LESION SNARE TQ -13-13 EGD TRANSORAL BIOPSY SINGLE/MULTIPLE 10/31/2009 PAST SURGICAL [...] kg (212 l (more content not included)... [facility] 04-24-2023 History of Present illness Narrative Patient [...] high. Needs to donate blood. Went to [place] and was told he was unable to [...] AN EMPTY STOMACH) Needle, Disp, 18 G ([place] BLUNT CANNULA) 18 gauge x 1 ndle [...] Blake Sandoval MD documented in this encounter [facility] 03-25-2023 Note HNO ID: [id number] Author: Blake Sandoval MD Service: ? Author Type: Physician Type: Progress Notes Filed: 03/25/2023 9:38 AM Note Text: Patient presents with: Hospital F/U HPI: Patient presents today for office visit for follow up. HOSPITAL/ER FOLLOW UP: Reason for visit: chest pain Which facility: [facility]. Limited records are available. Date of visit: [...] call: TRANSITION CARE MANAGEMENT (TCM) INITIAL CONTACT Sales And Service Representative Outreach done on 03/18 Provider Action/FYI: Chest [...] minutes before intercourse Needle, Disp, 18 G ([employer] BLUNT CANNULA) 18 gauge x 1 ndle [...] pack years: 2 (more content not included)... [facility] 03-25-2023 History of Present illness Narrative Patient presents with: Hospital F/U HPI: Patient presents today for office visit for follow up. HOSPITAL/ER FOLLOW UP: Reason for visit: chest pain Which facility: [facility]. Limited records are available. Date of visit: [...] call: TRANSITION CARE MANAGEMENT (TCM) INITIAL CONTACT Sales And Service Representative Outreach done on 03/18 Provider Action/FYI: Chest [...] minutes before intercourse Needle, Disp, 18 G ([place] BLUNT CANNULA) 18 gauge x 1 ndle [...] Blake Sandoval MD documented in this encounter [facility] 03-18-2023 Note HNO ID: [id number] Author: Kaz Dela Cruz LPN Service: ? Author Type: ? Type: Progress Notes Filed: 03/18/2023 2:40 PM Note Text: TRANSITION CARE MANAGEMENT (TCM) INITIAL CONTACT Sales And Service Representative Outreach Provider Action/FYI: Chest pain, unspecified New [...] flowsheet data found. SUMMARY: -Pt discharged from [facility] on 03/15/23. -Admitted for: chest pain Do [...] Medical records from recent hospitalization: Care Everywhere [facility] 03-18-2023 History of Present illness Narrative TRANSITION CARE MANAGEMENT (TCM) INITIAL CONTACT Sales And Service Representative Outreach Provider Action/FYI: Chest pain, unspecified New [...] flowsheet data found. SUMMARY: -Pt discharged from [facility] on 03/15/23. -Admitted for: chest pain Do [...] hospitalization: Care Everywhere documented in this encounter [facility] 03-18-2023 Note Patient Outreach (FA MPWS) NAYELY WEEKS ([id number]) 1955 M Date Time Provider Department 03/18/23 BLAKE SANDOVAL During your visit today, we recorded the following information about you: Kaz Dela Cruz CARLEY 03/18/2023 2:40 PM Signed TRANSITION CARE MANAGEMENT (TCM) INITIAL CONTACT Sales And Service Representative Outreach Provider Action/FYI: Chest pain, unspecified New [...] flowsheet data found. SUMMARY: -Pt discharged from [facility] on 03/15/23. -Admitted for: chest pain Do [...] EMPTY STOMACH - Needle, Disp, 18 G ([place] BLUNT CANNULA) 18 gauge x 1 ndle [...] by KAZ DELA CRUZ LPN on 03/18/23 [facility] 01-10-2023 Note HNO ID: [id number] Author: Lala Bermeo PA-C Service: ? Author Type: Physician Freight Claim Investigator Type: Progress Notes Filed: 01/10/2023 8:22 PM [...] Complication, Without Long-Term Current Use of Insulin ([facility]) Ed (Erectile Dysfunction) of Organic Origin Current [...] 3 Needle, D (more content not included)... [facility] 01-10-2023 History of Present illness Narrative 67 [...] 90 capsule 3 Needle, Disp, 18 G ([place] BLUNT CANNULA) 18 gauge x 1 ndle [...] injection (DEFINITY) INTRAVENOUS DIRECTED PRN Paola Gray APRN.ARMOURED CAR ESCORT sodium chloride 0.9 % (flush) 10 mL (BD POSIFLUSH) 10 mL INTRAVENOUS DIRECTED PRN Paola Gray APRN.ARMOURED [employer]ORT ABDOMINAL AORTIC ANEURYSM SCREENING Never done BP [...] Lala Bermeo PA-C documented in this encounter [facility] 01-09-2023 Miscellaneous Notes Patient has been [...] Brittny Franz [employer] documented in this encounter [facility] 12-24-2022 Miscellaneous Notes Patient has been [...] Elisa Modi, RN documented in this encounter [facility] 12-10-2022 Miscellaneous Notes Patient is totally [...] Angelina Wolfe Pss documented in this encounter [facility] 11-01-2022 Miscellaneous Notes Last office visit: [...] Brenna Schroeder Pss documented in this encounter [facility] 10-26-2022 Miscellaneous Notes PA was approved and faxed approval to [facility] Patient was notified Ivon Raya Ma Fax received from [employer] and completed and faxed back with office note and labs Ivon Raya Ma Images from the original note were not included. PA completed through [employer] for depo-testosterone. Prior Auth (EOC) ID: [id number] MemberID: [id number] documented in this encounter [facility] 10-08-2022 Miscellaneous Notes done Summary: Testosterone PT called in needing a new order for testosterone including syringes, PT got new insurance and is needing pre-authorization he stated, that is what his pharmacy told him. Please Advise, Valencia Fuchs, CHRIS documented in this encounter [facility] 09-24-2022 History of Present illness Narrative [...] for TRT Injection Needle, Disp, 18 G ([place] BLUNT CANNULA) 18 gauge x 1 ndle [...] in six months documented in this encounter [facility] 09-13-2022 Miscellaneous Notes Pt informed, verbalized understanding Ary Miller Ma Please call patient and let him know that playground monitor results are back. There were a few episodes PVCs or Premature ventricular contractions. This is an extra quick heart beat that disrupts the current ryhtym. No more than 1 occurring at a time per results. This is not acutely concerning. Due to history, I would follow-up with cardiology if symptoms continue. Thank you, Paola Mccarthy APRN.MATT documented in this encounter [facility] 09-12-2022 Miscellaneous Notes Patient has been [...] you. Valencia Suarez documented in this encounter [facility] 07-06-2022 History of Present illness Narrative [...] hx of cardiac disorders --- went to house furnishings supervisor 1x about 5 years ago d/t CP [...] for TRT Injection Needle, Disp, 18 G ([place] BLUNT CANNULA) 18 gauge x 1 ndle [...] EKG in office - unremarkable. Schedule ECHO. [employer] playground monitor ordered and will be shipped to [...] agreeable to treatment plan. Paola Mccarthy APRN.CNP [address] [place] [address] documented in this encounter [facility] 07-06-2022 History of Present illness Narrative [...] to CRIS Mccarthy. documented in this encounter [facility] 06-11-2022 Miscellaneous Notes Pharmacy verified in [facility] Patient has been identified by name and [...] Marian Kumar Pss documented in this encounter [facility] 12-13-2021 Miscellaneous Notes YASMIN 07/25/21 NOV [...] De Souza Pss documented in this encounter [facility] 04-11-2020 History of Present illness Narrative [...] LUTS...ED is chronic and does do trimix.. NO-Swswxia-Juviwunz HC 232 DO Work Phone: 08-29-2017 History [...] does worsen LUTS. No medication for LUTS. QV-Qdvbiya-Pwjesfo Work Phone: 08-24-2017 History of Present illness [...] does worsen LUTS. No medication for LUTS. OT-Qqrguvw-Ptjpyva Work Phone: documented as of this encounter (statuses as of 09/25/2022) [facility] History of Past illness Narrative* Problem [...] of this encounter (statuses as of 10/09/2022) [facility] History of Past illness Narrative* Problem [...] of this encounter (statuses as of 10/26/2022) [facility] History of Past illness Narrative* Problem [...] of this encounter (statuses as of 11/01/2022) [facility] History of Past [facility] Narrative* Problem [...] of this encounter (statuses as of 12/10/2022) [facility] History of Past [facility] Narrative* Problem [...] of this encounter (statuses as of 12/25/2022) [facility] of Past [facility] Narrative* Problem [...] of this encounter (statuses as of 01/10/2023) [facility] Narrative* Problem [...] of this encounter (statuses as of 01/11/2023) [facility] Narrative* Problem [...] of this encounter (statuses as of 03/19/2023) [facility] of [facility] Narrative* Problem [...] of this encounter (statuses as of 03/25/2023) [facility] Narrative* Problem [...] of this encounter (statuses as of 04/25/2023) [facility] Narrative* Problem [...] of this encounter (statuses as of 07/09/2023) [facility] Narrative* Problem [...] of this encounter (statuses as of 07/23/2023) [facility] Narrative* Problem [...] of this encounter (statuses as of 10/11/2023) [facility] Narrative* Problem [...] of this encounter (statuses as of 10/14/2023) [facility] Narrative* Problem [...] of this encounter (statuses as of 10/25/2023) [facility] Narrative* Problem [...] of this encounter (statuses as of 10/30/2023) [facility] Narrative* Problem [...] of this encounter (statuses as of 11/06/2023) [facility] Narrative* Problem [...] of this encounter (statuses as of 11/07/2023) [facility] Narrative* Problem [...] of this encounter (statuses as of 11/08/2023) [facility] Narrative* Problem [...] of this encounter (statuses as of 11/08/2023) [facility] Narrative* Problem [...] of this encounter (statuses as of 11/08/2023) [facility] Narrative* Problem [...] of this encounter (statuses as of 11/11/2023) [facility] Narrative* Problem [...] as of this encounter (statuses as of 11/13/2023) [facility] Narrative* Problem [...] as of this encounter (statuses as of 11/14/2023) [facility] N[facility]ative* Problem Noted Date Resolved Date Rupture of tendon of biceps, long head 5 07/13/2016 Cough 04/05/2009 03/13/2017 Deviated nasal septum 07/13/2016 documented as of this encounter (statuses as of 12/13/2021) [facility] N[facility]ative* Problem Noted Date Resolved Date Rupture of tendon of biceps, long head 5 07/13/2016 Cough 04/05/2009 03/13/2017 Deviated nasal septum 07/13/2016 documented as of this encounter (statuses as of 06/12/2022) [facility] Narrative* Problem Noted Date Resolved Date Rupture of tendon of biceps, long head 5 07/13/2016 Cough 04/05/2009 03/13/2017 Deviated nasal septum 07/13/2016 documented as of this encounter (statuses as of 07/06/2022) [facility] N[facility]* Problem Noted Date Resolved Date Rupture of tendon of biceps, long head 5 07/13/2016 Cough 04/05/2009 03/13/2017 Deviated nasal septum 07/13/2016 documented as of this encounter (statuses as of 07/06/2022) [facility]* Problem Noted Date Resolved Date Rupture of tendon of biceps, long head 5 07/13/2016 Cough 04/05/2009 03/13/2017 Deviated nasal septum 07/13/2016 documented as of this encounter (statuses as of 09/14/2022) [facility]* Problem Noted Date Resolved Date Rupture of tendon of biceps, long head 5 07/13/2016 Cough 04/05/2009 03/13/2017 Deviated nasal septum 07/13/2016 documented as of this encounter (statuses as of 09/14/2022) [facility] Diagnosis Essential hypertension Unspecified essential hypertension Infected abrasion of great toe of left foot, initial encounter Mixed hyperlipidemia Type 2 diabetes mellitus without complication, without long-term current use of insulin (HCC) [facility] Essential hypertension Unspecified essential hypertension Mixed hyperlipidemia [facility] Diagnosis Intermittent palpitations- Primary Elevated blood pressure reading Elevated blood pressure reading without diagnosis of hypertension Ineffective health maintenance [facility] Diagnosis Palpitations- Primary Hypertension, essential Unspecified essential hypertension SOB (shortness of breath) Shortness of breath Type 2 diabetes mellitus without complication, without long-term current use of insulin (HCC) Mixed hyperlipidemia [facility] Diagnosis Hypertension, essential Unspecified essential hypertension Essential hypertension Unspecified essential hypertension Infected abrasion of great toe of left foot, initial encounter [facility]* Diagnosis Type 2 diabetes mellitus without complication, without long-term current use of insulin (HCC)- Primary RLS (restless legs syndrome) Restless legs syndrome (RLS) Mixed hyperlipidemia Essential hypertension Unspecified essential hypertension Sleep apnea, unspecified type Renal insufficiency Unspecified disorder of kidney and ureter Screening for AAA (abdominal aortic aneurysm) Screening for other and unspecified cardiovascular conditions Palpitations documented in this encounter [facility] note* Diagnosis Hypogonadism male Other testicular hypofunction documented in this encounter [facility] note* Diagnosis Hypertension, essential Unspecified essential hypertension documented in this encounter [facility] note* Diagnosis Hypertension, essential Unspecified essential hypertension documented in this encounter [facility] note* Diagnosis Essential hypertension Unspecified essential hypertension documented in this encounter [facility] note* Diagnosis Mixed hyperlipidemia documented in this encounter [facility] note* Diagnosis Chronic cough- Primary Cough Type 2 diabetes mellitus without complication, without long-term current use of insulin (HCC) documented in this encounter [facility] note* Diagnosis Atrial fibrillation, unspecified type (HCC)- Primary documented in this encounter [facility] note* Diagnosis Atrial fibrillation with RVR (HCC)- Primary Atrial fibrillation Mixed hyperlipidemia Essential hypertension Unspecified essential hypertension Type 2 diabetes mellitus without complication, without long-term current use of insulin (HCC) documented in this encounter [facility] note* Diagnosis Essential hypertension- Primary Unspecified essential hypertension Mixed hyperlipidemia Type 2 diabetes mellitus without complication, without long-term current use of insulin (HCC) Hypotestosteronism Other testicular hypofunction Polycythemia Polycythemia vera documented in this encounter [facility] note* Diagnosis Essential hypertension Unspecified essential hypertension documented in this encounter [facility] note* Diagnosis Male hypogonadism Other testicular hypofunction Nocturia Erectile dysfunction, unspecified erectile dysfunction type Generalized abdominal pain Abdominal pain, generalized documented in this encounter [facility] Work Phone: Evaluation note* Diagnosis Chronic heel pain, left- Primary Hypertension, essential Unspecified essential hypertension Right flank pain Abdominal pain, unspecified site documented in this encounter [facility] note* Diagnosis Dyspnea, unspecified type- Primary documented in this encounter [facility] note* Diagnosis Atrial fibrillation, unspecified type (HCC) documented in this encounter [facility] note* Diagnosis Type 2 diabetes mellitus without complication, without long-term current use of insulin (HCC)- Primary [facility] Diagnosis Rib pain on right side- Primary Chest pain, unspecified 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 Neoplasm of uncertain behavior of skin Polycythemia Polycythemia vera [facility] Diagnosis RUQ pain- Primary Abdominal pain, right upper quadrant [facility] Diagnosis RUQ pain- Primary Abdominal pain, right upper quadrant documented in this encounter [facility] for referral (narrative)* Outpatient Procedure (Routine) - Pending Review Specialty Diagnoses / Procedures Referred By Contac t Referred To Contact [facility] Diagnoses Palpitations Hypertension, essential SOB (shortness of breath) Procedures ECHO ECHO TTHRC R-T 2D W/WOM-MODE COMPL SPEC&COLR D Paola Mccarthy APRN.CNP [address] [place] [address] [facility] [place] [id number] Referral ID Status Reason Start Date Expiration Date Visits Requested Visits Authorized [id number] Pending Review Auto-Generat ed Referral 07/06/2023 1 1 * Outpatient Procedure (Routine) - Closed Specialty Diagnoses / Procedures Referred By Contac t Referred To Contact [facility] Diagnoses Palpitations Hypertension, essential SOB (shortness of breath) Procedures ECG COMPLETE ECG ROUTINE ECG W/LEAST 12 LDS W/I&R Paola Mccarthy APRN.ARMOURED [employer] [address] [place] [address] [facility] [address] [place] [address] Referral ID Status Reason Start Date Expiration Date V isits Requested Visits Authorized [id number] Closed Auto-Generate d Referral 07/06/2022 07/06/2023 1 1 [facility] Diagnostic Procedure Only (Routine) - Pending Review Specialty Diagnoses / Procedures Referred By Contac t Referred To Contact US IMAGING Diagnoses Screening for AAA (abdominal aortic aneurysm) Procedures US SCREENING FOR AAA (2017) US ABDOMINAL AORTA REAL TIME SCREEN STUDY AAA Blake Sandoval MD [address] [place] [address] [facility] Referral ID Status Reason Start Date Expiration Date Visits Requested Visits Authorized [id number] Pending Review Auto-Generat ed Referral 09/24/2022 10/24/2023 1 1 [facility] for referral (narrative)* Diagnostic Procedure Only (Routine) - Authorized Specialty Diagnoses / Procedures Referred By Contac t Referred To Contact XR IMAGING Diagnoses Chronic cough Procedures XR MODIFIED BARIUM SWALLOW W SPEECH THERAPY RADIOLOGIC EXAM SWALLOW FUNCTION CONTRAST STUDY Lala Bermeo PA-C [address] [place] [address] Xr Imaging Referral ID Status Reason Start Date Expiration Date Visits Requested Visits Authorized [id number] Authorized Auto-Generat ed Referral 01/10/2023 02/09/2024 1 1 * Consult, Test, Treat (Routine) - Authorized Specialty Diagnoses / Procedures Referred By Contac t Referred To Contact Ent - Otolaryngology Diagnoses Chronic cough Procedures CONSULT TO ENT OFFICE/OUTPATIENT NEW HIGH MDM 60-74 MINUTES Lala Bermeo PA-C [address] [place] [address] Referral ID Status Reason Start Date Expiration Date Visits Requested Visits Authorized [id number] Authorized PCP Requested Referral 01/10/2023 01/10/2024 1 1 [facility] for referral (narrative)* Diagnostic Procedure Only (Routine) - Closed Specialty Diagnoses / Procedures Referred By Contac t Referred To Contact XR IMAGING Diagnoses Chronic heel pain, left Procedures XR CALCANEUS 2V AXIAL/LAT LEFT RADEX CALCANEUS MINIMUM 2 VIEWS Lala Bermeo PA-C [address] [place] [address] [place] [address] Referral ID Status Reason Start Date Expiration Date V isits Requested Visits Authorized [id number] Closed Auto-Generate d Referral 07/22/2023 08/20/2024 1 1 [facility] Diagnostic Procedure Only (Routine) - Pending Review Specialty Diagnoses / Procedures Referred By Contac t Referred To Contact US IMAGING Diagnoses RUQ pain Procedures US ABD RIGHT UPPER QUADRANT US ABDOMINAL REAL TIME W/IMAGE LIMITED Hafsa Crane APRN.SPECIAL PROJECTS MANAGER [address] [place] [address] [place] [address] Referral ID Status Reason Start Date Expiration Date Visits Requested Visits Authorized [id number] Pending Review Auto-Generat ed Referral 11/08/2023 12/07/2024 1 1 [facility] Summary Purpose Family History No Family [...] Diagnoses Hypogonadism male Blake Sandoval MD [address] [place] [address] Referral ID Status Reason Start Date Expiration Date Visits Re quested Visits Authorized [id number] Closed 1 1 Specialty Diagnoses / Procedures Referred By Contac t Referred To Contact Cardiology Diagnoses Atrial fibrillation, unspecified type (HCC) Procedures MCT- Mobile Cardiac Telemetry Katina Banda PA-C [address] [place] [address] Referral ID Status Reason Start Date Expiration Date V isits Requested Visits Authorized [id number] Authorized 03/15/2023 03/14/2024 1 1 Specialty Diagnoses / Procedures Referred By Contac t Referred To Contact Diagnoses Male hypogonadism Nayely Mortensen MD [address] [place] [address] Referral ID Status Reason Start Date Expiration Date Visits Re quested Visits Authorized [id number] Closed 1 1 Specialty Diagnoses / Procedures Referred By Contac t Referred To Contact Radiology Diagnoses Generalized abdominal pain Procedures CT abdomen pelvis wo IV contrast Nayely Mortensen MD [address] [place] [address] Referral ID Status Reason Start Date Expiration Date Visits Requested Visits Authorized [id number] Pending Review Perform Procedure 3 07/21/2024 1 1 Specialty Diagnoses / Procedures Referred By Contac t Referred To Contact Cardiology Diagnoses Dyspnea, unspecified type Procedures Echocardiogram complete UrKate schwartz MD [address] [place] [id number] Referral ID Status Reason Start Date Expiration Date V isits Requested Visits Authorized [id number] Pending Review 07/24/2023 07/23/2024 1 1 Specialty Diagnoses / Procedures Referred By Contac t Referred To Contact Cardiology Diagnoses Atrial fibrillation, unspecified type (HCC) Procedures Cardiac event monitor Kate Weston MD [address] [place] [address] Referral ID Status Reason Start Date Expiration Date V isits Requested Visits Authorized [id number] Authorized 07/24/2023 07/23/2024 1 1 Specialty Diagnoses / Procedures Referred By Contac t Referred To Contact Diagnoses Type 2 diabetes mellitus without complication, without long-term current use of insulin (HCC) Blake Sandoval MD [address] [place] [address] Referral ID Status Reason Start Date Expiration Date Visits Re quested Visits Authorized [id number] Closed 1 1 Specialty Diagnoses / Procedures Referred By Contac t Referred To Contact Hematology Diagnoses Polycythemia Procedures CONSULT TO HEMATOLOGY OFFICE/OUTPATIENT NEW HIGH MDM 60 MINUTES Hafsa Crane APRN.SPECIAL PROJECTS MANAGER [address] [place] [address] Referral ID Status Reason Start Date Expiration Date Visits Requested Visits Authorized [id number] Authorized PCP Requested Referral 11/05/2023 11/04/2024 1 1 Specialty Diagnoses / Procedures Referred By Contac t Referred To Contact Plastic Surgery Diagnoses 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 Procedures CONSULT TO PLASTIC SURGERY OFFICE/OUTPATIENT NEW HIGH MDM 60 MINUTES Hafsa Crane APRN.SPECIAL PROJECTS MANAGER [address] [place] [address] Referral ID Status Reason Start Date Expiration Date Visits Requested Visits Authorized [id number] Authorized PCP Requested Referral 11/05/2023 11/04/2024 1 1 Specialty Diagnoses / Procedures Referred By Contac t Referred To Contact XR IMAGING Diagnoses Rib pain on right side Procedures XR RIBS/CHEST 3V AP RIB/OBLS/CXR RIGHT RADEX RIBS UNI W/POSTEROANT CH MINIMUM 3 VIEWS Hafsa Crane APRN.SPECIAL PROJECTS MANAGER [address] [place] [address] [place] [address] Referral ID Status Reason Start Date Expiration Date Visits Requested Visits Authorized [id number] Pending Review Auto-Generat ed Referral 11/05/2023 12/04/2024 1 1 Specialty Diagnoses / Procedures Referred By Contac t Referred To Contact [facility] Diagnoses RUQ pain Procedures CONSULT TO PHYSICAL THERAPY PHYSICAL THERAPY EVALUATION HIGH COMPLEX 45 MINS Hafsa Crane APRN.SPECIAL PROJECTS MANAGER [address] [place] [address] [facility] [address] [place] [address] Referral ID Status Reason Start Date Expiration Date Visits Requested Visits Authorized [id number] Pending Review Auto-Generat ed Referral 11/14/2023 11/13/2024 1 1 Additional Source Comments <item><item><item> Privacy [...] or prosecute any alcohol or drug abuse patient.[facility] the event this information is protected by the Federal Confidentiality of Alcohol and Drug Abuse Patient Records regulations: The Federal rules restrict any use of the information to criminally investigate or prosecute any alcohol or drug abuse patient.[facility] Hospital[facility] the event this information is protected by the Federal Confidentiality of Alcohol and Drug Abuse Patient Records regulations: The Federal rules restrict any use of the information to criminally investigate or prosecute any alcohol or drug abuse patient.[facility] the event this information is protected by the Federal Confidentiality of Alcohol and Drug Abuse Patient Records regulations: The Federal rules restrict any use of the information to criminally investigate or prosecute any alcohol or drug abuse patient.[facility] the event this information is protected by the Federal Confidentiality of Alcohol and Drug Abuse Patient Records regulations: The Federal rules restrict any use of the information to criminally investigate or prosecute any alcohol or drug abuse patient.[facility] Hospital[facility] the event this information is protected by the Federal Confidentiality of Alcohol and Drug Abuse Patient Records regulations: The Federal rules restrict any use of the information to criminally investigate or prosecute any alcohol or drug abuse patient.[facility] Hospital[facility] the event this information is protected by the Federal Confidentiality of Alcohol and Drug Abuse Patient Records regulations: The Federal rules restrict any use of the information to criminally investigate or prosecute any alcohol or drug abuse patient.[facility] Hospital[facility] the event this information is protected by the Federal Confidentiality of Alcohol and Drug Abuse Patient Records regulations: The Federal rules restrict any use of the information to criminally investigate or prosecute any alcohol or drug abuse patient.[facility] HospitalIn the event this information is protected by the Federal Confidentiality of Alcohol and Drug Abuse Patient Records regulations: The Federal rules restrict any use of the information to criminally investigate or prosecute any alcohol or drug abuse patient.[facility] Hospital[facility] the event this information is protected by the Federal Confidentiality of Alcohol and Drug Abuse Patient Records regulations: The Federal rules restrict any use of the information to criminally investigate or prosecute any alcohol or drug abuse patient.[facility] Hospital[facility] the event this information is protected by the Federal Confidentiality of Alcohol and Drug Abuse Patient Records regulations: The Federal rules restrict any use of the information to criminally investigate or prosecute any alcohol or drug abuse patient.[facility] HospitalIn the event this information is protected by the Federal Confidentiality of Alcohol and Drug Abuse Patient Records regulations: The Federal rules restrict any use of the information to criminally investigate or prosecute any alcohol or drug abuse patient.[facility] HospitalIn the event this information is protected by the Federal Confidentiality of Alcohol and Drug Abuse Patient Records regulations: The Federal rules restrict any use of the information to criminally investigate or prosecute any alcohol or drug abuse patient.[facility] HospitalIn the event this information is protected by the Federal Confidentiality of Alcohol and Drug Abuse Patient Records regulations: The Federal rules restrict any use of the information to criminally investigate or prosecute any alcohol or drug abuse patient.[facility] HospitalIn the event this information is protected by the Federal Confidentiality of Alcohol and Drug Abuse Patient Records regulations: The Federal rules restrict any use of the information to criminally investigate or prosecute any alcohol or drug abuse patient.[facility] HospitalIn the event this information is protected by the Federal Confidentiality of Alcohol and Drug Abuse Patient Records regulations: The Federal rules restrict any use of the information to criminally investigate or prosecute any alcohol or drug abuse patient.[facility] HospitalIn the event this information is protected by the Federal Confidentiality of Alcohol and Drug Abuse Patient Records regulations: The Federal rules restrict any use of the information to criminally investigate or prosecute any alcohol or drug abuse patient.[facility] HospitalIn the event this information is protected by the Federal Confidentiality of Alcohol and Drug Abuse Patient Records regulations: The Federal rules restrict any use of the information to criminally investigate or prosecute any alcohol or drug abuse patient.[facility] HospitalIn the event this information is protected by the Federal Confidentiality of Alcohol and Drug Abuse Patient Records regulations: The Federal rules restrict any use of the information to criminally investigate or prosecute any alcohol or drug abuse patient.[facility] HospitalIn the event this information is protected by the Federal Confidentiality of Alcohol and Drug Abuse Patient Records regulations: The Federal rules restrict any use of the information to criminally investigate or prosecute any alcohol or drug abuse patient.[facility] HospitalIn the event this information is protected by the Federal Confidentiality of Alcohol and Drug Abuse Patient Records regulations: The Federal rules restrict any use of the information to criminally investigate or prosecute any alcohol or drug abuse patient.[facility] HospitalIn the event this information is protected by the Federal Confidentiality of Alcohol and Drug Abuse Patient Records regulations: The Federal rules restrict any use of the information to criminally investigate or prosecute any alcohol or drug abuse patient.[facility] HospitalIn the event this information is protected by the Federal Confidentiality of Alcohol and Drug Abuse Patient Records regulations: The Federal rules restrict any use of the information to criminally investigate or prosecute any alcohol or drug abuse patient.[facility] HospitalIn the event this information is protected by the Federal Confidentiality of Alcohol and Drug Abuse Patient Records regulations: The Federal rules restrict any use of the information to criminally investigate or prosecute any alcohol or drug abuse patient.[facility] HospitalIn the event this information is protected by the Federal Confidentiality of Alcohol and Drug Abuse Patient Records regulations: The Federal rules restrict any use of the information to criminally investigate or prosecute any alcohol or drug abuse patient.[facility] HospitalIn the event this information is protected by the Federal Confidentiality of Alcohol and Drug Abuse Patient Records regulations: The Federal rules restrict any use of the information to criminally investigate or prosecute any alcohol or drug abuse patient.[facility] HospitalIn the event this information is protected by the Federal Confidentiality of Alcohol and Drug Abuse Patient Records regulations: The Federal rules restrict any use of the information to criminally investigate or prosecute any alcohol or drug abuse patient.[facility] HospitalIn the event this information is protected by the Federal Confidentiality of Alcohol and Drug Abuse Patient Records regulations: The Federal rules restrict any use of the information to criminally investigate or prosecute any alcohol or drug abuse patient.[facility] HospitalIn the event this information is protected by the Federal Confidentiality of Alcohol and Drug Abuse Patient Records regulations: The Federal rules restrict any use of the information to criminally investigate or prosecute any alcohol or drug abuse patient.[facility] HospitalIn the event this information is protected by the Federal Confidentiality of Alcohol and Drug Abuse Patient Records regulations: The Federal rules restrict any use of the information to criminally investigate or prosecute any alcohol or drug abuse patient.[facility] HospitalIn the event this information is protected by the Federal Confidentiality of Alcohol and Drug Abuse Patient Records regulations: The Federal rules restrict any use of the information to criminally investigate or prosecute any alcohol or drug abuse patient.[facility] the event this information is protected by the Federal Confidentiality of Alcohol and Drug Abuse Patient Records regulations: The Federal rules restrict any use of the information to criminally investigate or prosecute any alcohol or drug abuse patient.[facility] Reason for Visit (unrecogniz ed section and content) Specialty Diagnoses / Procedures Referred By Contac t Referred To Contact Family Medicine / FAMILY MEDICINE Diagnoses BP check Procedures 4C EST Paola Mccarthy, MEDICAL PROGRAM SPECIALIST.ARMOURED [employer] ESCORT [address] [place] [address] Paola Mccarthy, MEDICAL PROGRAM SPECIALIST.ARMOURED [employer] ESCORT [address] [place] [address] Referral ID Status Reason Start Date Expiration Date V isits Requested Visits Authorized [id number] Authorized 07/06/2022 09/08/2022 99 99 Reason Onset [...] MIN 4C EST Self Blake Sandoval MD [address] [place] [address] Referral ID Status Reason Start Date Expiration Date Visits Re quested Visits Authorized [id number] Closed 09/24/2022 09/08/2023 1 0 Reason Comments [...] need to schedule an appointment with a Chemical Machine Tender at our office to coordinate the care. [...] Fax ultrasound to [facility] per Reason Comments Abdominal Pain Follow up Care Teams (unrecognized sec tion and content) Casting Director Relationship Specialty Start Date End Date Blake Sandoval MD [address] [place] [address] PCP - General Family Medicine 07/30/12 Casting Director Relationship Specialty Start Date End Date Blake Sandoval MD [address] [place] [address] PCP - General Family Medicine 07/30/12 Casting Director Relationship Specialty Start Date End Date Blake Sandoval MD [address] [place] [address] PCP - General Family Medicine 07/30/12 Casting Director Relationship Specialty Start Date End Date Blake Sandoval MD [address] [place], [place] [address] PCP - General Family Medicine 07/30/12 Casting Director Relationship Specialty Start Date End Date Blake Sandoval MD [address] [place], [place] [address] PCP - General Family Medicine 07/30/12 Casting Director Relationship Specialty Start Date End Date Blake Sandoval MD [address] [place] [address] PCP - General Family Medicine 07/30/12 Casting Director Relationship Specialty Start Date End Date Blake Sandoval MD [address] [place] [place] [address] PCP - General Family Medicine 07/30/12 Casting Director Relationship Specialty Start Date End Date Blake Sandoval MD [address] [place] [place] [address] PCP - General Family Medicine 07/30/12 Casting Director Relationship Specialty Start Date End Date Blake Sandoval MD [address] [facility] [place] [address] PCP - General Family Medicine 07/30/12 Casting Director Relationship Specialty Start Date End Date Blake Sandoval MD [address] [place] [place] [address] PCP - General Family Medicine 07/30/12 Casting Director Relationship Specialty Start Date End Date Blake Sandoval MD [address] [place] [place] [address] PCP - General Family Medicine 07/30/12 Casting Director Relationship Specialty Start Date End Date Blake Sandoval MD [address] [facility] [place] [address] PCP - General Family Medicine 03/13/23 Casting Director Relationship Specialty Start Date End Date Blake Sandoval MD [address] [place] [address], [place] [address] PCP - General Family Medicine 07/30/12 Casting Director Relationship Specialty Start Date End Date Blake Sandoval MD [address] [place] [address], [place] [address] PCP - General Family Medicine 07/30/12 Casting Director Relationship Specialty Start Date End Date Blake Sandoval MD [address] [place] [address] PCP - General Family Medicine 07/30/12 Casting Director Relationship Specialty Start Date End Date Blake Sadnoval MD [address] [place] [address] PCP - General Family Medicine 07/30/12 Casting Director Relationship Specialty Start Date End Date Blake Sandoval MD [address] [place] [address] PCP - General Family Medicine 07/30/12 Casting Director Relationship Specialty Start Date End Date Blake Sandoval MD [address] [facility] [place] [address] PCP - General 02/07/21 Casting Director Relationship Specialty Start Date End Date Blake Sandoval MD [address] [place] [address] PCP - General Family Medicine 07/30/12 Casting Director Relationship Specialty Start Date End Date Blake Sandoval MD [address] [place] [address] PCP - General Family Medicine 03/13/23 Casting Director Relationship Specialty Start Date End Date Blake Sandoval MD [address] [place], [place] [address] PCP - General Family Medicine 03/13/23 Casting Director Relationship Specialty Start Date End Date Blake Sandoval MD [address] [place] [address] PCP - General Family Medicine 07/30/12 Casting Director Relationship Specialty Start Date End Date Blake Sandoval MD [address] [place], [place] [address] PCP - General Family Medicine 07/30/12 Casting Director Relationship Specialty Start Date End Date Blake Sandoval MD [address] [place], [place] [address] PCP - General Family Medicine 07/30/12 Casting Director Relationship Specialty Start Date End Date Blake Sandoval MD [address] [place], [place] [address] PCP - General Family Medicine 07/30/12 Casting Director Relationship Specialty Start Date End Date Blake Sandoval MD [address] [place], [place] [address] PCP - General Family Medicine 07/30/12 Casting Director Relationship Specialty Start Date End Date Blake Sandoval MD [address] [place], [place] [address] PCP - General Family Medicine 07/30/12 Casting Director Relationship Specialty Start Date End Date Blake Sandoval MD [address], [place] [id number] PCP - General Family Medicine 07/30/12 (unrecognized sect ion and content) No Status Records FoundNo Status Records FoundNo Status Records FoundNo Status Records FoundNo Status Records FoundNo Status Records FoundNo Status Records FoundNo Status Records Found INFORMATION SOURCE (unrecogn ized section and content) DATE CREATED AUTHOR AUTHOR'S ORGANIZ ATION 04/15/2023 [employer] DATE CREATED AUTHOR AUTHOR'S ORGANIZ ATION 06/26/2023 [facility] DATE CREATED AUTHOR AUTHOR'S ORGANIZ ATION 07/22/2023 [facility] DATE CREATED AUTHOR AUTHOR'S ORGANIZ ATION 07/24/2023 [facility] DATE CREATED AUTHOR AUTHOR'S ORGANIZ ATION 07/26/2023 [facility] DATE CREATED AUTHOR AUTHOR'S OR[facility]IZ ATION [facility] DATE CREATED AUTHOR AUTHOR'S ORGANIZ ATION 11/14/2023 [facility] FOR RECORDS PERTAINING TO PATIENTS WHO ARE [...] BE BASED ON THE PRIMARY CLINICAL RECORDS. [facility] [employer] provides no warranty or guarantee of the accuracy or completeness of information in this document.
== END | disposition home or self-care (01) ==
LOC: LAB 10:04
PROVIDERS: PCP Family Medicine; Referring Provider Family Medicine; Visit Provider Family Medicine
DX: R07.81 Pleurodynia (principal)
CPT/HCPCS: 36415; 80053; 85025

== ENCOUNTER → 2023-12-13 | Outpatient (CLI) | payer OTHER, SELFPAY ==
--- NOTE | 2023-12-13 12:51 | RAD_ITS ---
STUDY: X-RAY - THORACIC SPINE REASON FOR EXAM: Male, 68 years old. BACK PAIN TECHNIQUE: XR Spine Thoracic 3 Views COMPARISON: None FINDINGS: Normal kyphosis of the thoracic spine. There is no substantial scoliosis. There is multilevel endplate spondylosis of the thoracic vertebrae. There is multilevel disc space narrowing of the thoracic spine. The soft tissue structures are unremarkable. RAD/Thoracic Spine 3 Views IMPRESSION: There are degenerative changes as noted above. Electronically Signed: Ishaan Moon MD at 15:37 EDT ,
== END | disposition home or self-care (01) ==
LOC: RAD 12:44
PROVIDERS: PCP Family Medicine; Referring Provider Clinical Nurse Specialist Adult Health; Visit Provider Clinical Nurse Specialist Adult Health
DX: M54.6 Pain in thoracic spine (principal)
CPT/HCPCS: 72072

== ENCOUNTER → 2023-12-31 | Outpatient (CLI) | payer OTHER, SELFPAY ==
--- NOTE | 2023-12-31 13:12 | MRI_ITS ---
EXAM: MR THORACIC SPINE WITHOUT INTRAVENOUS CONTRAST CLINICAL INDICATION: DDD TECHNIQUE: Multiplanar and multisequence MR images of the thoracic spine without intravenous contrast. COMPARISON: No relevant prior studies available. FINDINGS: VERTEBRAE: Mild depression of the superior endplate of the T4 vertebral body appears to be chronic. No bone marrow edema. No acute fracture. Normal alignment. There is preservation of the normal thoracic kyphosis. No scoliosis. DISCS/SPINAL CANAL/NEURAL FORAMINA: Normal. Normal disc height and morphology. Normal spinal canal and neuroforamina. SPINAL CORD: Normal. Normal in signal and morphology. Normal conus medullaris. SOFT TISSUES: Normal. MRI/Spine Thoracic (Routine) IMPRESSION: Minor compression of the T4 vertebral body. Otherwise normal MR of the thoracic spine. Electronically Signed: Puneet Canas MD at 14:42 EDT ,
== END | disposition home or self-care (01) ==
LOC: MRI 13:04
PROVIDERS: PCP Family Medicine; Referring Provider Clinical Nurse Specialist Adult Health; Visit Provider Clinical Nurse Specialist Adult Health
DX: M51.34 Other intervertebral disc degeneration, thoracic region (principal); Z03.89 Encounter for observation for other suspected diseases and conditions ruled out
CPT/HCPCS: 72146

== ENCOUNTER → 2024-01-17 | Outpatient (CLI) | payer OTHER, SELFPAY ==
--- NOTE | 2024-01-17 10:13 | MRI_ITS ---
STUDY: MRI LUMBAR SPINE WITHOUT CONTRAST REASON FOR EXAM: Male, 68 years old. SPINAL STENOSIS TECHNIQUE: Standardized fat and water weighted pulse sequences were obtained in the sagittal and axial planes. COMPARISON: None FINDINGS: T12-L1: Normal endplates. Normal disc height, hydration and morphology. Normal bilateral facet joints. Normal central canal and bilateral lateral recesses. Normal bilateral intervertebral neural foramina. Normal lumbar lordosis. There is no substantial scoliosis. Normal conus medullaris that terminates at the T12-L1 level. L1-2: Anterior spurring. Normal disc height, hydration and morphology. Normal bilateral facet joints. Normal central canal and bilateral lateral recesses. Normal bilateral intervertebral neural foramina. L2-3: Left paracentral annular tear and series 10 image 23. No canal stenosis. Neural foramina are patent. L3-4: Disc bulge. No canal stenosis. Neural foramina are patent. L4-5: Disc bulge. Facet spurring. No canal stenosis. Neural foramina are patent. L5-S1: Disc bulge and spurring. Facet spurring. No canal stenosis. Right greater than left foraminal narrowing. Normal visualized sacral ala. Normal visualized paraspinous soft tissue structures. There are renal cysts measuring up to 6.2 cm on the left. MRI/Spine Lumbar (Routine) IMPRESSION: Degenerative changes L5-S1 1 with foraminal narrowing Electronically Signed: Sam Salter MD at 14:18 EDT ,
== END | disposition home or self-care (01) ==
LOC: MRI 09:58
PROVIDERS: PCP Family Medicine; Referring Provider Orthopaedic Surgery; Visit Provider Orthopaedic Surgery
DX: M48.061 Spinal stenosis, lumbar region without neurogenic claudication (principal); M43.06 Spondylolysis, lumbar region; M54.16 Radiculopathy, lumbar region
CPT/HCPCS: 72148

== ENCOUNTER 2024-01-20 12:00 | Outpatient (RCR) | payer OTHER, SELFPAY ==
--- NOTE | 2023-11-20 09:22 | HP.PTEVAL_ITS ---
Patient's Visit Information Visit Information Visit Information: NAYELY WEEKS is a 68 year old M referred to Physical Therapy by TAMIKO COREAS with a diagnosis of RUQ pain. Date of Evaluation: 11/20/23 Physical Therapist: Joe Johnson, DEVANT, OCS, CSCS Visit Plan Frequency: 2x /Week Duration: 4-6 Weeks Plan: 2x/week 3-6 1/ HS and LB paraspinal rollout and spinal ROM focussing on rotation and fl exion, core strength to HEP. mobs for lumbar of ext and rotation. 2. when pain improved progress to general strength if desired. Subjective Subjective: R mid back pain starting in lateral portion and moving BW over the last month. Not sure what started it. It has been noticeable for about 6 months. It gets to 9/10 typically with turning both directions and gets sharp , mostly constant at 2-3/10 even sitting but gone at rest. Sleeping is fine. Has had some diagnostics x ray and US of abdomen and nothing sticking out. Liver, kidney, pancreas, gall bladder are fine. Activities are interrupted i nthat he stopped working [employer] as it got worse with working and getting down on knees and gettign up off floor. 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 Family doctor sent him for PT. No regular exercises Hard to sit too long do to R leg sciatica. This seems unrelated to side pain except timing. Pain R mid back: Pain Intensity (Out of 10): 2 Pain Intensity Range: 2 and 8 Comment: R sciatic some times also Objective Objective: Walks slightly stiff in hips abut I with gait and trasnfers. steps reciprocally without rail I. Very tight in movement and higher tone in hip and knee PROM. HS max tight at -45 90/90 test, quads min tight, ITB mod tight, piriformis mod tight. - SLR, - Slump, - back instability with UE movement. Hip and knee adn ankle ROM WFL but very tight in posterior hips, knees and gastroc. reflexes 2/3 patella and achilles Sensation LE WNL to gross light touch. LB AROM ext slight pain centrally LB, flexion very tight but no pain, SB R slightly painful, not on L. Rotation L sharp pain and R slight pain, both of these are very tight. Strength LE without myotomal abnormalities and 4/5, core strength 4-/5 Balance/Special Test Scores Oswestry Low Back Score: 15 Goals Goal 1:: Full rotation spine without pain Goal Time Frame: 4-6 Weeks Goal 2:: Patient feel pain 2/10 at worst and minimal Goal Time Frame: 4-6 Weeks Goal 3:: return to chopping wood without increased pain Goal Time Frame: 4-6 Weeks Goal 4:: I management of condition for ROM, stretching and strength exercises core. Goal Time Frame: 4-6 Weeks Goal 5:: oswestry 10 or better Goal Time Frame: 4-6 Weeks Rehabilitation Potential Physical Therapy Diagnosis: pain with rotation and back movement and Poor mobility limiting function at home due to pain,. Rehabilitation Potential: Fair Anticipated Interventions Patient/Client Instruction: Educate patient on: Condition and Risk Factors For the Purpose of:: To decrease pain, To increase ROM, To improve nutrient delivery to tissue, To increase tolerance to activity/condition/position and To improve ability of physical actions for home/community/work/leisure Therapeutic Exercise to Include: Strength training, Postural training, Flexibilty training, Passive ROM and Active ROM For the Purpose of:: To decrease pain, To increase ROM and To improve nutrient delivery to tissue Manual Therapy Techniques to Include: Mobilization, Passive ROM and Soft tissue mobilization For the Purpose of:: To decrease pain, To increase ROM, To improve nutrient delivery to tissue, To improve muscle performance and motor function and To increase tolerance to activity/condition/position Thermo therapy (hot pack): Yes For the Purpose of:: To decrease pain, To increase ROM and To improve nutrient delivery to tissue Text: Thank you for the opportunity to evaluate your patient. For Medicare and Medicare HMO plans, please review the plan of care and approve it. It will need to be FAXED BACK to us at [phone] for Medicare purposes. For Medicare only, by signing this I certify the plan of care. Please let me know if there are questions or concerns regarding this plan of care. Physician Signature: Date:
--- NOTE | 2023-12-27 10:47 | HP.PTREVAL_ITS ---
Re-Evaluation Intro: TAMIKO COREAS, It has been my pleasure to treat NAYELY WEEKS over the last 10 visits for RUQ pain. Please see the progress note below for an update on the physical therapy plan of care! Subjective Subjective: Pain wasa a big knot now it is less intense and spreading out. To 4/10 intermittently adn 2 most of time. Overworking it gets it a little worse. No pain at rest. Can tuirn to get water without pain now. Chopped wood for an hour without much issue. HEP is stretching LE and trunk rotation. 2x/week Will have MRI Saturday of back to ensure no problems. has DDD in spine. Objective Objective/Function: Rotation ROM still stiff but not nearly as sharp with the pain. Bending and extensing well otherwise. Still tenderness R distal scap area but improved. Overall much better since soft tissue work started. Recommend continuing. Same goals still appropriate for 3 more weeks to continue effective soft tissue work and fair prognosis. Plan Plan Plan: 2x/week x 5 more visits of continued US and DTR to R scap knot and area. Pt to continue core strength at home 3x/week adn we can progress this, also he is to continue rotations and trap/rhomboid stretch daily. Balance/Gait/Functional tests Balance/Special Test Scores Oswestry Low Back Score: 9 Goals Goals Goal 1:: Full rotation spine without pain Goal Time Frame: 4-6 Weeks Goal Progress: Progressing Goal 2:: Patient feel pain 2/10 at worst and minimal Goal Time Frame: 4-6 Weeks Goal Progress: Progressing Goal 3:: return to chopping wood without increased pain Goal Time Frame: 4-6 Weeks Goal Progress: Not Progressing Goal 4:: I management of condition for ROM, stretching and strength exercises core. Goal Time Frame: 4-6 Weeks Goal Progress: Not Progressing Goal 5:: oswestry 10 or better Goal Time Frame: 4-6 Weeks Goal Progress: Progressing Anticipated Interventions Anticipated Interventions Patient/Client Instruction: Educate patient on: Condition and Risk Factors For the Purpose of:: To decrease pain, To increase ROM, To improve nutrient delivery to tissue, To increase tolerance to activity/condition/position and To improve ability of physical actions for home/community/work/leisure Therapeutic Exercise to Include: Strength training, Postural training, Flexibilty training, Passive ROM and Active ROM For the Purpose of:: To decrease pain, To increase ROM and To improve nutrient delivery to tissue Manual Therapy Techniques to Include: Mobilization, Passive ROM and Soft tissue mobilization For the Purpose of:: To decrease pain, To increase ROM, To improve nutrient delivery to tissue, To improve muscle performance and motor function and To increase tolerance to activity/condition/position Thermo therapy (hot pack): Yes For the Purpose of:: To decrease pain, To increase ROM and To improve nutrient delivery to tissue Re-Evaluation Ending Re-evaluation ending: Please do not hesitate to contact me at [phone] by phone or Fax: if you have questions or concerns regarding this new plan of care! Sincerely, Joe Johnson, DPT, OCS, CSCS
--- NOTE | 2024-01-20 12:42 | HP.PTDCSUM ---
Discharge Summary D/C summary: It has been my pleasure to treat NAYELY WEEKS referred by TAMIKO COREAS, with the diagnosis of RUQ pain for a total of 15 visit(s). Discharge Date: 01/20/24 Please see the following information for a summary of their discharge status. Subjective Subjective: Pain is 0 sitting adn 2/10 if he overdoes it with too much lifting and movement. Built a block wall last week and it hurt 2/10. Recovers quickly. Sleeping OK. HEP: some but not often as he should. Activities : Life is pretty normal. Had MRI on LB and will see ortho next week. Pain R mid back: Pain Intensity (Out of 10): 0 Overall Improvement % Improvement: 90 Objective Objective/Function: spinal extension is good, rotation is painfree today with OP, flexion is good but tight in HS. Overall much better subjective and movement. Goals Goal 1:: Full rotation spine without pain Goal Progress: Goal Met Goal 2:: Patient feel pain 2/10 at worst and minimal Goal Progress: Goal Met Goal 3:: return to chopping wood without increased pain Goal Progress: Goal Met Goal 4:: I management of condition for ROM, stretching and strength exercises core. Goal Progress: Goal Met Goal 5:: oswestry 10 or better Goal Progress: Goal Met Plan Plan: d/c D/C Information d/c sentence: If there are questions or concerns regarding this patient's physical therapy, please feel free to call me at [phone]. Thank you for the referral of this patient. Sincerely, Joe Johnson, DPT, OCS, CSCS Balance/Gait/Functional tests Balance/Special Test Scores Oswestry Low Back Score: 2 Improvement % Improvement: 90
== END 2024-01-20 19:00 | disposition home or self-care (01) ==
LOC: PT 12:00
PROVIDERS: PCP Family Medicine
DX: R10.11 Right upper quadrant pain (principal)
CPT/HCPCS: 97035; 97110; 97140; 97161; 97530

== ENCOUNTER → 2024-02-17 | Outpatient (CLI) | payer OTHER, SELFPAY ==
--- NOTE | 2024-02-17 14:00 | ECHOD_ITS ---
Reason For Study: DYSPNEA Procedure This was a 2D Doppler, Color Flow transthoracic echocardiogram. Exam performed in department. Left Ventricle Normal LV size. Left ventricular systolic function is normal. The estimated ejection fraction is 55 %. Stage 1 diastolic dysfunction. No regional wall motion abnormalities noted. Right Ventricle Normal RV size. Normal systolic function. Atria Normal left atrium. Normal right atrium. Mitral Valve Normal mitral valve. Tricuspid Valve Normal tricuspid valve. Mild (1+) tricuspid valve insufficiency. Pulmonary artery systolic pressure is 26 mmHg. Aortic Valve Trisinus/trileaflet aortic valve. Pulmonic Valve Normal pulmonic valve. Great Vessels Normal aortic root. The pulmonary artery is normal size. Normal inferior vena cava. Pericardium/Pleural No pericardial effusion. MMode/2D Measurements & Calculations LVIDd: 5.2 cm IVSd: 1.2 cm LVOT diam: 2.1 cm LVIDs: 2.6 cm LVPWd: 1.1 cm LVOT area: 3.6 cm2 RVDd: 4.3 cm FS: 50.6 % Ao root diam: 3.6 cm LAV(MOD-bp): 55.1 ml LVAd ap4: 24.9 cm2 LAV(MOD-bp) Indexed: 26.7 ml/m2 LVLd ap4: 8.2 cm LAV(MOD-sp2): 62.4 ml EDV(MOD-sp4): 61.1 ml LAV(MOD-sp4): 48.8 ml EDV(sp4-el): 63.9 ml LVAs ap4: 14.2 cm2 LVLs ap4: 7.2 cm ESV(MOD-sp4): 24.7 ml ESV(sp4-el): 24.0 ml EF(MOD-sp4): 59.6 % EF(sp4-el): 62.4 % LVAd ap2: 26.9 cm2 SV(MOD-sp4): 36.4 ml SV(MOD-sp2): 41.6 ml LVLd ap2: 8.1 cm EDV(MOD-sp2): 74.6 ml EDV(sp2-el): 75.7 ml LVAs ap2: 16.6 cm2 LVLs ap2: 7.2 cm ESV(MOD-sp2): 33.0 ml ESV(sp2-el): 32.6 ml EF(MOD-sp2): 55.8 % SV(sp4-el): 39.9 ml LA dimension(2D): 3.7 cm LA A4 area: 18.3 cm2 RA A4 area: 11.9 cm2 TAPSE: 2.2 cm Time Measurements MV dec time: 0.28 sec Doppler Measurements & Calculations MV E max sourav: 73.2 cm/sec Lat Peak E' Sourav: 6.8 cm/sec Med Peak E' Sourav: 8.8 cm/sec MV A max suorav: 101.2 cm/sec E/E' lat: 10.8 E/E' med: 8.3 MV E/A: 0.72 Ao V2 max: 156.7 cm/sec LV V1 max: 116.6 cm/sec MV dec slope: 263.4 cm/sec2 Ao max P.8 mmHg LV V1 max P.4 mmHg Ao V2 mean: 107.5 cm/sec LV V1 mean P.7 mmHg Ao mean P.3 mmHg LV V1 mean: 78.4 cm/sec Ao V2 VTI: 38.0 cm LV V1 VTI: 25.7 cm AV (velocity ratio): 0.68 ELOISE(I,D): 2.4 cm2 ELOISE(V,D): 2.7 cm2 SV(LVOT): 92.5 ml PA V2 max: 95.9 cm/sec TR max sourav: 239.9 cm/sec PA max PG (full): 2.0 mmHg TR max P.0 mmHg ECHO/Echo Complete Interpretation Summary Normal LV size. Left ventricular systolic function is normal. The estimated ejection fraction is 55 %. Stage 1 diastolic dysfunction. Mild (1+) tricuspid valve insufficiency. Ordering Physician: KATE MONTES DE OCA Referring Physician: KATE MONTES DE OCA Performed By: Katina Carrasco RDCS
== END | disposition home or self-care (01) ==
LOC: CVS 13:52
PROVIDERS: PCP Family Medicine
DX: R06.00 Dyspnea, unspecified (principal)
CPT/HCPCS: 93306

== ENCOUNTER 2024-04-03 11:24 | Outpatient (CLI) | payer OTHER, SELFPAY ==
[2024-04-03 11:57] LABS: Bacteria 0 SEEN /hpf (None Seen); Mucous, Urine 0 SEEN /hpf (<or=2+); Red Blood Cells-Urine 0 SEEN /hpf (0-5); Squamous Epithelial Cells - UA 0 SEEN /hpf (0-5); White Blood Cells 0 SEEN /hpf (0-5)
[2024-04-03 12:14] LABS: Absolute Lymphocyte Count 2.26 X10^3/uL (0.83-4.51); Absolute Neutrophil Count 4.3 X10^3/uL (2.0-7.7); Basophil# 0.05 X10^3/uL; Basophil% 0.7 % (0-1); Eosinophil# 0.24 X10^3/uL; Eosinophils% 3.2 % (0-5); Hematocrit 41.9 % (40-54); Hemoglobin 14.3 g/dL (13.0-16.5); Lymphocyte # 2.26 X10^3/ul (0.83-4.51); Lymphocyte % 29.7 % (19-41); Mean Corp Hgb Conc 34.1 g/dL (32-36); Mean Corpuscular Hgb 32.1 pg (27.0-32.0); Mean Corpuscular Volume 94.2 fL (80-94); Monocyte# 0.72 X10^3/uL; Monocyte% 9.5 % (0-10); NRBC Flagged by Analyzer 0 % (0-5); Neutrophil # 4.31 X10^3/uL (2.7-7.7); Neutrophil % 56.6 % (47-70); Platelet Count 226 K/mm3 (150-450); RBC Distribution Width CV 13.2 % (11.6-14.6); RBC Distribution Width SD 44.9 fl (35.1-43.9); Red Blood Count 4.45 M/mm3 (4.6-6.2); White Blood Count 7.6 K/mm3 (4.4-11.0)
[2024-04-03 12:32] LABS: Color, Urine Yellow (Yellow); Glucose, Dipstick 250 mg/dl (Normal); Ketone-Dipstick Negative (Negative); Leukocyte Esterase-Dipstick Negative /ul (Negative); Nitrite-Dipstick Negative (Negative); Occult Blood-Urine Negative /ul (Negative); Protein-Dipstick Negative (Negative); Specific Gravity, Urine 1.015 (1.002-1.030); Urine Bilirubin Dipstick Negative (Negative); Urine Clarity Clear (Clear); Urine Urobilinogen Normal (Normal)
--- NOTE | 2024-04-03 12:34 | US_ITS ---
STUDY: RENAL ULTRASOUND - COMPLETE REASON FOR EXAM: Male, 69 years old. BPH -- URINARY TRACT SYMPTOMS TECHNIQUE: Ultrasound evaluation of the kidneys was performed with real-time and static garay-scale imaging. COMPARISON: None. FINDINGS: RIGHT KIDNEY: Normal location of the right kidney, which is normal in size. The right kidney measures 10.5 cm x 5.8 cm x 6.4 cm. There is a normal cortex of the right kidney. The renal cortex measures 1.9 cm. There is a 2.4 cm x 2.2 cm x 1.9 cm cyst. 4 mm calculus in the upper pole calyx. There is no right hydronephrosis. DISTAL RIGHT URETER: There is non-visualization of the distal right ureter. There is no demonstrated right ureterovesical junction calculus. There is a visualized right ureteral jet. LEFT KIDNEY: Normal location of the left kidney, which is normal in size. The left kidney measures 12.1 cm x 6.4 cm x 6.7 cm. There is a normal cortex of the left kidney. The renal cortex measures 1.9 cm. 2 renal cysts are seen. The larger cyst measures 5.9 cm x 6.5 cm x 6.2 cm. Findings suggestive of a 5 mm nonobstructive intrarenal calculus. There is no left hydronephrosis. DISTAL LEFT URETER: There is non-visualization of the distal left ureter. There is no demonstrated left ureterovesical junction calculus. There is a visualized left ureteral jet. BLADDER: The distended urinary bladder has a volume of 326 ml. There is a normal wall thickness of the distended urinary bladder. There is no demonstrated mass within the urinary bladder. There are no demonstrated bladder calculi. US/Kidney and Bladder IMPRESSION: Bilateral renal cysts are Nonobstructive bilateral intrarenal calculi. Electronically Signed: Nabeel Murillo MD at 15:19 EDT ,
[2024-04-03 12:56] LABS: Hemoglobin A1c 6.3 % (3.8-5.6)
[2024-04-03 13:03] LABS: ALB/GLOB Ratio 1.1 RATIO (0.9-2.4); AST(SGOT) 11 U/L (15-37); Alanine Aminotransfer ALT/SGPT 33 U/L (16-61); Albumin, Serum 3.5 g/dL (3.2-5.0); Alkaline Phosphatase 104 U/L (45-117); Anion Gap 7 (5-15); BUN 18 mg/dL (7-18); BUN/Creat Ratio 14.8 RATIO (10-20); Calcium,Total 8.5 mg/dL (8.5-10.1); Chloride 103 mmol/L (98-107); Cholesterol 328 mg/dL (200); Creatinine, Serum 1.22 mg/dL (0.70-1.30); EST Glomerular Filtration Rate 63 mL/min (>60); Est Glom Filt Rate - Afr Amer 76 mL/min (>60); Ferritin 257 ng/mL (26-388); Globulin 3.2 g/dL (2.2-4.2); Glucose 221 mg/dL (74-106); High Density Lipoprotein 48 mg/dL; Potassium 4.1 mmol/L (3.5-5.1); Protein, Total 6.7 g/dL (6.4-8.2); Sodium Level 134 mmol/L (136-145); Triglycerides 1116 mg/dL
== END 2024-04-03 23:59 | disposition home or self-care (01) ==
LOC: US 11:26
PROVIDERS: PCP Family Medicine; Referring Provider Registered Nurse; Visit Provider Registered Nurse
DX: N40.0 Benign prostatic hyperplasia without lower urinary tract symptoms (principal); E11.9 Type 2 diabetes mellitus without complications; G25.81 Restless legs syndrome; E78.2 Mixed hyperlipidemia; I10 Essential (primary) hypertension
CPT/HCPCS: 36415; 76770; 80053; 80061; 81001; 82728; 83036; 84153; 85025; 87086

== ENCOUNTER → 2024-04-20 | Outpatient (CLI) | payer OTHER, SELFPAY ==
--- NOTE | 2024-04-20 13:16 | ST.MBS ---
Modified Barium Swallow Patient Information Study Date: 04/20/24 Study Time: 12:30 Direct Billable Minutes: 72 Total Minutes procedure & reportin Diagnosis: Dysphagia R13.10 Referring Physician: Nazia Graham NP Reason for Referral: Objectively assess swallow function, assess risk for aspiration, and determine recommendations for least restrictive diet textures and compensatory strategies to improve safety of swallow. Medical History: PMH: Acid reflux, Fatigue, HTN, Hx of smoking, HLD, Arthritis, Lipoma, Hiatal hernia per patient (See EMR for full PMH). Patient has been referred for MBSS due to coughing at meals. He reports coughing on saliva and foods, but not drinks. He has GERD managed by PRN medication. He denies sensation of pharyngeal or esophageal retention. He denies hx of PNA. Current Diet Ordered: Regular textures / Thin liquids Dentition: Upper Dentures (Implants for lower teeth) Mental Status: WNL Respiratory Status: Oxygenating on Room Air Penetration-Aspiration Scale Penetration-Aspiration Scale: OBJECTIVE ASSESSMENT OF SWALLOW FUNCTION (QUANTITATIVE ? PER TRIAL): PENETRATION / ASPIRATION SCALE (HINES): 1 = does not enter airway 2 = enters airway/above vocal folds/ejected 3 = enters airway/above vocal folds/not ejected 4 = enters airway/contacts vocal folds/ejected 5 = enters airway/contacts vocal folds/not ejected 6 = enters airway/below vocal folds/ejected 7 = enters airway/below vocal folds/not ejected despite effort 8 = enters airway/below vocal folds/no effort VIDEOFLOROSCOPIC SCALE SCORE (HINES): Grade I = aspiration of material that has penetrated into the laryngeal vestibule, intact cough reflex Grade II = aspiration < 10 % of the bolus, intact cough reflex Grade III = aspiration of < 10 % of the bolus, reduced cough reflex or aspiration of > 10 % of the bolus, intact cough reflex Grade IV = aspiration of > 10 % of the bolus, reduced cough reflex Penetration-Aspiration Scale Score Thin Liquid via teaspoon: Result: 1= does not enter airway Thin Liquid via teaspoon Trial 2: Result: 1= does not enter airway Thin Liquid via large single sip: cup: Result: 3= enters airways/above vocal folds/not ejected [place] Thick Liquid via small single sip: cup: Result: 1= does not enter airway Pudding via teaspoon: Result: 1= does not enter airway Cookie: Result: 1= does not enter airway via sequential sips:straw: Result: 8= enters airway/below vocal folds/no effort Thin Liquid via single sip: straw Effortful swallow: Result: 1= does not enter airway 1/2 Cookie Chin tuck: Result: 1= does not enter airway Oral Phase Labial Seal: No Labial Escape Tongue Control During Bolus Hold: Posterior escape of greater than half of bolus Bolus Preparation/Mastication: Disorganized chewing/mashing with solid pieces of bolus unchewed (small pieces of cookie un-chewed) Bolus Transport/Lingual Motion: Delayed initiation of tongue motion Oral Residue: Residue collection on oral structures Pharyngeal Phase Initiation of Pharyngeal Swallow: Bolus head in pyriforms Soft Palate Elevation: Trace column of contrast/air between soft palate and pharyngeal wall Laryngeal Elevation: Partial superior movement thyroid cart/partial apprx aryt-epig petiole Anterior Hyoid Excursion: Partial anterior movement Epiglottic Movement: Complete inversion Laryngeal Vestibule Closure at Height of Swallow: Incomplete; narrow column of air/contrast in laryngeal vestibule Pharyngeal Stripping Wave: Present - diminished Pharyngoesophageal Segment Opening: Complete distension and complete duration; no obstruction of flow Tongue Base Retraction: Narrow column of contrast between tongue base & post. pharyngeal wall Pharyngeal Residue: Collection of residue within or on pharyngeal structures Esophageal Phase Esophageal Clearance: Complete clearance Treatment Strategies Effects of treatment strategies attemped:: Chin tuck = effective with foods in reducing residue in the vallecula. Effortful swallow = effective in decreasing risk for aspiration with thin liquids. Diagnosis/Impression Diagnosis: Mild oropharyngeal dysphagia R13.12 Impression: The oral phase is primarily marked by... -Decreased mastication with small pieces of cookie appearing un-chewed during 1/2 cookie trial. -Decreased bolus control with premature posterior loss of >1/2 the bolus to the pyriforms prior to swallow onset. The pharyngeal phase is primarily marked by... -Delayed swallow onset. -Mildly decreased tongue base retraction and pharyngeal stripping wave with mild pharyngeal residue of cookie in the vallecula after the swallow. Liquid wash and chin tuck (w/ food) were effective in improving pharyngeal clearance. -SILENT aspiration of sequential sips of thin liquids via straw. Decreased bolus size and effortful swallows were most effective in decreasing risk for aspiration. Recommendations Diet: Regular Textures and Thin Liquids Comment: If sensation of food in throat use liquid wash or chin tuck with bites to clear. Compensatory Strategies: Small Bites (Chew thoroughly), Small Sips (Effortful/hard swallows), Slow Rate (One sip at a time), Sitting upright and Remain sitting upright for 30 minutes after PO intake Recommend Repeat Modified Barium Swallow: TBD Need for Skilled Speech Therapy Services: Yes Comment: -Train the patient in use of strategies to decrease risk for aspiration. Continued education re: oral care regimen to decrease risk for aspiration related illness. -Ongoing assessment of diet tolerance of recommended textures. -Train the patient in oropharyngeal exercise program to improve bolus control, swallow onset, tongue base retraction, airway closure, and pharyngeal stripping wave (lingual resistance, Sascha, Bela, CTAR, effortful). Education Completed: 1. Described result of evaluation., 2. Pt understands evaluation & agrees with goals and treatment plan. and 7. Pt requires further education on strategies & risks. Status Active ST Patient: Active Contact Information [facility]:: Cristina Norman M.A. CCC-ASSISTANT STRENGTH COACH? Speech-Language Pathologist?? [facility] [address] [place] [address]? [email or web address]?? [phone]
== END | disposition home or self-care (01) ==
LOC: RAD 12:24
PROVIDERS: PCP Family Medicine; Referring Provider Registered Nurse; Visit Provider Registered Nurse
DX: R05.8 Other specified cough (principal)
CPT/HCPCS: 74230; 92611

== ENCOUNTER → 2024-05-19 | Outpatient (CLI) | payer OTHER, SELFPAY | END | disposition home or self-care (01) | LOC: LAB 15:51 | PROVIDERS: PCP Family Medicine; Referring Provider Urology; Visit Provider Urology | DX: R97.20 Elevated prostate specific antigen [PSA] (principal) | CPT/HCPCS: 36415; 84153; 84154 ==

== ENCOUNTER → 2024-10-05 | Outpatient (CLI) | payer OTHER, SELFPAY ==
[2024-10-05 15:36] LABS: Absolute Lymphocyte Count 2.02 X10^3/uL (0.83-4.51); Absolute Neutrophil Count 10.1 X10^3/uL (2.0-7.7); Basophil# 0.07 X10^3/uL; Basophil% 0.5 % (0-1); Eosinophil# 0.16 X10^3/uL; Eosinophils% 1.2 % (0-5); Hematocrit 42.6 % (40-54); Lymphocyte # 2.02 X10^3/ul (0.83-4.51); Lymphocyte % 15.1 % (19-41); Mean Corp Hgb Conc 35.2 g/dL (32-36); Mean Corpuscular Hgb 32.4 pg (27.0-32.0); Mean Platelet Vol. 10.9 fl (6.2-12.0); Monocyte# 0.96 X10^3/uL; Monocyte% 7.2 % (0-10); NRBC Flagged by Analyzer 0 % (0-5); Neutrophil # 10.07 X10^3/uL (2.7-7.7); Neutrophil % 75.5 % (47-70); Platelet Count 224 K/mm3 (150-450); RBC Distribution Width CV 12.8 % (11.6-14.6); RBC Distribution Width SD 42.5 fl (35.1-43.9); Red Blood Count 4.63 M/mm3 (4.6-6.2); White Blood Count 13.4 K/mm3 (4.4-11.0)
[2024-10-05 15:48] LABS: Microalbumin,Random Urine 10.5 mg/L (NO RANGE EST.); Microalbumin:Creatinine Ratio 10.9 mg/g CRE (<30 mg/g CRE)
[2024-10-05 16:20] LABS: ALB/GLOB Ratio 1.1 RATIO (0.9-2.4); AST(SGOT) 19 U/L (15-37); Alanine Aminotransfer ALT/SGPT 37 U/L (16-61); Albumin, Serum 3.8 g/dL (3.2-5.0); Alkaline Phosphatase 111 U/L (45-117); Anion Gap 8 (5-15); BUN 17 mg/dL (7-18); BUN/Creat Ratio 13.9 RATIO (10-20); Calcium,Total 9.2 mg/dL (8.5-10.1); Chloride 107 mmol/L (98-107); Creatinine, Serum 1.22 mg/dL (0.70-1.30); EST Glomerular Filtration Rate 63 mL/min (>60); Est Glom Filt Rate - Afr Amer 76 mL/min (>60); Ferritin 240 ng/mL (26-388); Globulin 3.4 g/dL (2.2-4.2); Glucose 159 mg/dL (74-106); Magnesium 1.8 mg/dL (1.6-2.6); Potassium 4.4 mmol/L (3.5-5.1); Protein, Total 7.2 g/dL (6.4-8.2); Sodium Level 139 mmol/L (136-145)
[2024-10-05 16:39] LABS: Hemoglobin A1c 6.7 % (3.8-5.6)
[2024-10-07 11:56] LABS: Cholesterol 171 mg/dL (200); High Density Lipoprotein 49 mg/dL; Triglycerides 284 mg/dL; Very Low Density Lipoprotein 57 mg/dL (5-40)
== END | disposition home or self-care (01) ==
PROVIDERS: PCP Family Medicine; Referring Provider Registered Nurse; Visit Provider Registered Nurse
DX: E11.9 Type 2 diabetes mellitus without complications (principal); I48.0 Paroxysmal atrial fibrillation; G25.81 Restless legs syndrome; I10 Essential (primary) hypertension; E78.2 Mixed hyperlipidemia
CPT/HCPCS: 36415; 80053; 80061; 82043; 82570; 82728; 83036; 83735; 85025

== ENCOUNTER 2024-12-11 05:43 | Day surgery (SDC) | payer OTHER, SELFPAY ==
--- NOTE | 2024-12-08 19:53 | PAT.ANE_ITS ---
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 When Was Last Pacemaker Check QUESTION #4 FULL TEXT: You/Your Family Experience fever (hyperthermia) with Anesthesia Last Oral Intake Last Oral intake: Last Oral Intake NPO since Meds taken in AM with sips of water? 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 Has anyone observed you stop breathing during sleep? STOP Results Positive 12/08/24 16:45 QUESTION #5 FULL TEXT : Do you snore loudly (louder than talking or can be heard through closed doors)? 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 Specify any problems Hx of Preganancy in last 3 N/A 12/08/24 16:45 Months Nurse Filling Out Transfusion DSCHRIBER 12/08/24 16:45 & Questions: Date: 12/08/24 12/08/24 16:45 Time: 16:47 12/08/24 16:45 Patient unable to answer at this time (ie. 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: /Reproductive Hx- mowing machine operator Hx Now No 12/08/24 16:45 Gestational Age (in weeks): EDC: Hx Hx Para Hx Section SAB No 12/08/24 16:45 [facility] Medical History (Updated 12/08/24 @ 16:55 by Cecilia Krishnamurthy) Wears hearing aid Wears glasses Wears dentures Diabetes Back pain Dietary restriction Difficulty swallowing History of hiatal hernia History of diverticulitis Gastric reflux Former smoker Shortness of breath on exertion CPAP (continuous positive airway pressure) dependence History of pain when walking History of echocardiogram History of stress test Cardiology follow-up encounter History of cardioversion Deviated nasal septum Erectile dysfunction Paroxysmal atrial fibrillation Restless legs syndrome Lipoma Personal history of colonic polyps HTN (hypertension) Hyperlipidemia Home Medications ?Medication ?Instructions ?Recorded ?Last Taken ?Type losartan 100 mg tablet 100 mg PO DAILY 12/05/15 05:00 History amlodipine 5 mg tablet 5 mg PO DAILY 11/02/24 Unkno wn History apixaban 5 mg tablet (Eliquis) 5 mg PO BID 11/02/24 History atorvastatin 20 mg tablet 20 mg PO QHS 11/02/24 Unknow n History gabapentin 300 mg capsule 300 mg PO QHS 11/02/24 Unkno wn History metformin 500 mg tablet 1,000 mg PO BID 11/02/24 Unk nown History metoprolol tartrate 25 mg tablet 25 mg PO BID 11/02/24 Unknown History omeprazole 20 mg capsule,delayed 20 mg PO QDAY 5 Unknown History release ropinirole 0.25 mg tablet 0.5 mg PO QHS 11/02/24 Unkno wn History semaglutide 0.25 mg or 0.5 mg (2 0.5 mg subcut QWEEK 0 11/02/24 11/28/24 History mg/3 mL) subcutaneous pen injector ([employer]) Allergy/AdvReac Type Severity Reaction Status Date / Time pseudoephedrine HCl (From Allergy Other Verified 12/08/24 16:42 Sudafed) KATY Inhibitors AdvReac Other Verified 12/08/24 16:42 Family History (Updated 11/02/24 @ 11:33 by Barb Chapman RN) Brother Diabetes High cholesterol Hypertension Sister High cholesterol Hypertension Diabetes Father High cholesterol Hypertension Diabetes Cataract Mother No problems noted. Surgical History (Updated 12/08/24 @ 16:55 by eCcilia Krishnamurthy) Hx of oral surgery Hx of hand surgery History of colonoscopy Hx of lithotripsy Hx of bilateral inguinal hernia repair History of partial colectomy Social History (Updated 11/02/24 @ 11:57 by Barb Chapman RN) Smoking Status: Former smoker second hand exposure: No alcohol intake: never substance use type: former substance user Date of last use: caffeine: Yes what type of physical activity do you participate in: none frequency: does not exercise seatbelt use: always Audit: Pertinent Findings Pertinent Findings EKG Perinent findings: December 05, 2015. Sinus bradycardia at 58 bpm. Right bundle branch block. Leftward axis deviation. Nonspecific T wave abnormality. Echo (EF%) pertinent findings: February 17, 2024. Ejection fraction of 55%. PA systolic pressure is 26 mmHg. No aortic stenosis is noted. Recommendation Anesthesia Recommendation Anesthesia recommendation: F/U recommended (Patient was last EKG was 9 years ago. This is too old to correlate with current testing. Patient needs a new twelve-lead EKG.)
--- NOTE | 2024-12-10 14:51 | PAT.ANE_ITS ---
Pre-Assessment Diagnosis/Proposed Procedure Planned Operative Procedure(s): CSCOPE Anesthesia History Anesthesia History - director of institutional research: Anesthesia History - director of institutional research Hx Hospitalization No 12/08/24 16:45 Any Problems With Anesthesia No 12/08/24 16:45 Cholinesterase deficiency No 12/08/24 16:45 You/Your Family Experience No 12/08/24 16:45 fever (hyperthermia) with Relationship Recent Exposure to Contagious No 10/08/16 06:26 Disease Does patient have nerve No 12/08/24 16:45 stimulator Patient instructed to have device shut off --Does patient have Pacemaker or ICD? When Was Last Pacemaker Check QUESTION #4 FULL TEXT: You/Your Family Experience fever (hyperthermia) with Anesthesia Last Oral Intake Last Oral intake: Last Oral Intake NPO since Meds taken in AM with sips of water? Meds patient instructed to take am of surgery PONV PONV - director of institutional research: PONV - director of institutional research Female No 12/08/24 16:45 HX of Motion Sickness No 12/08/24 16:45 HX of N/V After Surgery No 12/08/24 16:45 Non-Smoker Yes 12/08/24 16:45 Duration of Surgery greater No 12/08/24 16:45 than 60 minutes Number of Risk Factors 1 12/08/24 16:45 PONV Score Low Risk 12/08/24 16:45 Height & Weight Height & Weight: Anesthesia: Height & Weight Height 5 ft 10 in 10/09/24 09:09 Respiratory Assessment Respiratory Assessment - director of institutional research: Respiratory Tract Infection Hx - director of institutional research Hx Respiratory Tract Infection No 12/08/24 16:45 STOP Sleep Apnea STOP Sleep Apnea - director of institutional research: STOP Sleep Apnea - director of institutional research Hx Hypertension Yes: CONTROLLED WITH MEDS 12/08/24 16:45 Hx Sleep Apnea Yes 12/08/24 16:45 CPAP Yes: NOT USED FOR 1 YR 12/08/24 16:45 BIPAP No 12/08/24 16:45 Do you snore loudly (louder than talking or can be heard Do you often feel tired/ fatigued/ sleepy during daytime? Has anyone observed you stop breathing during sleep? STOP Results Positive 12/08/24 16:45 QUESTION #5 FULL TEXT : Do you snore loudly (louder than talking or can be heard through closed doors)? Tobacco Use History Tobacco Use History - director of institutional research: Tobacco Use History - director of institutional research Tobacco Use Smoking Status Former smoker 12/08/24 16:45 Hx Tobacco Use No 12/08/24 16:45 Years Smoking Packs Smoked per Day Smoking Cessation Date was No - quit smoking greater 12/08/24 16:45 within the last 15 years than 15 years ago Hx Smoking Cessation Date 12/08/24 16:45 Hx Smoking Cessation No 12/08/24 16:45 Counseling Hematologic Medial History Hematologic Hx - director of institutional research: Hematologic Medical Hx - director workers compensation Hx of Blood Transfusion No 12/08/24 16:45 Hx of Transfusion in last 3 No 12/08/24 16:45 Months Date of Last Transfusion (if within last 3 months) Ever experience any problems No 12/08/24 16:45 with transfusion(s)? Specify any problems Hx of Preganancy in last 3 N/A 12/08/24 16:45 Months Nurse Filling Out Transfusion DSCHRIBER 12/08/24 16:45 & Questions: Date: 12/08/24 12/08/24 16:45 Time: 16:47 12/08/24 16:45 Patient unable to answer at this time (ie. confused, unrespo /Reproduction History /Reproductive History - director of institutional research: /Reproductive Hx- director of institutional research Hx Now No 12/08/24 16:45 Gestational Age (in weeks): EDC: Hx Hx Para Hx Section SAB No 12/08/24 16:45 [facility] Medical History (Updated 12/08/24 @ 16:55 by Cecilia Krishnamurthy) Wears hearing aid Wears glasses Wears dentures Diabetes Back pain Dietary restriction Difficulty swallowing History of hiatal hernia History of diverticulitis Gastric reflux Former smoker Shortness of breath on exertion CPAP (continuous positive airway pressure) dependence History of pain when walking History of echocardiogram History of stress test Cardiology follow-up encounter History of cardioversion Deviated nasal septum Erectile dysfunction Paroxysmal atrial fibrillation Restless legs syndrome Lipoma Personal history of colonic polyps HTN (hypertension) Hyperlipidemia Home Medications ?Medication ?Instructions ?Recorded ?Last Taken ?Type losartan 100 mg tablet 100 mg PO DAILY 12/05/15 05:00 History amlodipine 5 mg tablet 5 mg PO DAILY 11/02/24 Unkno wn History apixaban 5 mg tablet (Eliquis) 5 mg PO BID 11/02/24 History atorvastatin 20 mg tablet 20 mg PO QHS 11/02/24 Unknow n History gabapentin 300 mg capsule 300 mg PO QHS 11/02/24 Unkno wn History metformin 500 mg tablet 1,000 mg PO BID 11/02/24 Unk nown History metoprolol tartrate 25 mg tablet 25 mg PO BID 11/02/24 Unknown History omeprazole 20 mg capsule,delayed 20 mg PO QDAY 5 Unknown History release ropinirole 0.25 mg tablet 0.5 mg PO QHS 11/02/24 Unkno wn History semaglutide 0.25 mg or 0.5 mg (2 0.5 mg subcut QWEEK 0 11/02/24 11/28/24 History mg/3 mL) subcutaneous pen injector ([employer]) Allergy/AdvReac Type Severity Reaction Status Date / Time pseudoephedrine HCl (From Allergy Other Verified 12/08/24 16:42 Sudafed) KATY Inhibitors AdvReac Other Verified 12/08/24 16:42 Family History (Updated 11/02/24 @ 11:33 by Barb Chapman RN) Brother Diabetes High cholesterol Hypertension Sister High cholesterol Hypertension Diabetes Father High cholesterol Hypertension Diabetes Cataract Mother No problems noted. Surgical History (Updated 12/08/24 @ 16:55 by Cecilia Krishnamurthy) Hx of oral surgery Hx of hand surgery History of colonoscopy Hx of lithotripsy Hx of bilateral inguinal hernia repair History of partial colectomy Social History (Updated 11/02/24 @ 11:57 by Barb Chapman RN) Smoking Status: Former smoker second hand exposure: No alcohol intake: never substance use type: former substance user Date of last use: -1991 caffeine: Yes what type of physical activity do you participate in: none frequency: does not exercise seatbelt use: always Audit: Pertinent Findings HISTORY of Pertinent Findings History of Pertinent Findings: EKG Pertinent Findings EKG Perinent findings December 05, 2015. Sinus 12/08/24 20:01 bradycardia at 58 bpm. Right bundle branch block. Leftward axis deviation. Nonspecific T wave abnormality. Echo Pertinent Findings Echo (EF%) pertinent findings February 17, 2024. Ejection 12/08/24 19:55 fraction of 55%. PA systolic pressure is 26 mmHg . No aortic stenosis is noted. Pertinent Findings EKG Perinent findings: December 10, 2024. Sinus bradycardia at 59 bpm. Left axis deviation. Right bundle branch block. Essentially unchanged from December 05, 2015. Recommendation Anesthesia Recommendation Anesthesia recommendation: OPTIMIZED for anesthesia
[2024-12-11] VITALS (8 sets, daily range): BP systolic 118–146; BP diastolic 81–89; PULSE 53–63; RESP 16; TEMP 36.1–36.6; O2SAT 92–96; BMI 31.6
--- NOTE | 2024-12-11 06:40 | PCM.HP.STD ---
HPI - General General Date of Admission: 12/11/24 Date of Service: 12/11/24 Chief Complaint: Surveillance colonoscopy HPI Narrative The patient is a 69-year-old male who presents today for colonoscopy. His last colonoscopy was about 5 years ago. He does have a history of multiple polyps in the past. He even had a resection of his transverse colon performed by Dr. Galicia a number of years ago. He denies any new GI issues or complaints since his last colonoscopy. He denies any blood in his stools. No black or tarry stools no significant constipation or diarrhea. [facility] Medical History Wears hearing aid Wears glasses Wears dentures Diabetes Back pain Dietary restriction Difficulty swallowing History of hiatal hernia History of diverticulitis Gastric reflux Former smoker Shortness of breath on exertion CPAP (continuous positive airway pressure) dependence History of pain when walking History of echocardiogram History of stress test Cardiology follow-up encounter History of cardioversion Deviated nasal septum Erectile dysfunction Paroxysmal atrial fibrillation Restless legs syndrome Lipoma Personal history of colonic polyps HTN (hypertension) Hyperlipidemia Home Medications ?Medication ?Instructions ?Recorded ?Last Taken ?Type losartan 100 mg tablet 100 mg PO DAILY 12/05/15 12/10/24 History amlodipine 5 mg tablet 5 mg PO DAILY 11/02/24 12/10/24 History apixaban 5 mg tablet (Eliquis) 5 mg PO BID 11/02/24 12/07/24 History atorvastatin 20 mg tablet 20 mg PO QHS 11/02/24 12/10/24 History gabapentin 300 mg capsule 300 mg PO QHS 11/02/24 12/10/24 History metformin 500 mg tablet 1,000 mg PO BID 11/02/24 12/10/24 History metoprolol tartrate 25 mg tablet 25 mg PO BID 11/02/24 12/10/24 History omeprazole 20 mg capsule,delayed 20 mg PO QDAY 11/02/24 12/10/24 History release ropinirole 0.25 mg tablet 0.5 mg PO QHS 11/02/24 12/10/24 History semaglutide 0.25 mg or 0.5 mg (2 0.5 mg subcut QWEEK 11/02/24 11/28/24 History mg/3 mL) subcutaneous pen injector (Ozem[employer]) Allergy/AdvReac Type Severity Reaction Status Date / Time pseudoephedrine HCl (From Allergy Other Verified 12/11/24 06:32 Sudafed) KATY Inhibitors AdvReac Other Verified 12/11/24 06:32 Family History Brother Diabetes High cholesterol Hypertension Sister High cholesterol Hypertension Diabetes Father High cholesterol Hypertension Diabetes Cataract Mother No problems noted. Surgical History Hx of oral surgery Hx of hand surgery History of colonoscopy Hx of lithotripsy Hx of bilateral inguinal hernia repair History of partial colectomy Social History Smoking Status: Former smoker second hand exposure: No alcohol intake: never substance use type: does not use caffeine: Yes what type of physical activity do you participate in: none frequency: does not exercise seatbelt use: always Physical Exam Const alert and oriented x3 Assessment & Plan Assessment/Plan (1) Personal history of colonic polyps: PLAN: Plan The patient is a 69-year-old male with a history of colon polyps. He presents today for colonoscopy. We reviewed the details of the procedure as well as risk benefits and alternatives. He wishes to proceed. This will begin this morning Charges/Coding Visit Charges Inpatient E&M: 36804 Init Hosp L1
--- NOTE | 2024-12-11 07:01 | PCM.PRE.AN2 ---
ASA Classification* ASA Classification ASA Classification: 2 Assessment & Plan Anesthesia* Anesthesia Assessment Anesthesia Assessment: Discussed sedation and/or anesthesia options, risks, benefits, and alternatives with patient/parents/legal guardian/POA. Questions invited. The patient/parents/legal guardian/POA seems to understand and agrees to proceed with anesthesia plan. Reviewed the physical assessment, medical history, allergy history and patient home medications list prior to surgery/procedure/anesthetic and documented any changes. Performed airway and anesthesia risk assessments. Anesthesia Type Anesthesia Type: MAC History Source History Obtained from:: Patient and Chart Anesthesia Focused Assessment* Temperature: 97.8 F Pulse Rate: 58 Blood Pressure: 146/89 Respiratory Rate: 16 Pulse Ox: 95 Oxygen Delivery Method: Room Air Airway Assessment Mouth opens: >3 cm Mallampati Score: III Teeth Condition: Dentures (Patient has full upper dentures. Patient has implants for lower dentures but does not wear them.) Neck Range of motion (ROM): Limited ROM Focused Labs Anesthesia Preop lab: CBC WBC 13.4 K/mm3 (4.4-11.0) H 10/05/24 12:40 10/05/24 RBC 4.63 M/mm3 (4.6-6.2) 10/05/24 12:40 10/05/24 Hgb 15.0 g/dL (13.0-16.5) 10/05/24 12:40 10/05/24 Hct 42.6 % (40-54) 10/05/24 12:40 10/05/24 Plt Count 224 K/mm3 (150-450) 10/05/24 12:40 10/05/24 CHEMISTRY Potassium 4.4 mmol/L (3.5-5.1) 10/05/24 12:40 10/05/24 Sodium 139 mmol/L (136-145) 10/05/24 12:40 10/05/24 Magnesium 1.8 mg/dL (1.6-2.6) 10/05/24 12:40 10/05/24 BUN 17 mg/dL (7-18) 10/05/24 12:40 10/05/24 Creatinine 1.22 mg/dL (0.70-1.30) 10/05/24 12:40 10/05/24 Glucose 159 mg/dL (74-106) H 10/05/24 12:40 10/05/24 POC Glucose 142 mg/dL (70-110) H 12/05/15 16:33 12/05/15 TSH 1.33 uIU/mL (0.358-3.74) 07/06/22 15:30 07/06/22 COAG PT 13.5 SECONDS (11.7-14.9) 12/05/15 16:09 12/05/15 Pre-Assessment Diagnosis/Proposed Procedure Planned Operative Procedure(s): CSCOPE Anesthesia History Anesthesia History - budget and policy analyst: Anesthesia History - budget and policy analyst Hx Hospitalization No 12/08/24 16:45 Any Problems With Anesthesia No 12/08/24 16:45 Cholinesterase deficiency No 12/08/24 16:45 You/Your Family Experience No 12/08/24 16:45 fever (hyperthermia) with Relationship Recent Exposure to Contagious No 12/11/24 06:38 Disease Does patient have nerve No 12/08/24 16:45 stimulator Patient instructed to have device shut off --Does patient have Pacemaker No 12/11/24 06:38 or ICD? When Was Last Pacemaker Check QUESTION #4 FULL TEXT: You/Your Family Experience fever (hyperthermia) with Anesthesia Last Oral Intake Last Oral intake: Last Oral Intake NPO since 23:30 12/11/24 06:38 Meds taken in AM with sips of water? Meds patient instructed to take am of surgery PONV PONV - budget and policy analyst: PONV - budget and policy analyst Female No 12/08/24 16:45 HX of Motion Sickness No 12/08/24 16:45 HX of N/V After Surgery No 12/08/24 16:45 Non-Smoker Yes 12/08/24 16:45 Duration of Surgery greater No 12/08/24 16:45 than 60 minutes Number of Risk Factors 1 12/08/24 16:45 PONV Score Low Risk 12/08/24 16:45 Height & Weight Height & Weight: Anesthesia: Height & Weight Height 5 ft 9 in 12/11/24 06:38 Weight: 97 kg 12/11/24 06:38 Body Mass Index (BMI) 31.6 12/11/24 06:38 Respiratory Assessment Respiratory Assessment - budget and policy analyst: Respiratory Tract Infection Hx - budget and policy analyst Hx Respiratory Tract Infection No 12/08/24 16:45 STOP Sleep Apnea STOP Sleep Apnea - budget and policy analyst: STOP Sleep Apnea - budget and policy analyst Hx Hypertension Yes: CONTROLLED WITH MEDS 12/08/24 16:45 Hx Sleep Apnea Yes 12/08/24 16:45 CPAP Yes: NOT USED FOR 1 YR 12/08/24 16:45 BIPAP No 12/08/24 16:45 Do you snore loudly (louder than talking or can be heard Do you often feel tired/ fatigued/ sleepy during daytime? Has anyone observed you stop breathing during sleep? STOP Results Positive 12/08/24 16:45 QUESTION #5 FULL TEXT : Do you snore loudly (louder than talking or can be heard through closed doors)? Tobacco Use History Tobacco Use History - budget and policy analyst: Tobacco Use History - budget and policy analyst Tobacco Use Smoking Status Former smoker 12/08/24 16:45 Hx Tobacco Use No 12/08/24 16:45 Years Smoking Packs Smoked per Day Smoking Cessation Date was No - quit smoking greater 12/08/24 16:45 within the last 15 years than 15 years ago Hx Smoking Cessation Date 04/17/22 04/17/22 12:04 Hx Smoking Cessation No 12/08/24 16:45 Counseling Hematologic Medial History Hematologic Hx - budget and policy analyst: Hematologic Medical Hx - superintendent laundry Hx of Blood Transfusion No 12/08/24 16:45 Hx of Transfusion in last 3 No 12/08/24 16:45 Months Date of Last Transfusion (if within last 3 months) Ever experience any problems No 12/08/24 16:45 with transfusion(s)? Specify any problems Hx of Preganancy in last 3 N/A 12/08/24 16:45 Months Nurse Filling Out Transfusion DSCHRIBER 12/08/24 16:45 & Questions: Date: 12/08/24 12/08/24 16:45 Time: 16:47 12/08/24 16:45 Patient unable to answer at this time (ie. confused, unrespo /Reproduction History /Reproductive History - budget and policy analyst: /Reproductive Hx- budget and policy analyst Hx Now No 12/08/24 16:45 Gestational Age (in weeks): EDC: Hx Hx Para Hx Section SAB No 12/08/24 16:45 PFSH Medical History Wears hearing aid Wears glasses Wears dentures Diabetes Back pain Dietary restriction Difficulty swallowing History of hiatal hernia History of diverticulitis Gastric reflux Former smoker Shortness of breath on exertion CPAP (continuous positive airway pressure) dependence History of pain when walking History of echocardiogram History of stress test Cardiology follow-up encounter History of cardioversion Deviated nasal septum Erectile dysfunction Paroxysmal atrial fibrillation Restless legs syndrome Lipoma Personal history of colonic polyps HTN (hypertension) Hyperlipidemia Home Medications ?Medication ?Instructions ?Recorded ?Last Taken ?Type losartan 100 mg tablet 100 mg PO DAILY 12/05/15 12/10/24 History amlodipine 5 mg tablet 5 mg PO DAILY 11/02/24 12/10/24 History apixaban 5 mg tablet (Eliquis) 5 mg PO BID 11/02/24 12/07/24 History atorvastatin 20 mg tablet 20 mg PO QHS 11/02/24 12/10/24 History gabapentin 300 mg capsule 300 mg PO QHS 11/02/24 12/10/24 History metformin 500 mg tablet 1,000 mg PO BID 11/02/24 12/10/24 History metoprolol tartrate 25 mg tablet 25 mg PO BID 11/02/24 12/10/24 History omeprazole 20 mg capsule,delayed 20 mg PO QDAY 11/02/24 12/10/24 History release ropinirole 0.25 mg tablet 0.5 mg PO QHS 11/02/24 12/10/24 History semaglutide 0.25 mg or 0.5 mg (2 0.5 mg subcut QWEEK 11/02/24 11/28/24 History mg/3 mL) subcutaneous pen injector ([employer]) Allergy/AdvReac Type Severity Reaction Status Date / Time pseudoephedrine HCl (From Allergy Other Verified 12/11/24 06:32 Sudafed) KATY Inhibitors AdvReac Other Verified 12/11/24 06:32 Family History Brother Diabetes High cholesterol Hypertension Sister High cholesterol Hypertension Diabetes Father High cholesterol Hypertension Diabetes Cataract Mother No problems noted. Surgical History Hx of oral surgery Hx of hand surgery History of colonoscopy Hx of lithotripsy Hx of bilateral inguinal hernia repair History of partial colectomy Social History Smoking Status: Former smoker second hand exposure: No alcohol intake: never substance use type: does not use caffeine: Yes what type of physical activity do you participate in: none frequency: does not exercise seatbelt use: always Review of Systems (Anesthesia) ROS Narrative System reviewed and no additional complaints, except as documented.
--- NOTE | 2024-12-11 07:30 | COLBX_PTH ---
PATIENT: NAYELY WEEKS LOC: EN U#:[id number] AGE/SX: 69/M ROOM: RE12/11/[address]: Dr. Kam Jimenez MD : 1955 BED: DIS: 12/11/2024 SPEC #: [id number] RECD: 12/11/24 14:35 STATUS: [place] #: [id number] SHAE: 12/11/24 07:[address]: Kam Jimenez DEPT: SURGICAL PATHOLOGY RECD BY: Britton Lantigua ENTERED: 12/11/24 14:35 SP TYPE: COLON BX OTHR DR: Dr. Blake Sandoval MD Tissues: A - Transverse colon B - Sigmoid colon biopsy Procedures: Surgery Specimen Level IV HEADER OPERATION: Colonoscopy with polypectomy and biopsy of polyp PRE-OP DIAGNOSIS: Personal history of colonic polyps TISSUE SUBMITTED: A- Transvers colon polyp biopsy, B- Sigmoid polyp x2 MICROSCOPIC DIAGNOSIS A. Transverse colon, polyp, biopsy: - Tubular adenoma. B. Sigmoid colon, polyp x 2, biopsy: - Tubular adenoma. MICROSCOPIC DESCRIPTION Slides are reviewed. GROSS DESCRIPTION A. Received in formalin in a container labeled with the patient's name, date of , and transverse colon polyp biopsy are multiple canales-pink fragments of mucosal tissue measuring 1.0 x 0.7 x 0.3 cm in aggregate. Submitted in toto in A1. B. Received in formalin in a container labeled with the patient's name, date of , and Sigmoid polyp are multiple canales-pink fragments of possible soft tissue admixed with food/fecal debris measuring 1.0 x 0.9 x 0.3 cm. Submitted in toto in B1. [facility] 12-11-2024 CPT:56589t1
[2024-12-11 07:43] LABS: Bedside Glucose 188 mg/dL (74-106)
--- NOTE | 2024-12-11 08:30 | PCM.POST.ANE ---
Anesthesia: Postop Eval I Current Vital Signs Temperature: 97 F Pulse Rate: 63 Blood Pressure: 118/81 Respiratory Rate: 16 Pulse Ox: 92 Oxygen Delivery Method: Room Air Assessment Airway patent: Yes Spontaneous unlabored respirations: Yes Mental status: Awake and Calm nausea: No Vomiting: No Anesthesia Complication: No Fluid Hydration Crystalloid volume administer (ml): 50 Total IV fluid infused: 50 Progress Note Anesthesia document: Postop Eval 1 completed: Yes
--- NOTE | 2024-12-11 08:36 | OP.CCLET_ITS ---
12/11/2024 Blake Sandoval Re : Colonoscopy procedure for Lopez Garcia Dear Lori This procedure was performed on Wednesday, December 11, 2024. My impressions and recommendations are as follows: Impressions : - Preparation of the colon was unsatisfactory. - Diverticulosis in the sigmoid colon. - One 4 mm polyp in the transverse colon, removed with a cold biopsy forceps. Resected and retrieved. - Two 3 to 6 mm polyps in the sigmoid colon, removed with a hot snare. Resected and retrieved. - The examination was otherwise normal. Recommendations : - Discharge patient to home (ambulatory). - High fiber diet. - Await pathology results. - Repeat colonoscopy in 3 - 5 years for surveillance. - Return to my office PRN. - Continue present medications. My findings are described in the full procedure note, which is enclosed. If I can be of further assistance, please feel free to contact me at . Sincerely, Kam Jimenez MD 12/11/2024 8:36:17 AM This report has been signed electronically.
--- NOTE | 2024-12-11 08:36 | OP.COLON_ITS ---
Patient Name: Lopez Garcia Procedure Date: 12/11/2024 7:44 AM Date of : 1955 Age: 69 Procedure: Colonoscopy Indications: High risk colon cancer surveillance: Personal history of colonic polyps Providers: Kam Jimenez MD Referring MD: Blake Sandoval Medicines: Propofol per Anesthesia Patient Profile: Refer to note in patient chart for documentation of history and physical. Last Colonoscopy: 5 years ago. Complications: No immediate complications. Estimated blood loss: Minimal. Procedure: Pre-Anesthesia Assessment: - Prior to the procedure, a History and Physical was performed, and patient medications and allergies were reviewed. The patient's tolerance of previous anesthesia was also reviewed. The risks and benefits of the procedure and the sedation options and risks were discussed with the patient. All questions were answered, and informed consent was obtained. Prior Anticoagulants: The patient has taken Eliquis (apixaban), last dose was 4 days prior to procedure. ASA Grade Assessment: II - A patient with mild systemic disease. After reviewing the risks and benefits, the patient was deemed in satisfactory condition to undergo the procedure. After I obtained informed consent, the scope was passed under direct vision. Throughout the procedure, the patient's blood pressure, pulse, and oxygen saturations were monitored continuously. The adult colonoscope was introduced through the anus and advanced to the cecum, identified by appendiceal orifice and ileocecal valve. The ileocecal valve, appendiceal orifice, and rectum were photographed. A portion of the colon was not well visualized. Specifically, the sigmoid colon was not adequately visualized. The colonoscopy was performed without difficulty. The patient tolerated the procedure well. The quality of the bowel preparation was unsatisfactory. Moderate Sedation: See the other procedure note for documentation of moderate sedation with intraservice time. Scope In: 7:50:46 AM Scope Withdrawal Time 0 hours 20 minutes 9 seconds Scope Out: 8:28:45 AM Total Procedure Duration Time 0 hours 37 minutes 59 seconds Findings: The perianal and digital rectal examinations were normal. Multiple small and large-mouthed diverticula were found in the sigmoid colon. A 4 mm polyp was found in the transverse colon. The polyp was semi-sessile. The polyp was removed with a cold biopsy forceps. Resection and retrieval were complete. Verification of patient identification for the specimen was done using the patient's name, date and medical record number. Estimated blood loss was minimal. Two semi-sessile polyps were found in the sigmoid colon. The polyps were 3 to 6 mm in size. These polyps were removed with a hot snare. Resection and retrieval were complete. Verification of patient identification for the specimen was done by the nurse using the patient's name, date and medical record number. Estimated blood loss was minimal. The exam was otherwise without abnormality. Impression: - Preparation of the colon was unsatisfactory. - Diverticulosis in the sigmoid colon. - One 4 mm polyp in the transverse colon, removed with a cold biopsy forceps. Resected and retrieved. - Two 3 to 6 mm polyps in the sigmoid colon, removed with a hot snare. Resected and retrieved. - The examination was otherwise normal. Recommendation: - Discharge patient to home (ambulatory). - High fiber diet. - Await pathology results. - Repeat colonoscopy in 3 - 5 years for surveillance. - Return to my office PRN. - Continue present medications. Procedure Code(s): --- Professional --- 85746, Colonoscopy, flexible; with removal of tumor(s), polyp(s), or other lesion(s) by snare technique 36929, 59, Colonoscopy, flexible; with biopsy, single or multiple Diagnosis Code(s): --- Professional --- Z86.010, Personal history of colonic polyps K57.30, Diverticulosis of large intestine without perforation or abscess without bleeding D12.3, Benign neoplasm of transverse colon (hepatic flexure or splenic flexure) D12.5, Benign neoplasm of sigmoid colon CPT copyright 2021 [employer]. All rights reserved. The codes documented in this report are preliminary and upon group fitness instructor review may be revised to meet current compliance requirements. Kam Jimenez MD 12/11/2024 8:36:17 AM This report has been signed electronically. Number of Addenda: 0 Note Initiated On: 12/11/2024 7:44 AM
--- NOTE | 2024-12-11 08:37 | POSTOPAN2_ITS ---
Anesthesia Postop Eval I Sum Postop Eval Completion status Anesthesia document: Postop Eval 1 completed: Yes Anesthesia Postop Eval I Summary Anesthesia Postop Eval I Summary: Anesthesia Postop Eval I: Assessment Summary Airway patent Yes 12/11/24 08:30 ORDER [email or web address] Spontaneous unlabored Yes 12/11/24 08:30 ORDER [email or web address].[email or web address] respirations Mental status Awake,Calm 12/11/24 08:30 ORDER PULLER.MDOT nausea No 12/11/24 08:30 ORDER PULLER.MDOT Vomiting No 12/11/24 08:30 ORDER [email or web address].[email or web address] Anesthesia Postop Eval I: Fluid Summary Crystalloid volume administer 50 12/11/24 08:30 ORDER PULLER.MDOT (ml) Colloids volume administered ( ml) Blood Product volume administered (ml) Total IV fluid infused 50 12/11/24 08:30 ORDER PULLER.MDOT Anesthesia Postop Eval I: Summary Notes Anesthesia Complication No 12/11/24 08:30 ORDER PULLER.MDOT Anesthesia Complication Comment: Post-operative progress note Anesthesia: Postop Eval II Evaluation Mental status: Awake and Calm Pain Level: 0 nausea: No Vomiting: No Complications Anesthesia Complication: No
--- NOTE | 2024-12-11 08:37 | PCM.POSTANE2 ---
Anesthesia Postop Eval I Sum Postop Eval Completion status Anesthesia document: Postop Eval 1 completed: Yes Anesthesia Postop Eval I Summary Anesthesia Postop Eval I Summary: Anesthesia Postop Eval I: Assessment Summary Airway patent Yes 12/11/24 08:30 [employer].MDOT Spontaneous unlabored Yes 12/11/24 08:30 [employer].MDOT respirations Mental status Awake,Calm 12/11/24 08:30 [employer].MDOT nausea No 12/11/24 08:30 [employer].MDOT Vomiting No 12/11/24 08:30 [employer].MDOT Anesthesia Postop Eval I: Fluid Summary Crystalloid volume administer 50 12/11/24 08:30 [employer].MDOT (ml) Colloids volume administered ( ml) Blood Product volume administered (ml) Total IV fluid infused 50 12/11/24 08:30 [employer].MDOT Anesthesia Postop Eval I: Summary Notes Anesthesia Complication No 12/11/24 08:30 [employer].MDOT Anesthesia Complication Comment: Post-operative progress note Anesthesia: Postop Eval II Evaluation Mental status: Awake and Calm Pain Level: 0 nausea: No Vomiting: No Complications Anesthesia Complication: No
== END 2024-12-11 09:19 | disposition home or self-care (01) ==
LOC: EN 05:43 → AC 05:44
PROVIDERS: PCP Family Medicine; Referring Provider Family Medicine; Visit Provider Surgery
PROC: 0DJD8ZZ Inspection of Lower Intestinal Tract, Via Natural or Artificial Opening Endoscopic (ICD-10-PCS; CPT 45378; principal; 2024-12-11 07:25)
DX: D12.3 Benign neoplasm of transverse colon (principal); I48.0 Paroxysmal atrial fibrillation; E11.9 Type 2 diabetes mellitus without complications; D12.5 Benign neoplasm of sigmoid colon; K57.30 Diverticulosis of large intestine without perforation or abscess without bleeding; Z86.0100 Personal history of colon polyps, unspecified; I10 Essential (primary) hypertension; K21.9 Gastro-esophageal reflux disease without esophagitis; E78.5 Hyperlipidemia, unspecified; G25.81 Restless legs syndrome; Z87.19 Personal history of other diseases of the digestive system; Z90.49 Acquired absence of other specified parts of digestive tract; Z79.84 Long term (current) use of oral hypoglycemic drugs; Z79.01 Long term (current) use of anticoagulants; Z79.899 Other long term (current) drug therapy; Z87.891 Personal history of nicotine dependence
CPT/HCPCS: 45385; 45380; 82962; 88305; A4216